=== PATIENT | female | born 1950 | race Caucasian/White ===

== ENCOUNTER 2019-08-09 05:47 | Day surgery (SDC) | payer MEDICARE, OTHER, SELFPAY ==
--- NOTE | 2019-08-08 08:46 | PM.HPUD ---
H&P update H&P Update: DATE OF SURGERY/PROCEDURE: 08/08/19 DATE H&P PERFORMED: 08/08/19 PLANNED PROCEDURE: Operation Date: 08/09/19 07:00 Proposed Procedures p Carpal Tunnel Release(Left) - Corby Ramsay MD Full H&P HPI: PLANNED PROCEDURE: Left carpal tunnel release HPI: The patient is a 68-year-old female who presented to my clinic on 06/20/2019 with complaints of carpal tunnel syndrome. She described a long history of problems actually beginning as far back as 1985. She underwent right carpal tunnel release at that time but continued to try to manage her left. He describes things steadily progressing. She frequently drops objects. She describes difficulty sleeping at night. ROS: ROS: She has no fevers or chills. She has no chest pain shortness of breath or palpitations. She has no cough or congestion. Has no history of anesthetic complications. She has no history of deep venous thromboses or pulmonary emboli. Pertinent Exam Findings: OTHER PERTINENT EXAM FINDINGS: HEAD: Normocephalic/atraumatic. NECK: Soft supple nontender. HEART: Normal heart sounds, regular rhythm. CHEST: Clear to auscultation. ABDOMEN: Soft nontender nondistended. On examination the patient's left wrist her wrist can be dorsiflexed 7 degrees and palmar flex 70 degrees. She can supinate 90 degrees and pronate 70 degrees. She has a positive Tinel sign over the left wrist. Her sensation is grossly intact to light touch. Pertinent Data: PERTINENT DATA: EMG nerve conduction studies were reviewed showing severe left carpal tunnel syndrome and mild to moderate left ulnar neuropathy. A&P Assessment and plan (1) Left carpal tunnel syndrome: The patient has been previously counseled and will proceed with left carpal tunnel release. Status: Acute Code(s): G56.02 - Carpal tunnel syndrome, left upper limb (2) Cubital tunnel syndrome on left: The patient has very mild EMG nerve conduction studies of the ulnar nerve. She does not appear to be symptomatic and I would suggest observation of her cubital tunnel syndrome. Status: Acute Code(s): G56.22 - Lesion of ulnar nerve, left upper limb
[2019-08-08 12:07] VITALS: BMI 23.2
[2019-08-09 06:07] VITALS: BP 111/60; PULSE 64; RESP 18; TEMP 36.6; O2SAT 98
--- NOTE | 2019-08-09 06:27 | ANES.PREANES ---
Pre-Anesthetic Assessment Pre-Anesthetic Assessment: Height/Weight: Height 1.57 m Weight 57.606 kg Temp Pulse Resp BP Pulse Ox 97.9 F 64 18 111/60 98 08/09/19 06:07 08/09/19 06:07 08/09/19 06:07 08/09/19 06:07 08/09/19 06:07 Preop Diagnosis: Left carpal tunnel Proposed Procedure: Operation Date: 08/09/19 07:00 Proposed Procedures p Carpal Tunnel Release(Left) - Corby Ramsay MD Familial anesthetic complications: None Was Beta Tiffany taken within 24 hours: Yes Last intake: Intake Last Liquid Date 08/09/19 Last Liquid Time 04:45 Last Solid Date 08/08/19 Last Solid Time 21:00 Social: Social History: No alcohol and No tobacco Exam: Pre-Anes Outpt Exam: alert, oriented x 3, clear to auscultation bilaterally and regular rate & rhythm Airway: Cervical ROM: WNL MP: 3 Dentition: Chipped Additional comments: missing teeth, Pulmonary: Pulmonary: None reported CV/HEM: Comments: had fast heart rate so takes metoprolol : : None reported Hepatic: Hepatic: None reported GI: GI: None reported Metabolic: Metabolic: DM and Thyroid Musc/skel: Musc/skel: None reported Anesthetic Plan: ASA status: II Anesthesia: MAC PFSH Anesthesia PFSH: Social History (Updated 08/08/19 @ 12:05 by Pushpa Poole) Smoking and tobacco status: never smoked Alcohol intake: never Data Anesthesia Cardiac Studies: No Data to Display
[2019-08-09 06:30] LABS: Glucose Point of Care 188 mg/dL (70-110)
[2019-08-09] MEDS: sodium chloride 0.9% 1,000 ML 30 ML IV (06:37)
[2019-08-09 08:13] VITALS: BP 96/54; PULSE 66; RESP 18; TEMP 36.1; O2SAT 95
--- NOTE | 2019-08-09 08:19 | PM.OP ---
Operative Report Date of procedure: 08/09/19 Pre-op Diagnosis: Left carpal tunnel Post-op diagnosis: same Post-op Findings: None Procedure Done: Left carpal tunnel release Pathology: none sent Surgeon: Corby Ramsay Anesthesia: MAC and Local Estimated blood loss (mL): 5 Tourniquet time (min): 6 Complications: No masses or space-occupying lesions were seen within the carpal tunnel Procedure: Patient was taken to the operating room and sedation provided by the anesthesia service. She was prepped and draped with the arm exposed. A timeout was performed. Initially the incision line was infiltrated with approximately 4 cc of half percent Marcaine. A 3 cm long incision was made in line with the fourth ray from the distal edge of the carpal tunnel extending proximally. The subcutaneous fat and palmar fascia was divided with a scalpel blade. Under loupe magnification the ulnar neurovascular bundle was identified distally. A hemostat could be passed under the transverse carpal ligament allowing the distal 25% to be divided. A slotted guide was then passed beneath the transverse carpal ligament and the middle 50% divided. Blunt scissors were then passed over the guide freeing the proximal ligament. The tourniquet was deflated. Hemostasis provided with electrocautery. Wound edges were infiltrated with an additional 6 cc of a half percent Marcaine solution. Skin edges were reapproximated with 3-0 Prolene. Sterile dressings were applied. The patient was taken to the recovery room in stable condition
[2019-08-09 08:38] VITALS: BP 131/68; PULSE 59; RESP 18; TEMP 36.1; O2SAT 97
== END 2019-08-09 09:20 | disposition home or self-care (01) ==
PROVIDERS: Family Provider Internal Medicine; Visit Provider Orthopaedic Surgery
PROC: (CPT 64721; principal; 2019-08-09 07:00)
DX: G56.02 Carpal tunnel syndrome, left upper limb (principal); E11.9 Type 2 diabetes mellitus without complications; Z79.4 Long term (current) use of insulin; G56.22 Lesion of ulnar nerve, left upper limb
CPT/HCPCS: 64721; 12345; 36416; 82962; 96365; J2001; J2704; J3010; J7030

== ENCOUNTER → 2020-03-14 16:12 | Outpatient (BNVA) | payer MEDICARE, OTHER, SELFPAY | PROVIDERS: Family Provider Internal Medicine; Visit Provider Internal Medicine | DX: K74.60 Unspecified cirrhosis of liver (principal); E11.9 Type 2 diabetes mellitus without complications; K75.81 Nonalcoholic steatohepatitis (NASH); B19.20 Unspecified viral hepatitis C without hepatic coma; R63.4 Abnormal weight loss; Z86.19 Personal history of other infectious and parasitic diseases | CPT/HCPCS: 80053; 80061; 82105; 83036; 85025 ==

== ENCOUNTER 2020-03-22 11:21 | Outpatient (CLI) | payer MEDICARE, OTHER, SELFPAY ==
[2020-03-22] MEDS: iohexol 300 mg/mL 50 mL Btl PO (12:53)
--- NOTE | 2020-03-22 13:00 | CT_ITS ---
WS: [id number] CT ABDOMEN AND PELVIS WITH CONTRAST HISTORY: history of cir TECHNIQUE: Imaging performed of the abdomen and pelvis with IV contrast. Single phase imaging of the abdomen. Coronal and sagittal reformats are submitted. All CT scans at [facility] use at least one of these dose optimization techniques: automated exposure control; mA and/or kV adjustment per patient size (includes targeted exams where dose is matched to clinical indication); or iterativ e reconstruction. IV CONTRAST: Omnipaque 300; 95 mL IV. Oral contrast: Yes. DLP: 1081.37 mGycm COMPARISON: 12/10/2016 Lower thorax: Lung bases are clear. Moderate cardiac enlargement. Small hiatal hernia. Paraesophageal varicosities. Liver/biliary system: Small shrunken liver with significant surface nodularity and caudate enlargemen t from cirrhosis. Mild central duct dilatation. Cyst in the lateral segment LEFT lobe of the liver me asures 2.6 cm. Too small to to characterize hypodensity in the RIGHT lobe. May be a small cyst. Gallbladder: Prior cholecystectomy. Pancreas: Common bile duct at pancreatic head measures 9.7 mm. Mild prominence to the cholecystectomy . No pancreatic head mass. Spleen: Normal. Adrenal glands: Normal. Right kidney: Cortical cyst mid kidney measures 19 mm. Small extrarenal pelvis. No obstruction. Left kidney: Cortical cyst upper pole measures 10 mm. Small extrarenal pelvis. Aorta: No aneurysm. Mild atherosclerosis. There is mild soft tissue thickening around the inferior me senteric artery which is similar to the prior study. Lymphadenopathy: None. Free fluid: None. GI tract: No GI tract obstruction. There is significant fecal retention. No diverticular disease. Abdominal wall: Small amount of edema or soft tissue thickening along the anterior abdominal wall. Si milar to the prior study. Pelvis: Small anteverted uterus. Bones: Unremarkable. CT/CT abdomen pelvis w con* [id number] IMPRESSION: 1. Marked cirrhosis with hepatic cyst. 2. Prior cholecystectomy. 3. No adenopathy or ascites. 4. Diffuse constipation. 5. Bilateral renal cysts.
[2020-03-22] MEDS: iohexol 300 mg/mL 100 mL Btl IV (13:09)
== END 2020-03-22 11:22 | disposition home or self-care (01) ==
LOC: RADWPI 11:27
PROVIDERS: Family Provider Internal Medicine; PCP Internal Medicine; Visit Provider Internal Medicine
DX: R63.4 Abnormal weight loss (principal); K74.60 Unspecified cirrhosis of liver; K59.00 Constipation, unspecified; K76.89 Other specified diseases of liver; Q61.02 Congenital multiple renal cysts
CPT/HCPCS: 74177; Q9967

== ENCOUNTER → 2020-06-26 14:37 | Outpatient (BNVA) | payer MEDICARE, OTHER, SELFPAY | PROVIDERS: Family Provider Internal Medicine; PCP Internal Medicine; Visit Provider Internal Medicine | DX: E11.9 Type 2 diabetes mellitus without complications (principal); Z00.00 Encounter for general adult medical examination without abnormal findings; K74.60 Unspecified cirrhosis of liver; K21.9 Gastro-esophageal reflux disease without esophagitis | CPT/HCPCS: 83036 ==

== ENCOUNTER 2021-04-10 10:29 | Outpatient (CLI) | payer MEDICARE, OTHER, SELFPAY ==
--- NOTE | 2021-04-10 10:34 | MM_ITS ---
WS: [id number] Exam: [place] [id number] Date/Time of Exam: 04/10/2021 10:46 AM Reason For Exam: SCREENING VIEWS: MLO and CC views both breasts. Comparison made with prior exam of 09/18/2016, 12/10/2017 and 03/27/2019. Findings: There was no sign of mass, architectural distortion or suspicious calcification in either breast. He terogeneously dense MM/[place] [id number] Impression: BI-RADS: 2-Benign FOLLOW-UP: 1 Year Follow-up This mammogram was also analyzed by the Computer Aided Detection System [employer].
== END 2021-04-10 10:30 | disposition home or self-care (01) ==
LOC: RADSHAW 10:33
PROVIDERS: PCP Family Medicine; Visit Provider Family Medicine
DX: Z12.31 Encounter for screening mammogram for malignant neoplasm of breast (principal)
CPT/HCPCS: 77067

== ENCOUNTER 2021-07-02 15:42 | Emergency (ER) | payer MEDICARE, OTHER, SELFPAY ==
[2021-07-02 15:52] VITALS: BP 136/63; PULSE 76; RESP 18; TEMP 37.1; O2SAT 98
--- NOTE | 2021-07-02 16:13 | ED_ITS ---
Documented by User: STUART Karus 07/02/21 16:15 HPI - Abdominal Pain General: Chief Complaint: Abdominal Pain Stated Complaint: BAD LIVER AND FELL ON THAT SIDE EXTENDED STOMACH Time Seen by Provider: 07/02/21 16:12 History of Present Illness: HPI narrative: Patient states she fell 4 days ago and landed on her right side did not have any acute pain but a day later she started hurting pretty bad and her right upper quadrant. States that her abdomen is 3 is times a size and normal now and feels very uncomfortable. Does not affect her breathing. Has had history hepatitis C. Treated. MD elicited complaint: abdominal pain Pertinent past history: other (Hep C in remission) Onset (ago): day(s) Pain Consistency: constant Location: Epigastric, Periumbilical and RUQ Severity: moderate Quality: fullness Migration to: no migration Exacerbating factors: movement Relieving factors: rest Context: other (Liver cirrhosis) Associated Symptoms: Reports bloating and other (Decreased appetite); Denies chills, fever(s) and nausea Review of Systems Const: Denies: fever(s), chills or body aches Eyes: Denies: change in vision or blurry vision ENMT: Denies: throat pain or nasal congestion Card: Denies: chest pain or dyspnea on exertion Resp: Denies: dyspnea, productive cough or non-productive cough GI: Reports: abdominal pain, bloating and other (Decreased appetite); Denies: nausea Musc: Denies: extremity pain Skin/Breast: Denies: rash Neuro: Denies: headache(s) Psych: Denies: anxiety or depression Saulo/Lymph: Denies: easy bruising PFSH ED PFSH: Medical History Diabetes mellitus, type II Gastroesophageal reflux Hepatitis C Surgical History History of carpal tunnel surgery of left wrist History of carpal tunnel surgery of right wrist Hx laparoscopic cholecystectomy Social History Smoking and tobacco status: never smoked Alcohol intake: never History of recent travel: No Physical Exam Const: COMMON NORMALS: no acute distress, average body habitus and patient oriented x3 HENMT: COMMON NORMALS: normocephalic HEAD & SCALP: normal to inspection and normocephalic FACE & SINUS: normal facial exam Eye: GENERAL EYE: appearance normal, both eyes and all related structures CONJUNCTIVA: Yes conjunctival abnormal positive bilateral (Mild jaundice) SCLERA: scleral abnormal Laterality of scleral abnormality: positive bilateral other (Don is) Neck/C-Spine: COMMON NORMALS: no JVD Chest: COMMONS NORMALS: normal inspection of the chest Resp: COMMON NORMALS: normal respiratory effort and clear to auscultation bilaterally AUSCULTATION: clear to auscultation bilaterally Cardio: COMMON NORMALS: no JVD, regular rate and regular rhythm RATE: regular rate RHYTHM: regular rhythm GI: COMMON NORMALS: Normal to inspection, nondistended, normoactive bowel sounds present Extremity: COMMON NORMALS: normal to inspection and full ROM Neuro: COMMON NORMALS: patient oriented x3 Skin: NARRATIVE SKIN EXAM: Slight jaundice Course Vital Signs: Vital signs: Vital Signs Temperature 98.1 F 07/02/21 21:18 Pulse Rate 70 07/02/21 21:18 Respiratory Rate 18 07/02/21 21:18 Blood Pressure 137/64 07/02/21 21:18 Pulse Oximetry 98 07/02/21 21:18 MDM - Abdominal Pain Lab Data: Labs: Lab Results 07/02/21 07/02/21 16:30 16:30 WBC 9.4 10^3/uL 10^3/ uL (4.0-10.0) RBC 3.08 10^6/uL L 10 ^6/uL (4.1-5.3) Hgb 11.4 g/dL L g/dL (11.5-15.3) Hct 33.2 % L % (37.0-47.0) MCV 107.8 fl H fl (81-99) MCH 37.0 pg H pg (28.0-34.0) MCHC 34.3 g/dL g/dL (30.0-36.0) RDW 14.6 % % (12.1-15.1) Plt Count 93 10^3/cmm L 10^ 3/cmm (130-400) MPV 11.4 fL H fL (7.4-10.4) Neut % (Auto) 77.6 % % Lymph % (Auto) 9.8 % % [place] % (Auto) 8.9 % % Eos % (Auto) 2.6 % % Baso % (Auto) 0.6 % % Neut # (Auto) 7.26 10^3/uL 10^3 /uL (1.8-7.7) Lymph # (Auto) 0.9 10^3/uL 10^3/ uL (0.8-4.8) [place] # (Auto) 0.8 10^3/uL 10^3/ uL (0.2-0.9) Eos # (Auto) 0.2 10^3/uL 10^3/ uL (0.0-0.8) Baso # (Auto) 0.1 10^3/uL 10^3/ uL (0.0-0.1) Nucleated RBC % (a uto) 0 % % Nucleated RBCs # 0.0 /100WBC /100W BC Sodium 136 mmol/L mmol/L (136-145) Potassium 4.3 mmol/L mmol/L (3.5-5.1) Chloride 105 mmol/L mmol/L (98-107) Carbon Dioxide 21 mmol/L L mmol/ L (22-29) Anion Gap 14.3 (5-19) BUN 17 mg/dL mg/dL (8-23) Creatinine 0.8 mg/dL mg/dL (0.5-0.9) GFR Calculation 70.9 mL/min L mL/ min (90-130) Glucose 198 mg/dL H mg/dL (65-115) Calculated Osmolal ity 289 mOsm/kg mOsm/ kg (285-295) Calcium 7.7 mg/dL L mg/dL (8.5-10.5) Total Bilirubin 2.9 mg/dL H mg/dL (0.15-1.2) AST 65 U/L H U/L (0-32) ALT 52 U/L H U/L (0-33) Alkaline Phosphata se 176 IU/L H IU/L (35-105) Total Protein 6.0 g/dL L g/dL (6.6-8.7) Albumin 2.7 g/dL L g/dL (3.5-5.2) Globulin 3.3 g/dL g/dL (1.3-4.6) Discharge Plan Discharge Patient Disposition: Home Clinical Impression: Liver cirrhosis Qualifiers: Hepatic cirrhosis type: other cirrhosis Qualified Code(s): K74.69 - Other cirrhosis of liver Ascites Qualifiers: Ascites type: other type Qualified Code(s): R18.8 - Other ascites Condition: Stable Prescriptions: No Action meloxicam 15 mg tablet 15 mg PO DAILY Qty: 90 RF: 3 hydroxyzine HCl 10 mg tablet 10 mg PO .qhs Qty: 90 RF: 3 triamcinolone acetonide 0.1 % ointment 1 applic topical BID Qty: 80 RF: 1 mupirocin 2 % ointment 1 applic topical BID Qty: 22 RF: 2 (DME) BD Insulin Syringe U-500 1/2 mL 31 gauge x 15/64 syringe See Rx Instructions .ROUTE .MEDSUPPLY Qty: 100 RF: 3 levothyroxine 88 mcg tablet See Rx Instructions .ROUTE .COMPLEX Qty: 90 RF: 3 Novolog PenFill U-100 Insulin 18 units SUBCUT .TID AC Qty: 17 RF: 3 metoprolol tartrate 50 mg tablet 50 mg PO DAILY Qty: 90 RF: 3 (DME) insulin syringe-needle U-100 [BD Insulin Syringe Ultra-Fine] 1 mL 31 gauge x 5/16 syringe See Rx Instructions .ROUTE .MEDSUPPLY Qty: 100 RF: 3 loratadine 10 mg tablet 20 mg PO DAILY Qty: 10 RF: 0 (DME) pen needle, diabetic [Comfort EZ Pen [place]] 32 gauge x 5/32 needle See Rx Instructions .ROUTE .MEDSUPPLY Qty: 100 RF: 0 Levemir U-100 Insulin 100 unit/mL solution See Rx Instructions .ROUTE .COMPLEX Qty: 30 RF: 9 [place] 5-325 mg tablet 1 tab PO Q4H PRN (Reason: pain) Qty: 20 RF: 0 simvastatin 20 mg tablet 20 mg PO DAILY Qty: 90 RF: 3 Discharge Orders: Discharge ED (Routine); Ordered 07/02/21 Ordered By: Archie Pearson Referrals: Donal Fernandes MD [Primary Care Provider] - Discharge Diet: Regular Discharge Activity: Increase activity as tolerated Patient Instructions: Cirrhosis (ED), Ascites (ED), Opioid Safety Activity Restrictions/Additional Instructions: Follow-up with medical provider as directed. Contact your PCP to let them know about your ED visit and your onset of liver cirrhosis with ascites and you need for out patient paracentesis. Case management should be contacting you in the next several days set up an appointment with specialist. take medications as prescribed. Return to the ER or your medical provider if condition worsens. Please read and understand discharge instructions. Thank you for choosing [facility] for your healthcare needs today. Please realize this is an emergency room and that we are providing you with a medical screening exam and this may not be complete and all inclusive of all the testing and or work up that you may need to determine your ailment or severity of your illness. It is very important that you follow up as instructed or that you return to the Emergency Department should you have concerns or if your condition changes or worsens in any way. Sign Out Sign Out Data: Patient Sign Out occurred on 07/02/21 at 17:07. Patient's care was discussed, and care was transferred from to THAIS Canas. Coding Level of Care Code ED Flight Operations Specialist for Chg Fwd Exam Comprehensive Documented by User: THAIS Canas 07/03/21 00:41 HPI - Abdominal Pain General: Chief Complaint: Abdominal Pain Stated Complaint: BAD LIVER AND FELL ON THAT SIDE EXTENDED STOMACH Time Seen by Provider: 07/02/21 16:12 [facility] ED PFSH: Medical History Diabetes mellitus, type II Gastroesophageal reflux Hepatitis C Surgical History History of carpal tunnel surgery of left wrist History of carpal tunnel surgery of right wrist Hx laparoscopic cholecystectomy Social History Smoking and tobacco status: never smoked Alcohol intake: never History of recent travel: No Course Vital Signs: Vital signs: Vital Signs Temperature 98.1 F 07/02/21 21:18 Pulse Rate 70 07/02/21 21:18 Respiratory Rate 18 07/02/21 21:18 Blood Pressure 137/64 07/02/21 21:18 Pulse Oximetry 98 07/02/21 21:18 MDM - Abdominal Pain MDM Narrative: Medical decision making narrative: Patient is a 70-year-old female comes to the ED with right-sided abdominal pain and swelling. Past medical history of hepatitis C and liver cirrhosis. Patient had a fall 4 days ago and states that symptoms started after that. Total bili 2.9, AST 65, ALT 52, alk phos 176. Rest of CBC and CMP were unremarkable. CT of abdomen pelvis showed significant liver cirrhosis with large ascites. Patient says she has never had to have fluid drained off her abdomen before. I talked with Dr. Arenas about patient case and he said patient needs an outpatient IR paracentesis.I put in a referral with case management for patient be set up with a specialist for evaluation and paracentesis. Patient was discharged home and told that case management should be contacting her in the next several days to set up an appointment with a specialist. I also told her to contact her PCP to discuss her liver cirrhosis with ascites. She was discharged home with a prescription for oxycodone 5 for pain. Return to ED precautions given. Patient understood and agreed with plan. Lab Data: Attestation: I reviewed the patient's lab results. Labs: Lab Results 07/02/21 07/02/21 16:30 16:30 WBC 9.4 10^3/uL 10^3/ uL (4.0-10.0) RBC 3.08 10^6/uL L 10 ^6/uL (4.1-5.3) Hgb 11.4 g/dL L g/dL (11.5-15.3) Hct 33.2 % L % (37.0-47.0) MCV 107.8 fl H fl (81-99) MCH 37.0 pg H pg (28.0-34.0) MCHC 34.3 g/dL g/dL (30.0-36.0) RDW 14.6 % % (12.1-15.1) Plt Count 93 10^3/cmm L 10^ 3/cmm (130-400) MPV 11.4 fL H fL (7.4-10.4) Neut % (Auto) 77.6 % % Lymph % (Auto) 9.8 % % [place] % (Auto) 8.9 % % Eos % (Auto) 2.6 % % Baso % (Auto) 0.6 % % Neut # (Auto) 7.26 10^3/uL 10^3 /uL (1.8-7.7) Lymph # (Auto) 0.9 10^3/uL 10^3/ uL (0.8-4.8) [place] # (Auto) 0.8 10^3/uL 10^3/ uL (0.2-0.9) Eos # (Auto) 0.2 10^3/uL 10^3/ uL (0.0-0.8) Baso # (Auto) 0.1 10^3/uL 10^3/ uL (0.0-0.1) Nucleated RBC % (a uto) 0 % % Nucleated RBCs # 0.0 /100WBC /100W BC Sodium 136 mmol/L mmol/L (136-145) Potassium 4.3 mmol/L mmol/L (3.5-5.1) Chloride 105 mmol/L mmol/L (98-107) Carbon Dioxide 21 mmol/L L mmol/ L (22-29) Anion Gap 14.3 (5-19) BUN 17 mg/dL mg/dL (8-23) Creatinine 0.8 mg/dL mg/dL (0.5-0.9) GFR Calculation 70.9 mL/min L mL/ min (90-130) Glucose 198 mg/dL H mg/dL (65-115) Calculated Osmolal ity 289 mOsm/kg mOsm/ kg (285-295) Calcium 7.7 mg/dL L mg/dL (8.5-10.5) Total Bilirubin 2.9 mg/dL H mg/dL (0.15-1.2) AST 65 U/L H U/L (0-32) ALT 52 U/L H U/L (0-33) Alkaline Phosphata se 176 IU/L H IU/L (35-105) Total Protein 6.0 g/dL L g/dL (6.6-8.7) Albumin 2.7 g/dL L g/dL (3.5-5.2) Globulin 3.3 g/dL g/dL (1.3-4.6) Imaging Data ^: CT Abd/Pel: Attestation: I personally reviewed and interpreted this imaging study as follows: Radiologist's impression: [facility] [address] [place] [address] CT Scan Report Signed Patient: Natacha Linares Unit #: [id number] : 1950 Age/Sex: 70 / F ADM Date: 07/02/21 Loc: ER Room/Bed: Attending Dr: Ordering Provider/Ordering MD: Adelso Almeida Sr, MOTOR TEACHER-SAHHRZAD Date of Service: 07/02/21 Procedure(s): CT abdomen pelvis w con* [id number] Accession Number(s): [id number] Report Number: [id number] PROCEDURE INFORMATION: Exam: CT Abdomen And Pelvis With Contrast Exam date and time: 07/02/2021 4:12 PM Age: 70 years old Clinical indication: Injury or trauma; Fall; Blunt; Generalized; Prior surgery; Surgery type: Gb; Additional info: Fall, pain, enlarged abd TECHNIQUE: Imaging protocol: Computed tomography of the abdomen and pelvis with contrast. Radiation optimization: All CT scans at this facility use at least one of these dose optimization techniques: automated exposure control; mA and/or kV adjustment per patient size (includes targeted exams where dose is matched to clinical indication); or iterative reconstruction. Contrast material: OMNI 300; Contrast volume: 95 ml; Contrast route: INTRAVENOUS (IV); COMPARISON: CT abdomen pelvis w con* [id number] 03/22/2020 1:06 PM RADIATION DOSE METRICS: Total DLP (mGy-cm): 1222.68 FINDINGS: Lungs: The lung bases are clear except for lingular atelectasis. Liver: There is a chronic 2 cm simple cyst in the left hepatic lobe. However the liver surface is diffusely nodular indicative of cirrhosis. Gallbladder and bile ducts: The gallbladder is surgically absent. Pancreas: Normal. No ductal dilation. Spleen: Normal. No splenomegaly. Adrenal glands: Normal. No mass. Kidneys and ureters: Several bilateral simple renal cysts up to 2 cm. 3 mm nonobstructing right intrarenal calculus. Stomach and bowel: Generalized small bowel wall thickening and proximal colonic wall thickening might be due to portal hypertension. Varices are noted in the left upper quadrant and around the esophagus and stomach. Appendix: No evidence of appendicitis. Intraperitoneal space: There is new large ascites extending into all 4 quadrants. Vasculature: See Stomach and bowel finding. Lymph nodes: Unremarkable. No enlarged lymph nodes. Urinary bladder: Unremarkable as visualized. Reproductive: Unremarkable uterus for age. Bones/joints: No acute bony findings. Soft tissues: Unremarkable. CT/CT abdomen pelvis w con* [id number] IMPRESSION: 1. Significant liver cirrhosis with large ascites and evidence of portal hypertension including varices and mesenteric edema with bowel wall thickening. 2. Other incidental findings as described COMMENTS: Consistent with the [employer]'s Incidental Findings Committee white paper (J Am Tad Radiol 2018): Any incidental renal lesion less than 1 cm or classified as too small to characterize, or any incidental cystic renal lesion characterized as simple-appearing, is likely benign. No follow-up imaging is recommended for these lesions per consensus recommendations based on imaging criteria. Dictated By: Orestes Soliman MD Signed By: Orestes Soliman MD Signed Date/Time: 07/02/212012 DD/ 1612 Discharge Plan Discharge Patient Disposition: Home Clinical Impression: Liver cirrhosis Qualifiers: Hepatic cirrhosis type: other cirrhosis Qualified Code(s): K74.69 - Other cirrhosis of liver Ascites Qualifiers: Ascites type: other type Qualified Code(s): R18.8 - Other ascites Condition: Stable Prescriptions: No Action meloxicam 15 mg tablet 15 mg PO DAILY Qty: 90 RF: 3 hydroxyzine HCl 10 mg tablet 10 mg PO .qhs Qty: 90 RF: 3 triamcinolone acetonide 0.1 % ointment 1 applic topical BID Qty: 80 RF: 1 mupirocin 2 % ointment 1 applic topical BID Qty: 22 RF: 2 (DME) BD Insulin Syringe U-500 1/2 mL 31 gauge x 15/64 syringe See Rx Instructions .ROUTE .MEDSUPPLY Qty: 100 RF: 3 levothyroxine 88 mcg tablet See Rx Instructions .ROUTE .COMPLEX Qty: 90 RF: 3 Novolog PenFill U-100 Insulin 18 units SUBCUT .TID AC Qty: 17 RF: 3 metoprolol tartrate 50 mg tablet 50 mg PO DAILY Qty: 90 RF: 3 (DME) insulin syringe-needle U-100 [BD Insulin Syringe Ultra-Fine] 1 mL 31 gauge x 5/16 syringe See Rx Instructions .ROUTE .MEDSUPPLY Qty: 100 RF: 3 loratadine 10 mg tablet 20 mg PO DAILY Qty: 10 RF: 0 (DME) pen needle, diabetic [Comfort EZ Pen [place]] 32 gauge x 5/32 needle See Rx Instructions .ROUTE .MEDSUPPLY Qty: 100 RF: 0 Levemir U-100 Insulin 100 unit/mL solution See Rx Instructions .ROUTE .COMPLEX Qty: 30 RF: 9 [place] 5-325 mg tablet 1 tab PO Q4H PRN (Reason: pain) Qty: 20 RF: 0 simvastatin 20 mg tablet 20 mg PO DAILY Qty: 90 RF: 3 Discharge Orders: Discharge ED (Routine); Ordered 07/02/21 Ordered By: Archie Pearson Referrals: Donal Fernandes MD [Primary Care Provider] - Discharge Diet: Regular Discharge Activity: Increase activity as tolerated Patient Instructions: Cirrhosis (ED), Ascites (ED), Opioid Safety Activity Restrictions/Additional Instructions: Follow-up with medical provider as directed. Contact your PCP to let them know about your ED visit and your onset of liver cirrhosis with ascites and you need for out patient paracentesis. Case management should be contacting you in the next several days set up an appointment with specialist. take medications as prescribed. Return to the ER or your medical provider if condition worsens. Please read and understand discharge instructions. Thank you for choosing [facility] for your healthcare needs today. Please realize this is an emergency room and that we are providing you with a medical screening exam and this may not be complete and all inclusive of all the testing and or work up that you may need to determine your ailment or severity of your illness. It is very important that you follow up as instructed or that you return to the Emergency Department should you have concerns or if your condition changes or worsens in any way. Sign Out Sign Out Data: Patient Sign Out occurred on 07/02/21 at 17:07. Patient's care was discussed, and care was transferred from to THAIS Canas. Coding Level of Care Code ED Flight Operations Specialist for Raúl Fwtate Exam Comprehensive
[2021-07-02 16:36] LABS: Basophils # 0.1 10^3/uL (0.0-0.1); Basophils % 0.6 %; Eosinophils # 0.2 10^3/uL (0.0-0.8); Eosinophils % 2.6 %; Hematocrit 33.2 % (37.0-47.0); Hemoglobin 11.4 g/dL (11.5-15.3); Lymphocytes # 0.9 10^3/uL (0.8-4.8); Lymphocytes % 9.8 %; Mean Corpuscular HGB Conc 34.3 g/dL (30.0-36.0); Mean Corpuscular Volume 107.8 fl (81-99); Mean Platelet Volume 11.4 fL (7.4-10.4); Monocytes # 0.8 10^3/uL (0.2-0.9); Monocytes % 8.9 %; Neutrophils # 7.26 10^3/uL (1.8-7.7); Neutrophils % 77.6 %; Nucleated Red Blood Cells % 0 %; Platelet Count 93 10^3/cmm (130-400); Red Blood Count 3.08 10^6/uL (4.1-5.3); Red Cell Distribution Width 14.6 % (12.1-15.1); White Blood Count 9.4 10^3/uL (4.0-10.0)
[2021-07-02 16:54] LABS: Alanine Aminotransferase 52 U/L (0-33); Albumin Level 2.7 g/dL (3.5-5.2); Alkaline Phosphatase 176 IU/L (35-105); Anion Gap 14.3 (5-19); Aspartate Amino Transferase 65 U/L (0-32); Blood Urea Nitrogen 17 mg/dL (8-23); Calcium 7.7 mg/dL (8.5-10.5); Carbon Dioxide 21 mmol/L (22-29); Chloride 105 mmol/L (98-107); Globulin 3.3 g/dL (1.3-4.6); Glomerular Filtration Rate 70.9 mL/min (90-130); Glucose 198 mg/dL (65-115); Osmolality Calculated 289 mOsm/kg (285-295); Potassium 4.3 mmol/L (3.5-5.1); Sodium 136 mmol/L (136-145); Total Bilirubin 2.9 mg/dL (0.15-1.2)
[2021-07-02] MEDS: iohexol 300 mg/mL 100 mL Btl IV (18:56)
--- NOTE | 2021-07-02 20:41 | PC.NURSE ---
provider at bedside speaking with patient. patient in no obvious distress.
[2021-07-02 21:01] VITALS: BP 137/64; PULSE 70; RESP 18; TEMP 36.7; O2SAT 98
[2021-07-02 21:12] VITALS: RESP 18; O2SAT 98
[2021-07-02] MEDS: oxyCODONE 5 mg IR Tab/Cap PO (21:12)
[2021-07-02 21:18] VITALS: BP 137/64; PULSE 70; RESP 18; TEMP 36.7; O2SAT 98
--- NOTE | 2021-07-03 09:40 | PC.SOCIAL ---
ED referral received by Dr Pearson for Interventional Radiology Paracentesis and follow up with specialist regarding liver cirrhosis and ascites. Call placed to patient and she prefers the [facility] network in [place] for Operations/Dispatch. Called [facility] and received phone and fax to send referral. Referral sent with fax confirmation received was sent successfully. Order written and signed by Dr Donnelly teenage program director to schedule the outpatient Paracentesis with IR. Faxed to [facility] scheduling with confirmation that fax was sent successfully. Patient is aware we are working on this. [facility] CM will followup on both appts. Patient did indicate she is able to make it to appt in [place] once scheduled and has transportation.
--- NOTE | 2021-07-08 13:55 | DCPLANNER ---
Addendum entered by Yessenia Benson 08/13/21 08:25: Patient had an appointment for the on 07.23.21 - patient did attend. Patient has an appointment with [facility] in [place] on 08.25.21 - patient is aware of appointment. Original Note: order manager confirmed with centralized scheduling that order was received for outpatient procedure. order manager also called [facility] to confirm that patients referral was received. order manager was told that clinic did not get the referral, community case manager refaxed patients information to [facility]
== END 2021-07-02 21:21 | disposition home or self-care (01) ==
PROVIDERS: Nurse Practitioner Family; Emergency Provider Physician Assistant; PCP Family Medicine
DX: K74.69 Other cirrhosis of liver (principal); R18.8 Other ascites; Z79.4 Long term (current) use of insulin; E11.9 Type 2 diabetes mellitus without complications; Z86.19 Personal history of other infectious and parasitic diseases
CPT/HCPCS: 74177; 80053; 85025; 99283; Q9967

== ENCOUNTER 2021-07-20 10:51 | Emergency (ER) | payer MEDICARE, OTHER, SELFPAY ==
[2021-07-20 11:12] VITALS: BP 126/67; PULSE 70; RESP 12; TEMP 36.3; O2SAT 98; BMI 22.4
[2021-07-20 14:45] LABS: Basophils # 0.1 10^3/uL (0.0-0.1); Basophils % 0.5 %; Eosinophils % 0.1 %; Hemoglobin 12.1 g/dL (11.5-15.3); Lymphocytes # 0.6 10^3/uL (0.8-4.8); Lymphocytes % 5.2 %; Mean Corpuscular HGB Conc 32.7 g/dL (30.0-36.0); Mean Corpuscular Hemoglobin 35.8 pg (28.0-34.0); Mean Corpuscular Volume 109.5 fl (81-99); Mean Platelet Volume 11.6 fL (7.4-10.4); Monocytes % 9.6 %; Neutrophils # 8.85 10^3/uL (1.8-7.7); Neutrophils % 84.1 %; Nucleated Red Blood Cells % 0 %; Platelet Count 87 10^3/cmm (130-400); Red Blood Count 3.38 10^6/uL (4.1-5.3); White Blood Count 10.5 10^3/uL (4.0-10.0)
--- NOTE | 2021-07-20 15:03 | W.ED.ABDPA2 ---
HPI - Abdominal Pain General: Chief Complaint: Abdominal Pain Stated Complaint: SEVERE PAIN IN RIGHT SIDE OF BACK, SOB Time Seen by Provider: 07/20/21 14:24 Source: patient and family History of Present Illness: HPI narrative: 70-year-old female with known history of cirrhotic liver disease presents to the emergency department chief complaint of right-sided flank pain and difficulty with urination has been ongoing progressively worse over the last day. Patient does not recall having any known history of any kidney stones. Reports this episode was prior to arrival that woke her up while in bed reports it was sharp in nature with radiation to the front patient does not recall any pre-existing history of pancreatitis reports that her cirrhotic liver disease is due to hepatitis C infection. The patient does not recall any recent infections or illnesses or recent trauma. Patient presents to the ER for further assessment and management she does report that she was going to get a paracentesis in the near future however she was recently placed on some diuretics by her primary care doctor in which her abdominal distention and full feeling has went down. MD elicited complaint: abdominal pain and flank pain Location: R flank Severity: moderate Pain scale (0-10): 6 Quality: cramping, stabbing and aching Radiation: RUQ Migration to: no migration Exacerbating factors: nothing Relieving factors: nothing Associated Symptoms: Reports nausea; Denies chills, fever(s) and vomiting Review of Systems General: Reports: 10 or more systems reviewed and unremarkable except in HPI and below Const: Denies: fever(s), chills, fatigue or malaise Eyes: Denies: change in vision or blurry vision Card: Denies: chest pain or palpitations Resp: Denies: dyspnea or productive cough GI: Reports: abdominal pain and nausea; Denies: vomiting : Denies: flank pain Musc: Denies: extremity pain or extremity swelling Skin/Breast: Denies: rash or pruritus Neuro: Denies: headache(s) Psych: Denies: anxiety or depression Saulo/Lymph: Denies: easy bleeding All/Imm: Denies: urticaria, throat swelling or facial swelling PFS ED PFSH: Medical History (Updated 07/20/21 @ 17:03 by Daniel Kwok) Diabetes mellitus, type II Gastroesophageal reflux Hepatitis C Surgical History History of carpal tunnel surgery of left wrist History of carpal tunnel surgery of right wrist Hx laparoscopic cholecystectomy Social History Smoking and tobacco status: never smoked Alcohol intake: never History of recent travel: No Physical Exam Narrative: EXAM NARRATIVE: Patient currently appears nontoxic appears no obvious acute distress. Const: COMMON NORMALS: no acute distress, patient oriented x3 and healthy appearing HENMT: COMMON NORMALS: normocephalic and atraumatic HEAD & SCALP: normocephalic and atraumatic Eye: COMMON NORMALS: Equal, round and reactive pupils present and EOMs intact bilaterally PUPIL: Yes Equal, round and reactive pupils present Neck/C-Spine: COMMON NORMALS: full ROM, supple and no JVD Lymph: LYMPHATIC: no lymphadenopathy noted Chest: COMMONS NORMALS: normal inspection of the chest and normal palpation of entire chest wall Resp: COMMON NORMALS: normal respiratory effort, No retractions and clear to auscultation bilaterally EFFORT & INSPECTION: Yes able to speak in complete sentences and Yes symmetric chest movement AUSCULTATION: clear to auscultation bilaterally Cardio: COMMON NORMALS: no JVD, regular rate and regular rhythm RATE: regular rate RHYTHM: regular rhythm GI: COMMON NORMALS: Normal to inspection, nondistended, normoactive bowel sounds present (There isNo current appreciable abdominal tenderness noted on exam or flank ), Soft to palpation and non-tender INSPECTION: Yes normal to inspection PALPATION: Yes Soft to palpation : COMMON NORMALS: Yes no CVA tenderness BLADDER/KIDNEY EXAM: Yes no CVA tenderness Back/Pelvis: COMMON NORMALS: no CVA tenderness Extremity: COMMON NORMALS: normal to inspection and full ROM Neuro: COMMON NORMALS: patient oriented x3, CN's II-XII intact bilaterally, moves all extremities and no focal motor deficits Psych: COMMON NORMALS: mental status grossly normal, Normal thought process present, cooperative and normal affect THOUGHT PROCESS: Normal thought process present Skin: COMMON NORMALS: no rashes or lesions noted GENERAL SKIN EXAM: no rashes or lesions noted Course ED course: Due to the patient's symptoms and condition lab work imaging will be obtained we will continue to follow currently she is asymptomatic reporting no current pain due to her pre-existing liver disease will be doing a CT abdomen pelvis with IV contrast. Cast imaging revealed kidney stone on the right recently passed otherwise unremarkable remainder lab work reveals chronic liver disease that appears to be chronic for this patient patient is in no pain at this time she will be subsequent discharged home in the care of her family advised to follow-up primary care as needed in 3 to 5 days which is advised return the interim if any of her symptoms persist or worse. Vital Signs: Vital signs: Vital Signs Temperature 97.4 F L 07/20/21 11:12 Pulse Rate 70 07/20/21 11:12 Respiratory Rate 12 07/20/21 11:12 Blood Pressure 126/67 07/20/21 11:12 Pulse Oximetry 98 07/20/21 11:12 MDM - Abdominal Pain Lab Data: Labs: Lab Results 07/20/21 07/20/21 07/20/21 14:03 14:22 14:22 WBC 10.5 10^3/uL H 10 ^3/uL (4.0-10.0) RBC 3.38 10^6/uL L 10 ^6/uL (4.1-5.3) Hgb 12.1 g/dL g/dL (11.5-15.3) Hct 37.0 % % (37.0-47.0) MCV 109.5 fl H fl (81-99) MCH 35.8 pg H pg (28.0-34.0) MCHC 32.7 g/dL g/dL (30.0-36.0) RDW 14.0 % % (12.1-15.1) Plt Count 87 10^3/cmm L 10^ 3/cmm (130-400) MPV 11.6 fL H fL (7.4-10.4) Neut % (Auto) 84.1 % % Lymph % (Auto) 5.2 % % Wilson % (Auto) 9.6 % % Eos % (Auto) 0.1 % % Baso % (Auto) 0.5 % % Neut # (Auto) 8.85 10^3/uL H 10 ^3/uL (1.8-7.7) Lymph # (Auto) 0.6 10^3/uL L 10^ 3/uL (0.8-4.8) Wilson # (Auto) 1.0 10^3/uL H 10^ 3/uL (0.2-0.9) Eos # (Auto) 0.0 10^3/uL 10^3/ uL (0.0-0.8) Baso # (Auto) 0.1 10^3/uL 10^3/ uL (0.0-0.1) Nucleated RBC % (a uto) 0 % % Nucleated RBCs # 0.0 /100WBC /100W BC Sodium 128 mmol/L L mmol /L (136-145) Potassium 5.2 mmol/L H mmol /L (3.5-5.1) Chloride 98 mmol/L mmol/L (98-107) Carbon Dioxide 18 mmol/L L mmol/ L (22-29) Anion Gap 17.2 (5-19) BUN 17 mg/dL mg/dL (8-23) Creatinine 0.8 mg/dL mg/dL (0.5-0.9) GFR Calculation 70.9 mL/min L mL/ min (90-130) Glucose 109 mg/dL mg/dL (65-115) Calculated Osmolal ity 268 mOsm/kg L mOs m/kg (285-295) Lactate Calcium 8.1 mg/dL L mg/dL (8.5-10.5) Total Bilirubin 3.0 mg/dL H mg/dL (0.15-1.2) AST 59 U/L H U/L (0-32) ALT 47 U/L H U/L (0-33) Alkaline Phosphata se 192 IU/L H IU/L (35-105) C-Reactive Protein Total Protein 6.3 g/dL L g/dL (6.6-8.7) Albumin 2.9 g/dL L g/dL (3.5-5.2) Globulin 3.4 g/dL g/dL (1.3-4.6) Lipase Urine Color Brown (Yellow) Urine Appearance Cloudy (CLEAR) Urine pH 5 (5-7) Ur Specific Gravit y 1.025 (1.005-1.030) Urine Protein 3+ H (Negative) Urine Glucose (UA) Norm (Normal) Urine Ketones 1+ H (Negative) Urine Blood 3+ H (Negative) Urine Nitrate Negative (Negative) Urine Bilirubin 1+ H (Negative) Urine Urobilinogen 1 mg/dL H mg/dL (Negative) Ur Leukocyte Lien ase Trace H (Negative) Urine RBC Too numerous to c nt /hpf H /hpf (0-2) Urine WBC 5-10 /hpf H /hpf (0-5) Ur Squamous Epith Cells Rare /hpf /hpf (0-5) Amorphous Sediment Not Reportable Urine Bacteria 2+ /hpf H /hpf (NONE) 07/20/21 07/20/21 14:22 14:22 WBC RBC Hgb Hct MCV MCH MCHC RDW Plt Count MPV Neut % (Auto) Lymph % (Auto) Wilson % (Auto) Eos % (Auto) Baso % (Auto) Neut # (Auto) Lymph # (Auto) Wilson # (Auto) Eos # (Auto) Baso # (Auto) Nucleated RBC % (a uto) Nucleated RBCs # Sodium Potassium Chloride Carbon Dioxide Anion Gap BUN Creatinine GFR Calculation Glucose Calculated Osmolal ity Lactate 2.6 mmol/L H mmol /L (0.5-2.2) Calcium Total Bilirubin AST ALT Alkaline Phosphata se C-Reactive Protein 8.6 mg/L H mg/L (0.0-4.9) Total Protein Albumin Globulin Lipase 30 U/L U/L (13-60) Urine Color Urine Appearance Urine pH Ur Specific Gravit y Urine Protein Urine Glucose (UA) Urine Ketones Urine Blood Urine Nitrate Urine Bilirubin Urine Urobilinogen Ur Leukocyte Lien ase Urine RBC Urine WBC Ur Squamous Epith Cells Amorphous Sediment Urine Bacteria Discharge Plan Discharge Patient Disposition: Home Clinical Impression: Cirrhosis of liver not due to alcohol, Kidney stone on right side, Acute right flank pain Condition: Stable Prescriptions: No Action meloxicam 15 mg tablet 15 mg PO DAILY Qty: 90 RF: 3 hydroxyzine HCl 10 mg tablet 10 mg PO .qhs Qty: 90 RF: 3 triamcinolone acetonide 0.1 % ointment 1 applic topical BID Qty: 80 RF: 1 mupirocin 2 % ointment 1 applic topical BID Qty: 22 RF: 2 (DME) BD Insulin Syringe U-500 1/2 mL 31 gauge x 15/64 syringe See Rx Instructions .ROUTE .MEDSUPPLY Qty: 100 RF: 3 levothyroxine 88 mcg tablet See Rx Instructions .ROUTE .COMPLEX Qty: 90 RF: 3 Novolog PenFill U-100 Insulin 18 units SUBCUT .TID AC Qty: 17 RF: 3 metoprolol tartrate 50 mg tablet 50 mg PO DAILY Qty: 90 RF: 3 (DME) insulin syringe-needle U-100 [BD Insulin Syringe Ultra-Fine] 1 mL 31 gauge x 5/16 syringe See Rx Instructions .ROUTE .MEDSUPPLY Qty: 100 RF: 3 loratadine 10 mg tablet 20 mg PO DAILY Qty: 10 RF: 0 (DME) pen needle, diabetic [Comfort EZ Pen Quinn] 32 gauge x 5/32 needle See Rx Instructions .ROUTE .MEDSUPPLY Qty: 100 RF: 0 Levemir U-100 Insulin 100 unit/mL solution See Rx Instructions .ROUTE .COMPLEX Qty: 30 RF: 9 [place] 5-325 mg tablet 1 tab PO Q4H PRN (Reason: pain) Qty: 20 RF: 0 simvastatin 20 mg tablet 20 mg PO DAILY Qty: 90 RF: 3 Discharge Orders: Discharge ED (Routine); Ordered 07/20/21 Ordered By: Daniel Kwok Referrals: Donal Fernandes MD [Primary Care Provider] - 4-7 days Discharge Diet: Usual diet Patient Instructions: Kidney Stones (ED), Flank Pain (ED) Activity Restrictions/Additional Instructions: Follow-up with your primary care doctor in the next 3 to 5 days, increase your water consumption during this time you you may have a slight amount of blood in your urine that is to be expected if you do develop any discomfort you can use naproxen or ibuprofen per package instructions. Please return the interim if any of her symptoms persist or worse. Coding Level of Care Code ED Medical Practice Manager for [facility] Fwd Exam Comprehensive
--- NOTE | 2021-07-20 15:04 | XRR_ITS ---
PROCEDURE INFORMATION: Exam: XR Abdomen Exam date and time: 07/20/2021 3:04 PM Age: 70 years old Clinical indication: Abdominal pain; Generalized; Prior surgery; Surgery type: Gb; Patient HX: Right sided abd pain radiating back to front; Additional info: Right sided abdominal pain TECHNIQUE: Imaging protocol: XR of the abdomen. Views: Frontal supine view of the abdomen. 1 View. COMPARISON: CT abdomen pelvis w con* [id number] 07/02/2021 6:55 PM FINDINGS: Gastrointestinal tract: Normal. No bowel dilation. Organs: Stable cholecystectomy. Bones/joints: Unremarkable. XR/XR KUB portable [id number] IMPRESSION: Stable cholecystectomy.
--- NOTE | 2021-07-20 15:11 | CTR_ITS ---
PROCEDURE INFORMATION: Exam: CT Abdomen And Pelvis Without Contrast Exam date and time: 07/20/2021 3:11 PM Age: 70 years old Clinical indication: Abdominal pain; Flank; Right; Prior surgery; Surgery type: Gb; Additional info: Right flank pain TECHNIQUE: Imaging protocol: Computed tomography of the abdomen and pelvis without contrast. Radiation optimization: All CT scans at this facility use at least one of these dose optimization techniques: automated exposure control; mA and/or kV adjustment per patient size (includes targeted exams where dose is matched to clinical indication); or iterative reconstruction. COMPARISON: CT abdomen pelvis w con* [id number] 07/02/2021 6:55 PM RADIATION DOSE METRICS: Total DLP (mGy-cm): 516.06 FINDINGS: Liver: Stable severe cirrhosis. Gallbladder and bile ducts: Normal. No calcified stones. No ductal dilation. Pancreas: Normal. No ductal dilation. Spleen: Normal. No splenomegaly. Adrenal glands: Normal. No mass. Kidneys and ureters: Stable simple left renal cyst measuring > 1.0 cm. Stable simple right renal cyst measuring > 1.0 cm. 5 mm stone in the dependent portion of the urinary bladder consistent with recently passed ureteral stone. Mild right hydronephrosis with no obvious ureteral stone, most consistent with recent passage of right ureteral stone. Stomach and bowel: Unremarkable. No obstruction. No mucosal thickening. Appendix: No evidence of appendicitis. Intraperitoneal space: Mild to moderate four-quadrant ascites. Vasculature: Calcification of the abdominal aorta and/or iliac arteries consistent with atherosclerotic vessel disease. 15 mm portal vein consistent with portal hypertension. Varices in the gastroesophageal junction which are better visualized on previous CT with contrast. Lymph nodes: Calcified right hilar nodes and/or mediastinal nodes and/or lung granulomas consistent with old granulomatous disease. Urinary bladder: Unremarkable as visualized. Reproductive: Unremarkable as visualized. Bones/joints: Unremarkable. No acute fracture. Soft tissues: Unremarkable. CT/CT kidney stone [id number] IMPRESSION: 1. 5 mm stone in the dependent portion of the urinary bladder consistent with recently passed ureteral stone. 2. Mild right hydronephrosis with no obvious ureteral stone, most consistent with recent passage of right ureteral stone. 3. Stable severe cirrhosis with stable [id number] four-quadrant ascites, portal hypertension and varices in the region of the gastroesophageal junction.
[2021-07-20 15:12] LABS: Alanine Aminotransferase 47 U/L (0-33); Albumin Level 2.9 g/dL (3.5-5.2); Alkaline Phosphatase 192 IU/L (35-105); Anion Gap 17.2 (5-19); Aspartate Amino Transferase 59 U/L (0-32); Blood Urea Nitrogen 17 mg/dL (8-23); Calcium 8.1 mg/dL (8.5-10.5); Carbon Dioxide 18 mmol/L (22-29); Chloride 98 mmol/L (98-107); Globulin 3.4 g/dL (1.3-4.6); Glomerular Filtration Rate 70.9 mL/min (90-130); Glucose 109 mg/dL (65-115); Osmolality Calculated 268 mOsm/kg (285-295); Potassium 5.2 mmol/L (3.5-5.1); Sodium 128 mmol/L (136-145); Total Protein 6.3 g/dL (6.6-8.7)
[2021-07-20 15:40] LABS: C Reactive Protein 8.6 mg/L (0.0-4.9); Lactate (Lactic Acid level) 2.6 mmol/L (0.5-2.2); Lipase 30 U/L (13-60)
[2021-07-20 15:42] LABS: Add Urine Microscopic? YES; Bilirubin Urine 1+ (Negative); Blood Urine 3+ (Negative); Glucose Urine UA Norm (Normal); Ketones Urine 1+ (Negative); Leukocyte Esterase Urine Trace (Negative); Nitrate Urine Negative (Negative); Protein Urine 3+ (Negative); Specific Gravity, Urine 1.025 (1.005-1.030); Urine Appearance Cloudy (CLEAR); Urine Color Brown (Yellow); Urobilinogen Urine 1 mg/dL (Negative); pH Urine 5 (5-7)
[2021-07-20 15:43] LABS: Add Urine Culture? Yes; Bacteria Urine 2+ /hpf; RBC Urine TOO NUMEROUS TO CNT /hpf (0-2); Squamous Epithelial Cell Urine RARE /hpf (0-5)
[2021-07-20] MEDS: sodium chloride 0.9% 1,000 ML 999 ML IV (16:00)
[2021-07-20 17:15] VITALS: BP 138/68; PULSE 69; RESP 16; O2SAT 97
== END 2021-07-20 17:29 | disposition home or self-care (01) ==
PROVIDERS: Physician Assistant; Emergency Provider Emergency Medicine; PCP Family Medicine
DX: K74.60 Unspecified cirrhosis of liver (principal); B19.20 Unspecified viral hepatitis C without hepatic coma; N20.0 Calculus of kidney; E11.9 Type 2 diabetes mellitus without complications; K21.9 Gastro-esophageal reflux disease without esophagitis; R11.0 Nausea; Z79.4 Long term (current) use of insulin
CPT/HCPCS: 74018; 74176; 80053; 81001; 83605; 83690; 85025; 86140; 87086; 96360; 99284; J7030

== ENCOUNTER 2021-07-23 12:27 | Outpatient (CLI) | payer MEDICARE, OTHER, SELFPAY ==
[2021-07-21 11:33] VITALS: BMI 22.6
[2021-07-23 12:44] VITALS: BP 108/61; PULSE 60; RESP 18; TEMP 36.2; O2SAT 98
--- NOTE | 2021-07-23 12:49 | US_ITS ---
WS: [id number] INDICATION: Cirrhosis and ascites TECHNIQUE: Ultrasound 4 quadrant. FINDINGS: No significant ascites today in the 4 quadrants. US/US abdomen lmt fluid [id number] IMPRESSION: No significant ascites. Paracentesis was not performed.
== END 2021-07-23 12:28 | disposition home or self-care (01) ==
LOC: GILAB 12:30
PROVIDERS: Radiology Neuroradiology; PCP Family Medicine; Visit Provider Family Medicine
DX: K74.60 Unspecified cirrhosis of liver (principal); R18.8 Other ascites
CPT/HCPCS: 76705

== ENCOUNTER 2021-09-29 11:43 | Outpatient (CLI) | payer MEDICARE, OTHER, SELFPAY ==
[2021-09-29 13:05] LABS: Blood Urea Nitrogen 15 mg/dL (8-23); Calcium 8.6 mg/dL (8.5-10.5); Carbon Dioxide 23 mmol/L (22-29); Chloride 103 mmol/L (98-107); Glucose 355 mg/dL (65-115); Osmolality Calculated 295 mOsm/kg (285-295); Sodium 135 mmol/L (136-145)
== END 2021-09-29 11:44 | disposition home or self-care (01) ==
PROVIDERS: PCP Family Medicine; Visit Provider Dietitian, Registered
DX: R19.7 Diarrhea, unspecified (principal); K74.60 Unspecified cirrhosis of liver
CPT/HCPCS: 36415; 80048; 83630; 87493; 87506

== ENCOUNTER 2021-12-10 20:05 | Emergency (ER) | payer MEDICARE, OTHER, SELFPAY ==
[2021-12-10] VITALS (8 sets, daily range): BP systolic 103–127; BP diastolic 49–70; PULSE 52–64; RESP 18; O2SAT 96–99; BMI 22.8
--- NOTE | 2021-12-10 20:10 | ED_ITS ---
Documented by User: Netta Frias MD 12/10/21 21:41 HPI - General Adult General: Chief complaint: General Medical Stated complaint: hypoglyc Time Seen by Provider: 12/10/21 20:08 History of Present Illness: Patient is a 71-year-old female with history of type 2 diabetes presenting to the emergency room for concerns of hypoglycemia. Earlier this morning, patient took her 20 units of Levemir and 12 units of NovoLog however if patient shows did not eat breakfast. Patient was found down on the ground 5pm. by patient's family member. It is unclear how patient has foot on the ground for. Patient's bruises over the left arm. EMS was called, patient was found to have a glucose of 48. Patient received D10 review glucose improved to 150. On arrival, patient is mildly somnolent but AAO x3 answering all appropriate questions. No other focal complaints of pain. Denies any chest pain, short of breath palpitation, nausea/vomiting fever/chills cough runny nose sore throat diarrhea, complaints at this time Onset: between 3pm to 5pm Duration: ongoing Location:home Severity:moderate Associated symptoms: Deny chest pain, dyspnea, nausea, rash, palpitations or vomiting Review of Systems Const: Denies: fever(s) or chills Eyes: Denies: change in vision ENMT: Denies: mouth pain Card: Denies: chest pain or palpitations Resp: Denies: dyspnea or non-productive cough GI: Denies: abdominal pain, nausea, vomiting or diarrhea : Denies: dysuria Musc: Denies: extremity pain Skin/Breast: Denies: rash or new lesions Neuro: Reports: other (+light-headedness); Denies: weakness in extremities Psych: Reports: other (Normal mood) Saulo/Lymph: Denies: easy bruising PFSH ED PFSH: Medical History (Updated 12/10/21 @ 21:23 by Netta Frias MD) Diabetes mellitus, type II Gastroesophageal reflux Hepatitis C Surgical History History of carpal tunnel surgery of left wrist History of carpal tunnel surgery of right wrist Hx laparoscopic cholecystectomy Social History Smoking and tobacco status: never smoked Alcohol intake: never History of recent travel: No Physical Exam Const: COMMON NORMALS: alert HENMT: COMMON NORMALS: atraumatic HEAD & SCALP: atraumatic MOUTH: moist mucous membranes not abnormal Eye: COMMON NORMALS: EOMs intact bilaterally and conjunctivae normal CONJUNCTIVA: Yes conjunctivae normal Neck/C-Spine: COMMON NORMALS: full ROM and supple Resp: COMMON NORMALS: normal respiratory effort and clear to auscultation bila terally AUSCULTATION: clear to auscultation bilaterally Cardio: COMMON NORMALS: regular rate RATE: regular rate GI: COMMON NORMALS: Soft to palpation and non-tender PALPATION: Yes Soft to palpation Extremity: COMMON NORMALS: full ROM Neuro: SENSORIUM/ORIENTATION: Yes alert MOTOR EXAM: No Abnormal motor strength present and Other motor observations present (no focal motor deficits) Psych: COMMON NORMALS: speech normal SPEECH: Yes normal speech MOOD & AFFECT: Yes euthymic mood Course Vital Signs: Vital signs: Vital Signs Pulse Rate 58 L 12/10/21 22:16 Respiratory Rate 18 12/10/21 22:16 Blood Pressure 103/49 12/10/21 22:16 Pulse Oximetry 97 12/10/21 22:[address] [facility] - General Adult Medical Decision Making Patient is a 71-year-old female with a history of type 1 diabetes presenting to the emergency room for concerns of lightheadedness and low glucose. On arrival, patient had a glucose of 150. Patient is noted to have a repeat glucose of 135 fingerstick. Patient is tolerating p.o. without any difficulty. CT brain negative for any acute findings. X-ray elbow humerus negative for any acute fractures. CT head negative for any acute findings. Lab Data : 12/10/21 20:25 12/10/21 20:25 Radiology Impressions Elbow X-Ray 12/10/21 20:38 IMPRESSION: No acute findings. Head CT 12/10/21 20:38 IMPRESSION: No acute intracranial abnormality. Humerus X-Ray 12/10/21 20:38 IMPRESSION: No acute findings. Laboratory Results WBC 6.5 10^3/uL (4.0-10.0) 12/10/21 20:25 RBC 3.30 10^6/uL (4.1-5.3) L 12/10/21 20:25 Hgb 11.8 g/dL (11.5-15.3) 12/10/21 20: Hct 35.1 % (37.0-47.0) L 12/10/21 20: MCV 106.4 fl (81-99) H 12/10/21 20: MCH 35.8 pg (28.0-34.0) H 12/10/21: MCHC 33.6 g/dL (30.0-36.0) 12/10/21: RDW 14.8 % (12.1-15.1) 12/10/21: Plt Count 108 10^3/cmm (130-400) L 12/10/21 20: MPV 11.3 fL (7.4-10.4) H 12/10/21: Neut % (Auto) 84.5 % 12/10/21: Lymph % (Auto) 6.9 % 12/10/21: [facility] % (Auto) 6.6 % 12/10/21: Eos % (Auto) 0.3 % 12/10/21: Baso % (Auto) 0.8 % 12/10/21: Neut # (Auto) 5.53 10^3/uL (1.8-7.7) 12/10/21: Lymph # (Auto) 0.5 10^3/uL (0.8-4.8) L 12/10/21: [facility] # (Auto) 0.4 10^3/uL (0.2-0.9) 12/10/21: Eos # (Auto) 0.0 10^3/uL (0.0-0.8) 12/10/21: Baso # (Auto) 0.1 10^3/uL (0.0-0.1) 12/10/21: Nucleated RBC % (auto) 0 % 12/10/21: Nucleated RBCs # 0.0 /100WBC 12/10/21 20: Sodium 136 mmol/L (136-145) 12/10/21: Potassium 3.5 mmol/L (3.5-5.1) 12/10/21: Chloride 103 mmol/L (98-107) 06/01/22 20:25 Carbon Dioxide 25 mmol/L (22-29) 12/10/21 20:25 Anion Gap 11.5 (5-19) 12/10/21 20:25 BUN 16 mg/dL (8-23) 12/10/21 20:25 Creatinine 0.9 mg/dL (0.5-0.9) 12/10/21 20:25 GFR Calculation Not Reportable 12/10/21 20:25 Glucose 161 mg/dL (65-115) H 12/10/21 20:25 POC Glucose 135 mg/dL (70-110) H 12/10/21 20:46 Calculated Osmolality 287 mOsm/kg (285-295) 12/10/21 20:25 Calcium 7.9 mg/dL (8.5-10.5) L 12/10/21 20:25 Ammonia 58 umol/L (11-51) H 12/10/21 21:04 Troponin T Baseline 16 ng/L (0-10) H 12/10/21 20:25 Troponin T 120 Minute 15.20 ng/L (0-10) H 12/10/21 22:25 Delta Troponin T -0.80 ABS# (0-10) L 12/10/21 22:25 Imaging Data Other Imaging: Radiologist's impression: [address] [address] XRay Report Signed Patient: Natacha Linares Unit #: [id number] : 1950 Age/Sex: 71 / F ADM Date: 12/10/21 Loc: ER Room/Bed: Attending Dr: Ordering Provider/Ordering MD: Netta Frias MD Date of Service: 12/10/21 Procedure(s): [place] [address] Accession Number(s): [id number] Report Number: [id number] PROCEDURE INFORMATION: Exam: XR Left Humerus Exam date and time: 12/10/2021 8:43 PM Age: 71 years old Clinical indication: Pain; Upper arm; Left; Additional info: Fall TECHNIQUE: Imaging protocol: XR Left humerus. Views: 2 or more views. COMPARISON: No relevant prior studies available. FINDINGS: Bones/joints: Osteopenia. No acute fracture or dislocation. Minimal AC joint hypertrophy with inferior osteophytes which may contribute to rotator cuff impingement.? Tiny chronic enthesophytes at the medial and lateral epicondylar regions. Soft tissues: Normal. Other findings: Two views submitted. XR/[place] [address] IMPRESSION: No acute findings. ? Dictated By: Nicole Stanton MD Signed By: Nicole Stanton MD Signed Date/Time: 12/10/212114 DD/ [address] [place] [address] XRay Report Signed Patient: Natacha Linares Unit #: [id number] : 1950 Age/Sex: 71 / F ADM Date: 12/10/21 Loc: ER Room/Bed: Attending Dr: Ordering Provider/Ordering MD: Netta Frias MD Date of Service: 12/10/21 Procedure(s): XR elbow LT 2V 37745 Accession Number(s): [id number] Report Number: [id number] PROCEDURE INFORMATION: Exam: XR Left Elbow Exam date and time: 12/10/2021 8:43 PM Age: 71 years old Clinical indication: Pain; Elbow; Left; Additional info: Fall TECHNIQUE: Imaging protocol: XR Left elbow. Views: 1 or 2 views. COMPARISON: No relevant prior studies available. FINDINGS: Bones/joints: Osteopenia. No acute fracture dislocation or joint effusion. Tiny chronic enthesophytes at the medial and lateral epicondylar regions. Soft tissues: Normal. Other findings: Two views submitted. XR/XR elbow LT 2V 21778 IMPRESSION: No acute findings. ? Dictated By: Nicole Stanton MD Signed By: Nicole Stanton MD Signed Date/Time: 12/10/212113 DD/ [address] [place] [address] CT Scan Report Signed Patient: Natacha Linares Unit #: [id number] : 1950 Age/Sex: 71 / F ADM Date: 12/10/21 Loc: ER Room/Bed: Attending Dr: Ordering Provider/Ordering MD: Netta Frias MD Date of Service: 12/10/21 Procedure(s): CT head wo con* [id number] Accession Number(s): [id number] Report Number: [id number] PROCEDURE INFORMATION: Exam: CT Head Without Contrast Exam date and time: 12/10/2021 9:11 PM Age: 71 years old Clinical indication: Injury or trauma; Fall; Blunt trauma (contusions or hematomas); Patient HX: Patient found on floor unresponsive by son. Patient hypoglycemic with reading of 48 per EMS. TECHNIQUE: Imaging protocol: Computed tomography of the head without contrast. Radiation optimization: All CT scans at this facility use at least one of these dose optimization techniques: automated exposure control; mA and/or kV adjustment per patient size (includes targeted exams where dose is matched to clinical indication); or iterative reconstruction. COMPARISON: No relevant prior studies available. RADIATION DOSE METRICS: Total DLP (mGy-cm): 725.05 FINDINGS: Brain: Normal. No hemorrhage. Unremarkable white matter. No mass effect. Cerebral ventricles: No ventriculomegaly. Paranasal sinuses: Visualized sinuses are unremarkable. No fluid levels. Mastoid air cells: Visualized mastoid air cells are well aerated. Bones/joints: Unremarkable. No acute fracture. Soft tissues: Unremarkable. CT/CT head wo con* [id number] IMPRESSION: No acute intracranial abnormality. ? Dictated By: Nicole Stanton MD Signed By: Nicole Stanton MD Signed Date/Time: 12/10/212138 DD/ 10 Discharge Plan Discharge Patient Disposition: Home Clinical Impression: Hypoglycemia Condition: Stable Prescriptions: No Action hydroxyzine HCl 10 mg tablet 10 mg PO .qhs Qty: 90 3RF triamcinolone acetonide 0.1 % ointment 1 applic topical BID Qty: 80 1RF Rx Instructions: to raised itchy areas on trunk and extremities no more than 3 wks/mo mupirocin 2 % ointment 1 applic topical BID Qty: 22 2RF Rx Instructions: to open areas until healed (DME) BD Insulin Syringe U-500 1/2 mL 31 gauge x 15/64 syringe See Rx Instructions .ROUTE .MEDSUPPLY Qty: 100 3RF Rx Instructions: As directed for subcutaneous insulin administration levothyroxine 88 mcg tablet See Rx Instructions .ROUTE .COMPLEX Qty: 90 3RF Dose Instruction: TAKE 1 TABLET DAILY Rx Instructions: TAKE 1 TABLET DAILY Novolog PenFill U-100 Insulin 18 units SUBCUT .TID AC Qty: 17 3RF Rx Instructions: for breakfast, lunch, and supper metoprolol tartrate 50 mg tablet 50 mg PO DAILY Qty: 90 3RF (DME) insulin syringe-needle U-100 [BD Insulin Syringe Ultra-Fine] 1 mL 31 gauge x 5/16 syringe See Rx Instructions .ROUTE .MEDSUPPLY Qty: 100 3RF Rx Instructions: As directed loratadine 10 mg tablet 20 mg PO DAILY Qty: 10 0RF (DME) pen needle, diabetic [Comfort EZ Pen [place]] 32 gauge x 5/32 needle See Rx Instructions .ROUTE .MEDSUPPLY Qty: 100 0RF Rx Instructions: three daily Levemir U-100 Insulin 100 unit/mL solution See Rx Instructions .ROUTE .COMPLEX Qty: 30 9RF Dose Instruction: INJECT 44 UNITS UNDER THE SKIN TWICE A DAY Rx Instructions: INJECT 44 UNITS UNDER THE SKIN TWICE A DAY hydrocodone-acetaminophen [[place]] 5-325 mg tablet 1 tab PO Q4H PRN (Reason: pain) Qty: 20 0RF simvastatin 20 mg tablet 20 mg PO DAILY Qty: 90 3RF spironolactone 25 mg tablet 25 mg PO DAILY 0RF Discharge Orders: Discharge ED (Routine); Ordered 12/10/21 Ordered By: Brady Koenig Referrals: Dnoal Fernandes MD [Primary Care Provider] - Discharge Diet: Advance as tolerated Discharge Activity: Increase activity as tolerated Patient Instructions: Hypoglycemia Activity Restrictions/Additional Instructions: Follow-up with primary care for further instruction. Drink plenty of fluids, return to the ER as needed. Sign Out Sign Out Data: Patient Sign Out occurred on 12/10/21 at 23:05. Patient's care was discussed, and care was transferred from to Brady Koenig. Post-Handoff Eval: Repeat blood glucose at 2330 was 269. Patient was able to hold food down and appeared well. Patient was released to home. Coding Level of Care Code ED Continuity Writer for g Fwd Exam Comprehensive
[2021-12-10 20:34] LABS: Basophils # 0.1 10^3/uL (0.0-0.1); Basophils % 0.8 %; Eosinophils % 0.3 %; Hematocrit 35.1 % (37.0-47.0); Hemoglobin 11.8 g/dL (11.5-15.3); Lymphocytes # 0.5 10^3/uL (0.8-4.8); Lymphocytes % 6.9 %; Mean Corpuscular HGB Conc 33.6 g/dL (30.0-36.0); Mean Corpuscular Hemoglobin 35.8 pg (28.0-34.0); Mean Corpuscular Volume 106.4 fl (81-99); Mean Platelet Volume 11.3 fL (7.4-10.4); Monocytes # 0.4 10^3/uL (0.2-0.9); Monocytes % 6.6 %; Neutrophils # 5.53 10^3/uL (1.8-7.7); Neutrophils % 84.5 %; Nucleated Red Blood Cells % 0 %; Platelet Count 108 10^3/cmm (130-400); Red Cell Distribution Width 14.8 % (12.1-15.1); White Blood Count 6.5 10^3/uL (4.0-10.0)
--- NOTE | 2021-12-10 20:38 | XRR_ITS ---
PROCEDURE INFORMATION: Exam: XR Left Humerus Exam date and time: 12/10/2021 8:43 PM Age: 71 years old Clinical indication: Pain; Upper arm; Left; Additional info: Fall TECHNIQUE: Imaging protocol: XR Left humerus. Views: 2 or more views. COMPARISON: No relevant prior studies available. FINDINGS: Bones/joints: Osteopenia. No acute fracture or dislocation. Minimal AC joint hypertrophy with inferior osteophytes which may contribute to rotator cuff impingement. Tiny chronic enthesophytes at the medial and lateral epicondylar regions. Soft tissues: Normal. Other findings: Two views submitted. XR/[place] [id number] IMPRESSION: No acute findings.
--- NOTE | 2021-12-10 20:38 | CTR_ITS ---
PROCEDURE INFORMATION: Exam: CT Head Without Contrast Exam date and time: 12/10/2021 9:11 PM Age: 71 years old Clinical indication: Injury or trauma; Fall; Blunt trauma (contusions or hematomas); Patient HX: Patient found on floor unresponsive by son. Patient hypoglycemic with reading of 48 per EMS. TECHNIQUE: Imaging protocol: Computed tomography of the head without contrast. Radiation optimization: All CT scans at this facility use at least one of these dose optimization techniques: automated exposure control; mA and/or kV adjustment per patient size (includes targeted exams where dose is matched to clinical indication); or iterative reconstruction. COMPARISON: No relevant prior studies available. RADIATION DOSE METRICS: Total DLP (mGy-cm): 725.05 FINDINGS: Brain: Normal. No hemorrhage. Unremarkable white matter. No mass effect. Cerebral ventricles: No ventriculomegaly. Paranasal sinuses: Visualized sinuses are unremarkable. No fluid levels. Mastoid air cells: Visualized mastoid air cells are well aerated. Bones/joints: Unremarkable. No acute fracture. Soft tissues: Unremarkable. CT/CT head wo con* [id number] IMPRESSION: No acute intracranial abnormality.
--- NOTE | 2021-12-10 20:38 | XRR_ITS ---
PROCEDURE INFORMATION: Exam: XR Left Elbow Exam date and time: 12/10/2021 8:43 PM Age: 71 years old Clinical indication: Pain; Elbow; Left; Additional info: Fall TECHNIQUE: Imaging protocol: XR Left elbow. Views: 1 or 2 views. COMPARISON: No relevant prior studies available. FINDINGS: Bones/joints: Osteopenia. No acute fracture dislocation or joint effusion. Tiny chronic enthesophytes at the medial and lateral epicondylar regions. Soft tissues: Normal. Other findings: Two views submitted. XR/XR elbow LT 2V [id number] IMPRESSION: No acute findings.
[2021-12-10 20:49] LABS: Glucose Point of Care 135 mg/dL (70-110)
[2021-12-10 20:52] LABS: Anion Gap 11.5 (5-19); Blood Urea Nitrogen 16 mg/dL (8-23); Calcium 7.9 mg/dL (8.5-10.5); Carbon Dioxide 25 mmol/L (22-29); Chloride 103 mmol/L (98-107); Glucose 161 mg/dL (65-115); Osmolality Calculated 287 mOsm/kg (285-295); Potassium 3.5 mmol/L (3.5-5.1); Sodium 136 mmol/L (136-145)
--- NOTE | 2021-12-10 20:52 | ECG_ITS ---
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 Measurements Intervals [place] Rate: 48 P: 66 NM: 173 QRS: 4 QRSD: 92 T: -9 QT: 531 QTc: 477 Interpretive Statements SINUS BRADYCARDIA MINIMAL VOLTAGE CRITERIA FOR LVH, CONSIDER NORMAL VARIANT [MEETS CRITERIA IN ONE OF: R(aVL), S(V1), R(V5), R(V5/V6)+S(V1)] PROLONGED QT INTERVAL Compared to ECG 02/02/2017 10:32:24 Prolonged QT interval now present Sinus rhythm no longer present Electronically Signed On 12-11-2021 9:30:24 CDT by Sunday Herndon M.D. [id number]
[2021-12-10 21:13] LABS: Troponin(5th) Baseline 16 ng/L (0-10)
[2021-12-10 21:28] LABS: Ammonia 58 umol/L (11-51)
--- NOTE | 2021-12-10 22:52 | ECG_ITS ---
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 Measurements Intervals [place] Rate: 58 P: 59 AR: 180 QRS: 11 QRSD: 98 T: -1 QT: 516 QTc: 509 Interpretive Statements SINUS BRADYCARDIA MINIMAL VOLTAGE CRITERIA FOR LVH, CONSIDER NORMAL VARIANT [MEETS CRITERIA IN ONE OF: R(aVL), S(V1), R(V5), R(V5/V6)+S(V1)] PROLONGED QT INTERVAL CRITICAL TEST RESULT Compared to ECG 12/10/2021 21:21:21 No significant changes Electronically Signed On 12-11-2021 9:34:41 CDT by Sunday Herndon M.D. [email or web address]
[2021-12-10 23:38] LABS: Glucose Point of Care 269 mg/dL (70-110)
[2021-12-11 00:18] VITALS: BP 117/65; PULSE 61; RESP 18; O2SAT 98
[2021-12-11 03:20] LABS: Glucose Point of Care 197 mg/dL (70-110)
== END 2021-12-11 00:18 | disposition home or self-care (01) ==
PROVIDERS: Emergency Medicine; Emergency Provider Nurse Practitioner Family; PCP Family Medicine
DX: E11.649 Type 2 diabetes mellitus with hypoglycemia without coma (principal); Z79.4 Long term (current) use of insulin
CPT/HCPCS: 36416; 70450; 73060; 73070; 80048; 82140; 82962; 84484; 85025; 93005; 99285

== ENCOUNTER 2022-01-15 06:35 | Outpatient (CLI) | payer MEDICARE, OTHER, SELFPAY ==
--- NOTE | 2022-01-15 | US_ITS ---
WS: [id number] ULTRASOUND ABDOMEN LIMITED CLINICAL INFORMATION: ASCITES, CIRRHOSIS COMPARISON: CT July 20, 2021 and ultrasound July 23, 2021 FINDINGS: Liver Size: Normal. Craniocaudal length: 12.9 cm. Echogenicity: Normal. Surface nodularity: Cirrhotic Mass (size and location): None. Bile ducts Intrahepatic ducts: Normal. Common bile duct diameter: 0.8 cm. Gallbladder Prior cholecystectomy Pancreas Normal as visualized. Right kidney: Normal. Hydronephrosis: None. Size: 8.3 cm x 4.3 cm x 4.3 cm. Abdominal aorta and IVC Visualized portions are normal. Ascites: Present US/US abdomen limited 21308 IMPRESSION: 1. Cirrhotic configuration to the liver. 2. Prior cholecystectomy. 3. Normal common bile duct. 4. No hydronephrosis in RIGHT kidney. 5. Minimal ascites
== END 2022-01-15 06:36 | disposition home or self-care (01) ==
PROVIDERS: PCP Family Medicine; Visit Provider Dietitian, Registered
DX: K74.60 Unspecified cirrhosis of liver (principal); R18.8 Other ascites
CPT/HCPCS: 76705

== ENCOUNTER → 2022-03-09 13:43 | Outpatient (BNVA) | payer MEDICARE, OTHER, SELFPAY | PROVIDERS: PCP Family Medicine; Visit Provider Family Medicine | DX: K74.60 Unspecified cirrhosis of liver (principal); E11.9 Type 2 diabetes mellitus without complications; R00.0 Tachycardia, unspecified; I95.9 Hypotension, unspecified | CPT/HCPCS: 80053; 80061; 83036; 85025 ==

== ENCOUNTER → 2022-06-09 10:16 | Outpatient (BNVA) | payer MEDICARE, OTHER, SELFPAY | PROVIDERS: PCP Family Medicine; Visit Provider Family Medicine | DX: R00.0 Tachycardia, unspecified (principal); K74.60 Unspecified cirrhosis of liver; E11.9 Type 2 diabetes mellitus without complications; I95.9 Hypotension, unspecified | CPT/HCPCS: 80053; 83735; 85025 ==

== ENCOUNTER 2022-07-14 10:28 | Day surgery (SDC) | payer MEDICARE, OTHER, SELFPAY ==
[2022-07-09 08:39] VITALS: BMI 21.0
--- NOTE | 2022-07-14 10:36 | US_ITS ---
WS: [id number] ULTRASOUND-GUIDED PARACENTESIS CLINICAL INFORMATION: cirrhosis of liver, ascites COMPARISON: None. Procedure Informed consent: The risks, benefits, and alternatives of the procedure were discussed with the nsurat ent. Verbal and written consent was obtained. Timeout: A timeout was performed to confirm the correct patient, procedure, and site. Preparation: A suitable skin site was identified. The patient was prepped and draped in usual sterile fashion. Lidocaine 1% was used for local anesthesia. Catheter: 4 Georgian One-step Yueh catheter. Side: RIGHT Lower quadrant. Fluid Volume: 1800 ml Color: Clear yellow DISPOSITION: Discarded safely. Complications: None. Patient disposition: Discharged from the department in stable condition. US/US paracentesis abd w [id number] IMPRESSION: Uncomplicated ultrasound-guided paracentesis. Removal of 1800cc ascites
[2022-07-14 11:17] LABS: INR 1.52 (0.8-1.2)
== END 2022-07-14 12:08 | disposition home or self-care (01) ==
LOC: GILAB 10:32
PROVIDERS: Radiology Neuroradiology; PCP Family Medicine; Visit Provider Dietitian, Registered
PROC: (CPT 49082; principal; 2022-07-14 12:00)
DX: R18.8 Other ascites (principal); K74.60 Unspecified cirrhosis of liver
CPT/HCPCS: 36415; 49083; 85610

== ENCOUNTER → 2022-07-28 11:22 | Outpatient (BNVA) | payer MEDICARE, OTHER, SELFPAY | PROVIDERS: PCP Family Medicine; Visit Provider Family Medicine | DX: E11.9 Type 2 diabetes mellitus without complications (principal); K74.60 Unspecified cirrhosis of liver | CPT/HCPCS: 80053; 83036; 85025 ==

== ENCOUNTER → 2022-10-28 11:37 | Outpatient (BNVA) | payer MEDICARE, OTHER, SELFPAY | PROVIDERS: PCP Family Medicine; Visit Provider Family Medicine | DX: K74.60 Unspecified cirrhosis of liver (principal); E11.9 Type 2 diabetes mellitus without complications | CPT/HCPCS: 80053; 82140; 83036; 85025 ==

== ENCOUNTER 2022-12-03 19:04 | Emergency (ER) | payer MEDICARE, OTHER, SELFPAY ==
[2022-12-03 19:22] VITALS: BP 108/64; PULSE 82; RESP 16; TEMP 36.7; O2SAT 100
[2022-12-03 20:10] VITALS: BP 116/64; PULSE 79; RESP 16; O2SAT 98
--- NOTE | 2022-12-03 20:10 | W.ED.RECABL ---
HPI - Recheck/Abnormal Lab/Rx General: Chief Complaint: Recheck/Abnormal Lab/Rx Stated Complaint: paracentesis site bleeding Time Seen by Provider: 12/03/22 20:04 Source: patient Mode of arrival: ambulatory Limitations: no limitations History of Present Illness: 72-year-old female states she has a history of cirrhosis she had a paracentesis done today she states that started having some bleeding and drainage from the site she did change her dressing she states that she thought it was not going to stop but has stopped over the last 30 minutes she denies any pain or any other complaints at this time. Review of Systems Const: Denies: fever(s) or chills ENMT: Denies: throat pain or dental pain Card: Denies: chest pain Resp: Denies: dyspnea GI: Denies: abdominal pain, nausea or vomiting Musc: Denies: neck pain or back pain Skin/Breast: Denies: rash Neuro: Denies: headache(s) PFSH ED PFSH: Medical History (Updated 12/03/22 @ 20:19 by Solis Arenas MD) Diabetes mellitus, type II Gastroesophageal reflux Hepatitis C Surgical History History of carpal tunnel surgery of left wrist History of carpal tunnel surgery of right wrist Hx laparoscopic cholecystectomy Social History Smoking and tobacco status: never smoked Alcohol intake: never Physical Exam Const: COMMON NORMALS: no acute distress, patient oriented x3 and healthy appearing Eye: COMMON NORMALS: conjunctivae normal CONJUNCTIVA: Yes conjunctivae normal Neck/C-Spine: COMMON NORMALS: supple Chest: COMMONS NORMALS: normal inspection of the chest Resp: COMMON NORMALS: normal respiratory effort Cardio: COMMON NORMALS: regular rate, regular rhythm and No murmurs present (Cardio) RATE: regular rate RHYTHM: regular rhythm GI: COMMON NORMALS: Normal to inspection, nondistended, normoactive bowel sounds present, Soft to palpation, non-tender and no masses PALPATION: Yes Soft to palpation OTHER: Paracentesis site in the right lower abdomen is not bleeding anymore has no drainage at this time Extremity: COMMON NORMALS: normal to inspection and full ROM Neuro: COMMON NORMALS: patient oriented x3, moves all extremities and no focal motor deficits Psych: COMMON NORMALS: mental status grossly normal, Normal thought process present and cooperative THOUGHT PROCESS: Normal thought process present Skin: COMMON NORMALS: no rashes or lesions noted and no wounds GENERAL SKIN EXAM: no rashes or lesions noted Course Vital Signs: Vital signs: Vital Signs Temperature 98.1 F 12/03/22 19:22 Pulse Rate 82 12/03/22 20:24 Respiratory Rate 16 12/03/22 20:24 Blood Pressure 114/61 12/03/22 20:24 Pulse Oximetry 97 12/03/22 20:24 Oxygen Delivery Me thod Room Air 12/03/22 19:22 MDM - Recheck/Abnormal Lab/Rx Medical Decision Making Patient presents with bleeding from her paracentesis site that is since stopped she is well-appearing here did redress it she is stable for discharge Medical Records I reviewed the patient's medical records. Discharge Plan Discharge Patient Disposition: Home Clinical Impression: Status post abdominal paracentesis Condition: Stable Prescriptions: No Action furosemide 20 mg tablet 20 mg PO DAILY spironolactone 25 mg tablet 25 mg PO BID (DME) BD Insulin Syringe U-500 1/2 mL 31 gauge x 15/64 syringe See Rx Instructions .ROUTE .MEDSUPPLY Qty: 100 3RF Rx Instructions: As directed for subcutaneous insulin administration (DME) insulin syringe-needle U-100 [BD Insulin Syringe Ultra-Fine] 1 mL 31 gauge x 5/16 syringe See Rx Instructions .ROUTE .MEDSUPPLY Qty: 100 3RF Rx Instructions: As directed (DME) diabetic shoes See Rx Instructions .Route .MEDSUPPLY Qty: 1 0RF Rx Instructions: As directed (DME) pen needle, diabetic [Sure Comfort Pen Needle] 32 gauge x 5/32 needle See Rx Instructions .ROUTE .COMPLEX Qty: 300 3RF Dose Instruction: INJECT 20 UNITS UNDER THE SKIN THREE TIMES A DAY Rx Instructions: INJECT 20 UNITS UNDER THE SKIN THREE TIMES A DAY PreserVision Lutein 226-90-0.8-5 mg Capsule 1 cap PO BID triamcinolone acetonide 0.1 % ointment 1 applic topical BID PRN (Reason: Outbreak) Rx Instructions: to raised itchy areas on trunk and extremities no more than 3 wks/mo mupirocin 2 % ointment 1 applic topical BID PRN (Reason: Outbreak) Rx Instructions: to open areas until healed hydroxyzine HCl 10 mg tablet 10 mg PO .qhs PRN (Reason: Itching) loratadine 10 mg tablet 10 mg PO DAILY PRN (Reason: Allergy Symptoms) levothyroxine 88 mcg tablet 88 mcg PO DAILY insulin aspart U-100 [Novolog FlexPen U-100 Insulin] 100 unit/mL (3 mL) insulin pen 4 - 12 unit SUBCUT TID Levemir U-100 Insulin 100 unit/mL solution 10 unit SUBCUT BID Discharge Orders: Discharge ED (Routine); Ordered 12/03/22 Ordered By: Solis Arenas Referrals: Donal Fernandes MD [Primary Care Provider] - 1-3 days Discharge Diet: Advance as tolerated Discharge Activity: Resume usual activity Patient Instructions: Paracentesis (DC) Coding Level of Care Code ED Asbestos Remover for Raúl Franco
[2022-12-03 20:24] VITALS: BP 114/61; PULSE 82; RESP 16; O2SAT 97
== END 2022-12-03 20:26 | disposition home or self-care (01) ==
PROVIDERS: Emergency Provider Emergency Medicine; PCP Family Medicine
DX: Z03.89 Encounter for observation for other suspected diseases and conditions ruled out (principal); Z98.890 Other specified postprocedural states; Z79.4 Long term (current) use of insulin; E11.9 Type 2 diabetes mellitus without complications; Z86.19 Personal history of other infectious and parasitic diseases; R18.8 Other ascites
CPT/HCPCS: 36415; 49083; 85610; 99281

== ENCOUNTER 2022-12-12 21:22 | Inpatient (IN) | payer MEDICARE, OTHER, SELFPAY ==
[2022-12-12 21:29] VITALS: BP 115/49; PULSE 80; RESP 16; TEMP 36.4; O2SAT 96; BMI 19.2
[2022-12-12 22:50] VITALS: BP 109/45; PULSE 79; RESP 16; O2SAT 94
--- NOTE | 2022-12-12 23:48 | XRR_ITS ---
PROCEDURE INFORMATION: Exam: XR Chest Exam date and time: 12/13/2022 12:26 AM Age: 72 years old Clinical indication: Shortness of breath; Patient HX: C/O worsening SOB. Possible developing pleural effusion noted from cxr performed 12/11/2022. ; Additional info: R pleural effusion TECHNIQUE: Imaging protocol: Radiologic exam of the chest. Views: 1 view. COMPARISON: CR (CHEST, ) 12/11/2022 6:10 PM FINDINGS: Lungs: There is right basilar consolidation that may represent atelectasis or pneumonia. Pleural spaces: Worsening right pleural effusion which is now moderate in size. Heart/Mediastinum: The heart is normal in size. There is mild mediastinal shift to the left. Bones/joints: No acute fracture is identified. XR/XR chest 1V portable [id number] IMPRESSION: 1. Worsening right pleural effusion with underlying consolidation that may represent atelectasis or in the appropriate clinical setting, pneumonia. 2. Mild mediastinal shift to the left.
[2022-12-13] VITALS (12 sets, daily range): BP systolic 99–114; BP diastolic 50–65; PULSE 72–86; RESP 14–17; TEMP 36.4–36.9; O2SAT 90–98; BMI 19.2
[2022-12-13 00:07] LABS: Basophils % 0.5 %; Eosinophils % 0.3 %; Hematocrit 32.3 % (37.0-47.0); Hemoglobin 10.7 g/dL (11.5-15.3); Lymphocytes # 0.4 10^3/uL (0.8-4.8); Lymphocytes % 4.6 %; Mean Corpuscular HGB Conc 33.1 g/dL (30.0-36.0); Mean Corpuscular Volume 108.8 fl (81-99); Mean Platelet Volume 11.1 fL (7.4-10.4); Monocytes # 0.7 10^3/uL (0.2-0.9); Neutrophils % 85.9 %; Nucleated Red Blood Cells % 0 %; Platelet Count 100 10^3/cmm (130-400); Red Blood Count 2.97 10^6/uL (4.1-5.3); Red Cell Distribution Width 15.6 % (12.1-15.1); White Blood Count 8.7 10^3/uL (4.0-10.0)
[2022-12-13] MEDS: ondansetron 2 mg/ML SDV 2 mL 8 MG IVP (00:20)
[2022-12-13 00:21] LABS: INR 1.78 (0.8-1.2)
[2022-12-13 00:26] LABS: Alanine Aminotransferase 44 U/L (0-33); Albumin Level 2.6 g/dL (3.5-5.2); Alkaline Phosphatase 164 U/L (35-105); Ammonia 94 umol/L (11-51); Anion Gap 17.6 (5-19); Aspartate Amino Transferase 68 U/L (0-32); Blood Urea Nitrogen 32 mg/dL (8-23); Calcium 8.3 mg/dL (8.5-10.5); Carbon Dioxide 21 mmol/L (22-29); Chloride 96 mmol/L (98-107); Globulin 3.9 g/dL (1.3-4.6); Glucose 158 mg/dL (65-115); Lipase 48 U/L (13-60); Osmolality Calculated 278 mOsm/kg (285-295); Potassium 5.6 mmol/L (3.5-5.1); Sodium 129 mmol/L (136-145); Total Bilirubin 5.3 mg/dL (0.15-1.2); Total Protein 6.5 g/dL (6.6-8.7)
--- NOTE | 2022-12-13 01:10 | W.ED.NAVMDI ---
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 She presents for the second time in 2 days. She reports significant nausea with vomiting at home. She was seen last night, and diagnosed with a pleural effusion which was new. Today, she has felt more ill, more short of breath, and has been nauseated with several episodes of vomiting. She feels unwell. She has some abdominal fullness. MD elicited complaint: nausea and vomiting Onset (ago): day(s) Description of vomiting: watery Associated nausea: Yes Associated abdominal pain: Yes Location of pain: Diffuse Radiation: diffuse Pain consistency: constant Severity: mild Exacerbating factors: medication Relieving factors: none Associated symtoms: Reports altered mental status (Mild decrease), bloating, anorexia, nausea, short of breath and weakness; Denies chest pain, diaphoresis, decreased urine output, dizziness, fevers/chills, headache(s), palpitations or rash Review of Systems Const: Denies: fever(s) or diaphoresis ENMT: Denies: throat pain Card: Denies: chest pain or palpitations Resp: Reports: dyspnea; Denies: productive cough or non-productive cough GI: Reports: abdominal pain, nausea, vomiting and bloating Neuro: Denies: headache(s) or dizziness PFSH ED PFSH: Medical History Diabetes mellitus, type II Gastroesophageal reflux Hepatitis C Surgical History History of carpal tunnel surgery of left wrist History of carpal tunnel surgery of right wrist Hx laparoscopic cholecystectomy Social History Smoking and tobacco status: never smoked Alcohol intake: never Physical Exam Const: EXAM LIMITATIONS: altered mental status (Mild decrease) HENMT: COMMON NORMALS: normocephalic, atraumatic and Normal external nose present HEAD & SCALP: normocephalic and atraumatic NOSE: Normal external nose present and Normal nares present Eye: SCLERA: scleral abnormal Laterality of scleral abnormality: positive bilateral scleral icterus Neck/C-Spine: GENERAL: Yes trachea midline Chest: COMMONS NORMALS: normal inspection of the chest CHEST: Yes Symmetrical chest wall rise Resp: COMMON NORMALS: clear to auscultation bilaterally EFFORT & INSPECTION: Yes tachypneic and No respiratory distress AUSCULTATION: clear to auscultation bilaterally and diminished lung sounds on the right Cardio: COMMON NORMALS: regular rate and regular rhythm RATE: regular rate RHYTHM: regular rhythm GI: COMMON NORMALS: Soft to palpation INSPECTION: Yes abdominal distension PALPATION: Yes Soft to palpation and Yes Tenderness to palpation present (GI) (Mildly diffuse) Extremity: COMMON NORMALS: no pedal edema Neuro: DYLLAN COMA SCALE: document GCS findings Dyllan coma scale eye opening: Spontaneous [place] coma scale verbal response: Orientated [place]yll[place] coma scale motor response: Obey commands Dyllan coma scale total score: 15 Skin: GENERAL SKIN EXAM: jaundice Course Vital Signs: Vital signs: Vital Signs Temperature 97.6 F 12/12/22 21:29 Pulse Rate 81 12/13/22 01:05 Respiratory Rate 16 12/12/22 22:50 Blood Pressure 113/61 12/13/22 01:05 Pulse Oximetry 92 12/13/22 01:05 Oxygen Delivery Me thod Room Air 12/13/22 01:05 MDM - Nausea/Vomiting/Diarrhea Medical Decision Making This patient presents for the second time in 2 days. She is increasingly nauseated, and short of breath. Her potassium is 5.6. Her creatinine is 1.3. Hemoglobin is 11. White blood cell count is 9. Her INR is significantly elevated at 1.8. AST and ALT are minimally elevated. Lipase is normal. Bilirubin is 5.3. It was 4.3 yesterday. Ammonia level is up as well. Chest x-ray shows an increase in size of pleural effusion on the right. She is more hypoxic today. Given advancement in her symptoms and progression of the pleural effusion, she will be admitted. Consideration will be given to thoracentesis tomorrow if needed. Symptom management otherwise. Hospitalist will see the patient in the ER. Lab Data 12/12/22 23:55 12/12/22 23:55 Laboratory Results WBC 8.7 10^3/uL (4.0-10.0) 12/12/22 23:55 RBC 2.97 10^6/uL (4.1-5.3) L 12/12/22 23:55 Hgb 10.7 g/dL (11.5-15.3) L 12/12/22 23:55 Hct 32.3 % (37.0-47.0) L 12/12/22 23:55 MCV 108.8 fl (81-99) H 12/12/22 23:55 MCH 36.0 pg (28.0-34.0) H 12/12/22 23:55 MCHC 33.1 g/dL (30.0-36.0) 12/12/22 23:55 RDW 15.6 % (12.1-15.1) H 12/12/22 23:55 Plt Count 100 10^3/cmm (130-400) L 12/12/22 23:55 MPV 11.1 fL (7.4-10.4) H 12/12/22 23:55 Neut % (Auto) 85.9 % 12/12/22 23:55 Lymph % (Auto) 4.6 % 12/12/22 23:55 [place] % (Auto) 8.0 % 12/12/22 23:55 Eos % (Auto) 0.3 % 12/12/22 23:55 Baso % (Auto) 0.5 % 12/12/22 23:55 Neut # (Auto) 7.50 10^3/uL (1.8-7.7) 12/12/22 23:55 Lymph # (Auto) 0.4 10^3/uL (0.8-4.8) L 12/12/22 23:55 [place] # (Auto) 0.7 10^3/uL (0.2-0.9) 12/12/22 23:55 Eos # (Auto) 0.0 10^3/uL (0.0-0.8) 12/12/22 23:55 Baso # (Auto) 0.0 10^3/uL (0.0-0.1) 12/12/22 23:55 Nucleated RBC % (auto) 0 % 12/12/22 23:55 Nucleated RBCs # 0.0 /100WBC 12/12/22 23:55 PT 21.30 SECONDS (12.1-14.9) H 12/12/22 23:55 INR 1.78 (0.8-1.2) H 12/12/22 23:55 Sodium 129 mmol/L (136-145) L 12/12/22 23:55 Potassium 5.6 mmol/L (3.5-5.1) H 12/12/22 23:55 Chloride 96 mmol/L (98-107) L 12/12/22 23:55 Carbon Dioxide 21 mmol/L (22-29) L 12/12/22 23:55 Anion Gap 17.6 (5-19) 12/12/22 23:55 BUN 32 mg/dL (8-23) H 12/12/22 23:55 Creatinine 1.3 mg/dL (0.5-0.9) H 12/12/22 23:55 GFR Calculation Not Reportable 12/12/22 23:55 Glucose 158 mg/dL (65-115) H 12/12/22 23:55 Calculated Osmolality 278 mOsm/kg (285-295) L 12/12/22 23:55 Calcium 8.3 mg/dL (8.5-10.5) L 12/12/22 23:55 Total Bilirubin 5.3 mg/dL (0.15-1.2) H 12/12/22 23:55 AST 68 U/L (0-32) H 12/12/22 23:55 ALT 44 U/L (0-33) H 12/12/22 23:55 Alkaline Phosphatase 164 U/L (35-105) H 12/12/22 23:55 Ammonia 94 umol/L (11-51) H 12/12/22 23:55 Total Protein 6.5 g/dL (6.6-8.7) L 12/12/22 23:55 Albumin 2.6 g/dL (3.5-5.2) L 12/12/22 23:55 Globulin 3.9 g/dL (1.3-4.6) 12/12/22 23:55 Lipase 48 U/L (13-60) 12/12/22 23:55 Discharge Plan Discharge Patient Disposition: Admitted As Inpatient Clinical Impression: Pleural effusion, History of hepatitis C virus infection, Abdominal ascites, Hypoxia Condition: Stable Coding Level of Care Code ED 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
--- NOTE | 2022-12-13 03:35 | P.HP_ITS ---
Providers/Chief Complaint Admitting Physician: Keturah Shelley MD Primary Care Provider: Donal Fernandes MD Chief Complaint: N/V History of Present Illness Natacha Linares is a 72 year old female with history of liver cirrhosis dating back at least to 2014, getting worse more recently, follows with GI in [place], she has declined liver transplant. She is noted to have esophageal varices, last endoscopy evaluation a year ago, no current bleeding manifestations. Patient has needed to undergo paracentesis from type to time ,most recently on December 03, 2022. She presents to the emergency room today complaining of shortness of breath, pain in her back in a bandlike fashion just below her ribs. She has also had increasing abdominal distention. She takes that she continue to have significant fluid in her belly after the right paracentesis And never quite had relief in her symptoms. She denies any cough, fever, expectoration. Denies any nausea vomiting or di arrhea. Review of Systems General: Reports: 10 or more systems reviewed and unremarkable except in HPI and below Const: Denies: fever(s), chills or body aches Eyes: Denies: change in vision, blurry vision or photophobia ENMT: Reports: hoarseness; Denies: throat pain, enlarged tonsils, odynophagia or nasal congestion Card: Denies: chest pain, palpitations, irregular heart rhythm, edema, swelling of feet/ankles, lightheadedness, pre-syncope, dyspnea on exertion or orthopnea Resp: Denies: dyspnea, productive cough, non-productive cough, wheezing, stridor, pain on inspiration, change in phlegm color, hemoptysis or chest congestion GI: Denies: abdominal pain, nausea, vomiting, hematemesis, coffee ground emesis, dysphagia, heartburn, diarrhea, constipation, GI cramping, change in stool character, hematochezia or melena : Denies: flank pain, difficulty voiding, dysuria, urinary frequency, urinary urgency, urinary hesitancy or hematuria Musc: Denies: neck pain, back pain, extremity pain, joint swelling, joint warmth or deformity Neuro: Denies: headache(s), numbness in extremities, weakness in extremities, sensory changes, difficulty walking, frequent falls, dizziness, vertigo, behavioral changes, Slurred speech present or seizure-like activity Psych: Denies: anxiety, depression, suicidal ideation or homicidal ideation Endo: Denies: polyuria, polydipsia, tired all the time, cold intolerance or hot flashes Saulo/Lymph: Denies: easy bruising or easy bleeding Medications/Allergies Home Medications Medication Instructions Recorded Confirmed Last Taken Type insulin U-500 syringe-needle 1/2 #100 ea 03/14/20 10/28/22 Unknown Rx mL 31 gauge x 15/64 (BD Insulin Syringe U-500) insulin syringe-needle U-100 1 mL #100 ea 03/20/22 10/28/22 Unknown Rx 31 gauge x 5/16 (BD Insulin Syringe Ultra-Fine) diabetic shoes #1 ea 03/30/22 10/28/22 Unknown Rx hydroxyzine HCl 10 mg tablet 10 mg PO .qhs PRN Itching 07/09/22 12/03/22 1 Week Ago History ~11/26/22 levothyroxine 88 mcg tablet 88 mcg PO DAILY 07/09/22 12/03/22 12/03/22 History loratadine 10 mg tablet 10 mg PO DAILY PRN Allergy Symptoms 07/09/22 12/03/22 2 Weeks Ago History ~11/19/22 mupirocin 2 % topical ointment 1 applic topical BID PRN Outbreak 07/09/22 12/03/22 2 Weeks Ago History ~11/19/22 triamcinolone acetonide 0.1 % 1 applic topical BID PRN Outbreak 07/09/22 0 12/03/22 12/03/22 History topical ointment vit C 226 mg-vit E 90 mg-copper 1 cap PO BID 07/09/22 12/03/22 12/03/22 History 0.8 mg-zinc oxide-lutein 5 mg capsule (PreserVision Lutein) pen needle, diabetic 32 gauge x #300 ea 08/14/22 10/28/22 Unknown Rx (Sure Comfort Pen Needle) furosemide 20 mg tablet 20 mg PO DAILY 10/28/22 12/03/22 12/03/22 History spironolactone 25 mg tablet 25 mg PO BID 10/28/22 12/03/22 12/03/22 History insulin aspart U-100 100 unit/mL 4 - 12 unit SUBCUT TID 12/01/22 12/03/22 12/03/22 History (3 mL) subcutaneous pen (Novolog FlexPen U-100 Insulin aspart) insulin detemir U-100 100 unit/mL 10 unit SUBCUT BID 12/01/22 12/03/22 12/02/22 History subcutaneous solution (Levemir U-100 Insulin) furosemide 20 mg tablet (Lasix) 20 mg PO DAILY #7 tabs 12/11/22 Unknown Rx oxycodone 5 mg tablet 5 mg PO Q4H PRN pain #10 tabs 12/11/22 Unknown Rx Allergies Allergy/AdvReac Type Severity Reaction Status Date / Time codeine AdvReac Intermediate ADR-Abdominal Verified 12/03/22 19:28 Pain PFSH Acute PFSH: Medical History (Updated 12/13/22 @ 06:57 by Keturah Shelley MD) Diabetes mellitus, type II Gastroesophageal reflux Hepatitis C Surgical History History of carpal tunnel surgery of left wrist History of carpal tunnel surgery of right wrist Hx laparoscopic cholecystectomy Social History Smoking and tobacco status: never smoked Alcohol intake: never Vitals/I&O/Wt Last Vital Signs Temp 97.6 F 12/13/22 03:24 Pulse 73 12/13/22 03:24 Resp 16 12/13/22 03:24 BP 114/57 12/13/22 03:24 Pulse Ox 92 12/13/22 03:24 O2 Del Method Room Air 12/13/22 03:26 Weight last 48 hrs Weight 47.627 kg Weight 47.627 kg Physical Exam Narrative: General: No acute distress, AO x3 HEENT: PERRLA, pupils bilaterally equal and reactive, pallors not present, icterus present Chest: Reduced air entry to auscultation in the right lower lobe, scattered crackles. 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 She currently presents with increasing abdominal distention and dyspnea and found to have a large right pleural effusion with mediastinal shift. Likely ascites and hypervolemia as a result of portal hypertension. We will schedule her for ultrasound-guided paracentesis or thoracentesis at [facility] once radiology services are available. Pleural fluid analysis No current complaints of fever or cough, lower suspicion for pneumonia at parapneumonic effusion, holding off on antibiotics. Continue Lasix in the interim, change oral dose to IV Lasix 40 mg daily As needed morphine and continued home dose of oxycodone for abdominal pain Complaints of back. Between the shoulder blades, suspect also related to large pleural effusion. EKG without acute ST-T wave changes. Troponin series unremarkable. Hyperammonemia at 94, patient's mentation currently is at baseline. She is alert awake and oriented, no obvious deficits are noted. We will start her on beta-blockers lactulose to avoid constipation and resultant encephalopathy. Holding spirinolactone for now due to hyperkalemia 5.6 Insulin sliding scale for DM Known to have esophageal varices, no current signs of bleeding DVT ppx: holding lovenox pending procedures to minimize risk of bleeding , INR deranged at 1.7 Full code Attestations Medical Necessity Statement*: > 2midnight admission anticipated for above defined care Coding Level of Care Code Acute Code for Chg Fwd Moderate MDM includes number and complexity of problems actively addressed during encounter, amount and/or complexity of data reviewed/ordered and described risk of complication, morbidity or mortality of management as documented Diagnoses Cirrhosis of liver not due to alcohol K74.60 History of hepatitis C virus infection Z86.19 Pleural effusion J90 Portal hypertension K76.6 INR (international normal ratio) abnormal R79.1 Hyperammonemia E72.20 Diabetes mellitus, type II E11.9 Diabetes mellitus halfway insulin use: with termite exterminator use
[2022-12-13 03:36] LABS: Add Urine Microscopic? NO; Charge for UA Resulting for Rev
[2022-12-13 03:52] LABS: Bilirubin Urine Neg (Negative); Blood Urine Neg (Negative); Glucose Urine UA Norm (Normal); Ketones Urine Negative (Negative); Leukocyte Esterase Urine Negative (Negative); Nitrate Urine Negative (Negative); Protein Urine Neg (Negative); Urine Appearance Clear (CLEAR); Urine Color Yellow (Yellow); Urobilinogen Urine Norm (Negative); pH Urine 5 (5-7)
[2022-12-13 06:40] LABS: Alanine Aminotransferase 42 U/L (0-33); Albumin Level 2.4 g/dL (3.5-5.2); Alkaline Phosphatase 147 U/L (35-105); Anion Gap 15.1 (5-19); Aspartate Amino Transferase 58 U/L (0-32); Blood Urea Nitrogen 32 mg/dL (8-23); Calcium 8.5 mg/dL (8.5-10.5); Carbon Dioxide 22 mmol/L (22-29); Chloride 97 mmol/L (98-107); Globulin 3.8 g/dL (1.3-4.6); Glucose 144 mg/dL (65-115); Osmolality Calculated 277 mOsm/kg (285-295); Potassium 5.1 mmol/L (3.5-5.1); Sodium 129 mmol/L (136-145); Total Bilirubin 5.5 mg/dL (0.15-1.2); Total Protein 6.2 g/dL (6.6-8.7)
[2022-12-13] MEDS: lactulose oral liq 20 gm/30 mL UDC PO ×2 (07:02→18:22)
[2022-12-13] MEDS: FUROsemide 10 mg/mL SDV 4mL 40 MG IVP (07:04)
[2022-12-13 07:56] LABS: Glucose Point of Care 142 mg/dL (70-110)
[2022-12-13] MEDS: insulin lispro 100 unit/1 mL SUBCUT ×3 (08:41→17:30)
[2022-12-13] MEDS: pantoprazole DR 40 mg Tablet PO (08:42)
[2022-12-13] MEDS: levothyroxine 88 mcg Tablet PO (08:42)
--- NOTE | 2022-12-13 09:29 | PC.PHAR ---
Addendum entered by Tawnya Bloom 12/13/22 11:35: pt states she takes care of her own medications-pt states she no longer takes zocor 20mg ext shows last filled 10/02/22 90d/s-[facility] pharmacy not open to verify when last filled dates or directions on insulins- Original Note: pt in restroom when went into do med rec-
[2022-12-13 11:53] LABS: Glucose Point of Care 212 mg/dL (70-110)
--- NOTE | 2022-12-13 16:00 | P.PN_ITS ---
Subjective Subjective: Nausea slightly better. She is feeling tired. Having some cough. Vitals/I&O/Wt Last Vital Signs Temp 98.4 F 12/13/22 12:00 Pulse 84 12/13/22 14:00 Resp 14 12/13/22 12:00 BP 105/50 12/13/22 12:00 Pulse Ox 90 12/13/22 12:00 O2 Del Method Room Air 12/13/22 03:26 12/13/22 12/13/22 12/13/22 06:59 14:59 22:59 Intake Total 240 / 240 Output Total 500 / 500 Balance 240 / 240 -500 / -260 Weight last 48 hrs Weight 47.627 kg Weight 47.627 kg Physical Exam Narrative: at bedside Const: COMMON NORMALS: patient oriented x3 and alert GENERAL APPEARANCE: cooperative and frail appearing ORIENTATION/CONSCIOUSNESS: Yes awake HENMT: COMMON NORMALS: oropharynx normal Neck/C-Spine: COMMON NORMALS: no JVD Resp: COMMON NORMALS: normal respiratory effort AUSCULTATION: diminished lung sounds on the right in the lower lung tucker Cardio: COMMON NORMALS: no JVD, regular rhythm, S1 normal heart sound present, S2 normal heart sound present and No murmurs present (Cardio) RHYTHM: regular rhythm HEART SOUNDS: S1 normal heart sound present and S2 normal heart sound present GI: COMMON NORMALS: Soft to palpation and non-tender PALPATION: Yes Soft to palpation OTHER: Distended, soft Extremity: COMMON NORMALS: no joint enlargement and no pedal edema Neuro: COMMON NORMALS: patient oriented x3 and moves all extremities SENSORIUM/ORIENTATION: Yes alert Skin: COMMON NORMALS: no rashes or lesions noted GENERAL SKIN EXAM: no rashes or lesions noted Data 12/12/22 23:55 12/13/22 06:16 A&P Assessment and plan (1) Cirrhosis of liver not due to alcohol: (2) History of hepatitis C virus infection: (3) Pleural effusion: (4) Portal hypertension: (5) INR (international normal ratio) abnormal: (6) Hyperammonemia: (7) Diabetes mellitus, type II: Qualifiers: 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 She would like to proceed with thoracentesis. In the meantime continue diuresis. Monitor oxygenation. Sats in low 90s on room air. So far tolerating diuresis, creatinine 1.2 which appears to be recent baseline. Sodium 129. Potassium 5.1. Bicarb 22, anion gap 15.1. Reassess chemistries. As she is also coughing, check respiratory viral panel, follow-up CBC. Currently WBC noted normal. Monitor for worsening respiratory function/decompensation or breathing. Ascites and hypervolemia as a result of portal hypertension. She would like to proceed with paracentesis in the continue diuresis as above. Discussed with her and her . She follows with GI specialist. It has been brought up to her to further consider TIPS for future consideration and discussed with them, however, they are somewhat concerned about worsening risk of encephalopathy with TIPS. They will get more information with her GI specialist. Noted hyperbilirubinemia 5.5, AST 28, ALT 42, alk phos 147, platelets 100 related to cirrhosis. Goals of care discussion: GI specialist additionally told her to consider liver transplantation which she was reluctant to do, however, discussing with her in case she is a candidate states that she might do so now. No current complaints of fever or cough, lower suspicion for pneumonia at parapneumonic effusion, holding off on antibiotics. Continue Lasix IV Lasix 40 mg daily Continue for now started IV morphine and continued home dose of oxycodone for abdominal pain Complaints of back. Between the shoulder blades, suspect also related to large pleural effusion. EKG without acute ST-T wave changes. Troponin series unremarkable. Hyperammonemia at 94, patient's mentation currently is at baseline. She is alert awake and oriented, no obvious deficits panel. Noted. Continue lactulose. Hyperkalemia: Follow-up potassium. Changed to low potassium diet. Holding spirinolactone for now due to hyperkalemia 5.6 Insulin sliding scale for DM Known to have esophageal varices, no current signs of bleeding Hepatitis C related liver cirrhosis. States was treated for hepatitis C with eradication. DVT ppx: SCD Full code Attestations Medical Necessity Statement*: Continue admission for assessment management of pleural effusion, ascites, and lady with liver cirrhosis. 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
[2022-12-13 16:41] LABS: Glucose Point of Care 189 mg/dL (70-110)
[2022-12-13 19:20] LABS: Adenovirus Not Detected (NOT DETECT); Chlamydia Pneumoniae Not Detected (NOT DETECT); Coronavirus 229E,HKU1,NL63,OC4 Not Detected (NOT DETECT); Human Metapneumovirus Not Detected (NOT DETECT); Human Rhinovirus/Enterovirus Not Detected (NOT DETECT); Influenza A Not Detected (NOT DETECT); Influenza A H1 Not Detected (NOT DETECT); Influenza A H1-2009 Not Detected (NOT DETECT); Influenza A H3 Not Detected (NOT DETECT); Influenza B Not Detected (NOT DETECT); Mycoplasma Pneumoniae Not Detected (NOT DETECT); Parainfluenza Virus Type 1 Not Detected (NOT DETECT); Parainfluenza Virus Type 2 Not Detected (NOT DETECT); Parainfluenza Virus Type 3 Not Detected (NOT DETECT); Parainfluenza Virus Type 4 Not Detected (NOT DETECT); Respiratory Syncytial Virus A Not Detected (NOT DETECT); Respiratory Syncytial Virus B Not Detected (NOT DETECT); SARS-COV-2 Not Detected (NOT DETECT)
[2022-12-13 20:36] LABS: Glucose Point of Care 130 mg/dL (70-110)
[2022-12-14] VITALS (12 sets, daily range): BP systolic 93–133; BP diastolic 42–73; PULSE 67–108; RESP 16–18; TEMP 36.5–37; O2SAT 88–93
[2022-12-14 05:34] LABS: Basophils # 0.1 10^3/uL (0.0-0.1); Basophils % 0.7 %; Eosinophils # 0.6 10^3/uL (0.0-0.8); Eosinophils % 6.8 %; Hematocrit 29.7 % (37.0-47.0); Hemoglobin 10.1 g/dL (11.5-15.3); Lymphocytes # 0.7 10^3/uL (0.8-4.8); Lymphocytes % 8.1 %; Mean Corpuscular Volume 108.8 fl (81-99); Mean Platelet Volume 11.4 fL (7.4-10.4); Monocytes # 1.1 10^3/uL (0.2-0.9); Monocytes % 13.9 %; Neutrophils # 5.61 10^3/uL (1.8-7.7); Nucleated Red Blood Cells % 0 %; Platelet Count 76 10^3/cmm (130-400); Red Blood Count 2.73 10^6/uL (4.1-5.3); Red Cell Distribution Width 15.9 % (12.1-15.1)
[2022-12-14 05:56] LABS: Alanine Aminotransferase 36 U/L (0-33); Albumin Level 2.2 g/dL (3.5-5.2); Alkaline Phosphatase 143 U/L (35-105); Aspartate Amino Transferase 51 U/L (0-32); Blood Urea Nitrogen 28 mg/dL (8-23); Calcium 8.1 mg/dL (8.5-10.5); Carbon Dioxide 20 mmol/L (22-29); Chloride 97 mmol/L (98-107); Globulin 3.3 g/dL (1.3-4.6); Glucose 126 mg/dL (65-115); Magnesium 1.6 mg/dL (1.7-2.3); Osmolality Calculated 271 mOsm/kg (285-295); Sodium 127 mmol/L (136-145); Total Protein 5.5 g/dL (6.6-8.7)
[2022-12-14] MEDS: lactulose oral liq 20 gm/30 mL UDC PO ×2 (06:22→18:26)
[2022-12-14 06:23] LABS: Glucose Point of Care 145 mg/dL (70-110)
[2022-12-14] MEDS: FUROsemide 10 mg/mL SDV 4mL 40 MG IVP (06:29)
--- NOTE | 2022-12-14 06:48 | US_ITS ---
WS: [id number] ULTRASOUND-GUIDED THORACENTESIS, RIGHT HISTORY: large right pleural effusion Procedure, risks, and complications were explained to the patient. With the patient in an upright pos ition, the skin over the RIGHT posterior thorax was cleansed with ChloraPrep and anesthetized with 1% buffered lidocaine. A 5 [place] Yueh needle is inserted into the pleural fluid without complication. Approximately 1100 cc of clear pleural fluid is removed without difficulty. Specimen collected for analysis. Patient's O2 saturation decreased and blood pressure decreased on the examination and the study was t erminated. O2 saturation increased with supplemental oxygen. / thoracentesis [id number] IMPRESSION: 1. RIGHT thoracentesis yielding 1100 cc of fluid. 2. Chest radiograph to follow to evaluate for pneumothorax. 3. Pleural fluid collected for analysis as requested.
--- NOTE | 2022-12-14 06:50 | US_ITS ---
WS: [id number] Limited abdomen ultrasound. HISTORY: Evaluate for ascites. There is only very small amount of ascites in the lower quadrants. Insufficient for paracentesis. US/US abdomen lmt fluid [id number] IMPRESSION: Small amount of ascites. Insufficient for paracentesis.
--- NOTE | 2022-12-14 11:18 | USCV_ITS ---
Natacha Linares Age: 72 Gender: F : 1950 Exam Date: 12/14/2022 12:05 Ordering Phys: Bertrand Evans MD Technologist: Eriberto Chan [place] [facility] [place]ication: chf BP: 110 / 73 HR: 87 Rhythm: Sinus Technical Quality: Adequate MEASUREMENTS (Male / Female) Normal Values 2D ECHO LV Diastolic Diameter PLAX 3.2 cm 4.2 - 5.9 / 3.9 - 5.3 cm LV Systolic Diameter PLAX 1.8 cm IVS Diastolic Thickness 0.9 cm 0.6 - 1.0 / 0.6 - 0.9 cm IVS Systolic Thickness 1.3 cm LVPW Diastolic Thickness 1.1 cm 0.6 - 1.0 / 0.6 - 0.9 cm LVPW Systolic Thickness 0.9 cm LVOT Diameter 2.1 cm LV Ejection Fraction 2D Teich 73.0 % LV Ejection Fraction MOD 2C 60.3 % LV Ejection Fraction 2C AL 59.6 % LA Diameter 2.8 cm Aorta at Sinotubular Diameter 2.5 cm M-MODE Aortic Annulus Diameter 2.6 cm LA Ao Ratio MM 1.1 MV E Point Septal Separation 0.8 cm DOPPLER AV Peak Velocity 101.0 cm/s LVOT Peak Velocity 113.0 cm/s AV Area Cont Eq vti 3.2 cm squared AV Area Cont Eq pk 3.8 cm squared MV Area PHT 5.6 cm squared Mitral E to A Ratio 0.7 MV E' Velocity 38.0 cm/s Mitral E to MV E' Ratio 6.3 Mitral E to LV E' Lateral Ratio 6.3 Mitral E to LV E' Septal Ratio 6.3 TR Peak Velocity 126.3 cm/s TR Peak Gradient 6.4 mmHg Right Atrial Pressure 3.0 mmHg Pulmonary Artery Systolic Pressu 9.4 mmHg FINDINGS Left Ventricle Normal left ventricular size, systolic function and wall thickness, with no regional wall motion abnormalities. Left ventricular ejection fraction is estimated at 65 %. Grade I diastolic dysfunction (abnormal relaxation filling pattern), normal to mildly elevated filling pressures. Right Ventricle Normal right ventricular size and systolic function. Right ventricular systolic pressure 9.4 mmHg. Right Atrium Normal right atrial size. Left Atrium Normal left atrial size. Mitral Valve Mildly thickened mitral valve. No mitral valve stenosis. Trace mitral valve regurgitation. Aortic Valve Aortic valve not well visualized. Probably tricuspid aortic valve. No aortic valve stenosis. No aortic valve regurgitation. Tricuspid Valve Structurally normal tricuspid valve. Pulmonic Valve Pulmonic valve not well visualized. Pericardium No pericardial effusion. Aorta Normal size aortic root and proximal ascending aorta. IVC Inferior vena cava not visualized. CONCLUSIONS 1. Normal left ventricular size, systolic function and wall thickness, with no regional wall motion abnormalities. Left ventricular ejection fraction is estimated at 65 %. Grade I diastolic dysfunction (abnormal relaxation filling pattern), normal to mildly elevated filling pressures. 2. No prior similar studies to compare. Anusha Valdez MD (Electronically Signed) Final Date: 14 December 2022 17:01 S
[2022-12-14 11:50] LABS: Glucose Point of Care 161 mg/dL (70-110)
--- NOTE | 2022-12-14 12:26 | P.PN_ITS ---
Subjective Subjective: She is doing about the same. Some mid back discomfort. No chest pain. Is not short of breath. Having some minimal nausea. No vomiting. Vitals/I&O/Wt Last Vital Signs Temp 98.0 F 12/14/22 11:38 Pulse 88 12/14/22 11:38 Resp 18 12/14/22 11:38 BP 115/61 12/14/22 11:38 Pulse Ox 90 12/14/22 11:38 O2 Del Method Room Air 12/14/22 11:38 12/13/22 12/14/22 12/14/22 22:59 06:59 14:59 Intake Total 260 / 500 Output Total 700 / 700 300 / 1000 Balance -440 / -200 -300 / -500 Weight last 48 hrs Weight 47.627 kg Weight 47.627 kg Physical Exam Narrative: at bedside Const: COMMON NORMALS: patient oriented x3 and alert GENERAL APPEARANCE: cooperative and frail appearing ORIENTATION/CONSCIOUSNESS: Yes awake HENMT: COMMON NORMALS: oropharynx normal Neck/C-Spine: COMMON NORMALS: no JVD Resp: COMMON NORMALS: normal respiratory effort and clear to auscultation bilaterally AUSCULTATION: clear to auscultation bilaterally and diminished lung sounds on the right in the lower lung tucker Cardio: COMMON NORMALS: no JVD, regular rhythm, S1 normal heart sound present, S2 normal heart sound present and No murmurs present (Cardio) RHYTHM: regular rhythm HEART SOUNDS: S1 normal heart sound present and S2 normal heart sound present GI: COMMON NORMALS: Soft to palpation and non-tender PALPATION: Yes Soft to palpation OTHER: Distended, soft Extremity: COMMON NORMALS: no joint enlargement and no pedal edema Neuro: COMMON NORMALS: patient oriented x3 and moves all extremities SENSORIUM/ORIENTATION: Yes alert Skin: COMMON NORMALS: no rashes or lesions noted GENERAL SKIN EXAM: no rashes or lesions noted Data 12/14/22 05:12 12/14/22 05:12 A&P Assessment and plan (1) Cirrhosis of liver not due to alcohol: (2) History of hepatitis C virus infection: (3) Pleural effusion: (4) Portal hypertension: (5) INR (international normal ratio) abnormal: (6) Hyperammonemia: (7) Diabetes mellitus, type II: Qualifiers: Diabetes mellitus senior living insulin use: 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 She would like to proceed with thoracentesis. Pending thoracentesis. Discussed with radiology, they are about to evaluate for thoracentesis. Noted INR 1.8, her, not access services representative given cirrhosis. Platelets on the lower side 76,000. She is not on anticoagulation or antiplatelet medications. We will monitor her after thoracentesis. Sats in low as low as 89 on room air. She is becoming more dyspneic despite diuresis. Suspected secondary to decompensated liver cirrhosis but additional pleural fluid studies are ordered. Complicated by dyspnea, hypoxia, oxygen saturation 89% today. Additionally assess TTE. Reassess chemistries. Follow-up chest x-ray requested. As she is also coughing, check respiratory viral panel, follow-up CBC. Currently WBC noted normal. Monitor for worsening respiratory function/decompensation or breathing. Hypomagnesemia: Replace. Follow-up magnesium requested. At risk of arrhythmia with changes in electrolytes with fluid shifts with fluid removal. Ascites and hypervolemia as a result of portal hypertension: Discussed with radiology, reassess today, significantly less fluid currently with diuresis. Probably less than about a liter. Patient is reluctant to proceed currently. Follow-up outpatient for reassessment. Some worsening renal function with diuresis. BUN 28, creatinine 1.3. Reassess chemistry. Discussed with her and her . She follows with GI specialist. It has been brought up to her to further consider TIPS for future consideration and discussed with them, however, they are somewhat concerned about worsening risk of encephalopathy with TIPS. They will get more information with her GI specialist. Noted hyperbilirubinemia 4, AST 51, ALT 36, alk phos 143. Platelets 76 related to cirrhosis. Goals of care discussion: GI specialist additionally told her to consider liver transplantation which she was reluctant to do, however, discussing with her in case she is a candidate states that she might do so now. No current complaints of fever or cough, lower suspicion for pneumonia at parapneumonic effusion, holding off on antibiotics. Continue Lasix IV Lasix 40 mg daily Continue for now started IV morphine and continued home dose of oxycodone for abdominal pain Complaints of back. Between the shoulder blades, suspect also related to large pleural effusion. EKG without acute ST-T wave changes. Troponin series unremarkable. Hyperammonemia at 94, patient's mentation currently is at baseline. She is alert awake and oriented, no obvious deficits panel. Noted. Continue lactulose. Hyperkalemia: With improvement. Potassium down to 5. Changed to low potassium diet. Holding spirinolactone for now due to hyperkalemia Insulin sliding scale for DM Known to have esophageal varices, no current signs of bleeding Hepatitis C related liver cirrhosis. States was treated for hepatitis C with eradication. DVT ppx: SCD Full code Attestations Medical Necessity Statement*: Continue admission for assessment and management of decompensated liver cirrhosis with ascites but also pleural effusion, pending additional assessment of pleural effusion. 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
--- NOTE | 2022-12-14 13:00 | XR_ITS ---
WS: [id number] PORTABLE CHEST HISTORY: Thoracentesis, RIGHT COMPARISON: 12/13/2022 Status post RIGHT thoracentesis. Slightly improved aeration. There is continued moderate-sized effusi on. No pneumothorax is identified. LEFT lung is clear. Cardiac size: Normal. Mediastinum/Aorta: Normal mediastinum. No osseous abnormality seen. XR/XR chest 1V portable [id number] IMPRESSION: 1. No pneumothorax status post RIGHT thoracentesis. 2. Continued moderate RIGHT pleural effusion.
[2022-12-14] MEDS: pantoprazole DR 40 mg Tablet PO (14:05)
[2022-12-14] MEDS: magnesium sulfate premix 2 GM/50 ML PIGGYBACK IV (14:05)
[2022-12-14 14:18] LABS: Albumin Body Fluid 0.4 g/dL; LDH Body Fluid 82 U/L
[2022-12-14 14:19] LABS: Cyto Order Verification No Order
[2022-12-14 15:46] LABS: Mononuclear %, Pleural Fluid 85 %; Polynuclear Cells, Pleural % 15 %
[2022-12-14 15:52] LABS: Appearance, Pleural Fluid CLEAR (CLEAR); Color, Pleural Fluid Pale Yellow (Pale Yellow); PATH Referal YES
[2022-12-14 16:30] LABS: Glucose Point of Care 176 mg/dL (70-110)
[2022-12-14] MEDS: insulin lispro 100 unit/1 mL SUBCUT ×2 (17:25→21:55)
[2022-12-14 20:56] LABS: Glucose Point of Care 290 mg/dL (70-110)
[2022-12-15] VITALS (11 sets, daily range): BP systolic 102–105; BP diastolic 40–74; PULSE 69–100; RESP 16–18; TEMP 36.4–37; O2SAT 90–93
[2022-12-15 03:37] LABS: Basophils # 0.1 10^3/uL (0.0-0.1); Basophils % 0.4 %; Eosinophils # 0.1 10^3/uL (0.0-0.8); Eosinophils % 0.6 %; Hematocrit 29.3 % (37.0-47.0); Hemoglobin 10.2 g/dL (11.5-15.3); Lymphocytes # 0.5 10^3/uL (0.8-4.8); Lymphocytes % 3.7 %; Mean Corpuscular HGB Conc 34.8 g/dL (30.0-36.0); Mean Corpuscular Hemoglobin 37.4 pg (28.0-34.0); Mean Corpuscular Volume 107.3 fl (81-99); Mean Platelet Volume 11.3 fL (7.4-10.4); Monocytes # 1.5 10^3/uL (0.2-0.9); Monocytes % 10.2 %; Neutrophils # 12.01 10^3/uL (1.8-7.7); Neutrophils % 84.2 %; Nucleated Red Blood Cells % 0 %; Platelet Count 92 10^3/cmm (130-400); Red Blood Count 2.73 10^6/uL (4.1-5.3); Red Cell Distribution Width 15.6 % (12.1-15.1); White Blood Count 14.3 10^3/uL (4.0-10.0)
[2022-12-15 04:00] LABS: Alanine Aminotransferase 38 U/L (0-33); Albumin Level 2.1 g/dL (3.5-5.2); Alkaline Phosphatase 156 U/L (35-105); Anion Gap 15.1 (5-19); Aspartate Amino Transferase 50 U/L (0-32); Blood Urea Nitrogen 32 mg/dL (8-23); Calcium 8.4 mg/dL (8.5-10.5); Carbon Dioxide 21 mmol/L (22-29); Chloride 95 mmol/L (98-107); Globulin 3.6 g/dL (1.3-4.6); Glucose 165 mg/dL (65-115); Magnesium 2.2 mg/dL (1.7-2.3); Osmolality Calculated 275 mOsm/kg (285-295); Potassium 4.1 mmol/L (3.5-5.1); Sodium 127 mmol/L (136-145); Total Bilirubin 5.1 mg/dL (0.15-1.2); Total Protein 5.7 g/dL (6.6-8.7)
[2022-12-15] MEDS: lactulose oral liq 20 gm/30 mL UDC PO (05:51)
--- NOTE | 2022-12-15 06:00 | XRR_ITS ---
PROCEDURE INFORMATION: Exam: XR Chest Exam date and time: 12/15/2022 5:48 AM Age: 72 years old Clinical indication: Other: Hypoxia TECHNIQUE: Imaging protocol: Radiologic exam of the chest. Views: 1 view. COMPARISON: CR XR chest 1V portable [id number] 12/14/2022 12:21 PM FINDINGS: Lungs: Persistent increased interstitial markings in association with small right pleural effusion and adjacent atelectasis. Pneumonia should be excluded clinically. Pleural spaces: See Lungs finding. Heart/Mediastinum: Stable cardiomediastinal silhouette. Bones/joints: Unremarkable. XR/XR chest 1V portable [id number] IMPRESSION: Imaging findings of pulmonary edema with small right pleural effusion. Pneumonia should be excluded clinically.
[2022-12-15] MEDS: FUROsemide 10 mg/mL SDV 4mL 40 MG IVP (06:05)
[2022-12-15 06:20] LABS: Glucose Point of Care 172 mg/dL (70-110)
[2022-12-15] MEDS: pantoprazole DR 40 mg Tablet PO (09:53)
[2022-12-15] MEDS: insulin lispro 100 unit/1 mL SUBCUT ×4 (09:53→21:13)
[2022-12-15] MEDS: levothyroxine 88 mcg Tablet PO (09:53)
[2022-12-15] MEDS: cefTRIAXone 1,000 MG in sodium chloride 0.9% (plus) 50 ML 100 MG IV (10:28)
[2022-12-15] MEDS: azithromycin 500 MG in sodium chloride 0.9% 250 ML 250 MG IV (11:17)
[2022-12-15] MEDS: morphine 4 mg/mL SDV 1 mL 2 MG IVP ×2 (11:25→20:24)
[2022-12-15] MEDS: ondansetron 2 mg/ML SDV 2 mL 4 MG IVP ×2 (11:28→20:27)
[2022-12-15 11:52] LABS: Glucose Point of Care 252 mg/dL (70-110)
--- NOTE | 2022-12-15 14:24 | CTR_ITS ---
PROCEDURE INFORMATION: Exam: CT Chest Without Contrast; Diagnostic Exam date and time: 12/15/2022 3:47 PM Age: 72 years old Clinical indication: Pain; Other: Back; Additional info: Back pain, hypoxia.No history of trauma or recent surgery is provided. TECHNIQUE: Imaging protocol: Diagnostic computed tomography of the chest without contrast. 212image(s) are provided. Radiation optimization: All CT scans at this facility use at least one of these dose optimization techniques: automated exposure control; mA and/or kV adjustment per patient size (includes targeted exams where dose is matched to clinical indication); or iterative reconstruction. Other technique: Axial images are available with sagittal and coronal reconstruction views. Automated dose exposure control is utilized. The DLP is 294.38. REPORTING DATA: Count of CT and Cardiac NM exams in prior 12 months: This patient has received 0 known CTs and 0 known cardiac nuclear medicine studies in the 12 months prior to the current study. COMPARISON: 1. CR (CHEST, ) 12/15/2022 5:[address] chest is currently available. 2. CR XR chest 1V portable [id number] 12/14/2022 12:[address] kidney stone [id number] 07/20/2021 3:45 PM RADIATION DOSE METRICS: Total DLP (mGy-cm): 294.38 FINDINGS: Trachea: The central airways are patent. Lungs: There is some patchy consolidative volume loss with some air bronchograms right lower lobe predominantly. There is some granulomatous calcific appearance right lower lobe centrally series 4, image 35. There is some patchy volume loss of the right middle lobe centrally. There is some patchy ground-glass attenuation overall for example including posterior segment of the right upper lobe as well as some left upper lobe also present. Pleural spaces: There is a large amount of right pleural fluid demonstrated similar overall to the chest radiograph. No pneumothorax is appreciated. Heart: No significant pericardial fluid collection is appreciated. Coronary arteries: There appear to be some coronary arterial calcifications present. Lymph nodes: There appear to be some lymph node calcifications.The mediastinal and hilar margins are obscured more so on the right with the pleural fluid. Vasculature: No aortic aneurysmal dilatation is appreciated. Liver: There is irregular cirrhotic appearance of the liver relatively similar in distribution. One of the cystic foci described previously left liver lobe appears smaller in the interval.There is some ductal dilatation similar albeit incompletely included. Stomach and bowel: There is a small sliding-type hiatal hernia demonstrated with slight gastroesophageal fold thickening. Intraperitoneal space: There is a similar interval appearance of the included intraperitoneal space, upper abdominal structures.There is some ascites present similar overall. There is some mesenteric and omental stranding slightly increased. Bones/joints: Osseous alignment is maintained.No interval displaced fracture or dislocation is appreciated.There is slightly decreased bone mineralization overall. There is some degeneration of the shoulders right slightly more so than left similar overall. There is some thoracic spondylosis present. There is some minimal decreased superior endplate height although possibly chronic of the T1 level with well corticated margins. There are some chronic appearing rib deformities for example laterally on the left. Soft tissues: No radiopaque foreign body or subcutaneous emphysema is appreciated. Other findings: There is some motion artifact present. No other significant interval changes are appreciated. CT/CT chest wo con [id number] IMPRESSION: 1. There is a large amount of right pleural fluid present similar overall. No internal air pockets or mixed increased density is currently appreciated. 2. There is some consolidative volume loss demonstrated right middle lobe and lower lobe predominantly and could also be seen with some compressive atelectasis. Some superimposed multifocal inflammation could however also present in this fashion. 3. There is cirrhotic appearance of the liver along with some ascites present. 4. There is a small sliding-type hiatal hernia demonstrated with slight gastroesophageal fold thickening. Some element of chronic inflammation gastritis could also present in this fashion.
[2022-12-15] MEDS: oxyCODONE 5 mg IR Tab/Cap PO (15:00)
--- NOTE | 2022-12-15 16:00 | PM.PN ---
Subjective Subjective: Gestures she is doing so-so . He is having some cough, bringing up some phlegm. Discussed with her and her daughter in law x-ray findings, concern for possible pneumonia. Later in the day she is having further mid back pain. No abdominal pain. No vomiting. Minimal if any nausea. Vitals/I&O/Wt Last Vital Signs Temp 97.5 F L 12/15/22 11:47 Pulse 89 12/15/22 11:47 Resp 16 12/15/22 15:00 BP 103/55 12/15/22 11:47 Pulse Ox 91 12/15/22 11:47 O2 Del Method Nasal Cannula 12/15/22 07:56 O2 Flow Rate 1 12/15/22 08:00 12/15/22 12/15/22 12/15/22 06:59 14:59 22:59 Intake Total 200 / 370 540 / 540 Balance 200 / -630 540 / 540 Physical Exam Narrative: [id number] at bedside Const: COMMON NORMALS: patient oriented x3 and alert GENERAL APPEARANCE: cooperative and frail appearing ORIENTATION/CONSCIOUSNESS: Yes awake HENMT: COMMON NORMALS: oropharynx normal Neck/C-Spine: COMMON NORMALS: no JVD Resp: COMMON NORMALS: normal respiratory effort and clear to auscultation bilaterally AUSCULTATION: clear to auscultation bilaterally and diminished lung sounds on the right in the lower lung tucker Cardio: COMMON NORMALS: no JVD, regular rhythm, S1 normal heart sound present, S2 normal heart sound present and No murmurs present (Cardio) RHYTHM: regular rhythm HEART SOUNDS: S1 normal heart sound present and S2 normal heart sound present GI: COMMON NORMALS: Soft to palpation and non-tender PALPATION: Yes Soft to palpation OTHER: Distended, soft Extremity: COMMON NORMALS: no joint enlargement and no pedal edema Neuro: COMMON NORMALS: patient oriented x3 and moves all extremities SENSORIUM/ORIENTATION: Yes alert Skin: COMMON NORMALS: no rashes or lesions noted GENERAL SKIN EXAM: no rashes or lesions noted Data 12/15/22 03:16 12/15/22 03:16 Micro: Microbiology 12/13/22 13:00 Gram Stain - Final Pleural Fluid Body Fluid Culture - Preliminary A&P Assessment and plan (1) Cirrhosis of liver not due to alcohol: (2) History of hepatitis C virus infection: (3) Pleural effusion: (4) Portal hypertension: (5) INR (international normal ratio) abnormal: (6) Hyperammonemia: (7) Diabetes mellitus, type II: Qualifiers: 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 She is having some cough. Chest x-ray this morning with some pulmonary edema with small right pleural effusion, pneumonia a consideration. Started empirically on ceftriaxone and azithromycin. Further back pain this afternoon. Also required some oxygen today. We will additionally assess CT chest. Large right pleural effusion with mediastinal shift. Status post drainage of about a liter of fluid. Transudative appearance. Echocardiogram also appreciated EF 65%, grade 1 diastolic dysfunction. She would like to proceed with thoracentesis. Pending thoracentesis. Discussed with radiology, they are about to evaluate for thoracentesis. As she is needing some oxygen today, with some additional back pain, will additionally assess with VQ scan to assess for possibility of PE. Reassess chemistries. Respiratory viral panel requested. Currently WBC noted normal. Monitor for worsening respiratory function/decompensation or breathing. Hypomagnesemia: Replaced. Ascites and hypervolemia as a result of portal hypertension: Discussed with radiology, reassess today, significantly less fluid currently with diuresis. Probably less than about a liter. Patient is reluctant to proceed currently. Follow-up outpatient for reassessment. She follows with GI specialist. It has been brought up to her to further consider TIPS for future consideration and discussed with them, however, they are somewhat concerned about worsening risk of encephalopathy with TIPS. They will get more information with her GI specialist. Noted hyperbilirubinemia 4, AST 51, ALT 36, alk phos 143. Platelets 76 related to cirrhosis. Goals of care discussion: GI specialist additionally told her to consider liver transplantation which she was reluctant to do, however, discussing with her in case she is a candidate states that she might do so now. No current complaints of fever or cough, lower suspicion for pneumonia at parapneumonic effusion, holding off on antibiotics. Hold additional Lasix for now. Noted some NASREEN, creatinine up to 1.6. Complaints of back. Between the shoulder blades, suspect also related to large pleural effusion. EKG without acute ST-T wave changes. Troponin series unremarkable. Additional assessment by CT chest and VQ scan. Hyperammonemia at 94, patient's mentation currently is at baseline. She is alert awake and oriented, no obvious deficits panel. Noted. Continue lactulose. Hyperkalemia: Resolved. Potassium down to 4.1. Continue low potassium diet. Holding spirinolactone for now due to hyperkalemia Insulin sliding scale for DM Known to have esophageal varices, no current signs of bleeding Hepatitis C related liver cirrhosis. States was treated for hepatitis C with eradication. DVT ppx: SCD Full code Attestations Medical Necessity Statement*: Continue admission for assessment management of possible pneumonia, leukocytosis, further assessment of back pain in a lady with underlying liver cirrhosis, ascites and pleural effusion status post thoracentesis. 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
[2022-12-15 16:53] LABS: Glucose Point of Care 149 mg/dL (70-110)
[2022-12-15 20:13] LABS: Adenovirus Not Detected (NOT DETECT); Chlamydia Pneumoniae Not Detected (NOT DETECT); Coronavirus 229E,HKU1,NL63,OC4 Not Detected (NOT DETECT); Human Metapneumovirus Not Detected (NOT DETECT); Human Rhinovirus/Enterovirus Not Detected (NOT DETECT); Influenza A Not Detected (NOT DETECT); Influenza A H1 Not Detected (NOT DETECT); Influenza A H1-2009 Not Detected (NOT DETECT); Influenza A H3 Not Detected (NOT DETECT); Influenza B Not Detected (NOT DETECT); Mycoplasma Pneumoniae Not Detected (NOT DETECT); Parainfluenza Virus Type 1 Not Detected (NOT DETECT); Parainfluenza Virus Type 2 Not Detected (NOT DETECT); Parainfluenza Virus Type 3 Not Detected (NOT DETECT); Parainfluenza Virus Type 4 Not Detected (NOT DETECT); Respiratory Syncytial Virus A Not Detected (NOT DETECT); Respiratory Syncytial Virus B Not Detected (NOT DETECT); SARS-COV-2 Not Detected (NOT DETECT)
[2022-12-15 21:09] LABS: Glucose Point of Care 207 mg/dL (70-110)
[2022-12-16] VITALS (12 sets, daily range): BP systolic 103–116; BP diastolic 48–64; PULSE 78–96; RESP 15–22; TEMP -12.7–36.8; O2SAT 94–96
[2022-12-16 05:07] LABS: Basophils % 0.3 %; Eosinophils # 0.5 10^3/uL (0.0-0.8); Eosinophils % 3.7 %; Hematocrit 31.6 % (37.0-47.0); Hemoglobin 10.6 g/dL (11.5-15.3); Lymphocytes # 0.7 10^3/uL (0.8-4.8); Lymphocytes % 5.8 %; Mean Corpuscular HGB Conc 33.5 g/dL (30.0-36.0); Mean Corpuscular Hemoglobin 36.1 pg (28.0-34.0); Mean Corpuscular Volume 107.5 fl (81-99); Mean Platelet Volume 11.8 fL (7.4-10.4); Monocytes # 1.9 10^3/uL (0.2-0.9); Monocytes % 15.3 %; Neutrophils # 8.98 10^3/uL (1.8-7.7); Neutrophils % 74.1 %; Nucleated Red Blood Cells % 0 %; Platelet Count 90 10^3/cmm (130-400); Red Blood Count 2.94 10^6/uL (4.1-5.3); Red Cell Distribution Width 15.7 % (12.1-15.1); White Blood Count 12.1 10^3/uL (4.0-10.0)
[2022-12-16 05:18] LABS: Alanine Aminotransferase 40 U/L (0-33); Albumin Level 2.3 g/dL (3.5-5.2); Alkaline Phosphatase 184 U/L (35-105); Anion Gap 12.5 (5-19); Aspartate Amino Transferase 46 U/L (0-32); Blood Urea Nitrogen 30 mg/dL (8-23); Carbon Dioxide 23 mmol/L (22-29); Chloride 96 mmol/L (98-107); Globulin 3.7 g/dL (1.3-4.6); Glucose 143 mg/dL (65-115); Osmolality Calculated 273 mOsm/kg (285-295); Potassium 4.5 mmol/L (3.5-5.1); Sodium 127 mmol/L (136-145); Total Bilirubin 3.7 mg/dL (0.15-1.2)
[2022-12-16 06:45] LABS: Glucose Point of Care 148 mg/dL (70-110)
[2022-12-16] MEDS: lactulose oral liq 20 gm/30 mL UDC PO ×2 (06:46→17:26)
[2022-12-16] MEDS: levothyroxine 88 mcg Tablet PO (08:05)
[2022-12-16] MEDS: pantoprazole DR 40 mg Tablet PO (08:05)
[2022-12-16] MEDS: cefTRIAXone 1,000 MG in sodium chloride 0.9% (plus) 50 ML 100 MG IV (08:05)
[2022-12-16] MEDS: insulin lispro 100 unit/1 mL SUBCUT ×4 (08:06→21:26)
[2022-12-16] MEDS: azithromycin 500 MG in sodium chloride 0.9% 250 ML 250 MG IV (08:45)
[2022-12-16 11:36] LABS: Glucose Point of Care 328 mg/dL (70-110)
--- NOTE | 2022-12-16 12:26 | US_ITS ---
WS: [id number] ULTRASOUND-GUIDED THORACENTESIS, RIGHT HISTORY: RIGHT pleural effusion Procedure, risks, and complications were explained to the patient. With the patient in an upright pos ition, the skin over the RIGHT posterior thorax was cleansed with ChloraPrep and anesthetized with 1% buffered lidocaine. A 5 Czech Yueh needle is inserted into the pleural fluid without complication. Approximately 1200 cc of clear pleural fluid is removed without difficulty. / thoracentesis [id number] IMPRESSION: 1. RIGHT thoracentesis yielding 1200 cc of fluid. 2. Chest radiograph to follow to evaluate for pneumothorax.
--- NOTE | 2022-12-16 13:08 | PC.NURSE ---
Dr. Pratt in room to perform thoracentesis, Time out performed led by this nurse, all parties in agreeance. consent signed. patient in comfortable position at this time. VSS- heart rate 97, o2 95% on 2L BP 112/55 RR 20. BP continued to get soft throughout procedure, as low as 94/50 at one point, but once procedure was over BP was 105/62. patient received a dose of morphine during procedure per prn order. a total of 1200ml drained. patient tolerated procedure well. resting in bed at this time, chest xray ordered. family at bedside, call light within reach.
--- NOTE | 2022-12-16 13:20 | XR_ITS ---
WS: [id number] PORTABLE CHEST HISTORY: Post RIGHT thoracentesis. COMPARISON: 12/15/2022 Status post RIGHT thoracentesis. There is a small residual RIGHT pleural effusion and associated atel ectasis at the RIGHT lung base. Significant improvement in the appearance of the lungs since the prio r study. No pneumothorax. No LEFT pleural effusion. Cardiac size: Normal. Mediastinum/Aorta: Mild atherosclerosis aorta. Osteopenia. High riding RIGHT humeral head. XR/XR chest 1V portable [id number] IMPRESSION: 1. Status post RIGHT thoracentesis. Small amount of residual pleural fluid and /or atelectasis. 2. No pneumothorax.
[2022-12-16] MEDS: morphine 4 mg/mL SDV 1 mL 2 MG IVP (13:27)
--- NOTE | 2022-12-16 14:24 | NM_ITS ---
WS: [id number] NUCLEAR MEDICINE LUNG VENTILATION AND PERFUSION CLINICAL INFORMATION: assess for PE TECHNIQUE: Ventilation/perfusion lung scan with 32.1 mCi technetium 99m DTPA. 5.1 mCi technetium 99m MAA COMPARISON: CT December 15, 2022 FINDINGS: Patchy heterogeneous radiotracer uptake on the ventilatory images with reduced uptake in the RIGHT lo wer lobe compatible with known RIGHT pleural effusion seen on the recent CT with RIGHT basilar infilt rates. Radiotracer deposition along the central bronchi on the ventilatory images. Cardiomegaly. Normal radiotracer uptake LEFT lung on perfusion images. Decreased perfusion in RIGHT lower lobe due to pleural effusion. No mismatched V/Q defects to indicate pulmonary embolus. NM/NM pul vent and perfus* [id number] IMPRESSION: 1. Low probability for pulmonary embolus.
--- NOTE | 2022-12-16 15:55 | PC.SOCIAL ---
IMM Update pg 2 of IMM updated and reviewed w/ patient. Copy provided and Copy dated, initialed and placed in chart.
[2022-12-16 16:46] LABS: Glucose Point of Care 289 mg/dL (70-110)
--- NOTE | 2022-12-16 20:25 | P.PN_ITS ---
Subjective Subjective: Today she is feeling somewhat tired. Some nausea. Coughing, productive cough. Vitals/I&O/Wt Last Vital Signs Temp 98.1 F 12/16/22 19:38 Pulse 87 12/16/22 19:38 Resp 17 12/16/22 19:38 BP 103/48 12/16/22 19:38 Pulse Ox 95 12/16/22 19:38 O2 Del Method Nasal Cannula 12/16/22 04:00 O2 Flow Rate 2 12/16/22 04:00 12/16/22 12/16/22 12/16/22 06:59 14:59 22:59 Intake Total 300 / 1200 660 / 660 Balance 300 / 1200 660 / 660 Physical Exam Narrative: Family at bedside Const: COMMON NORMALS: patient oriented x3 and alert GENERAL APPEARANCE: cooperative and frail appearing ORIENTATION/CONSCIOUSNESS: Yes awake HENMT: COMMON NORMALS: oropharynx normal Neck/C-Spine: COMMON NORMALS: no JVD Resp: COMMON NORMALS: normal respiratory effort and clear to auscultation bilaterally AUSCULTATION: clear to auscultation bilaterally and diminished lung sounds on the right in the lower lung tucker Cardio: COMMON NORMALS: no JVD, regular rhythm, S1 normal heart sound present, S2 normal heart sound present and No murmurs present (Cardio) RHYTHM: regular rhythm HEART SOUNDS: S1 normal heart sound present and S2 normal heart sound present GI: COMMON NORMALS: Soft to palpation and non-tender PALPATION: Yes Soft to palpation OTHER: Distended, soft Extremity: COMMON NORMALS: no joint enlargement and no pedal edema Neuro: COMMON NORMALS: patient oriented x3 and moves all extremities SENS ORIUM/ORIENTATION: Yes alert Skin: COMMON NORMALS: no rashes or lesions noted GENERAL SKIN EXAM: no rashes or lesions noted Data 12/16/22 04:52 12/16/22 04:52 Micro: Microbiology 12/13/22 13:00 Mycobacterial Smear - Preliminary Body Fluids - Pleura 12/13/22 13:00 Gram Stain - Final Pleural Fluid Body Fluid Culture - Preliminary A&P Assessment and plan (1) Cirrhosis of liver not due to alcohol: (2) History of hepatitis C virus infection: (3) Pleural effusion: (4) Portal hypertension: (5) INR (international normal ratio) abnormal: (6) Hyperammonemia: (7) Diabetes mellitus, type II: Qualifiers: Diabetes mellitus 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 Discussed with her and family results of VQ scan, low probability for PE. Review of CT chest again with large pleural effusion. Discussed consideration of additional thoracentesis with her and family. Discussed risks including hypotension and hy povolemic shock. They would like to proceed. Discussed with radiology, arranged, additional 1200 mL drained. Note reviewed. Having productive cough, will continue empirically for now ceftriaxone and azithromycin for possibility of pneumonia. May be bronchitis. Later in the day required some IV morphine for pain. Monitor oxygenation for any reexpansion pulmonary edema, although has been havin g fluid drawn in smaller fractions. She had not developed edema. At risk of further respiratory decompensation and failure. Prior procedure fluid noted pH 9, pale yellow, clear, LDH 82. Additionally noted respiratory viral panel is negative. Echocardiogram also appreciated EF 65%, grade 1 diastolic dysfunction. Reassess chemistries. Sodium noted 127. At risk of electrolyte abnormalities. Reassess blood counts, reassess chest x-ray, at risk of bleeding, thrombocytopenia, platelets 90. Repeat thoracentesis fluid clear. Leukocytosis: With improvement down to 12.1. Hypomagnesemia: Replaced. Ascites and hypervolemia as a result of portal hypertension: Discussed with radiology, reassess today, significantly less fluid currently with diuresis. Probably less than about a liter. Patient is reluctant to proceed currently. Follow-up outpatient for reassessment. She follows with GI specialist. It has been brought up to her to further consider TIPS for future consideration and discussed with them, however, they are somewhat concerned about worsening risk of encephalopathy with TIPS. They will get more information with her GI specialist. Noted hyperbilirubinemia 3.7, AST 46, ALT 40, alk phos 184. Platelets 76 related to cirrhosis. Goals of care discussion: GI specialist additionally told her to consider liver transplantation which she was reluctant to do, however, discussing with her in case she is a candidate states that she might do so now. No current complaints of fever or cough, lower suspicion for pneumonia at parapneumonic effusion, holding off on antibiotics. NASREEN: Creatinine up to 1.7. Continue to hold Lasix. Complaints of back. Between the shoulder blades, suspect also related to large pleural effusion. EKG without acute ST-T wave changes. Troponin series unremarkable. Additional assessment by CT chest and VQ scan as above. Hyperammonemia at 94, patient's mentation currently is at baseline. She is alert awake and oriented, no obvious deficits panel. Noted. Continue lactulose. Hyperkalemia: Resolved. Potassium down to 4.5. Continue low potassium diet. Holding spirinolactone for now due to hyperkalemia Insulin sliding scale for DM Known to have esophageal varices, no current signs of bleeding Hepatitis C related liver cirrhosis. States was treated for hepatitis C with eradication. DVT ppx: SCD Full code Attestations Medical Necessity Statement*: Continue admission for assessment management of large pleural effusion, in a lady with liver cirrhosis as well as possible pneumonia, at risk of shock, hemodynamic decompensation, risk of electrolyte abnormalities, respiratory failure, risk of bleeding. 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
[2022-12-16 21:13] LABS: Glucose Point of Care 208 mg/dL (70-110)
[2022-12-17] VITALS (12 sets, daily range): BP systolic 106–120; BP diastolic 51–64; PULSE 76–93; RESP 16–18; TEMP 36.4–36.8; O2SAT 91–98
--- NOTE | 2022-12-17 | US_ITS ---
WS: [id number] Ultrasound RIGHT chest. HISTORY: Evaluate pleural fluid. There is recurrent moderate to large RIGHT pleural effusion with atelectatic lung in the pleural flui d. US/US chest [id number] IMPRESSION: Recurrent moderate to large RIGHT pleural effusion.
[2022-12-17 05:16] LABS: Basophils # 0.1 10^3/uL (0.0-0.1); Basophils % 0.5 %; Eosinophils # 0.3 10^3/uL (0.0-0.8); Hematocrit 29.3 % (37.0-47.0); Lymphocytes # 0.8 10^3/uL (0.8-4.8); Lymphocytes % 6.8 %; Mean Corpuscular HGB Conc 34.1 g/dL (30.0-36.0); Mean Corpuscular Hemoglobin 36.6 pg (28.0-34.0); Mean Corpuscular Volume 107.3 fl (81-99); Mean Platelet Volume 11.6 fL (7.4-10.4); Monocytes # 1.7 10^3/uL (0.2-0.9); Monocytes % 15.2 %; Neutrophils # 8.14 10^3/uL (1.8-7.7); Neutrophils % 73.9 %; Nucleated Red Blood Cells % 0 %; Platelet Count 87 10^3/cmm (130-400); Red Blood Count 2.73 10^6/uL (4.1-5.3); Red Cell Distribution Width 15.8 % (12.1-15.1)
[2022-12-17 05:32] LABS: Alanine Aminotransferase 38 U/L (0-33); Alkaline Phosphatase 171 U/L (35-105); Anion Gap 13.8 (5-19); Aspartate Amino Transferase 47 U/L (0-32); Blood Urea Nitrogen 31 mg/dL (8-23); Carbon Dioxide 23 mmol/L (22-29); Chloride 97 mmol/L (98-107); Globulin 3.6 g/dL (1.3-4.6); Glucose 65 mg/dL (65-115); Osmolality Calculated 275 mOsm/kg (285-295); Potassium 3.8 mmol/L (3.5-5.1); Sodium 130 mmol/L (136-145); Total Bilirubin 3.1 mg/dL (0.15-1.2); Total Protein 5.6 g/dL (6.6-8.7)
--- NOTE | 2022-12-17 06:00 | XRR_ITS ---
PROCEDURE INFORMATION: Exam: XR Chest Exam date and time: 12/17/2022 5:54 AM Age: 72 years old Clinical indication: Other: Hypoxia TECHNIQUE: Imaging protocol: Radiologic exam of the chest. Views: 1 view. COMPARISON: CR XR chest 1V portable [id number] 12/16/2022 12:46 PM FINDINGS: Lungs: Right lung base obscured. Left lung clear. Pleural spaces: Large right pleural effusion increased from comparison. Negative for pneumothorax. Heart/Mediastinum: Unremarkable. No cardiomegaly. Bones/joints: Unremarkable. XR/XR chest 1V portable [id number] IMPRESSION: Increased right pleural effusion.
[2022-12-17] MEDS: lactulose oral liq 20 gm/30 mL UDC PO (06:21)
[2022-12-17 06:38] LABS: Glucose Point of Care 82 mg/dL (70-110)
[2022-12-17] MEDS: cefTRIAXone 1,000 MG in sodium chloride 0.9% (plus) 50 ML 100 MG IV (09:50)
[2022-12-17] MEDS: levothyroxine 88 mcg Tablet PO (09:50)
[2022-12-17] MEDS: spironolactone 25 mg Tablet 100 MG PO (09:50)
[2022-12-17] MEDS: pantoprazole DR 40 mg Tablet PO (09:50)
[2022-12-17] MEDS: azithromycin 500 MG in sodium chloride 0.9% 250 ML 250 MG IV (10:45)
[2022-12-17 11:06] LABS: Glucose Point of Care 330 mg/dL (70-110)
--- NOTE | 2022-12-17 11:10 | US_ITS ---
WS: [id number] Limited abdomen ultrasound. HISTORY: Evaluate for peritoneal fluid. No peritoneal fluid is identified within the 4 quadrants of the peritoneal cavity. US/US abdomen lmt fluid [id number] IMPRESSION: No significant peritoneal fluid identified.
[2022-12-17] MEDS: insulin lispro 100 unit/1 mL SUBCUT ×3 (12:37→21:55)
--- NOTE | 2022-12-17 13:30 | US_ITS ---
WS: [id number] ULTRASOUND-GUIDED THORACENTESIS, RIGHT HISTORY: R effusion, moderate to large. Recurrent effusion. Procedure, risks, and complications were explained to the patient. With the patient in an upright pos ition, the skin over the RIGHT posterior thorax was cleansed with ChloraPrep and anesthetized with 1% buffered lidocaine. A 5 [place] needle is inserted into the pleural fluid without complication. Approximately 1200 cc of clear yellow pleural fluid is removed without difficulty. / thoracentesis [id number] IMPRESSION: 1. RIGHT thoracentesis yielding 1200 cc of fluid. 2. Chest radiograph to follow to evaluate for pneumothorax.
[2022-12-17] MEDS: morphine 4 mg/mL SDV 1 mL 2 MG IVP (13:58)
--- NOTE | 2022-12-17 14:20 | XR_ITS ---
WS: [id number] PORTABLE CHEST HISTORY: Post RIGHT thoracentesis. COMPARISON: 12/17/2022 Status post RIGHT thoracentesis. Moderate size RIGHT pleural effusion has significantly decreased in size. There is minimal atelectasis and blunting of the RIGHT costophrenic angle. Small amount of flui d or thickening along the fissure. No pneumothorax. LEFT lung is clear. Cardiac size: Normal. Mediastinum/Aorta: Atherosclerosis aorta. No osseous abnormality seen. XR/XR chest 1V portable [id number] IMPRESSION: 1. No pneumothorax status post RIGHT thoracentesis. 2. Minimal residual compressive atelectasis at the RIGHT lung base.
[2022-12-17 17:19] LABS: Glucose Point of Care 176 mg/dL (70-110)
--- NOTE | 2022-12-17 19:19 | PM.PN ---
Subjective Subjective: Today she is feeling slightly better. She is coughing less, feels a little bit more energetic. No abdominal pain or discomfort. Vitals/I&O/Wt Last Vital Signs Temp 97.5 F L 12/17/22 16:27 Pulse 93 12/17/22 16:27 Resp 16 12/17/22 16:27 BP 117/62 12/17/22 16:27 Pulse Ox 98 12/17/22 16:27 O2 Del Method Nasal Cannula 12/17/22 16:27 O2 Flow Rate 3 12/17/22 16:27 12/17/22 12/17/22 12/17/22 06:59 14:59 22:59 Intake Total 540 / 540 340 / 880 Balance 540 / 540 340 / 880 Physical Exam Narrative: Family at bedside Const: COMMON NORMALS: patient oriented x3 and alert GENERAL APPEARANCE: cooperative and frail appearing ORIENTATION/CONSCIOUSNESS: Yes awake HENMT: COMMON NORMALS: oropharynx normal Neck/C-Spine: COMMON NORMALS: no JVD Resp: COMMON NORMALS: normal respiratory effort and clear to auscultation bilaterally AUSCULTATION: clear to auscultation bilaterally and diminished lung sounds on the right in the lower lung tucker Cardio: COMMON NORMALS: no JVD, regular rhythm, S1 normal heart sound present, S2 normal heart sound present and No murmurs present (Cardio) RHYTHM: regular rhythm HEART SOUNDS: S1 normal heart sound present and S2 normal heart sound present GI: COMMON NORMALS: Soft to palpation and non-tender PALPATION: Yes Soft to palpation OTHER: Mildly distended, soft Extremity: COMMON NORMALS: no joint enlargement and no pedal edema Neuro: COMMON NORMALS: patient oriented x3 and moves all extremities SENSORIUM/ORIENTATION: Yes alert Skin: COMMON NORMALS: no rashes or lesions noted GENERAL SKIN EXAM: no rashes or lesions noted Data 12/17/22 04:11 12/17/22 04:11 Micro: Microbiology 12/13/22 13:00 Gram Stain - Final Pleural Fluid Body Fluid Culture - Final 12/13/22 13:00 Mycobacterial Smear - Preliminary Body Fluids - Pleura A&P Assessment and plan (1) Cirrhosis of liver not due to alcohol: (2) History of hepatitis C virus infection: (3) Pleural effusion: (4) Portal hypertension: (5) INR (international normal ratio) abnormal: (6) Hyperammonemia: (7) Diabetes mellitus, type II: Qualifiers: Diabetes mellitus long term acute care registered nurse insulin use: with long term acute care registered nurse use Plan Large right pleural effusion with mediastinal shift. Yesterday had 1200 mL removed additionally, with good improvement in effusion on x-ray. Today recurrence again. Discussed further this with her and her family. Discussed consideration of seeking further assessment at higher level facility possibly with hepatology, consideration of further assessment possibly for TIPS or other considerations possibly pleurodesis. Alternatively discussed consideration of resumption of Lasix, additional thoracentesis today and reassessment, possibly with consideration of transfer to higher level facility at that point. Patient would like to try to resume diuretics as she is feeling better, renal function is noted improved today, with additional thoracentesis today. Discussed with radiology. Assessed also for paracentesis, no significant fluid noted intra-abdominal it seems with good response to diuresis. Underwent thoracentesis with additional 1200 mL removed of nonbloody fluid. We will request follow-up chest x-ray. Follow-up renal function. Having productive cough, will continue empirically for now ceftriaxone and azithromycin for possibility of pneumonia. May be bronchitis. Some atelectasis noted on x-ray, possible component of mild pneumonia, although fluid was transudative. Requested addition of fluid studies including analysis, culture, protein, LDH, albumin to current thoracentesis. Later in the day required some IV morphine for pain. Monitor oxygenation for any reexpansion pulmonary edema, although has been having fluid drawn in smaller fractions. She had not developed edema. At risk of further respiratory decompensation and failure. VQ scan, low probability for PE. Echocardiogram also appreciated EF 65%, grade 1 diastolic dysfunction. Reassess chemistries. Sodium noted 130. Noted BUN 31, creatinine 1.3. At risk of electrolyte abnormalities. Reassess blood counts, reassess chest x-ray, at risk of bleeding, thrombocytopenia, platelets 87. Repeat thoracentesis fluid clear. Leukocytosis: With improvement down to 12.1. Hypomagnesemia: Replaced. Ascites and hypervolemia as a result of portal hypertension: No significant fluid noted intra-abdominal he today. Seems responded well to diuresis. She normally follows with senior director in [place]. Noted hyperbilirubinemia 3.1, AST 47, ALT 38, alk phos 171. Platelets 87 related to cirrhosis. Goals of care discussion: GI specialist additionally told her to consider liver transplantation which she was reluctant to do, however, discussing with her in case she is a candidate states that she might do so now. No current complaints of fever or cough, lower suspicion for pneumonia at parapneumonic effusion, holding off on antibiotics. NASREEN: Improved, creatinine down to 1.3. With recurrent pleural effusion resume diuretic with spironolactone 100 mg, Lasix 40 mg. Reassess electrolytes, renal function. Albumin noted low at 2. We will give her dose of albumin. Back pain appears improved. Between the shoulder blades, suspect also related to large pleural effusion. EKG without acute ST-T wave changes. Troponin series unremarkable. Recurrent pleural effusion. VQ low probability for PE. Hyperammonemia at 94, patient's mentation currently is at baseline. She is alert awake and oriented, no obvious deficits panel. Noted. Continue lactulose. Hyperkalemia: Resolved. Potassium down to 4.5. Continue low potassium diet. Holding spirinolactone for now due to hyperkalemia Insulin sliding scale for DM Known to have esophageal varices, no current signs of bleeding Hepatitis C related liver cirrhosis. States was treated for hepatitis C with eradication. DVT ppx: SCD Full code Discussed with case management. Attestations Medical Necessity Statement*: Continue admission for assessment management of recurrent pleural effusion with decompensated liver cirrhosis, bronchi, possible pneumonia, risk of hemodynamic instability and shock electrolyte abnormalities, respiratory failure, risk of bleeding with thrombocytopenia. Diagnoses Cirrhosis of liver not due to alcohol K74.60 History of hepatitis C virus infection Z86.19 Pleural effusion J90 Portal hypertension K76.6 INR (international normal ratio) abnormal R79.1 Hyperammonemia E72.20 Diabetes mellitus, type II E11.9 Diabetes mellitus group home insulin use: with long term acute care registered nurse use
[2022-12-17] MEDS: albumin 25 G/100 ML BAG 60 G IV (20:07)
[2022-12-17 21:42] LABS: Glucose Point of Care 248 mg/dL (70-110)
[2022-12-18] VITALS (11 sets, daily range): BP systolic 106–178; BP diastolic 52–83; PULSE 80–90; RESP 16–19; TEMP 36.6–37; O2SAT 87–99
[2022-12-18] MEDS: morphine 4 mg/mL SDV 1 mL 2 MG IVP (01:37)
[2022-12-18 05:14] LABS: Basophils % 0.5 %; Eosinophils # 0.2 10^3/uL (0.0-0.8); Eosinophils % 2.5 %; Hemoglobin 9.6 g/dL (11.5-15.3); Lymphocytes # 0.6 10^3/uL (0.8-4.8); Lymphocytes % 7.4 %; Mean Corpuscular HGB Conc 33.1 g/dL (30.0-36.0); Mean Corpuscular Hemoglobin 37.1 pg (28.0-34.0); Monocytes # 1.3 10^3/uL (0.2-0.9); Monocytes % 15.6 %; Neutrophils # 6.25 10^3/uL (1.8-7.7); Neutrophils % 73.2 %; Nucleated Red Blood Cells % 0 %; Platelet Count 91 10^3/cmm (130-400); Red Blood Count 2.59 10^6/uL (4.1-5.3); Red Cell Distribution Width 15.8 % (12.1-15.1); White Blood Count 8.5 10^3/uL (4.0-10.0)
[2022-12-18 05:44] LABS: Alanine Aminotransferase 32 U/L (0-33); Albumin Level 2.4 g/dL (3.5-5.2); Alkaline Phosphatase 169 U/L (35-105); Anion Gap 12.3 (5-19); Aspartate Amino Transferase 43 U/L (0-32); Blood Urea Nitrogen 34 mg/dL (8-23); Calcium 7.9 mg/dL (8.5-10.5); Carbon Dioxide 21 mmol/L (22-29); Chloride 100 mmol/L (98-107); Globulin 3.1 g/dL (1.3-4.6); Glucose 278 mg/dL (65-115); Osmolality Calculated 286 mOsm/kg (285-295); Potassium 4.3 mmol/L (3.5-5.1); Sodium 129 mmol/L (136-145); Total Bilirubin 2.9 mg/dL (0.15-1.2); Total Protein 5.5 g/dL (6.6-8.7)
--- NOTE | 2022-12-18 06:00 | XR_ITS ---
WS: [id number] Portable AP upright chest, 12/18/2022 Clinical Data: Hypoxia Comparison: Portable chest, 12/17/2022 Findings: The right lower lobe opacity is increased compared to yesterday. This probably represents a n increase in right effusion and atelectasis. The left lung remains clear. The heart is not changed. No pneumothorax is seen. The aortic arch and descending thoracic aorta show tortuosity. There are mon itor leads on the chest and abdominal wall. XR/XR chest 1V portable [id number] Impression: 1. Increasing right lower lobe opacity which probably represents worsening effu pilar and or atelectasis. 2. Atherosclerosis.
[2022-12-18 06:47] LABS: Glucose Point of Care 246 mg/dL (70-110)
[2022-12-18] MEDS: lactulose oral liq 20 gm/30 mL UDC PO (07:17)
[2022-12-18] MEDS: FUROsemide 10 mg/mL SDV 4mL 40 MG IVP (07:18)
[2022-12-18] MEDS: levothyroxine 88 mcg Tablet PO (09:15)
[2022-12-18] MEDS: insulin lispro 100 unit/1 mL SUBCUT ×4 (09:15→22:04)
[2022-12-18] MEDS: pantoprazole DR 40 mg Tablet PO (09:16)
[2022-12-18] MEDS: spironolactone 25 mg Tablet 100 MG PO (09:16)
[2022-12-18] MEDS: cefTRIAXone 1,000 MG in sodium chloride 0.9% (plus) 50 ML 100 MG IV (09:16)
[2022-12-18] MEDS: azithromycin 500 MG in sodium chloride 0.9% 250 ML 250 MG IV (09:59)
[2022-12-18 11:00] LABS: Glucose Point of Care 231 mg/dL (70-110)
--- NOTE | 2022-12-18 12:11 | PC.SOCIAL ---
IMM Updated Updated pt on IMM. No questions voiced. Provided pt a copy. Initialed, dated, & timed copy in chart.
--- NOTE | 2022-12-18 12:15 | PM.PN ---
Subjective Subjective: Patient reports diffuse weakness. Endorses mild shortness of breath and occasional cough. Developed some right-sided back pain again last night. Discussed lab results. Discussed plan of care. Reports she has follow up with her GI specialist a week from today. Encouraged her to consider goals of care regarding her liver cirrhosis. She is unsure if she would be interested in procedures but not completely decided. Discussed most of these procedures are done as outpatient. DIL bedside and supportive. Medications: Reviewed: Yes Vitals/I&O/Wt Last Vital Signs Temp 98.3 F 12/18/22 08:00 Pulse 83 12/18/22 08:53 Resp 19 H 12/18/22 08:00 BP 123/61 12/18/22 08:00 Pulse Ox 97 12/18/22 08:53 O2 Del Method Nasal Cannula 12/18/22 08:53 O2 Flow Rate 2 12/18/22 08:53 12/17/22 12/18/22 12/18/22 22:59 06:59 14:59 Intake Total 560 / 1100 480 / 1580 660 / 660 Balance 560 / 1100 480 / 1580 660 / 660 Physical Exam Narrative: General: Patient is awake. Frail and cachetic appearing. Pleasant. Head: Normocephalic. Atraumatic. EOM intact. Neck: No JVD. Cardiovascular: RRR. No gallops. No murmurs. Lungs: Breath sounds diminished in bilateral bases, right greater than left. No use of accessory muscles, no crackles or wheezes. On nasal canula support. Skin: No rashes. Abdomen: Not distended. Normal bowel sounds. Extremities: No cyanosis or clubbing. Musculoskeletal: Normal muscular development. Neurological: No myoclonus. Moves all 4 extremities. Data 12/18/22 04:11 12/18/22 04:11 Micro: Microbiology 12/13/22 13:00 Gram Stain - Final Pleural Fluid Body Fluid Culture - Final A&P Assessment and plan (1) Cirrhosis of liver not due to alcohol: Decompensated liver cirrhosis with ascites Patient unsure whether to pursue more aggressive treatment, encouraged her to discuss w/ GI at upcoming appt OOB to chair, encourage ambulation, d/w staff Continue IV Lasix, rotate to oral at discharge Continue lactulose (2) Pleural effusion: Status post 3 thoracentesis this week, no more additional drainage Back pain likely related, receiving morphine, wean off as tolerated Will likely need additional thoracentesis, likely can be coordinated outpatient (3) Hypoxia: Continue supplemental oxygen support Monitor SPO2 goal Continue antibiotics w/ azithromycin and Rocephin Home oxygen evaluation (4) Hyperammonemia: Mentation appears to be at baseline Continue lactulose (5) INR (international normal ratio) abnormal: Coagulopathy Not sign or symptoms of bleeding Continue to monitor (6) Portal hypertension: Secondary to cirrhosis Monitor volume status daily (7) Abdominal ascites: With history of prior paracenteses (8) History of hepatitis C virus infection: As above (9) Acute kidney injury: Renal function improving Avoid nephrotoxins Strict I&Os Daily weights Plan DVT ppx: Code status: Full code Attestations Medical Necessity Statement*: Patient requires ongoing hospitalization for supplemental oxygen support, lab monitoring, IV abx and supportive care. Coding Level of Care Code Acute Code for Chg Fwd Diagnoses Cirrhosis of liver not due to alcohol K74.60 Pleural effusion J90 Hypoxia R09.02 Hyperammonemia E72.20 INR (international normal ratio) abnormal R79.1 Portal hypertension K76.6 Abdominal ascites R18.8 History of hepatitis C virus infection Z86.19 Acute kidney injury N17.9
[2022-12-18 16:48] LABS: Glucose Point of Care 265 mg/dL (70-110)
[2022-12-18 20:44] LABS: Glucose Point of Care 251 mg/dL (70-110)
[2022-12-19] VITALS (14 sets, daily range): BP systolic 101–123; BP diastolic 50–69; PULSE 87–101; RESP 15–18; TEMP 36.4–36.9; O2SAT 96–97
[2022-12-19 05:34] LABS: Basophils # 0.1 10^3/uL (0.0-0.1); Basophils % 0.6 %; Eosinophils # 0.4 10^3/uL (0.0-0.8); Eosinophils % 3.5 %; Hematocrit 30.6 % (37.0-47.0); Hemoglobin 10.7 g/dL (11.5-15.3); Lymphocytes # 0.6 10^3/uL (0.8-4.8); Lymphocytes % 5.6 %; Mean Corpuscular Hemoglobin 37.5 pg (28.0-34.0); Mean Corpuscular Volume 107.4 fl (81-99); Mean Platelet Volume 10.7 fL (7.4-10.4); Monocytes % 19.9 %; Neutrophils # 6.94 10^3/uL (1.8-7.7); Neutrophils % 68.9 %; Nucleated Red Blood Cells % 0 %; Platelet Count 97 10^3/cmm (130-400); Red Blood Count 2.85 10^6/uL (4.1-5.3); Red Cell Distribution Width 15.7 % (12.1-15.1); White Blood Count 10.1 10^3/uL (4.0-10.0)
[2022-12-19 05:50] LABS: Alanine Aminotransferase 41 U/L (0-33); Albumin Level 2.4 g/dL (3.5-5.2); Alkaline Phosphatase 169 U/L (35-105); Anion Gap 13.7 (5-19); Aspartate Amino Transferase 60 U/L (0-32); Blood Urea Nitrogen 31 mg/dL (8-23); Calcium 8.1 mg/dL (8.5-10.5); Carbon Dioxide 23 mmol/L (22-29); Chloride 97 mmol/L (98-107); Globulin 3.3 g/dL (1.3-4.6); Glucose 103 mg/dL (65-115); Magnesium 1.9 mg/dL (1.7-2.3); Osmolality Calculated 275 mOsm/kg (285-295); Phosphorus 2.8 mg/dL (2.5-4.5); Potassium 4.7 mmol/L (3.5-5.1); Sodium 129 mmol/L (136-145); Total Bilirubin 4.2 mg/dL (0.15-1.2); Total Protein 5.7 g/dL (6.6-8.7)
[2022-12-19 05:53] LABS: Creatinine Clr Calc Pharmacy 39.4251
[2022-12-19 05:58] LABS: Procalcitonin 0.62 ng/mL (0-0.5)
[2022-12-19] MEDS: FUROsemide 10 mg/mL SDV 4mL 40 MG IVP (06:47)
[2022-12-19] MEDS: lactulose oral liq 20 gm/30 mL UDC PO (06:47)
[2022-12-19 07:16] LABS: Glucose Point of Care 125 mg/dL (70-110)
[2022-12-19] MEDS: levothyroxine 88 mcg Tablet PO (08:15)
[2022-12-19] MEDS: cefTRIAXone 1,000 MG in sodium chloride 0.9% (plus) 50 ML 100 MG IV (08:15)
[2022-12-19] MEDS: pantoprazole DR 40 mg Tablet PO (08:15)
[2022-12-19] MEDS: spironolactone 25 mg Tablet 100 MG PO (08:15)
[2022-12-19] MEDS: azithromycin 500 MG in sodium chloride 0.9% 250 ML 250 MG IV (08:52)
--- NOTE | 2022-12-19 09:14 | XRR_ITS ---
PROCEDURE INFORMATION: Exam: XR Chest Exam date and time: 12/19/2022 9:38 AM Age: 72 years old Clinical indication: Shortness of breath; Additional info: Re evaluation of pleural effusion TECHNIQUE: Imaging protocol: Radiologic exam of the chest. Views: 1 view. COMPARISON: CR XR chest 1V portable [id number] 12/18/2022 6:11 AM FINDINGS: Lungs: Right base is opacified which is consistent with right lower lobe consolidation or atelectasis and pleural effusion. The left lung is grossly clear. Pleural spaces: Right pleural effusion. No pneumothorax. Heart/Mediastinum: Unremarkable. No cardiomegaly. Bones/joints: Unremarkable. XR/XR chest 1V portable [id number] IMPRESSION: Since the previous chest x-ray the right base has become opacified consistent with right basilar consolidation or atelectasis with a enlarging pleural effusion.
[2022-12-19 11:35] LABS: Glucose Point of Care 319 mg/dL (70-110)
[2022-12-19] MEDS: oxyCODONE 5 mg IR Tab/Cap PO ×2 (12:22→16:21)
--- NOTE | 2022-12-19 12:55 | P.PN_ITS ---
Subjective Subjective: Patient reports she was able to get out of bed some yesterday. She reports her cough and shortness of breath is getting worse. Denies fevers, chills, or nausea. Later after CXR obtained, reviewed results with patient and DIL. Significant worsening in pleural effusion size correlating to worsening symptoms. Medications: Reviewed: Yes Vitals/I&O/Wt Last Vital Signs Temp 97.5 F L 12/19/22 12:00 Pulse 94 12/19/22 12:00 Resp 18 12/19/22 12:22 BP 121/68 12/19/22 12:00 Pulse Ox 96 12/19/22 12:00 O2 Del Method Nasal Cannula 12/19/22 12:00 O2 Flow Rate 2 12/19/22 08:35 12/18/22 12/19/22 12/19/22 22:59 06:59 14:59 Intake Total 240 / 1140 500 / 1640 1140 / 1140 Balance 240 / 1140 500 / 1640 1140 / 1140 Physical Exam Narrative: General: Patient is awake. Frail and cachetic appearing. Pleasant. Head: Normocephalic. Atraumatic. EOM intact. Neck: No JVD. Cardiovascular: RRR. No gallops. No murmurs. Lungs: Breath sounds significantly diminished in right base. No use of accessory muscles, no crackles or wheezes. On nasal canula support. Skin: No rashes. Abdomen: Not distended. Normal bowel sounds. Extremities: No cyanosis or clubbing. Musculoskeletal: Normal muscular development. Neurological: No myoclonus. Moves all 4 extremities. Data 12/19/22 05:17 12/19/22 05:17 A&P Assessment and plan (1) Pleural effusion: Status post 3 thoracentesis (12/14, 12/16, 12/17) this week CXR reviewed, rapid reaccumulation noted and pt becoming more symptomatic, unsafe for d/c Repeat CXR in AM May need pleurX (2) Cirrhosis of liver not due to alcohol: Decompensated liver cirrhosis with ascites Pt has f/u appt w/ GI on 01/24; however currently unsafe for discharge Continue OOB to chair, encourage ambulation Continue IV Lasix, rotate to oral at discharge Continue Aldactone Continue lactulose (3) Hypoxia: Continue supplemental oxygen support Monitor SPO2 goal Status post azithromycin Continue ceftriaxone (4) Hyperammonemia: Mentation at baseline Continue lactulose (5) INR (international normal ratio) abnormal: Coagulopathy Not sign or symptoms of bleeding Continue to monitor (6) Portal hypertension: Secondary to cirrhosis Monitor volume status daily (7) Abdominal ascites: With history of prior paracenteses (8) History of hepatitis C virus infection: As above (9) Acute kidney injury: Renal function improving Avoid nephrotoxins Strict I&Os Daily weights Plan DVT ppx: SCD Code status: Full code Attestations 2 Medical Necessity Statement*: Patient requires ongoing hospitalization for supplemental oxygen support, lab monitoring, IV abx and supportive care. Coding Level of Care Code Acute Code for Chg Fwd Diagnoses Pleural effusion J90 Cirrhosis of liver not due to alcohol K74.60 Hypoxia R09.02 Hyperammonemia E72.20 INR (international normal ratio) abnormal R79.1 Portal hypertension K76.6 Abdominal ascites R18.8 History of hepatitis C virus infection Z86.19 Acute kidney injury N17.9
[2022-12-19] MEDS: insulin lispro 100 unit/1 mL SUBCUT ×3 (12:59→22:25)
[2022-12-19 16:49] LABS: Glucose Point of Care 391 mg/dL (70-110)
[2022-12-19 21:08] LABS: Glucose Point of Care 290 mg/dL (70-110)
[2022-12-20] VITALS (13 sets, daily range): BP systolic 93–118; BP diastolic 56–65; PULSE 84–102; RESP 14–17; TEMP 36.4–36.9; O2SAT 91–97
--- NOTE | 2022-12-20 04:00 | XRR_ITS ---
PROCEDURE INFORMATION: Exam: XR Chest Exam date and time: 12/20/2022 4:23 AM Age: 72 years old Clinical indication: Other: Pleural effusion; Additional info: Evaluate pleural effusion TECHNIQUE: Imaging protocol: Radiologic exam of the chest. Views: 1 view. COMPARISON: CR (CHEST, ) 12/19/2022 9:38 AM FINDINGS: Lungs: Interstitial thickening. Pleural spaces: Large volume right pleural effusion. Heart/Mediastinum: Mild cardiomegaly. Bones/joints: Demineralized bones. XR/XR chest 1V portable [id number] IMPRESSION: Large right-sided pleural effusion redemonstrated similar to prior.
[2022-12-20 05:32] LABS: Basophils # 0.1 10^3/uL (0.0-0.1); Basophils % 0.6 %; Eosinophils # 0.6 10^3/uL (0.0-0.8); Eosinophils % 4.6 %; Hematocrit 29.4 % (37.0-47.0); Hemoglobin 10.2 g/dL (11.5-15.3); Lymphocytes # 0.6 10^3/uL (0.8-4.8); Lymphocytes % 5.3 %; Mean Corpuscular HGB Conc 34.7 g/dL (30.0-36.0); Mean Corpuscular Hemoglobin 37.6 pg (28.0-34.0); Mean Corpuscular Volume 108.5 fl (81-99); Mean Platelet Volume 10.4 fL (7.4-10.4); Monocytes # 2.5 10^3/uL (0.2-0.9); Monocytes % 20.8 %; Neutrophils % 66.1 %; Nucleated Red Blood Cells % 0 %; Platelet Count 98 10^3/cmm (130-400); Red Blood Count 2.71 10^6/uL (4.1-5.3); Red Cell Distribution Width 15.5 % (12.1-15.1); White Blood Count 12.1 10^3/uL (4.0-10.0)
[2022-12-20 05:51] LABS: Alanine Aminotransferase 40 U/L (0-33); Albumin Level 2.2 g/dL (3.5-5.2); Alkaline Phosphatase 180 U/L (35-105); Anion Gap 12.6 (5-19); Aspartate Amino Transferase 57 U/L (0-32); Blood Urea Nitrogen 38 mg/dL (8-23); Calcium 8.3 mg/dL (8.5-10.5); Carbon Dioxide 23 mmol/L (22-29); Chloride 95 mmol/L (98-107); Globulin 3.7 g/dL (1.3-4.6); Glucose 116 mg/dL (65-115); Osmolality Calculated 270 mOsm/kg (285-295); Potassium 5.6 mmol/L (3.5-5.1); Sodium 125 mmol/L (136-145); Total Bilirubin 4.3 mg/dL (0.15-1.2); Total Protein 5.9 g/dL (6.6-8.7)
[2022-12-20] MEDS: lactulose oral liq 20 gm/30 mL UDC PO ×2 (06:33→18:27)
[2022-12-20] MEDS: FUROsemide 10 mg/mL SDV 4mL 40 MG IVP (06:48)
[2022-12-20 07:00] LABS: Glucose Point of Care 147 mg/dL (70-110)
[2022-12-20] MEDS: insulin lispro 100 unit/1 mL SUBCUT ×4 (07:33→21:05)
[2022-12-20] MEDS: oxyCODONE 5 mg IR Tab/Cap PO ×3 (08:52→18:35)
[2022-12-20] MEDS: cefTRIAXone 1,000 MG in sodium chloride 0.9% (plus) 50 ML 100 MG IV (08:53)
[2022-12-20] MEDS: levothyroxine 88 mcg Tablet PO (08:53)
[2022-12-20] MEDS: pantoprazole DR 40 mg Tablet PO (08:53)
--- NOTE | 2022-12-20 09:38 | PC.SOCIAL ---
Imm update Imm updated with patient at bedside. Copy of page 2 provided. Patient verbalized understanding. Copy in chart initialed, dated and timed.
[2022-12-20 11:13] LABS: Glucose Point of Care 219 mg/dL (70-110)
[2022-12-20] MEDS: piperacillin-tazobactam 3.375 GM in sodium chloride 0.9% (plus) 50 ML IV ×2 (12:04→18:27)
--- NOTE | 2022-12-20 13:18 | USR_ITS ---
PROCEDURE INFORMATION: Exam: US Abdomen, Limited; Right Upper Quadrant Exam date and time: 12/20/2022 2:24 PM Age: 72 years old Clinical indication: Condition or disease; Other: Cirrhosis; Additional info: Liver, cirrhosis-assess for any signs of hepatoma TECHNIQUE: Imaging protocol: Real time ultrasound of the abdomen with image documentation. Limited exam focused on the right upper quadrant. COMPARISON: US abdomen lmt fluid [id number] 12/17/2022 11:25 AM FINDINGS: Pleural spaces: Right pleural effusion. Liver: Cirrhotic. 1.8 x 1.5 x 1.6 cm cyst in the left hepatic lobe. Gallbladder: Surgically absent. Biliary ducts: Normal. No stones. No dilation. Pancreas: Unremarkable as visualized. Right kidney: No mass. No definite stones. No hydronephrosis. Intraperitoneal space: Small ascites. US/US abdomen limited [id number] IMPRESSION: 1. Cirrhosis and small ascites. 2. Right pleural effusion. 3. Additional findings, as above.
[2022-12-20 16:31] LABS: Glucose Point of Care 385 mg/dL (70-110)
--- NOTE | 2022-12-20 19:19 | P.PN_ITS ---
Subjective Medications: Reviewed: Yes Vitals/I&O/Wt Last Vital Signs Temp 98.1 F 12/20/22 16:00 Pulse 84 12/20/22 16:00 Resp 14 12/20/22 18:35 BP 104/56 12/20/22 16:00 Pulse Ox 97 12/20/22 18:35 O2 Del Method Nasal Cannula 12/20/22 16:00 O2 Flow Rate 2 12/20/22 16:00 12/20/22 12/20/22 12/20/22 06:59 14:59 22:59 Intake Total 120 / 1620 530 / 530 170 / 700 Balance 120 / 1620 530 / 530 170 / 700 Physical Exam Narrative: Family at bedside Const: COMMON NORMALS: patient oriented x3 and alert GENERAL APPEARANCE: cooperative and frail appearing ORIENTATION/CONSCIOUSNESS: Yes awake HENMT: COMMON NORMALS: oropharynx normal Neck/C-Spine: COMMON NORMALS: no JVD Resp: COMMON NORMALS: normal respiratory effort and clear to auscultation bilaterally AUSCULTATION: clear to auscultation bilaterally and diminished lung sounds on the right in the lower lung tucker Cardio: COMMON NORMALS: no JVD, regular rhythm, S1 normal heart sound present, S2 normal heart sound present and No murmurs present (Cardio) RHYTHM: regular rhythm HEART SOUNDS: S1 normal heart sound present and S2 normal heart sound present GI: COMMON NORMALS: Soft to palpation and non-tender PALPATION: Yes Soft to palpation OTHER: Mildly distended, soft Extremity: COMMON NORMALS: no joint enlargement and no pedal edema Neuro: COMMON NORMALS: patient oriented x3 and moves all extremities SENSORIUM/ORIENTATION: Yes alert Skin: COMMON NORMALS: no rashes or lesions noted GENERAL SKIN EXAM: no rashes or lesions noted Data 12/20/22 05:15 12/20/22 05:15 A&P Assessment and plan (1) Pleural effusion: Status post 3 thoracentesis (12/14, 12/16, 12/17) this week Chest x-ray from today reviewed, noted again large effusion. Ultrasound obtained today, no suggestion of hepatocellular cancer, noted 1.8 x 1.5 x 1.6 cm cyst in left hepatic lobe. Small ascites. No growth noted on pleural fluid culture. Chemistries, SAG suggestive of hepatic hydrothorax. Despite diuresis still reaccumulation. Discussed with her family consideration of transfer for assessment with hepatology, no beds available in number of surrounding area hospitals, but accepted for waitlisted [facility] as likely would benefit from TIPS, further consideration although less likely for transplantation. Likely to be a couple days before bed opening becomes available, waitlisted until then. Discussed with GI specialist at [facility]. Noted hyperkalemia, potassium up to 5.6, held spironolactone. Continue Lasix. Increase to 60 mg. Monitor sodium. Noted hyponatremia 125. Unable to tolerate p.o. sodium diet. Change back to regular. At risk of significant potentially life-threatening complications with decompensated cirrhosis. Monitor for renal function for hepatorenal syndrome. (2) Cirrhosis of liver not due to alcohol: Decompensated liver cirrhosis with ascites Pending transfer to [facility] as above. Continue OOB to chair, encourage ambulation Continue IV Lasix, rotate to oral at discharge Hold Aldactone Continue lactulose Obtained right upper quadrant ultrasound, no suggestion of hepatocellular cancer, noted 1.8 x 1.5 x 1.6 cm cyst in left hepatic lobe. Small ascites. (3) Hypoxia: Continue supplemental oxygen support Continue diuretics. Needs more definitive treatment, would likely benefit from TIPS. In the meantime we will also broaden antibiotic coverage with anaerobic coverage with Zosyn. With some persistent leukocytosis 12.1. Monitor SPO2 goal (4) Hyperammonemia: Mentation at baseline Continue lactulose (5) INR (international normal ratio) abnormal: Follow-up INR. Coagulopathy Not sign or symptoms of bleeding Continue to monitor (6) Portal hypertension: Secondary to cirrhosis Monitor volume status daily (7) Abdominal ascites: With history of prior paracenteses (8) History of hepatitis C virus infection: As above (9) Acute kidney injury: Creatinine noted steadily abnormal at 1.3, but has not worsened so far. Continue Lasix IV. Avoid nephrotoxins Strict I&Os Daily weights Plan Hyperkalemia: Continue low potassium diet. Hold spironolactone. Increase Lasix dose. 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 Diagnoses Pleural effusion J90 Cirrhosis of liver not due to alcohol K74.60 Hypoxia R09.02 Hyperammonemia E72.20 INR (international normal ratio) abnormal R79.1 Portal hypertension K76.6 Abdominal ascites R18.8 History of hepatitis C virus infection Z86.19 Acute kidney injury N17.9
[2022-12-20 20:29] LABS: Glucose Point of Care 290 mg/dL (70-110)
[2022-12-21] VITALS (10 sets, daily range): BP systolic 102–116; BP diastolic 54–61; PULSE 75–95; RESP 16–18; TEMP 36.4–37.6; O2SAT 91–97
[2022-12-21] MEDS: piperacillin-tazobactam 3.375 GM in sodium chloride 0.9% (plus) 50 ML IV ×3 (03:47→19:03)
[2022-12-21 04:35] LABS: Basophils # 0.1 10^3/uL (0.0-0.1); Basophils % 0.5 %; Eosinophils # 0.7 10^3/uL (0.0-0.8); Eosinophils % 4.6 %; Hematocrit 28.3 % (37.0-47.0); Hemoglobin 9.8 g/dL (11.5-15.3); Lymphocytes # 0.5 10^3/uL (0.8-4.8); Lymphocytes % 3.1 %; Mean Corpuscular HGB Conc 34.6 g/dL (30.0-36.0); Mean Corpuscular Hemoglobin 37.3 pg (28.0-34.0); Mean Corpuscular Volume 107.6 fl (81-99); Mean Platelet Volume 10.7 fL (7.4-10.4); Monocytes # 2.7 10^3/uL (0.2-0.9); Monocytes % 18.1 %; Neutrophils % 71.7 %; Nucleated Red Blood Cells % 0 %; Platelet Count 97 10^3/cmm (130-400); Red Blood Count 2.63 10^6/uL (4.1-5.3); Red Cell Distribution Width 15.8 % (12.1-15.1); White Blood Count 14.7 10^3/uL (4.0-10.0)
[2022-12-21 04:47] LABS: INR 1.57 (0.8-1.2)
[2022-12-21 04:54] LABS: Alanine Aminotransferase 41 U/L (0-33); Albumin Level 2.3 g/dL (3.5-5.2); Alkaline Phosphatase 179 U/L (35-105); Anion Gap 14.8 (5-19); Aspartate Amino Transferase 57 U/L (0-32); Blood Urea Nitrogen 45 mg/dL (8-23); Calcium 8.3 mg/dL (8.5-10.5); Carbon Dioxide 23 mmol/L (22-29); Chloride 95 mmol/L (98-107); Globulin 3.5 g/dL (1.3-4.6); Glucose 150 mg/dL (65-115); Osmolality Calculated 278 mOsm/kg (285-295); Potassium 5.8 mmol/L (3.5-5.1); Sodium 127 mmol/L (136-145); Total Bilirubin 5.9 mg/dL (0.15-1.2); Total Protein 5.8 g/dL (6.6-8.7)
[2022-12-21 05:49] LABS: Glucose Point of Care 184 mg/dL (70-110)
[2022-12-21] MEDS: insulin regular-human 10 UNIT in SYRINGE 1 EACH IVP (05:58)
[2022-12-21] MEDS: sodium polystyrene sulfonate 15 gm/60 mL Btl PO (05:59)
[2022-12-21] MEDS: lactulose oral liq 20 gm/30 mL UDC PO ×3 (06:00→22:39)
[2022-12-21] MEDS: FUROsemide 10 mg/mL SDV 10mL 60 MG IVP (06:03)
[2022-12-21 06:31] LABS: Glucose Point of Care 214 mg/dL (70-110)
--- NOTE | 2022-12-21 08:01 | P.PN_ITS ---
Subjective Subjective: Natacha Linares is a 72 year old female with history of liver cirrhosis dating back at least to 2014, related to hepatitis C getting worse more recently, follows with GI in [place], she has declined liver transplant.? She is noted to have esophageal varices, last endoscopy evaluation a year ago, no current bleeding manifestations.? Patient has needed to undergo paracentesis from type to time ,most recently on December 03, 2022.? She presents to the emergency room complaining of shortness of breath, pain in her back in a bandlike fashion just below her ribs.? She has also had increasing abdominal distention.? She takes that she continue to have significant fluid in her belly after the right paracentesis ? And never quite had relief in her symptoms. Status post 3 thoracentesis 12/14, 12/16, , no sign of malignancy, chemistry consistent with hepatic hydrothorax she has been accepted at [facility] for further work-up consideration for Pleurx catheter, pleurodesis and TIPS Secondary to hepatic hydrothorax she was requiring 1 to 2 L of oxygen, she will get oxygen through home, Mentation at baseline, she does carry portal hypertension with esophageal varices, she is experiencing recurrent ascites and pleural effusion Her creatinine is abnormal at 1.3 has not worsened significantly For her hyperkalemia she was given Kayexalate, insulin and D50 on 12/21 He was started on antibiotics for possible infection her white count is 14,000 on 12/21 she has been afebrile no significant diarrhea, abdominal pain, headache or cough production, she is denying signs of UTI Vitals/I&O/Wt Last Vital Signs Temp 98.3 F 12/21/22 07:19 Pulse 95 12/21/22 07:19 Resp 16 12/21/22 07:19 BP 103/55 12/21/22 07:19 Pulse Ox 94 12/21/22 07:19 O2 Del Method Nasal Cannula 12/20/22 16:00 O2 Flow Rate 2 12/20/22 20:00 12/20/22 12/21/22 12/21/22 22:59 06:59 14:59 Intake Total 340 / 870 25.1 / 895.1 50 / 50 Balance 340 / 870 25.1 / 895.1 50 / 50 Physical Exam Narrative: Awake and alert Mild signs of fluid overload Abdomen distended but soft Lower extremity no edema GCS 15 Nonfocal neuro exam Family at the bedside Currently on 1 L S1, S2 Data 12/21/22 04:17 12/21/22 04:17 A&P Assessment and plan (1) Acute kidney injury: (2) Hyperammonemia: (3) Gastroesophageal reflux: (4) Diabetes mellitus, type II: Qualifiers: Diabetes mellitus senior living insulin use: with 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 Recurrent pleural effusion related to hepatic hydrothorax status post 3 thoracentesis Portal hypertension without active bleeding carries history of variceal bleed Hemoglobin stable NASREEN: Concern for hepatorenal syndrome, hold diuretics MELD score22 Hypervolemic hyponatremia: Trial of holding diuresis for worsening of kidney function SCDs for DVT prophylaxis Full code Attestations Medical Necessity Statement*: Awaiting placement Diagnoses Acute kidney injury N17.9 Hyperammonemia E72.20 Gastroesophageal reflux K21.9 Diabetes mellitus, type II E11.9 Diabetes mellitus senior living insulin use: with buttermilk drier operator use Cirrhosis of liver not due to alcohol K74.60 Hypoxia R09.02 Pleural effusion J90 Abdominal ascites R18.8 Portal hypertension K76.6 History of hepatitis C virus infection Z86.19 Hyperkalemia E87.5
[2022-12-21] MEDS: levothyroxine 88 mcg Tablet PO (08:38)
[2022-12-21] MEDS: pantoprazole DR 40 mg Tablet PO (08:38)
[2022-12-21] MEDS: insulin lispro 100 unit/1 mL SUBCUT ×4 (08:38→20:51)
[2022-12-21] MEDS: oxyCODONE 5 mg IR Tab/Cap PO (10:57)
[2022-12-21 11:05] LABS: Glucose Point of Care 254 mg/dL (70-110)
[2022-12-21 12:08] LABS: Anion Gap 17.3 (5-19); Blood Urea Nitrogen 45 mg/dL (8-23); Calcium 8.3 mg/dL (8.5-10.5); Carbon Dioxide 20 mmol/L (22-29); Chloride 93 mmol/L (98-107); Glucose 231 mg/dL (65-115); Osmolality Calculated 279 mOsm/kg (285-295); Potassium 5.3 mmol/L (3.5-5.1); Sodium 125 mmol/L (136-145)
[2022-12-21] MEDS: diphenhydrAMINE 25 mg Capsule PO (16:31)
[2022-12-21 16:41] LABS: Glucose Point of Care 251 mg/dL (70-110)
[2022-12-21 20:35] LABS: Glucose Point of Care 292 mg/dL (70-110)
[2022-12-22] VITALS (10 sets, daily range): BP systolic 107–158; BP diastolic 53–93; PULSE 79–106; RESP 16–20; TEMP 36.6–37.1; O2SAT 94–97
[2022-12-22] MEDS: piperacillin-tazobactam 3.375 GM in sodium chloride 0.9% (plus) 50 ML IV (03:19)
[2022-12-22] MEDS: lactulose oral liq 20 gm/30 mL UDC PO ×6 (03:19→23:03)
[2022-12-22 05:07] LABS: Basophils # 0.1 10^3/uL (0.0-0.1); Basophils % 0.8 %; Eosinophils # 0.9 10^3/uL (0.0-0.8); Hematocrit 28.5 % (37.0-47.0); Hemoglobin 9.7 g/dL (11.5-15.3); Lymphocytes # 0.5 10^3/uL (0.8-4.8); Lymphocytes % 3.9 %; Mean Corpuscular Hemoglobin 36.1 pg (28.0-34.0); Mean Corpuscular Volume 105.9 fl (81-99); Mean Platelet Volume 11.1 fL (7.4-10.4); Monocytes # 1.9 10^3/uL (0.2-0.9); Monocytes % 15.1 %; Neutrophils # 9.09 10^3/uL (1.8-7.7); Neutrophils % 71.3 %; Nucleated Red Blood Cells % 0 %; Platelet Count 104 10^3/cmm (130-400); Red Blood Count 2.69 10^6/uL (4.1-5.3); Red Cell Distribution Width 15.9 % (12.1-15.1); White Blood Count 12.8 10^3/uL (4.0-10.0)
[2022-12-22 05:31] LABS: Alanine Aminotransferase 45 U/L (0-33); Albumin Level 2.1 g/dL (3.5-5.2); Alkaline Phosphatase 264 U/L (35-105); Anion Gap 13.7 (5-19); Aspartate Amino Transferase 61 U/L (0-32); Blood Urea Nitrogen 47 mg/dL (8-23); Calcium 8.4 mg/dL (8.5-10.5); Carbon Dioxide 25 mmol/L (22-29); Chloride 99 mmol/L (98-107); Globulin 3.7 g/dL (1.3-4.6); Glucose 130 mg/dL (65-115); Osmolality Calculated 290 mOsm/kg (285-295); Potassium 4.7 mmol/L (3.5-5.1); Sodium 133 mmol/L (136-145); Total Bilirubin 5.5 mg/dL (0.15-1.2); Total Protein 5.8 g/dL (6.6-8.7)
[2022-12-22] MEDS: FUROsemide 10 mg/mL SDV 10mL 60 MG IVP (06:15)
[2022-12-22 06:37] LABS: Glucose Point of Care 135 mg/dL (70-110)
[2022-12-22] MEDS: pantoprazole DR 40 mg Tablet PO (08:54)
[2022-12-22] MEDS: levothyroxine 88 mcg Tablet PO (08:54)
--- NOTE | 2022-12-22 10:58 | PM.PN ---
Subjective Subjective: No significant vents overnight Rash over her lower extremities improving No active hallucination Patient does endorse to auditory hallucinations She is awake and alert No active signs of confusion 2-3 bowel movements a day Vitals/I&O/Wt Last Vital Signs Temp 98.2 F 12/22/22 07:42 Pulse 84 12/22/22 09:55 Resp 17 12/22/22 07:42 BP 158/93 12/22/22 07:42 Pulse Ox 94 12/22/22 09:55 O2 Del Method Nasal Cannula 12/22/22 09:55 O2 Flow Rate 1.5 12/22/22 09:55 12/21/22 12/22/22 12/22/22 22:59 06:59 14:59 Intake Total 120 / 460 50 / 510 250 / 250 Balance 120 / 460 50 / 510 250 / 250 Physical Exam Narrative: Euvolemic Abdomen soft Currently on 1.5 L of oxygen No audible stridor or wheezing Pleasant and cooperative GCS 15 No signs of confusion S1, S2 Data 12/22/22 04:28 12/22/22 04:28 A&P Assessment and plan (1) Hyperkalemia: (2) Acute kidney injury: (3) INR (international normal ratio) abnormal: (4) Abdominal ascites: (5) Pleural effusion: (6) Portal hypertension: (7) Cirrhosis of liver not due to alcohol: (8) Hypoxia: (9) History of hepatitis C virus infection: (10) Gastroesophageal reflux: (11) Diabetes mellitus, type II: Qualifiers: Diabetes mellitus supervisor intermediates insulin use: with supervisor intermediates use Plan Compensated liver cirrhosis Recurrent ascites along pleural effusion She will need pleurodesis and TIPS MELD score is above 18 Hypoxia related to recurrent pleural effusion currently on 1.5 L No acute respiratory distress Status post 3 thoracentesis Auditory hallucination related to multiple comorbid conditions No active signs of confusion or stroke Portal hypertension without acute decompensation Chronic anemia: Stable Hyponatremia and hyperkalemia improved NASREEN related to diuresis: Holding diuretics for now Creatinine stable at 1.3 Full code Awaiting transfer to [facility] Medical Necessity Statement*: Awaiting transfer Diagnoses Hyperkalemia E87.5 Acute kidney injury N17.9 INR (international normal ratio) abnormal R79.1 Abdominal ascites R18.8 Pleural effusion J90 Portal hypertension K76.6 Cirrhosis of liver not due to alcohol K74.60 Hypoxia R09.02 History of hepatitis C virus infection Z86.19 Gastroesophageal reflux K21.9 Diabetes mellitus, type II E11.9 Diabetes mellitus residential insulin use: with supervisor intermediates use
[2022-12-22 11:16] LABS: Glucose Point of Care 265 mg/dL (70-110)
--- NOTE | 2022-12-22 11:25 | PC.SOCIAL ---
IMM Update pg 2 of IMM updated and reviewed w/ patient. Copy provided and Copy in chart dated and initialed.
[2022-12-22] MEDS: insulin lispro 100 unit/1 mL SUBCUT ×3 (11:43→21:27)
[2022-12-22 16:49] LABS: Glucose Point of Care 321 mg/dL (70-110)
[2022-12-22] MEDS: amoxicillin-clav 875-125 mg Tablet 1 TAB PO (17:54)
[2022-12-22 21:18] LABS: Glucose Point of Care 176 mg/dL (70-110)
[2022-12-23] VITALS (11 sets, daily range): BP systolic 112–129; BP diastolic 54–72; PULSE 88–110; RESP 16–18; TEMP 36.4–36.9; O2SAT 93–97
[2022-12-23] MEDS: lactulose oral liq 20 gm/30 mL UDC PO ×4 (03:16→23:07)
[2022-12-23 05:17] LABS: Basophils # 0.1 10^3/uL (0.0-0.1); Basophils % 0.8 %; Eosinophils % 8.5 %; Hematocrit 27.6 % (37.0-47.0); Hemoglobin 9.7 g/dL (11.5-15.3); Lymphocytes # 0.6 10^3/uL (0.8-4.8); Lymphocytes % 5.1 %; Mean Corpuscular HGB Conc 35.1 g/dL (30.0-36.0); Mean Corpuscular Hemoglobin 36.6 pg (28.0-34.0); Mean Corpuscular Volume 104.2 fl (81-99); Mean Platelet Volume 10.8 fL (7.4-10.4); Monocytes # 1.6 10^3/uL (0.2-0.9); Monocytes % 13.8 %; Neutrophils # 8.03 10^3/uL (1.8-7.7); Neutrophils % 70.6 %; Nucleated Red Blood Cells % 0 %; Platelet Count 107 10^3/cmm (130-400); Red Blood Count 2.65 10^6/uL (4.1-5.3); Red Cell Distribution Width 16.3 % (12.1-15.1); White Blood Count 11.4 10^3/uL (4.0-10.0)
[2022-12-23 05:37] LABS: Alanine Aminotransferase 46 U/L (0-33); Albumin Level 2.1 g/dL (3.5-5.2); Alkaline Phosphatase 181 U/L (35-105); Anion Gap 11.8 (5-19); Aspartate Amino Transferase 63 U/L (0-32); Blood Urea Nitrogen 46 mg/dL (8-23); Calcium 8.1 mg/dL (8.5-10.5); Carbon Dioxide 25 mmol/L (22-29); Chloride 101 mmol/L (98-107); Globulin 3.5 g/dL (1.3-4.6); Glucose 179 mg/dL (65-115); Osmolality Calculated 294 mOsm/kg (285-295); Potassium 3.8 mmol/L (3.5-5.1); Sodium 134 mmol/L (136-145); Total Bilirubin 5.2 mg/dL (0.15-1.2); Total Protein 5.6 g/dL (6.6-8.7)
[2022-12-23 06:35] LABS: Glucose Point of Care 186 mg/dL (70-110)
[2022-12-23] MEDS: levothyroxine 88 mcg Tablet PO (08:14)
[2022-12-23] MEDS: pantoprazole DR 40 mg Tablet PO (08:14)
[2022-12-23] MEDS: amoxicillin-clav 875-125 mg Tablet 1 TAB PO ×2 (08:14→17:50)
[2022-12-23] MEDS: insulin lispro 100 unit/1 mL SUBCUT ×4 (08:14→21:31)
--- NOTE | 2022-12-23 10:22 | P.PN_ITS ---
Subjective Subjective: This morning patient was complaining of mild shortness of breath Currently on 2 L of oxygen We will request chest x-ray Still waiting for bed from [facility] More than 3 bowel movements a day, change lactulose every 8 hours Vitals/I&O/Wt Last Vital Signs Temp 98.0 F 12/23/22 07:16 Pulse 108 H 12/23/22 07:50 Resp 17 12/23/22 07:16 BP 116/64 12/23/22 07:16 Pulse Ox 94 12/23/22 07:50 O2 Del Method Nasal Cannula 12/23/22 07:50 O2 Flow Rate 2 12/23/22 08:00 12/22/22 12/23/22 12/23/22 22:59 06:59 14:59 Intake Total 240 / 240 Output Total Balance 239 / 239 Physical Exam Narrative: Awake and alert GCS 15 NIH 0 No signs of hallucination Euvolemic Currently on 2 L Diminished breath sounds No audible stridor or wheezing Data 12/23/22 04:59 12/23/22 04:59 A&P Assessment and plan (1) Cirrhosis of liver not due to alcohol: Plan change lactulose to q8h Repeat CXR for SOB and evaluate Pl Effussion Awaiting transfer NASREEN improving Hold diuretics Full code Card diet Attestations Medical Necessity Statement*: Awaitimg transfer Diagnoses Cirrhosis of liver not due to alcohol K74.60
--- NOTE | 2022-12-23 10:24 | XR_ITS ---
WS: [id number] XR chest 1V portable [id number] REASON FOR EXAM: Pleural effusion FINDINGS: Large right pleural effusion with decreased volume of the right upper and lower lobes. The right meaghan thorax does not appear changed significantly compared to 12/20/2022. No new findings. XR/XR chest 1V portable [id number] IMPRESSION: Stable abnormal chest.
[2022-12-23 10:54] LABS: Glucose Point of Care 252 mg/dL (70-110)
[2022-12-23 16:12] LABS: Glucose Point of Care 239 mg/dL (70-110)
[2022-12-23] MEDS: oxyCODONE 5 mg IR Tab/Cap PO (16:13)
[2022-12-23 21:06] LABS: Glucose Point of Care 188 mg/dL (70-110)
[2022-12-24] VITALS (9 sets, daily range): BP systolic 102–117; BP diastolic 53–60; PULSE 92–98; RESP 15–20; TEMP 36.4–36.8; O2SAT 95–97
[2022-12-24] MEDS: lactulose oral liq 20 gm/30 mL UDC PO ×2 (06:40→17:49)
[2022-12-24 06:44] LABS: Glucose Point of Care 125 mg/dL (70-110)
[2022-12-24] MEDS: levothyroxine 88 mcg Tablet PO (08:08)
[2022-12-24] MEDS: pantoprazole DR 40 mg Tablet PO (08:08)
[2022-12-24] MEDS: amoxicillin-clav 875-125 mg Tablet 1 TAB PO ×2 (08:08→17:50)
--- NOTE | 2022-12-24 09:40 | PC.NURSE ---
alejandra with HOME needs qualifying oxygen sats within 2 days of d/c
--- NOTE | 2022-12-24 10:46 | PM.PN ---
Subjective Subjective: Restoril for effusion noted on x-ray Currently patient is on 2 L No worsening of respiratory distress 2-3 bowel movement a day Blood glucose under 25 No need to repeat labs We do not have Dr. Hernandez on-call to place Pleurx catheter, will test was with partial wish to see if they have any beds available today or tomorrow, might request another thoracentesis for tomorrow for hydrothorax Vitals/I&O/Wt Last Vital Signs Temp 97.6 F 12/24/22 07:50 Pulse 98 12/24/22 07:50 Resp 15 12/24/22 07:50 BP 109/60 12/24/22 07:50 Pulse Ox 95 12/24/22 07:50 O2 Del Method Nasal Cannula 12/24/22 07:50 O2 Flow Rate 2 12/24/22 08:00 12/23/22 12/24/22 12/24/22 22:59 06:59 14:59 Intake Total 360 / 1080 1000 / 0 Balance 360 / 1079 999 / 2078 Physical Exam Narrative: Awake and alert Euvolemic Pleasant cooperative Right-sided diminished breath sounds Currently on 2 L Daughter at the bedside Abdomen soft nontender Crackles positive right lower base on lung auscultation Nonfocal neuro exam Data 12/23/22 04:59 12/23/22 04:59 A&P Assessment and plan (1) Hyperkalemia: (2) Acute kidney injury: (3) Hyperammonemia: (4) INR (international normal ratio) abnormal: (5) Portal hypertension: (6) Abdominal ascites: (7) Pleural effusion: (8) Hypoxia: (9) Cirrhosis of liver not due to alcohol: (10) History of hepatitis C virus infection: (11) Gastroesophageal reflux: (12) Diabetes mellitus, type II: Qualifiers: Diabetes mellitus fci insulin use: with buttermaker helper use Plan We will request another thoracentesis for right-sided pleural effusion We will status post with September which Dr. Hernandez not on-call for placement of Pleurx catheter Continue Augmentin No need to repeat labs for tomorrow Continue lactulose every 12 hours, discontinue every 8 hour avoid dehydration NASREEN: Improved Full code Awaiting transfer Diuretics on hold Recurrent ascites, recurrent pleural effusion hydrothorax Attestations Medical Necessity Statement*: Awaiting transfer Diagnoses Hyperkalemia E87.5 Acute kidney injury N17.9 Hyperammonemia E72.20 INR (international normal ratio) abnormal R79.1 Portal hypertension K76.6 Abdominal ascites R18.8 Pleural effusion J90 Hypoxia R09.02 Cirrhosis of liver not due to alcohol K74.60 History of hepatitis C virus infection Z86.19 Gastroesophageal reflux K21.9 Diabetes mellitus, type II E11.9 Diabetes mellitus fci insulin use: with fci use
--- NOTE | 2022-12-24 10:47 | US_ITS ---
WS: [id number] ULTRASOUND-GUIDED THORACENTESIS CLINICAL INFORMATION: Right-sided pleural effusion COMPARISON: None. PROCEDURE: Informed consent: The risks, benefits, and alternatives of the procedure were discussed with the nusrat ent. Verbal and written consent was obtained. Timeout: A timeout was performed to confirm the correct patient, procedure, and site. Site: RIGHT Preparation: A suitable skin site was identified. The patient was prepped and draped in usual sterile fashion. Lidocaine 1% was used for local anesthesia. Catheter: 4 [place] One-Step catheter. Fluid Volume: 1000 ml Color: Clear yellow Discarded safely. Complications: No pneumothorax US/US thoracentesis [id number] IMPRESSION: Uncomplicated ultrasound-guided RIGHT thoracentesis. No pneumothorax on the pos tthoracentesis radiograph
[2022-12-24 11:08] LABS: Glucose Point of Care 334 mg/dL (70-110)
[2022-12-24] MEDS: insulin lispro 100 unit/1 mL SUBCUT ×3 (12:04→20:53)
[2022-12-24] MEDS: morphine 4 mg/mL SDV 1 mL 2 MG IVP (13:01)
--- NOTE | 2022-12-24 13:46 | XR_ITS ---
WS: [id number] CHEST XRAY TECHNIQUE: Portable chest. CLINICAL INFORMATION: s/p thoracentisis COMPARISON: December 23, 2022 FINDINGS: Heart: Normal cardiac silhouette. Lungs: Improved RIGHT pleural effusion post thoracentesis. Persistent RIGHT basilar atelectasis with a small residual pleural effusion. LEFT lung is well aerated. Advanced chronic emphysematous changes. Bones: Osteopenia. XR/XR chest 1V portable [id number] IMPRESSION: Improved RIGHT pleural effusion post thoracentesis. No pneumothorax.
[2022-12-24 17:02] LABS: Glucose Point of Care 334 mg/dL (70-110)
[2022-12-24 20:30] LABS: Glucose Point of Care 287 mg/dL (70-110)
[2022-12-25] VITALS (7 sets, daily range): BP systolic 106–124; BP diastolic 54–66; PULSE 88–98; RESP 16–30; TEMP 36.6–36.8; O2SAT 94–97
[2022-12-25] MEDS: lactulose oral liq 20 gm/30 mL UDC PO (05:59)
[2022-12-25 06:51] LABS: Glucose Point of Care 124 mg/dL (70-110)
[2022-12-25] MEDS: levothyroxine 88 mcg Tablet PO (08:39)
[2022-12-25] MEDS: amoxicillin-clav 875-125 mg Tablet 1 TAB PO ×2 (08:39→17:41)
[2022-12-25] MEDS: pantoprazole DR 40 mg Tablet PO (08:39)
[2022-12-25 11:36] LABS: Glucose Point of Care 299 mg/dL (70-110)
[2022-12-25] MEDS: insulin lispro 100 unit/1 mL SUBCUT ×2 (12:05→17:41)
--- NOTE | 2022-12-25 12:23 | PM.PN ---
Subjective Subjective: Status post fourth thoracentesis 1 L removed Patient is doing well currently on 1 L No active symptoms Bowel movement 2-3 a day No change in medications, I will repeat labs for tomorrow Family at the bedside I did tell them that patient need pleurodesis, TIPS is questionable at this point still waiting on beds from [facility]/I&O/Wt Last Vital Signs Temp 98.2 F 12/25/22 12:00 Pulse 93 12/25/22 12:00 Resp 16 12/25/22 12:00 BP 124/66 12/25/22 12:00 Pulse Ox 94 12/25/22 12:00 O2 Del Method Nasal Cannula 12/25/22 12:00 O2 Flow Rate 1 12/25/22 08:41 12/24/22 12/25/22 12/25/22 22:59 06:59 14:59 Intake Total 240 / 600 400 / 1000 720 / 720 Balance 240 / 600 400 / 1000 720 / 720 Physical Exam Narrative: Patient is currently on 1 L Awake and alert Asterixis negative Family at the bedside Currently on 1 L bilateral breath sounds Abdomen soft Lower extremity no swelling No sign of hepatic encephalopathy S1, S2 GCS 15 Data 12/23/22 04:59 12/23/22 04:59 A&P Assessment and plan (1) Hyperkalemia: (2) Acute kidney injury: (3) Hyperammonemia: (4) INR (international normal ratio) abnormal: (5) Abdominal ascites: (6) Pleural effusion: (7) Cirrhosis of liver not due to alcohol: (8) History of hepatitis C virus infection: (9) Gastroesophageal reflux: (10) Diabetes mellitus, type II: Qualifiers: Diabetes mellitus shelter insulin use: with rodent exterminator use (11) Hypoxia: (12) Portal hypertension: Plan Natacha Linares is a 72 year old female with history of liver cirrhosis dating back at least to 2014, related to hepatitis C getting worse more recently, follows with in [place], she has declined liver transplant.? She is noted to have esophageal varices, last endoscopy evaluation a year ago, no current bleeding manifestations.? Patient has needed to undergo paracentesis from type to time ,most recently on December 03, 2022.? She presents to the emergency room? complaining of shortness of breath, pain in her back in a bandlike fashion just below her ribs.? She has also had increasing abdominal distention.? She takes that she continue to have significant fluid in her belly after the right paracentesis ? And never quite had relief in her symptoms. Status post 4 thoracentesis 12/14, 12/16, , 12/24 no sign of malignancy, chemistry consistent with hepatic hydrothorax she has been accepted at [facility] for further work-up consideration for Pleurx catheter, pleurodesis and TIPS Secondary to hepatic hydrothorax she was requiring 1 to 2 L of oxygen, she will get oxygen through home, Mentation at baseline, she does carry portal hypertension with esophageal varices, she is experiencing recurrent ascites and pleural effusion Her creatinine is abnormal at 1.3 has not worsened significantly For her hyperkalemia she was given Kayexalate, insulin and D50 on 12/21 He was started on antibiotics for possible infection her white count is 14,000 on 12/21 she has been afebrile no significant diarrhea, abdominal pain, headache or cough production, she is denying signs of UTIRecurrent pleural effusion related to hepatic hydrothorax Fourth paracentesis done 12/24 Compensated liver cirrhosis No asterixis MELD score 20 Ordered hallucination: Resolved Lactulose every 8-12h Acute hypoxia related to pleural effusion currently on 1 L Hyponatremia and hypokalemia resolved NASREEN improving after I discontinued diuretic Full code Awaiting transfer to [facility] Medical Necessity Statement*: awaiting transfer Diagnoses Hyperkalemia E87.5 Acute kidney injury N17.9 Hyperammonemia E72.20 INR (international normal ratio) abnormal R79.1 Abdominal ascites R18.8 Pleural effusion J90 Cirrhosis of liver not due to alcohol K74.60 History of hepatitis C virus infection Z86.19 Gastroesophageal reflux K21.9 Diabetes mellitus, type II E11.9 Diabetes mellitus shelter insulin use: with shelter use Hypoxia R09.02 Portal hypertension K76.6
--- NOTE | 2022-12-25 13:26 | PC.NURSE ---
Patient refused telemetry monitoring, patient educated on use and importance of monitor. Patient continued to refuse.
[2022-12-25 16:56] LABS: Glucose Point of Care 300 mg/dL (70-110)
--- NOTE | 2022-12-25 17:27 | PM.TDS ---
Transfer Summary Providers Date of Admission: 12/13/22 01:08 Date of Discharge/Transfer: 12/25/22 Attending Provider at Admission: Keturah Shelley MD Attending Provider at Transfer: Ariel Dwyer MD Primary Care Provider: Donal Fernandes MD Transfer Plans: Anticipated date of transfer: 12/25/22. Diagnoses at Discharge Discharge Diagnosis (1) Hyperkalemia: Status: Acute (2) Acute kidney injury: Status: Acute (3) Hyperammonemia: Status: Acute (4) INR (international normal ratio) abnormal: Status: Acute (5) Abdominal ascites: Status: Acute (6) Pleural effusion: Status: Acute (7) Cirrhosis of liver not due to alcohol: Status: Acute (8) History of hepatitis C virus infection: Status: Acute (9) Gastroesophageal reflux: Status: Acute (10) Diabetes mellitus, type II: Status: Acute Qualifiers: Diabetes mellitus long term care pharmacist insulin use: with long term care pharmacist use (11) Hypoxia: Status: Acute (12) Portal hypertension: Status: Acute Reason for Visit Reason for Visit N/V Hospital Course Hospital Course Natacha Linares is a 72 year old female with history of liver cirrhosis dating back at least to 2014, related to hepatitis C getting worse more recently, follows with GI in [place], she has declined liver transplant.? She is noted to have esophageal varices, last endoscopy evaluation a year ago, no current bleeding manifestations.? Patient has needed to undergo paracentesis from type to time ,most recently on December 03, 2022.? She presents to the emergency room? complaining of shortness of breath, pain in her back in a bandlike fashion just below her ribs.? She has also had increasing abdominal distention. Status post 4 thoracentesis 12/14, 12/16, , 12/24 no sign of malignancy, chemistry consistent with hepatic hydrothorax she has been accepted at [facility] for further work-up consideration for Pleurx catheter, pleurodesis and TIPS Secondary to hepatic hydrothorax she was requiring 1 to 2 L of oxygen, she will get oxygen through HOME, Mentation at baseline, she does carry portal hypertension with esophageal varices, she is experiencing recurrent ascites and pleural effusion Her creatinine is abnormal at 1.3 has not worsened significantly, cr at 1.1 For her hyperkalemia she was given Kayexalate, insulin and D50 on 12/21 He was started on antibiotics for possible infection her white count is 14,000 on 12/21 she has been afebrile no significant diarrhea, abdominal pain, headache or cough production, she is denying signs of UTI, Pt doing well on Augmenten. Physical Exam Narrative: Patient is currently on 1 L Awake and alert Asterixis negative Family at the bedside Currently on 1 L bilateral breath sounds Abdomen soft Lower extremity no swelling No sign of hepatic encephalopathy S1, S2 GCS 1 TS Data Studies Completed and Pending Pending at discharge Category Date Time Status Basic Metabolic Panel AM LABS Lab 12/26/22 04:00 Ordered Complete Blood Count w/Auto AM LABS Lab 12/26/22 04:00 Ordered Mycobacteria, Culture w/Fluor Routine Lab 12/13/22 13:00 Results Labs from last 24 hours 12/25/22 12/25/22 12/25/22 16:50 11:28 06:40 POC Glucose 300 H 299 H 124 H 12/24/22 20:27 POC Glucose 287 H Completed Studies During Hospitalization Category Date Time Status CT chest wo con 13136 Stat Cat Scan 12/15/22 14:24 Completed CXRP [XR chest 1V portable 03295] Routine Exams 12/19/22 09:14 Completed CXRP [XR chest 1V portable 92784] Stat Exams 12/14/22 13:00 Completed CXRP [XR chest 1V portable 28893] Stat Exams 12/16/22 13:20 Completed XR chest 1V portable [id number] Routine Exams 12/15/22 06:00 Completed XR chest 1V portable [id number] Routine Exams 12/17/22 06:00 Completed XR chest 1V portable [id number] Routine Exams 12/18/22 06:00 Completed XR chest 1V portable [id number] Routine Exams 12/20/22 04:00 Completed XR chest 1V portable [id number] Routine Exams 12/23/22 10:24 Completed XR chest 1V portable [id number] Stat Exams 12/12/22 23:48 Completed XR chest 1V portable [id number] Stat Exams 12/17/22 14:20 Completed XR chest 1V portable [id number] Stat Exams 12/24/22 13:46 Completed NM pul vent and perfus* [id number] Routine Nuc Med 12/16/22 14:24 Completed CV. echo complete* [id number] Routine Ultrasound 12/14/22 11:18 Completed US abdomen limited 58776 Routine Ultrasound 12/20/22 13:18 Completed US abdomen lmt fluid 74863 Routine Ultrasound 12/14/22 06:50 Completed US abdomen lmt fluid 72760 Routine Ultrasound 12/17/22 11:10 Completed US chest 28868 Routine Ultrasound 12/17/22 Completed US thoracentesis [id number] Routine Ultrasound 12/14/22 06:48 Completed US thoracentesis 31743 Routine Ultrasound 12/16/22 12:26 Completed US thoracentesis 51661 Routine Ultrasound 12/17/22 13:30 Completed US thoracentesis 33076 Routine Ultrasound 12/24/22 10:47 Completed Laboratory Last Values WBC 11.4 10^3/uL (4.0-10.0) H 12/23/22 04:59 RBC 2.65 10^6/uL (4.1-5.3) L 12/23/22 04:59 Hgb 9.7 g/dL (11.5-15.3) L 12/23/22 04:59 Hct 27.6 % (37.0-47.0) L 12/23/22 04:59 MCV 104.2 fl (81-99) H 12/23/22 04:59 MCH 36.6 pg (28.0-34.0) H 12/23/22 04:59 MCHC 35.1 g/dL (30.0-36.0) 12/23/22 04:59 RDW 16.3 % (12.1-15.1) H 12/23/22 04:59 Plt Count 107 10^3/cmm (130-400) L 12/23/22 04:59 MPV 10.8 fL (7.4-10.4) H 12/23/22 04:59 Neut % (Auto) 70.6 % 12/23/22 04:59 Lymph % (Auto) 5.1 % 12/23/22 04:59 [place] % (Auto) 13.8 % 12/23/22 04:59 Eos % (Auto) 8.5 % 12/23/22 04:59 Baso % (Auto) 0.8 % 12/23/22 04:59 Neut # (Auto) 8.03 10^3/uL (1.8-7.7) H 12/23/22 04:59 Lymph # (Auto) 0.6 10^3/uL (0.8-4.8) L 12/23/22 04:59 [place] # (Auto) 1.6 10^3/uL (0.2-0.9) H 12/23/22 04:59 Eos # (Auto) 1.0 10^3/uL (0.0-0.8) H 12/23/22 04:59 Baso # (Auto) 0.1 10^3/uL (0.0-0.1) 12/23/22 04:59 Nucleated RBC % (auto) 0 % 12/23/22 04:59 Total Counted Not Reportable 12/14/22 13:00 Nucleated RBCs # 0.0 /100WBC 12/23/22 04:59 PT 19.30 SECONDS (12.1-14.9) H 12/21/22 04:17 INR 1.57 (0.8-1.2) H 12/21/22 04:17 Sodium 134 mmol/L (136-145) L 12/23/22 04:59 Potassium 3.8 mmol/L (3.5-5.1) 12/23/22 04:59 Chloride 101 mmol/L (98-107) 12/23/22 04:59 Carbon Dioxide 25 mmol/L (22-29) 12/23/22 04:59 Anion Gap 11.8 (5-19) 12/23/22 04:59 BUN 46 mg/dL (8-23) H 12/23/22 04:59 Creatinine 1.1 mg/dL (0.5-0.9) H 12/23/22 04:59 GFR Calculation Not Reportable 12/23/22 04:59 Glucose 179 mg/dL (65-115) H 12/23/22 04:59 POC Glucose 300 mg/dL (70-110) H 12/25/22 16:50 Calculated Osmolality 294 mOsm/kg (285-295) 12/23/22 04:59 Calcium 8.1 mg/dL (8.5-10.5) L 12/23/22 04:59 Phosphorus 2.8 mg/dL (2.5-4.5) 12/19/22 05:17 Magnesium 1.9 mg/dL (1.7-2.3) 12/19/22 05:17 Total Bilirubin 5.2 mg/dL (0.15-1.2) H 12/23/22 04:59 AST 63 U/L (0-32) H 12/23/22 04:59 ALT 46 U/L (0-33) H 12/23/22 04:59 Alkaline Phosphatase 181 U/L (35-105) H 12/23/22 04:59 Ammonia 94 umol/L (11-51) H 12/12/22 23:55 Total Protein 5.6 g/dL (6.6-8.7) L 12/23/22 04:59 Albumin 2.1 g/dL (3.5-5.2) L 12/23/22 04:59 Globulin 3.5 g/dL (1.3-4.6) 12/23/22 04:59 Lipase 48 U/L (13-60) 12/12/22 23:55 Procalcitonin 0.62 ng/mL (0-0.5) H 12/19/22 05:17 Urine Color Yellow (Yellow) 12/13/22 03:30 Urine Appearance Clear (CLEAR) 12/13/22 03:30 Urine pH 5 (5-7) 12/13/22 03:30 Ur Specific [place] 1.010 (1.005-1.030) 12/13/22 03:30 Urine Protein Neg (Negative) 12/13/22 03:30 Urine Glucose (UA) Norm (Normal) 12/13/22 03:30 Urine Ketones Negative (Negative) 12/13/22 03:30 Urine Blood Neg (Negative) 12/13/22 03:30 Urine Nitrate Negative (Negative) 12/13/22 03:30 Urine Bilirubin Neg (Negative) 12/13/22 03:30 Urine Urobilinogen Norm mg/dL (Negative) 12/13/22 03:30 Ur Leukocyte Esterase Negative (Negative) 12/13/22 03:30 Fluid pH Cancelled 12/14/22 13:00 Fluid Total Protein 1.0 g/dL 12/14/22 13:00 Fluid Albumin 0.4 g/dL 12/14/22 13:00 Fluid LDH 82 U/L 12/14/22 13:00 Peritoneal Color Cancelled 12/13/22 13:00 Peritoneal Appearance Cancelled 12/13/22 13:00 Peritoneal WBC Cancelled 12/13/22 13:00 Peritoneal RBC Cancelled 12/13/22 13:00 Periton Mononu # Auto Cancelled 12/13/22 13:00 Mononuclear WBCs % Cancelled 12/13/22 13:00 Polynuclear WBCs % Cancelled 12/13/22 13:00 Perit Polynuc WBCs # Cancelled 12/13/22 13:00 Peritoneal Diff Commnt Cancelled 12/13/22 13:00 Pleural Color Pale yellow (Pale Yellow) 12/14/22 13:00 Pleural Appearance Clear (CLEAR) 12/14/22 13:00 Pleural pH 9.00 (6.5-7.5) H 12/14/22 13:00 Pleural WBC 210.000 /uL (0-1000) 12/14/22 13:00 Pleural RBC 1.000 10^3/uL 12/14/22 13:00 Pleural Other Cells Not Reportable 12/14/22 13:00 Pleural Polynuclear % 15 % 12/14/22 13:00 Pleural Mononuclear % 85 % 12/14/22 13:00 Pleural Total Protein Cancelled 12/13/22 13:00 Pleural LDH Cancelled 12/13/22 13:00 Nasal Influ A H1 2009 PCR Not detected (NOT DETECT) 12/15/22 17:21 Adenovirus (PCR) Not detected (NOT DETECT) 12/15/22 17:21 C. pneumoniae DNA (PCR) Not detected (NOT DETECT) 12/15/22 17:21 Coronavirus 229E (PCR) Not detected (NOT DETECT) 12/15/22 17:21 Human Metapneumovir PCR Not detected (NOT DETECT) 12/15/22 17:21 Influenza A (H1) PCR Not detected (NOT DETECT) 12/15/22 17:21 Influenza A (H3) PCR Not detected (NOT DETECT) 12/15/22 17:21 Influenza Type A (PCR) Not detected (NOT DETECT) 12/15/22 17:21 Influenza Type B (PCR) Not detected (NOT DETECT) 12/15/22 17:21 M. pneumoniae (PCR) Not detected (NOT DETECT) 12/15/22 17:21 Parainfluenza 1 (PCR) Not detected (NOT DETECT) 12/15/22 17:21 Parainfluenza 2 (PCR) Not detected (NOT DETECT) 12/15/22 17:21 Parainfluenza 3 (PCR) Not detected (NOT DETECT) 12/15/22 17:21 Parainfluenza 4 (PCR) Not detected (NOT DETECT) 12/15/22 17:21 RSV Type A (PCR) Not detected (NOT DETECT) 12/15/22 17:21 RSV Type B (PCR) Not detected (NOT DETECT) 12/15/22 17:21 Entero/Rhino (PCR) Not detected (NOT DETECT) 12/15/22 17:21 SARS-CoV-2 (PCR) Not detected (NOT DETECT) 12/15/22 17:21 Path Cons w/Slide Yes 12/14/22 13:[address] 12/15/22 14:24 IMPRESSION: 1. There is a large amount of right pleural fluid present similar overall. No internal air pockets or mixed increased density is currently appreciated. 2. There is some consolidative volume loss demonstrated right middle lobe and lower lobe predominantly and could also be seen with some compressive atelectasis. Some superimposed multifocal inflammation could however also present in this fashion. 3. There is cirrhotic appearance of the liver along with some ascites present. 4. There is a small sliding-type hiatal hernia demonstrated with slight gastroesophageal fold thickening. Some element of chronic inflammation gastritis could also present in this fashion. Pulmonary Perfusion Imaging 12/16/22 14:24 IMPRESSION: 1. Low probability for pulmonary embolus. Chest Ultrasound 12/17/22 00:00 IMPRESSION: Recurrent moderate to large RIGHT pleural effusion. Abdomen Ultrasound 12/20/22 13:18 IMPRESSION: 1. Cirrhosis and small ascites. 2. Right pleural effusion. 3. Additional findings, as above. Thoracentesis Ultrasound 12/24/22 10:47 IMPRESSION: Uncomplicated ultrasound-guided RIGHT thoracentesis. No pneumothorax on the postthoracentesis radiograph Chest X-Ray 12/24/22 13:46 IMPRESSION: Improved RIGHT pleural effusion post thoracentesis. No pneumothorax. Recent Clincial Data Last Vital Signs Temp 98 F 12/25/22 16:00 Pulse 88 12/25/22 16:00 Resp 18 12/25/22 16:00 BP 122/54 12/25/22 16:00 Pulse Ox 96 12/25/22 16:00 O2 Del Method Nasal Cannula 12/25/22 16:00 O2 Flow Rate 1 12/25/22 08:41 Vital Signs Temp Pulse Resp BP Pulse Ox O2 Del Method O2 Del Method 12/25/22 16:00 98 F 88 18 122/54 96 Nasal Cannula 12/25/22 12:00 98.2 F 93 16 124/66 94 Nasal Cannula 12/25/22 08:41 92 96 Nasal Cannula 12/25/22 07:34 97.8 F 92 16 116/58 94 Nasal Cannula O2 Flow Rate 12/25/22 16:00 12/25/22 12:00 12/25/22 08:41 1 12/25/22 07:34 Intake & Output/Weight 12/23/22 12/24/22 12/25/22 12/26/22 06:59 06:59 06:59 06:59 Intake Total 490 / 490 2080 / 2080 1000 / 1000 720 / 720 Output Total Balance 490 / 490 2079 / 2079 1000 / 1000 720 / 720 Vitals Last Vital Signs Temp 98 F 12/25/22 16:00 Pulse 88 12/25/22 16:00 Resp 18 12/25/22 16:00 BP 122/54 12/25/22 16:00 Pulse Ox 96 12/25/22 16:00 O2 Del Method Nasal Cannula 12/25/22 16:00 O2 Flow Rate 1 12/25/22 08:41 TS Medications Medications Amoxicillin/Clavulanate Potassium (Amoxicillin-Clav 875-125 Mg Tablet) 1 tab PO BID RADHA; Protocol Last Admin: 12/25/22 08:39 Dose: 1 tab Calamine (Calamine Lotion 177 Ml Btl) 1 applic TOPICAL Q4H PRN PRN Reason: ITCHING Last Admin: 12/21/22 20:51 Dose: 1 applic Dextrose (Dextrose 50% Syringe 50 Ml) 50 ml IVP PRN PRN; Protocol PRN Reason: hypoglycemia protocol Dextrose (Dextrose 50% Syringe 50 Ml) 25 ml IVP ONCE PRN; Protocol PRN Reason: hypoglycemia protocol Diphenhydramine HCl (Diphenhydramine 25 Mg Capsule) 25 mg PO Q6H PRN PRN Reason: ITCHING Last Admin: 12/21/22 16:31 Dose: 25 mg Glucagon (Glucagon 1 Mg/Ml Inj 1 Ml) 1 mg IM ONCE PRN; Protocol PRN Reason: Adult Acute Hypoglycemia Prot. Dextrose (D5w) 500 mls @ 100 mls/hr IV ONCE PRN; Protocol PRN Reason: Adult Acute Hypoglycemia Prot Insulin Human Lispro (Insulin Lispro 100 Unit/1 Ml) 0 unit SUBCUT WM&BEDTIME [facility]; Protocol Last Admin: 12/25/22 12:05 Dose: 10 unit Lactulose (Lactulose Oral Liq 20 Gm/30 Ml Udc) 20 gm PO Q12H [facility] Last Admin: 12/25/22 05:59 Dose: 20 gm Levothyroxine Sodium (Levothyroxine 88 Mcg Tablet) 88 mcg PO DAILY [facility] Last Admin: 12/25/22 08:39 Dose: 88 mcg Naloxone HCl (Naloxone 0.4 Mg/Ml Sdv) 0.1 mg IVP Q2M PRN PRN Reason: OPIATERV Ondansetron HCl (Ondansetron 2 Mg/Ml Sdv 2 Ml) 4 mg IVP Q8H PRN PRN Reason: vomiting, or N/V if npo Last Admin: 12/15/22 20:27 Dose: 4 mg Oxycodone HCl (Oxycodone 5 Mg Ir Tab/Cap) 5 mg PO Q4H PRN PRN Reason: MODERATE PAIN Last Admin: 12/23/22 16:13 Dose: 5 mg Pantoprazole Sodium (Pantoprazole Dr 40 Mg Tablet) 40 mg PO DAILY [facility] Last Admin: 12/25/22 08:39 Dose: 40 mg Spironolactone (Spironolactone 25 Mg Tablet) 100 mg PO DAILY [facility] Last Admin: 12/19/22 08:15 Dose: 100 mg Discontinued Medications Dextrose (Dextrose 50% Syringe 50 Ml) 25 ml IVP ONCE ONE Stop: 12/21/22 05:32 Last Admin: 12/21/22 10:52 Dose: Not Given Diphenhydramine HCl (Diphenhydramine 25 Mg Capsule) 25 mg PO NOW ONE Stop: 12/21/22 16:02 Last Admin: 12/21/22 16:40 Dose: Not Given Furosemide (Furosemide 10 Mg/Ml Sdv 4ml) 40 mg IVP Q24H [facility] Last Admin: 12/20/22 06:48 Dose: 40 mg Furosemide (Furosemide 10 Mg/Ml Sdv 10ml) 60 mg IVP Q24H [facility] Last Admin: 12/22/22 06:15 Dose: 60 mg Magnesium Sulfate (Magnesium Sulfate Premix) 2 gm in 50 mls @ 50 mls/hr IV ONCE ONE Stop: 12/14/22 13:59 Last Infusion: 12/14/22 15:08 Dose: Infused Ceftriaxone Sodium 1,000 mg/ (Sodium Chloride) 50 mls @ 100 mls/hr IV Q24H [facility]; Protocol Last Infusion: 12/20/22 09:33 Dose: Infused Azithromycin 500 mg/ Sodium (Chloride) 250 mls @ 250 mls/hr IV Q24H [facility]; Protocol Last Infusion: 12/19/22 10:18 Dose: Infused Albumin Human (Albumin) 25 g in 100 mls @ 60 mls/hr IV ONCE ONE Stop: 12/17/22 21:09 Last Infusion: 12/17/22 21:59 Dose: Infused Piperacillin Sod/Tazobactam (Sod 3.375 gm/ Sodium Chloride) 50 mls @ 12.5 mls/hr IV Q8H [facility]; Protocol Last Admin: 12/22/22 11:11 Dose: Not Given Insulin Human Regular 10 unit/ (N/A) 0.1 mls @ 0 mls/hr IVP ONCE ONE Stop: 12/21/22 05:32 Last Infusion: 12/21/22 06:11 Dose: Infused Dextrose 17.75 ml/ Sterile (Water 7.25 ml/ N/A) 25 mls @ 300 mls/hr IVP ONCE ONE Stop: 12/21/22 05:49 Last Infusion: 12/21/22 06:11 Dose: Infused Lactulose (Lactulose Oral Liq 20 Gm/30 Ml Udc) 20 gm PO Q12H [facility] Last Admin: 12/21/22 06:00 Dose: 20 gm Lactulose (Lactulose Oral Liq 20 Gm/30 Ml Udc) 20 gm PO Q4H RAD[facility] Last Admin: 12/23/22 06:47 Dose: 20 gm Lactulose (Lactulose Oral Liq 20 Gm/30 Ml Udc) 20 gm PO Q8H [facility] Last Admin: 12/24/22 06:40 Dose: 20 gm Lidocaine HCl (Lidocaine 2% Inj 20 Ml) 20 ml INJECTION ONCE ONE Stop: 12/17/22 13:49 Last Admin: 12/17/22 17:46 Dose: Not Given Morphine Sulfate (Morphine 4 Mg/Ml Sdv 1 Ml) 2 mg IVP Q6H PRN PRN Reason: SEVERE PAIN Last Admin: 12/18/22 01:37 Dose: 2 mg Morphine Sulfate (Morphine 4 Mg/Ml Sdv 1 Ml) 2 mg IVP ONCE ONE Stop: 12/24/22 12:49 Last Admin: 12/24/22 13:01 Dose: 2 mg Ondansetron HCl (Ondansetron 2 Mg/Ml Sdv 2 Ml) 8 mg IVP ONCE ONE Stop: 12/12/22 23:48 Last Admin: 12/13/22 00:20 Dose: 8 mg Oxycodone HCl (Oxycodone 5 Mg Ir Tab/Cap) 5 mg PO Q4H PRN PRN Reason: pain Last Admin: 12/20/22 08:52 Dose: 5 mg Sodium Polystyrene Sulfonate (Sodium Polystyrene Sulfonate 15 Gm/60 Ml Btl) 15 gm PO ONCE ONE Stop: 12/21/22 05:32 Last Admin: 12/21/22 05:59 Dose: 15 gm Allergies codeine Adverse Reaction (Intermediate, Verified 12/03/22 19:28) ADR-Abdominal Pain Home Medications insulin U-500 syringe-needle 1/2 mL 31 gauge x 15/64 (BD Insulin Syringe U-500) #100 ea 03/14/20 [Rx Confirmed 12/13/22] insulin syringe-needle U-100 1 mL 31 gauge x 5/16 (BD Insulin Syringe Ultra-Fine) #100 ea 03/20/22 [Rx Confirmed 12/13/22] diabetic shoes #1 ea 03/30/22 [Rx Confirmed 12/13/22] hydroxyzine HCl 10 mg tablet 10 mg PO BEDTIME PRN Itching 07/09/22 [History Confirmed 12/13/22] levothyroxine 88 mcg tablet 88 mcg PO QAM 07/09/22 [History Confirmed 12/13/22] loratadine 10 mg tablet 10 mg PO DAILY PRN Allergy Symptoms 07/09/22 [History Confirmed 12/13/22] mupirocin 2 % topical ointment 1 applic topical BID PRN Outbreak 07/09/22 [History Confirmed 12/13/22] triamcinolone acetonide 0.1 % topical ointment 1 applic topical BID PRN Outbreak 07/09/22 [History Confirmed 12/13/22] vit C 226 mg-vit E 90 mg-copper 0.8 mg-zinc oxide-lutein 5 mg capsule (PreserVision Lutein) 1 cap PO BID 07/09/22 [History Confirmed 12/13/22] pen needle, diabetic 32 gauge x 5/32 (Sure Comfort Pen Needle) #300 ea 08/14/22 [Rx Confirmed 12/13/22] insulin aspart U-100 100 unit/mL (3 mL) subcutaneous pen (Novolog FlexPen U-100 Insulin aspart) 4 - 5 unit SUBCUT TIDWM 12/01/22 [History Confirmed 12/13/22] insulin detemir U-100 100 unit/mL subcutaneous solution (Levemir U-100 Insulin) 10 unit SUBCUT QPM 12/01/22 [History Confirmed 12/13/22] furosemide 20 mg tablet (Lasix) 20 mg PO DAILY #7 tabs 12/11/22 [Rx Confirmed 12/13/22] oxycodone 5 mg tablet 5 mg PO Q4H PRN pain #10 tabs 12/11/22 [Rx Confirmed 12/13/22] cholecalciferol (vitamin D3) 25 mcg (1,000 unit) tablet (Vitamin D3) 25 mcg PO DAILY PRN unknown 12/13/22 [History Confirmed 12/13/22] furosemide 40 mg tablet 40 mg PO QAM 12/13/22 [History Confirmed 12/13/22] multivitamin with minerals (Hair,Skin and Nails tablet) 1 tab PO DAILY 12/13/22 [History Confirmed 12/13/22] spironolactone 50 mg tablet 50 mg PO BID 12/13/22 [History Confirmed 12/13/22] Discharge Plan Discharge Patient Disposition: Xfer Intermediate Care Fac Condition: Stable Prescriptions: No Action (DME) BD Insulin Syringe U-500 1/2 mL 31 gauge x 15/64 syringe See Rx Instructions .ROUTE .MEDSUPPLY Qty: 100 3RF Rx Instructions: As directed for subcutaneous insulin administration (DME) insulin syringe-needle U-100 [BD Insulin Syringe Ultra-Fine] 1 mL 31 gauge x 5/16 syringe See Rx Instructions .ROUTE .MEDSUPPLY Qty: 100 3RF Rx Instructions: As directed (DME) diabetic shoes See Rx Instructions .Route .MEDSUPPLY Qty: 1 0RF Rx Instructions: As directed (DME) pen needle, diabetic [Sure Comfort Pen Needle] 32 gauge x 5/32 needle See Rx Instructions .ROUTE .COMPLEX Qty: 300 3RF Dose Instruction: INJECT 20 UNITS UNDER THE SKIN THREE TIMES A DAY Rx Instructions: INJECT 20 UNITS UNDER THE SKIN THREE TIMES A DAY PreserVision Lutein 226-90-0.8-5 mg Capsule 1 cap PO BID triamcinolone acetonide 0.1 % ointment 1 applic topical BID PRN (Reason: Outbreak) Rx Instructions: to raised itchy areas on trunk and extremities no more than 3 wks/mo mupirocin 2 % ointment 1 applic topical BID PRN (Reason: Outbreak) Rx Instructions: to open areas until healed hydroxyzine HCl 10 mg tablet 10 mg PO BEDTIME PRN (Reason: Itching) loratadine 10 mg tablet 10 mg PO DAILY PRN (Reason: Allergy Symptoms) levothyroxine 88 mcg tablet 88 mcg PO QAM insulin aspart U-100 [Novolog FlexPen U-100 Insulin] 100 unit/mL (3 mL) insulin pen 4 - 5 unit SUBCUT TIDWM Levemir U-100 Insulin 100 unit/mL solution 10 unit SUBCUT QPM furosemide [Lasix] 20 mg tablet 20 mg PO DAILY Qty: 7 0RF oxycodone 5 mg tablet 5 mg PO Q4H PRN (Reason: pain) Qty: 10 0RF Hair,Skin and Nails Tablet 1 tab PO DAILY Vitamin D3 25 mcg (1,000 unit) Tablet 25 mcg PO DAILY PRN (Reason: unknown) spironolactone 50 mg tablet 50 mg PO BID furosemide 40 mg tablet 40 mg PO QAM Discharge Orders: Transfer Out of Facility (Order); Ordered 12/25/22 Ordered By: Ariel Dwyer Other Ambulatory Orders: DME: Oxygen (Order) Location: None Selected Ordered By: Archie Finley DME: Walker (Order) Location: None Selected Ordered By: Bertrand Evans [place] [facility] [place] [facility]Outside] Donal Fernandes MD [Primary Care Provider] - 12/17/22 12:10 pm Patient Instructions: Opioid Safety, Pain Management Transfer Attestations Time Spent in Transfer Care: greater than 30 min Quality Metrics Clinical Quality Measures [ No reported AMI, CVA or VTE this stay] Coding Level of Care Code Acute Code for g Fwd Diagnoses Hyperkalemia E87.5 Acute kidney injury N17.9 Hyperammonemia E72.20 INR (international normal ratio) abnormal R79.1 Abdominal ascites R18.8 Pleural effusion J90 Cirrhosis of liver not due to alcohol K74.60 History of hepatitis C virus infection Z86.19 Gastroesophageal reflux K21.9 Diabetes mellitus, type II E11.9 Diabetes mellitus detention insulin use: with long term care pharmacist use Hypoxia R09.02 Portal hypertension K76.6
== END 2022-12-25 18:42 | disposition short-term general hospital (02) | DRG 432 ==
LOC: ER 12-13 01:08 → MEDSURG 12-13 01:22
PROVIDERS: Internal Medicine; Admitting Provider Student in an Organized Health Care Education/Training Program; Emergency Provider Emergency Medicine; PCP Family Medicine; Visit Provider Internal Medicine
DX: K74.69 Other cirrhosis of liver (principal); J18.9 Pneumonia, unspecified organism; I85.00 Esophageal varices without bleeding; R18.8 Other ascites; J94.8 Other specified pleural conditions; K76.6 Portal hypertension; J90 Pleural effusion, not elsewhere classified; N17.9 Acute kidney failure, unspecified; B19.20 Unspecified viral hepatitis C without hepatic coma; E87.5 Hyperkalemia; Z79.4 Long term (current) use of insulin; Z79.891 Long term (current) use of opiate analgesic; E11.9 Type 2 diabetes mellitus without complications; K21.9 Gastro-esophageal reflux disease without esophagitis; E83.42 Hypomagnesemia; E86.1 Hypovolemia
CPT/HCPCS: 32555; 36415; 36416; 49083; 71045; 71250; 76604; 76705; 78014; 80048; 80053; 80503; 81003; 82042; 82140; 82962; 83615; 83690; 83735; 83880; 83986; 84100; 84145; 84157; 84484; 85025; 85610; 87015; 87070; 87075; 87116; 87205; 87206; 87486; 87581; 87633; 87635; 87801; 89050; 93005; 93306; 94760; 96372; 96374; 96375; 99285; A9540; A9567; J0456; J0696; J1815; J1940; J2270; J2405; J2543; J3475; J7050; P9046

== ENCOUNTER 2023-01-16 20:15 | Inpatient (IN) | payer MEDICARE, OTHER, SELFPAY ==
[2023-01-16 20:37] VITALS: BP 126/70; PULSE 119; RESP 18; TEMP 36.6; O2SAT 96
--- NOTE | 2023-01-16 21:30 | CTR_ITS ---
PROCEDURE INFORMATION: Exam: CT Chest Without Contrast; Diagnostic Exam date and time: 01/16/2023 9:41 PM Age: 72 years old Clinical indication: Injury or trauma; Abdominal wall; Blunt trauma (contusions or hematomas); Prior surgery; Surgery date: <1 month; Surgery type: Peritoneal drain to RT lung. Gb; Patient HX: Fall at home. C/O left chest and abd wall pain. Discharged from [facility] on Wednesday. History of end stage hepatic disease. ; Additional info: Fall inj to left thorax, abd pain TECHNIQUE: Imaging protocol: Diagnostic computed tomography of the chest without contrast. Radiation optimization: All CT scans at this facility use at least one of these dose optimization techniques: automated exposure control; mA and/or kV adjustment per patient size (includes targeted exams where dose is matched to clinical indication); or iterative reconstruction. REPORTING DATA: Count of CT and Cardiac NM exams in prior 12 months: This patient has received [address] and 0 known cardiac nuclear medicine studies in the 12 months prior to the current study. COMPARISON: CT chest [facility] [id number] 12/15/2022 3:47 PM RADIATION DOSE METRICS: Total DLP (mGy-cm): 510.67 FINDINGS: Tubes, catheters and devices: Percutaneous right posterior pleural drainage catheter with moderate to large residual right pleural fluid collection. Lungs: Unremarkable. No consolidation. No masses. Pleural spaces: Unremarkable. No pneumothorax. No pleural effusion. Heart: Unremarkable. No cardiomegaly. No pericardial effusion. Lymph nodes: Unremarkable. No enlarged lymph nodes. Vasculature: Unremarkable. No aortic aneurysm. Bones/joints: Possible left posterior 1st rib fracture, axial series 5, image 4. Not confirmed on sagittal or coronal images. Otherwise no obvious left rib fractures. Soft tissues: Unremarkable. PROCEDURE INFORMATION: Exam: CT Abdomen And Pelvis Without Contrast Exam date and time: 01/16/2023 9:41 PM Age: 72 years old Clinical indication: Injury or trauma; Abdominal wall; Blunt trauma (contusions or hematomas); Prior surgery; Surgery date: <1 month; Surgery type: Peritoneal drain to RT lung. Gb; Patient HX: Fall at home. C/O left chest and abd wall pain. Discharged from [facility] on Wednesday. History of end stage hepatic disease. ; Additional info: Fall inj to left thorax, abd pain TECHNIQUE: Imaging protocol: Computed tomography of the abdomen and pelvis without contrast. Radiation optimization: All CT scans at this facility use at least one of these dose optimization techniques: automated exposure control; mA and/or kV adjustment per patient size (includes targeted exams where dose is matched to clinical indication); or iterative reconstruction. REPORTING DATA: Count of CT and Cardiac NM exams in prior 12 months: This patient has received [address] and 0 known cardiac nuclear medicine studies in the 12 months prior to the current study. COMPARISON: CT kidney stone [id number] 07/20/2021 3:45 PM RADIATION DOSE METRICS: Total DLP (mGy-cm): 510.67 FINDINGS: Liver: Severe cirrhosis. Single hepatic cyst measuring > 1.0 cm. Gallbladder and bile ducts: Normal. No calcified stones. No ductal dilation. Pancreas: Normal. No ductal dilation. Spleen: Normal. No splenomegaly. Adrenal glands: Normal. No mass. Kidneys and ureters: Normal. No hydronephrosis. Stomach and bowel: Unremarkable. No obstruction. No mucosal thickening. Appendix: No evidence of appendicitis. Intraperitoneal space: Moderate four-quadrant ascites. Vasculature: 17 mm portal vein consistent with portal hypertension. Probable varices which are better visualized on images with contrast. Lymph nodes: Unremarkable. No enlarged lymph nodes. Urinary bladder: Unremarkable as visualized. Reproductive: Unremarkable as visualized. Bones/joints: Unremarkable. No acute fracture. Soft tissues: Moderate anasarca consistent with right heart failure versus hypoproteinemia versus renal failure. CT/[place] [id number] IMPRESSION: 1. Percutaneous right posterior pleural drainage catheter with moderate to large residual right pleural fluid collection. 2. Possible left posterior 1st rib fracture, axial series 5, image 4. Not confirmed on sagittal or coronal images. 3. Otherwise no obvious left rib fractures. IMPRESSION: 1. Severe cirrhosis. 2. Moderate four-quadrant ascites. 3. Moderate anasarca consistent with right heart failure versus hypoproteinemia versus renal failure.
[2023-01-16 21:47] LABS: Basophils % 0.6 %; Eosinophils # 0.3 10^3/uL (0.0-0.8); Eosinophils % 5.4 %; Hematocrit 22.1 % (37.0-47.0); Hemoglobin 7.1 g/dL (11.5-15.3); Lymphocytes # 0.5 10^3/uL (0.8-4.8); Lymphocytes % 7.2 %; Mean Corpuscular HGB Conc 32.1 g/dL (30.0-36.0); Mean Corpuscular Hemoglobin 36.6 pg (28.0-34.0); Mean Corpuscular Volume 113.9 fl (81-99); Mean Platelet Volume 10.6 fL (7.4-10.4); Monocytes # 1.1 10^3/uL (0.2-0.9); Monocytes % 17.3 %; Neutrophils # 4.38 10^3/uL (1.8-7.7); Nucleated Red Blood Cells % 0 %; Platelet Count 110 10^3/cmm (130-400); Red Blood Count 1.94 10^6/uL (4.1-5.3); Red Cell Distribution Width 17.5 % (12.1-15.1); White Blood Count 6.4 10^3/uL (4.0-10.0)
[2023-01-16 22:03] LABS: INR 1.84 (0.8-1.2)
[2023-01-16 22:06] LABS: Ammonia 45 umol/L (11-51); Lactic Sepsis W/Reflex 2.8 mmol/L (0.5-2.2)
[2023-01-16 22:20] LABS: Alanine Aminotransferase 51 U/L (0-33); Albumin Level 2.9 g/dL (3.5-5.2); Alkaline Phosphatase 207 U/L (35-105); Anion Gap 13.5 (5-19); Aspartate Amino Transferase 95 U/L (0-32); Blood Urea Nitrogen 23 mg/dL (8-23); Calcium 8.2 mg/dL (8.5-10.5); Carbon Dioxide 21 mmol/L (22-29); Chloride 98 mmol/L (98-107); Globulin 2.8 g/dL (1.3-4.6); Glucose 177 mg/dL (65-115); Osmolality Calculated 274 mOsm/kg (285-295); Potassium 4.5 mmol/L (3.5-5.1); Sodium 128 mmol/L (136-145); Total Protein 5.7 g/dL (6.6-8.7)
[2023-01-16 22:26] LABS: Total Bilirubin 8.1 mg/dL (0.15-1.2)
--- NOTE | 2023-01-16 22:52 | ED_ITS ---
HPI - Back Pain/Injury General: Chief Complaint: Back Pain/Injury Stated Complaint: Fell ABD Pain Time Seen by Provider: 01/16/23 21:11 Source: patient and family History of Present Illness: 72-year-old female with a history of end-stage liver disease. She fell at home tonight. She complains of pain to her left lateral chest wall mainly. She also has some abdominal pain and swelling. She last had paracentesis 2 weeks ago of her belly. She has a Sudarshan drain in her right pleural cavity, which gets drained 3 days a week, the last time was yesterday. Family notes that she is a bit more confused today, even prior to the fall. This has not worsened after the fall. MD elicited complaint: back injury Pertinent past history: recent trauma Onset (ago): hour(s) (5 PM) Timing: constant Severity: moderate Similar Symptoms Previously: Yes Location: left flank Radiation: none Exacerbating factors: movement Relieving factors: none Associated symptoms: Reports abdominal pain, fatigue and nausea; Deny chills, fever(s), numbness or vomiting Review of Systems Const: Reports: fatigue; Denies: fever(s) or chills Card: Denies: chest pain or palpitations Resp: Denies: dyspnea, productive cough or non-productive cough GI: Reports: abdominal pain and nausea; Denies: vomiting : Reports: flank pain Musc: Reports: back pain; Denies: neck pain PFS ED PFSH: Medical History Abdominal ascites Acute kidney injury Anemia Chest pain Cirrhosis of liver not due to alcohol Diabetes mellitus, type II Gastroesophageal reflux Hepatitis C Hiatal hernia History of hepatitis C virus infection Hyperammonemia Hyperkalemia Hyperlipemia Hypotension Hypoxia INR (international normal ratio) abnormal Osteoarthritis of hands, bilateral Pleural effusion Portal hypertension Severe itching Tachycardia Surgical History History of carpal tunnel surgery of left wrist History of carpal tunnel surgery of right wrist History of tonsillectomy Hx laparoscopic cholecystectomy Hx of biopsy Social History Smoking and tobacco status: never smoked Alcohol intake: never Physical Exam Const: GENERAL APPEARANCE: cooperative, ill appearing and frail appearing HENMT: COMMON NORMALS: normocephalic, atraumatic and Normal external nose present HEAD & SCALP: normocephalic and atraumatic NOSE: Normal external nose present Eye: COMMON NORMALS: Equal, round and reactive pupils present and EOMs intact bilaterally PUPIL: Yes Equal, round and reactive pupils present Neck/C-Spine: GENERAL: Yes trachea midline Chest: CHEST: Yes Symmetrical chest wall rise and Yes tenderness (Left lateral chest wall and posterior chest wall) OTHER: Ecchymosis to the posterior edge of the mid axillary line on the left Resp: COMMON NORMALS: normal respiratory effort and No use of accessory muscles AUSCULTATION: diminished lung sounds on the right Cardio: COMMON NORMALS: regular rate and regular rhythm RATE: regular rate RHYTHM: regular rhythm GI: INSPECTION: Yes abdominal distension PALPATION: Yes Tenderness to palpation present (GI) (Diffusely) Extremity: GENERAL: Yes edema Neuro: DYLLAN COMA SCALE: document GCS findings [place] coma scale eye opening: Spontaneous [place] coma scale verbal response: Confused [place] coma scale motor response: Obey commands [place] coma scale total score: 14 Psych: COMMON NORMALS: cooperative Skin: GENERAL SKIN EXAM: jaundice Course Vital Signs: Vital signs: Vital Signs Temperature 98.6 F 01/17/23 02:34 Pulse Rate 106 H 01/17/23 02:34 Respiratory Rate 12 01/17/23 02:34 Blood Pressure 133/76 01/17/23 02:34 Pulse Oximetry 95 01/17/23 02:34 Oxygen Delivery Me thod Room Air 01/17/23 00:36 MDM - Back Pain/Injury Medical Decision Making 72-year-old female with end-stage liver disease. She presents after a fall. She has a contusion to her left lateral posterior chest. Chest CT reveals a possible left posterior first rib fracture, but the patient is not really tender in this area. No other rib fractures noted. She has a large right pleural effusion that is recurrent. She has moderate ascites. Head CT is negative. Her hemoglobin is down to 7. She is weak. Sodium is 128, likely related to hypoproteinemia. We will transfuse her 1 unit. She is quite weak. With the recurrence of her pleural effusion, and ascites, she will be observed. We will drain pleural effusion 3 to Sudarshan drain on the floor. Potential for paracentesis Wednesday. Spoke with hospitalist, will observe to ensure hemoglobin comes up appropriately, and no complications of fluid overload or hypoxia posttransfusion given her fluid status. Labs 01/16/23 21:39 01/16/23 21:39 Radiology Impressions Chest/Abdomen/Pelvis CT 01/16/23 21:30 IMPRESSION: 1. Percutaneous right posterior pleural drainage catheter with moderate to large residual right pleural fluid collection. 2. Possible left posterior 1st rib fracture, axial series 5, image 4. Not confirmed on sagittal or coronal images. 3. Otherwise no obvious left rib fractures. IMPRESSION: 1. Severe cirrhosis. 2. Moderate four-quadrant ascites. 3. Moderate anasarca consistent with right heart failure versus hypoproteinemia versus renal failure. Head CT 01/17/23 01:30 IMPRESSION: 1. No acute intracranial abnormality. 2. Moderate age-related changes. Laboratory Results WBC 6.4 10^3/uL (4.0-10.0) 01/16/23 21:39 RBC 1.94 10^6/uL (4.1-5.3) L 01/16/23 21:39 Hgb 7.1 g/dL (11.5-15.3) L 01/16/23 21:39 Hct 22.1 % (37.0-47.0) L 01/16/23 21:39 MCV 113.9 fl (81-99) H 01/16/23 21:39 MCH 36.6 pg (28.0-34.0) H 01/16/23 21:39 MCHC 32.1 g/dL (30.0-36.0) 01/16/23 21:39 RDW 17.5 % (12.1-15.1) H 01/16/23 21:39 Plt Count 110 10^3/cmm (130-400) L 01/16/23 21:39 MPV 10.6 fL (7.4-10.4) H 01/16/23 21:39 Neut % (Auto) 69.0 % 01/16/23 21:39 Lymph % (Auto) 7.2 % 01/16/23 21:39 [place] % (Auto) 17.3 % 01/16/23 21:39 Eos % (Auto) 5.4 % 01/16/23 21:39 Baso % (Auto) 0.6 % 01/16/23 21:39 Neut # (Auto) 4.38 10^3/uL (1.8-7.7) 01/16/23 21:39 Lymph # (Auto) 0.5 10^3/uL (0.8-4.8) L 01/16/23 21:39 [place] # (Auto) 1.1 10^3/uL (0.2-0.9) H 01/16/23 21:39 Eos # (Auto) 0.3 10^3/uL (0.0-0.8) 01/16/23 21:39 Baso # (Auto) 0.0 10^3/uL (0.0-0.1) 01/16/23 21:39 Nucleated RBC % (auto) 0 % 01/16/23 21:39 Nucleated RBCs # 0.0 /100WBC 01/16/23 21:39 PT 21.90 SECONDS (12.1-14.9) H 01/16/23 21:39 INR 1.84 (0.8-1.2) H 01/16/23 21:39 Sodium 128 mmol/L (136-145) L 01/16/23 21:39 Potassium 4.5 mmol/L (3.5-5.1) 01/16/23 21:39 Chloride 98 mmol/L (98-107) 01/16/23 21:39 Carbon Dioxide 21 mmol/L (22-29) L 01/16/23 21:39 Anion Gap 13.5 (5-19) 01/16/23 21:39 BUN 23 mg/dL (8-23) 01/16/23 21:39 Creatinine 1.0 mg/dL (0.5-0.9) H 01/16/23 21:39 GFR Calculation Not Reportable 01/16/23 21:39 Glucose 177 mg/dL (65-115) H 01/16/23 21:39 Calculated Osmolality 274 mOsm/kg (285-295) L 01/16/23 21:39 Lactic Acid 2.8 mmol/L (0.5-2.2) H 01/16/23 21:39 Lactic Acid (Sepsis) 1.6 mmol/L (0.5-2.2) 01/17/23 00:03 Calcium 8.2 mg/dL (8.5-10.5) L 01/16/23 21:39 Total Bilirubin 8.1 mg/dL (0.15-1.2) H* 01/16/23 21:39 AST 95 U/L (0-32) H 01/16/23 21:39 ALT 51 U/L (0-33) H 01/16/23 21:39 Alkaline Phosphatase 207 U/L (35-105) H 01/16/23 21:39 Ammonia 45 umol/L (11-51) 01/16/23 21:39 Total Protein 5.7 g/dL (6.6-8.7) L 01/16/23 21:39 Albumin 2.9 g/dL (3.5-5.2) L 01/16/23 21:39 Globulin 2.8 g/dL (1.3-4.6) 01/16/23 21:39 Blood Type O Positive 01/17/23 00:03 Rho(D) Type Positive 01/17/23 00:03 Antibody Screen Negative 01/17/23 00:03 Crossmatch See Detail 01/17/23 00:03 Discharge Plan Discharge Patient Disposition: Placed in Observation Clinical Impression: Anemia, Acute hyponatremia, Pleural effusion on right, Ascites Condition: Stable Prescriptions: No Action (DME) BD Insulin Syringe U-500 1/2 mL 31 gauge x 15/64 syringe See Rx Instructions .ROUTE .MEDSUPPLY Qty: 100 3RF Rx Instructions: As directed for subcutaneous insulin administration (DME) insulin syringe-needle U-100 [BD Insulin Syringe Ultra-Fine] 1 mL 31 gauge x 5/16 syringe See Rx Instructions .ROUTE .MEDSUPPLY Qty: 100 3RF Rx Instructions: As directed (DME) diabetic shoes See Rx Instructions .Route .MEDSUPPLY Qty: 1 0RF Rx Instructions: As directed (DME) pen needle, diabetic [Sure Comfort Pen Needle] 32 gauge x 5/32 needle See Rx Instructions .ROUTE .COMPLEX Qty: 300 3RF Dose Instruction: INJECT 20 UNITS UNDER THE SKIN THREE TIMES A DAY Rx Instructions: INJECT 20 UNITS UNDER THE SKIN THREE TIMES A DAY PreserVision Lutein 226-90-0.8-5 mg Capsule 1 cap PO BID triamcinolone acetonide 0.1 % ointment 1 applic topical BID PRN (Reason: Outbreak) Rx Instructions: to raised itchy areas on trunk and extremities no more than 3 wks/mo mupirocin 2 % ointment 1 applic topical BID PRN (Reason: Outbreak) Rx Instructions: to open areas until healed hydroxyzine HCl 10 mg tablet 10 mg PO BEDTIME PRN (Reason: Itching) loratadine 10 mg tablet 10 mg PO DAILY PRN (Reason: Allergy Symptoms) levothyroxine 88 mcg tablet 88 mcg PO QAM insulin aspart U-100 [Novolog FlexPen U-100 Insulin] 100 unit/mL (3 mL) insulin pen 4 - 5 unit SUBCUT TIDWM Levemir U-100 Insulin 100 unit/mL solution 10 unit SUBCUT QPM furosemide [Lasix] 20 mg tablet 20 mg PO DAILY Qty: 7 0RF oxycodone 5 mg tablet 5 mg PO Q4H PRN (Reason: pain) Qty: 10 0RF Hair,Skin and Nails Tablet 1 tab PO DAILY Vitamin D3 25 mcg (1,000 unit) Tablet 25 mcg PO DAILY PRN (Reason: unknown) spironolactone 50 mg tablet 50 mg PO BID furosemide 40 mg tablet 40 mg PO QAM Referrals: Donal Fernandes MD [Primary Care Provider] - Coding Level of Care Code ED Record Searcher for Raúl Franco
[2023-01-16 23:28] VITALS: RESP 23; O2SAT 96
[2023-01-16] MEDS: HYDROmorphone 1 mg/mL INJ 1 mL IM (23:28)
[2023-01-16 23:32] LABS: Reflex Lactate Order REFLEX LACTIC ORDERD
[2023-01-17] VITALS (24 sets, daily range): BP systolic 107–142; BP diastolic 46–79; PULSE 90–110; RESP 10–35; TEMP 36.3–37.2; O2SAT 93–97
[2023-01-17] MEDS: ondansetron 2 mg/ML SDV 2 mL 4 MG IVP (00:27)
[2023-01-17] MEDS: diphenhydrAMINE 50 mg/mL SDV 1mL 12.5 MG IVP (00:29)
[2023-01-17 00:34] LABS: Lactic Acid level (Lactate) 1.6 mmol/L (0.5-2.2)
--- NOTE | 2023-01-17 01:30 | CTR_ITS ---
PROCEDURE INFORMATION: Exam: CT Head Without Contrast Exam date and time: 01/17/2023 1:39 AM Age: 72 years old Clinical indication: Altered mental status/memory loss; Patient HX: Sudden onset of unresponsiveness and lethargy while in er. ; Additional info: AMS TECHNIQUE: Imaging protocol: Computed tomography of the head without contrast. Radiation optimization: All CT scans at this facility use at least one of these dose optimization techniques: automated exposure control; mA and/or kV adjustment per patient size (includes targeted exams where dose is matched to clinical indication); or iterative reconstruction. REPORTING DATA: Count of CT and Cardiac NM exams in prior 12 months: This patient has received 2 known CTs and 0 known cardiac nuclear medicine studies in the 12 months prior to the current study. COMPARISON: CT head wo con* [id number] 12/10/2021 9:11 PM RADIATION DOSE METRICS: Total DLP (mGy-cm): 997.49 FINDINGS: Brain: No focal hemorrhage or midline shift is identified. The ventricles and parenchyma show moderate atrophy and chronic bicerebral white matter ischemic change. Cerebral ventricles: No ventriculomegaly or evidence of hydrocephalus. Paranasal sinuses: No evidence of acute sinusitis. Mastoid air cells: Visualized mastoid air cells are well aerated. Bones/joints: No displaced skull fracture is noted. Soft tissues: Unremarkable. Vasculature: Diffuse vascular calcifications are present. CT/CT head wo con* [id number] IMPRESSION: 1. No acute intracranial abnormality. 2. Moderate age-related changes.
[2023-01-17] MEDS: sodium chloride 0.9% 100 mL Bag 50 ML IV (02:00)
--- NOTE | 2023-01-17 02:43 | P.HP_ITS ---
Providers/Chief Complaint Primary Care Provider: Donal Fernandes MD Chief Complaint: Fell ABD Pain History of Present Illness Natacha Linares is a 72 year old female With past medical history of liver cirrhosis dating back to 2014, hepatitis C, esophageal varices, abdominal ascites, anemia, hyperammonemia, hyperkalemia, hyperlipidemia, osteoarthritis, portal hypertension, recurrent pleural effusion presented to the hospital today after a fall that she sustained at home. She complains of pain to her left lateral chest wall. She does have abdominal ascites and has frequent paracentesis with the last one being 2 weeks ago. She was transferred to [facility] on 12/25/2022 and spent a few weeks there. There was a Sudarshan drain in right pleural cavity placed by them for recurrent pleural effusion which gets drained Wednesday. Family did note that patient has been a little more confused compared to before even before the fall. This has not worsened after the fall. Do not believe patient hit her head. She does complain of some fatigue and nausea and abdominal pain. Patient was discharged from [facility] [place] at 9 PM on . She spent home on Wednesday and was doing well. The family drained her pleural drain as well. 800 cc was removed. She is on lactulose 4 times a day for hepatic encephalopathy. [facility] stopped her Lasix and spironolactone. She is currently not on the transplant list and is still being evaluated. She states that she got up on her own on Wednesday morning and tried to use the restroom. She felt weak that she slid against the back wall and fell down. She was unable to get up. Did not hit her head anywhere. She has spent almost 5 weeks in the hospital recently and is quite weak. Denies feeling lightheaded or dizzy prior to falling. At this point denies any other symptoms. No cough no fever no shortness of breath. Denies having any abdominal pain at this time either. She states she feels a little bit better. She has a blood transfusion going to at this time. ED course: Blood pressure 126/70, respirate 18, pulse 119, temperature 97.9 saturating 96% on room air. Labs show hemoglobin 7.1, platelets 110, sodium 128, bicarb 21, creatinine 1.0, glucose 177. Labs do appear slightly better from the point when she was transferred to [place]. Total bilirubin 8.1. Lactic acid 2.8 initially and subsequently down to 1.6. In the ER patient was given Lasix 20 IV x1, morphine 2 mg IV x1, diphenhydramine 12.5x1, 1 unit of packed RBCs. It seems that patient is at her baseline. Patient will be admitted for observation after blood transfusion and for inpatient paracentesis at this time. Head CT negative for acute stroke, CT chest abdomen pelvis shows severe cirrhosis, moderate four-quadrant ascites, moderate anasarca, percutaneous right posterior pleural drainage catheter with moderate to large residual right pleural fluid collection. Medications/Allergies Home Medications Medication Instructions Recorded Confirmed Last Taken Type insulin U-500 syringe-needle 1/2 #100 ea 03/14/20 12/13/22 Unknown Rx mL 31 gauge x 15/64 (BD Insulin Syringe U-500) insulin syringe-needle U-100 1 mL #100 ea 03/20/22 12/13/22 Unknown Rx 31 gauge x 5/16 (BD Insulin Syringe Ultra-Fine) diabetic shoes #1 ea 03/30/22 12/13/22 Unknown Rx hydroxyzine HCl 10 mg tablet 10 mg PO BEDTIME PRN Itching 07/09/22 12/13/22 1 Week Ago History ~11/26/22 levothyroxine 88 mcg tablet 88 mcg PO QAM 07/09/22 12/13/22 12/03/22 History loratadine 10 mg tablet 10 mg PO DAILY PRN Allergy Symptoms 07/09/22 12/13/22 2 Weeks Ago History ~11/19/22 mupirocin 2 % topical ointment 1 applic topical BID PRN Outbreak 07/09/22 12/13/22 2 Weeks Ago History ~11/19/22 triamcinolone acetonide 0.1 % 1 applic topical BID PRN Outbreak 07/09/22 12/13/22 12/03/22 History topical ointment vit C 226 mg-vit E 90 mg-copper 1 cap PO BID 07/09/22 12/13/22 12/03/22 History 0.8 mg-zinc oxide-lutein 5 mg capsule (PreserVision Lutein) pen needle, diabetic 32 gauge x #300 ea 08/14/22 12/13/22 Unknown Rx / (Sure Comfort Pen Needle) insulin aspart U-100 100 unit/mL 4 - 5 unit SUBCUT TIDWM 12/01/22 12/13/2212/03 History (3 mL) subcutaneous pen (Novolog FlexPen U-100 Insulin aspart) insulin detemir U-100 100 unit/mL 10 unit SUBCUT QPM 12/01/22 12/13/22 12/02/22 History subcutaneous solution (Levemir U-100 Insulin) furosemide 20 mg tablet (Lasix) 20 mg PO DAILY #7 tabs 12/11/22 12/13/22 Unknown Rx oxycodone 5 mg tablet 5 mg PO Q4H PRN pain #10 tabs 12/11/22 12/13/22 Unknown Rx cholecalciferol (vitamin D3) 25 25 mcg PO DAILY PRN unknown 12/13/22 12/13/22 Unknown History mcg (1,000 unit) tablet (Vitamin D3) furosemide 40 mg tablet 40 mg PO QAM 12/13/22 12/13/22 Unknown History multivitamin with minerals 1 tab PO DAILY 12/13/22 12/13/22 Unknown History (Hair,Skin and Nails tablet) spironolactone 50 mg tablet 50 mg PO BID 12/13/22 12/13/22 Unknown History Allergies Allergy/AdvReac Type Severity Reaction Status Date / Time codeine AdvReac Intermediate ADR-Abdominal Verified 01/16/23 20:49 Pain PFSH Acute PFSH: Medical History Abdominal ascites Acute kidney injury Anemia Chest pain Cirrhosis of liver not due to alcohol Diabetes mellitus, type II Gastroesophageal reflux Hepatitis C Hiatal hernia History of hepatitis C virus infection Hyperammonemia Hyperkalemia Hyperlipemia Hypotension Hypoxia INR (international normal ratio) abnormal Osteoarthritis of hands, bilateral Pleural effusion Portal hypertension Severe itching Tachycardia Surgical History History of carpal tunnel surgery of left wrist History of carpal tunnel surgery of right wrist History of tonsillectomy Hx laparoscopic cholecystectomy Hx of biopsy Social History Smoking and tobacco status: never smoked Alcohol intake: never Vitals/I&O/Wt Last Vital Signs Temp 98.6 F 01/17/23 02:34 Pulse 106 H 01/17/23 02:34 Resp 12 01/17/23 02:34 BP 133/76 01/17/23 02:34 Pulse Ox 95 01/17/23 02:34 O2 Del Method Room Air 01/17/23 00:36 01/16/23 01/16/23 01/17/23 14:59 22:59 06:59 Intake Total 0 / 0 Balance 0 / 0 Weight last 48 hrs Weight 52.163 kg Physical Exam Narrative: General: Alert oriented x3, patient seen laying in bed, son at bedside HEENT: Normocephalic, atraumatic, EOMI,, no acute distress Cardio: Regular rate rhythm, normal S1-S2, Respiratory: Mainly clear to auscultation with diminished at bases. Right pleural Sudarshan drain present. GI: Abdomen soft, nontender, moderately distended due to ascites,, bowel sounds + Extremities: Generalized anasarca present Data 01/16/23 21:39 01/16/23 21:39 A&P Assessment and plan (1) Anemia: (2) Acute hyponatremia: (3) Pleural effusion on right: (4) Ascites: (5) Abdominal ascites: (6) Ascites: Qualifiers: Ascites type: other type Qualified Code(s): R18.8 - Other ascites (7) Cirrhosis of liver not due to alcohol: (8) Diabetes mellitus, type II: Qualifiers: Diabetes mellitus oil heaterman insulin use: with skilled nursing use (9) Gastroesophageal reflux: (10) INR (international normal ratio) abnormal: (11) Portal hypertension: (12) Hyponatremia: Plan #Acute on chronic anemia #Liver cirrhosis, being evaluated for transplant list #Generalized weakness #Esophageal varices #History hepatitis C #Abdominal ascites #Portal hypertension #Recurrent pleural effusion status post [place] drain #Hyponatremia most likely secondary to liver disease ? Patient has been ordered a blood transfusion in the ER. We will check a posttransfusion CBC 2 hours after it completes. ? Check CBC every 12 hours. ? Patient is not septic at this time. I have low suspicion for SBP. ? She has generalized weakness most likely due to deconditioning being in the hospital for last 5 weeks. ? We will order paracentesis for her in the hospital with cell counts. ? CT abdomen pelvis does show moderate to large pleural effusion on the right side which has reaccumulated. We will drain that during hospital stay ? If hemoglobin stays stable patient may be able to discharge on Wednesday. ? Hyponatremia sodium 128 most likely secondary to liver disease. ? Patient is not on the transplant list but being evaluated for it. She is to follow-up with [facility] after discharge. ? Physical therapy, Occupational Therapy. We will see how patient does. She may benefit from short-term rehab placement. ? Med rec to be completed by RN. She had some medication adjustment done at [place]. I will order home medications after reviewing that. Lasix and spironolactone have been stopped indefinitely as per family. ? Continue lactulose. -No pharmacological DVT prophylaxis at this time. -Check iron TIBC, ferritin, occult blood. I reviewed chart and do not see any work-up done in the past for this. Full code SCDs for DVT prophylaxis. Attestations Medical Necessity Statement*: > 2 midnight stay Coding Level of Care Code G0425 (30 min) TH Encounter Time (min): 45 Patient seen via Telehealth in the acute care setting (hospital or ED location) by agreement and consent of patient or patient insurance service representative. Telehealth technology used during the visit includes video and audio. This patient e ncounter is appropriate and reasonable under the circumstances given the patient?s particular presentation at this time. The patient has been advised of the potential risks and limitations of this mode of treatment (including but not limited to the absence of in-person examination at this time) and has agreed to be treated by an off-site physician for this visit. If deemed clinically necessary from this telehealth visit, or if condition or consent for telehealth visit changes, an in-person visit will be arranged. For this encounter, total time for the origination of telehealth care on this date is as shown. Diagnoses Anemia D64.9 Acute hyponatremia E87.1 Pleural effusion on right J90 Ascites R18.8 Cirrhosis of liver not due to alcohol K74.60 Diabetes mellitus, type II E11.9 Diabetes mellitus skilled nursing insulin use: with skilled nursing use Gastroesophageal reflux K21.9 INR (international normal ratio) abnormal R79.1 Portal hypertension K76.6 Hyponatremia E87.1
[2023-01-17] MEDS: pantoprazole 40 mg SDV IVP ×2 (04:54→18:16)
[2023-01-17 07:04] LABS: Glucose Point of Care 196 mg/dL (70-110)
[2023-01-17 08:00] LABS: Hematocrit 26.7 % (37.0-47.0); Hemoglobin 8.8 g/dL (11.5-15.3)
[2023-01-17 08:29] LABS: Iron 116 ug/dL (37-145); Lactic Sepsis W/Reflex 1.7 mmol/L (0.5-2.2)
[2023-01-17 08:35] LABS: Procalcitonin 0.23 ng/mL (0-0.5)
[2023-01-17] MEDS: insulin lispro 100 unit/1 mL SUBCUT ×3 (09:14→22:17)
[2023-01-17 10:49] LABS: Ferritin 1136 ng/mL (15-150)
[2023-01-17 10:50] LABS: Unsaturated Iron Binding < 3 ug/dL (112-347)
[2023-01-17 11:02] LABS: Glucose Point of Care 197 mg/dL (70-110)
[2023-01-17] MEDS: albumin 25 G/100 ML BAG 60 G IV ×2 (11:51→20:08)
[2023-01-17 15:08] LABS: Bilirubin Urine 1+ (Negative); Blood Urine Neg (Negative); Glucose Urine UA Norm (Normal); Ketones Urine Negative (Negative); Leukocyte Esterase Urine 1+ (Negative); Nitrate Urine Negative (Negative); Protein Urine Trace (Negative); Urine Appearance Clear (CLEAR); Urine Color Amber (Yellow); Urobilinogen Urine Norm (Negative); pH Urine 5 (5-7)
--- NOTE | 2023-01-17 15:08 | P.MISC_ITS ---
Miscellaneous Note Note: Overnight HPI reviewed, vitals and labs have been reviewed, patient currently has denied hematemesis, melena,BRBPR, s/p 1 unit PRBC transfusion, H&H is 8.03/06, if the patient continued to have dropping H&H She will need to be transferred to tertiary care center, she prefers to go to [place], for EGD with possible banding. Currently H&H is being monitored. Patient will also be drained through her Pleurx catheter, for right-sided pleural effusion, she is also scheduled for paracentesis tomorrow in the morning. She has been started on IV albumin, in preparation for her paracentesis. Ascitic fluid analysis has been ordered. Protonix 40 IV twice daily has been continued, may need octreotide drip. Serum sodium is being monitored, currently she has hypervolemic hyponatremia with relative SIADH.
[2023-01-17 15:09] LABS: Add Urine Culture? No; Add Urine Microscopic? YES; Bacteria Urine 1+ /hpf; Calcium Oxalate Crystals Urine 40-55 /hpf
[2023-01-17 16:51] LABS: Glucose Point of Care 190 mg/dL (70-110)
[2023-01-17 18:29] LABS: Hematocrit 25.6 % (37.0-47.0); Hemoglobin 8.5 g/dL (11.5-15.3)
[2023-01-17 18:58] LABS: Alanine Aminotransferase 44 U/L (0-33); Albumin Level 2.9 g/dL (3.5-5.2); Alkaline Phosphatase 174 U/L (35-105); Anion Gap 10.9 (5-19); Aspartate Amino Transferase 76 U/L (0-32); Blood Urea Nitrogen 24 mg/dL (8-23); Calcium 7.9 mg/dL (8.5-10.5); Carbon Dioxide 19 mmol/L (22-29); Chloride 99 mmol/L (98-107); Globulin 2.3 g/dL (1.3-4.6); Glucose 239 mg/dL (65-115); Osmolality Calculated 270 mOsm/kg (285-295); Potassium 4.9 mmol/L (3.5-5.1); Sodium 124 mmol/L (136-145); Total Protein 5.2 g/dL (6.6-8.7)
[2023-01-17 19:07] LABS: Total Bilirubin 10.8 mg/dL (0.15-1.2)
[2023-01-17 21:26] LABS: Glucose Point of Care 174 mg/dL (70-110)
[2023-01-17] MEDS: sodium chloride 3% 100 ML in empty flexible container 1 EACH IV (22:05)
[2023-01-17 22:10] LABS: Glucose Point of Care 180 mg/dL (70-110)
[2023-01-17] MEDS: ibuprofen 200 mg Tablet 400 MG PO (22:36)
[2023-01-17 22:43] LABS: Sodium 131 mmol/L (136-145)
[2023-01-18] VITALS (39 sets, daily range): BP systolic 104–128; BP diastolic 49–77; PULSE 80–109; RESP 13–32; TEMP 36.5–37.3; O2SAT 88–98
--- NOTE | 2023-01-18 | US_ITS ---
WS: [id number] INDICATION: Ascites TECHNIQUE: Ultrasound abdomen limited FINDINGS: Ultrasound abdomen limited with moderate ascites. No other suspicious findings. US/US abdomen lmt fluid [id number] IMPRESSION: Moderate ascites.
[2023-01-18] MEDS: pantoprazole 40 mg SDV IVP ×2 (03:17→14:45)
[2023-01-18] MEDS: albumin 25 G/100 ML BAG 60 G IV (03:19)
[2023-01-18 04:11] LABS: Basophils % 0.6 %; Eosinophils # 0.5 10^3/uL (0.0-0.8); Eosinophils % 7.4 %; Hematocrit 22.7 % (37.0-47.0); Hemoglobin 7.3 g/dL (11.5-15.3); Lymphocytes # 0.6 10^3/uL (0.8-4.8); Lymphocytes % 8.8 %; Mean Corpuscular HGB Conc 32.2 g/dL (30.0-36.0); Mean Corpuscular Hemoglobin 35.3 pg (28.0-34.0); Mean Corpuscular Volume 109.7 fl (81-99); Mean Platelet Volume 11.3 fL (7.4-10.4); Monocytes # 0.9 10^3/uL (0.2-0.9); Monocytes % 13.7 %; Nucleated Red Blood Cells % 0 %; Platelet Count 92 10^3/cmm (130-400); Red Blood Count 2.07 10^6/uL (4.1-5.3); Red Cell Distribution Width 21.6 % (12.1-15.1); White Blood Count 6.4 10^3/uL (4.0-10.0)
[2023-01-18 04:23] LABS: Alanine Aminotransferase 37 U/L (0-33); Albumin Level 2.8 g/dL (3.5-5.2); Alkaline Phosphatase 147 U/L (35-105); Anion Gap 13.2 (5-19); Aspartate Amino Transferase 62 U/L (0-32); Blood Urea Nitrogen 24 mg/dL (8-23); Calcium 8.6 mg/dL (8.5-10.5); Carbon Dioxide 20 mmol/L (22-29); Chloride 106 mmol/L (98-107); Globulin 2.2 g/dL (1.3-4.6); Glucose 129 mg/dL (65-115); Magnesium 1.9 mg/dL (1.7-2.3); Osmolality Calculated 284 mOsm/kg (285-295); Phosphorus 2.3 mg/dL (2.5-4.5); Potassium 5.2 mmol/L (3.5-5.1); Sodium 134 mmol/L (136-145)
[2023-01-18 04:43] LABS: Total Bilirubin 9.9 mg/dL (0.15-1.2)
[2023-01-18] MEDS: levothyroxine 75 mcg Tablet PO (06:03)
[2023-01-18 07:19] LABS: Glucose Point of Care 112 mg/dL (70-110)
[2023-01-18 11:10] LABS: Glucose Point of Care 270 mg/dL (70-110)
[2023-01-18] MEDS: insulin lispro 100 unit/1 mL SUBCUT ×3 (12:04→20:51)
[2023-01-18 12:10] LABS: Gamma Glutamyl Transferase 24 U/L (5-36)
[2023-01-18 12:14] LABS: Hepatitis A Antibody IgM Non-Reactive (Nonreactive); Hepatitis B Core AB, Total Non-Reactive (Nonreactive); Hepatitis B Surface AB 3.5 (11.5-1000); Hepatitis B Surface Antigen Non-Reactive (Nonreactive); Hepatitis C Virus Antibody Reactive (Nonreactive)
[2023-01-18 12:17] LABS: Lactate Dehydrogenase 197 U/L (135-214); Thyroid Stimulating Hormone 0.11 uIU/mL (0.27-4.20)
[2023-01-18 13:01] LABS: Vitamin B12 1250 pg/mL (232-1245)
[2023-01-18 13:09] LABS: Reticulocyte % 3.7 % (0.5-2.0)
[2023-01-18] MEDS: insulin regular-human 10 UNIT in SYRINGE 1 EACH IVP (13:31)
[2023-01-18 13:35] LABS: Free T4 Free Thyroxine 1.32 ng/dL (0.82-1.77); T3 Free 1.4 PG/ML (2.0-4.4)
[2023-01-18] MEDS: cyclobenzaprine 10 mg Tablet 5 MG PO (14:44)
[2023-01-18 15:06] LABS: Hematocrit 21.1 % (37.0-47.0); Hemoglobin 6.9 g/dL (11.5-15.3)
[2023-01-18 15:15] LABS: Anion Gap 12.9 (5-19); Blood Urea Nitrogen 24 mg/dL (8-23); Calcium 8.6 mg/dL (8.5-10.5); Carbon Dioxide 19 mmol/L (22-29); Chloride 106 mmol/L (98-107); Glucose 147 mg/dL (65-115); Osmolality Calculated 283 mOsm/kg (285-295); Potassium 4.9 mmol/L (3.5-5.1); Sodium 133 mmol/L (136-145)
--- NOTE | 2023-01-18 16:57 | PM.PN ---
Subjective Subjective: Hospital course, labs appreciated. Seen with family at bedside. Patient awake and alert. Denies any nausea, vomiting, headache. Has not had a bowel movement since admission. Concerned that lactulose has been withheld. Denies any difficulty in breathing or abdominal pain for now. S/p recently at [facility] where Lasix and spironolactone were withheld because of concern for NASREEN. States she is on transplant list. Blood work today morning appreciated for hemoglobin of 7.3, INR of 2.4, hyponatremia but resolving with sodium of 154, hyperkalemia with potassium of 5.2, creatinine 0.9, hyperbilirubinemia with 9.9 and transaminitis. Urine output of 2 L yesterday. Vitals/I&O/Wt Last Vital Signs Temp 99.1 F 01/18/23 05:00 Pulse 106 H 01/18/23 16:00 Resp 18 01/18/23 16:00 BP 116/59 01/18/23 16:00 Pulse Ox 94 01/18/23 16:00 O2 Del Method Room Air 01/18/23 09:17 O2 Flow Rate 2 01/18/23 05:00 01/18/23 01/18/23 01/18/23 06:59 14:59 22:59 Intake Total 200 / 1240 645 / 645 Output Total 1350 / 2150 400 / 400 Balance -1150 / -910 245 / 245 Weight last 48 hrs Weight 52.163 kg Physical Exam Narrative: EXAM NARRATIVE: General: No acute distress, AO x3, NC oxygen supplementation, pleasant, icterus present, pallor present HEENT: PERRLA, pupils bilaterally equal and reactive Chest: Bilateral normal vesicular breath sounds all over lung tucker with occasional rhonchi, decreased air entry in right lower zone CVS: S1-S2 regular, no murmurs, no tachycardia, no gallops, no rubs Abdomen: Soft, nontender, no organomegaly, bowel sounds present, morbidly obese Neuro: No focal deficits, no facial deformity, AO x3, power 5/5 in all limbs Urinary Catheter Management: Toro: Cath Placed During This Visit: yes Reason for Continuing Indwelling Catheter: Accurate Measurement of Urinary Output in Critically Ill Patients Urinary Catheter Date of Insertion: 01/17/23 Urinary Catheter Time of Insertion: 21:50 Data 01/18/23 14:52 01/18/23 14:52 Micro: Microbiology 01/17/23 07:52 Blood Culture - Preliminary Blood NEGATIVE TO DATE 01/17/23 07:48 Blood Culture - Preliminary Blood NEGATIVE TO DATE 01/17/23 13:55 Occult Blood (FIT) - Final Stool Routine Collection A&P Assessment and plan (1) Anemia: Patient herself denies any melena or hematemesis. Target hemoglobin over 7. If needed will transfuse 1 unit of PRBC. Already received 1 unit yesterday. Repeat hemoglobin in evening. Check LDH, haptoglobin, GGT, reticulocyte count, peripheral smear with concerns for hemolysis. Appreciate iron panel. Check vitamin B12 and folate levels. (2) Acute hyponatremia: Acute on chronic. Baseline seems to be around 1 34-1 35 recently. High concern for hypervolemic hyponatremia in setting of discontinuation of diuretics recently. Patient net negative last 24 hours. Monitor BMP again in evening. For now monitor every 12 hourly. Check TSH, lipid panel, A1c. (3) Pleural effusion on right: Most likely in setting of liver dysfunction. Been ordered in place. Removed 800 cc on 01/17. No pleural study sent. Will repeat tomorrow and send labs. (4) Ascites: Patient denies any discomfort currently. Denies any abdominal pain. Patient is net negative because of IV diuresis and removal of fluid yesterday from thoracentesis. Hold off on paracentesis for now. Continue to monitor. 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 Being worked up at [facility] for transplant. Restart home dose of lactulose. Continue with rifaximin. Check ammonia levels. Patient had persistent transaminitis. Worsening hyperbilirubinemia. Check direct bilirubin levels. Check MRCP. (6) Diabetes mellitus, type II: Most recent A1c 4.7. Hold off on sliding scale for now. Monitor blood sugars daily for now. Qualifiers: Diabetes mellitus fci insulin use: with emt intermediate use (7) Gastroesophageal reflux: (8) INR (international normal ratio) abnormal: (9) Portal hypertension: Plan Hyperkalemia: D50 with 10 units of insulin. Repeat BMP in afternoon. CODE STATUS: Full code. Patient awaiting transplant list. Regular diet. Protonix for PUD prophylaxis. SCDs for DVT prophylaxis. Hold off on pharmaceutical prophylaxis given anemia and thrombocytopenia. Discharge plan: Plan to discharge back home with caregiver and possible home health if patient remains hemodynamically stable in the next 24 hours depending on the lab results. Physical therapy evaluation. Attestations Medical Necessity Statement*: Requires further hospitalization for management of acute anemia in a patient with history of liver cirrhosis, acute on chronic hyponatremia requiring 3% Diagnoses Anemia D64.9 Acute hyponatremia E87.1 Pleural effusion on right J90 Ascites R18.8 Cirrhosis of liver not due to alcohol K74.60 Diabetes mellitus, type II E11.9 Diabetes mellitus fci insulin use: with fci use Gastroesophageal reflux K21.9 INR (international normal ratio) abnormal R79.1 Portal hypertension K76.6
[2023-01-18 17:28] LABS: Glucose Point of Care 153 mg/dL (70-110)
[2023-01-18 17:46] LABS: LAB Peripheral Smear Sent for Review
[2023-01-18 20:01] LABS: Apprearance, Body Fluid CLOUDY; Body Fluid Polynuclear #Cells 0.028; Body Fluid WBC 92 /uL; Color, Body Fluid YELLOW; Monocytes # Body Fluid 0.064
[2023-01-18 20:09] LABS: Cyto Order Verification No Order
[2023-01-18] MEDS: lactulose oral liq 20 gm/30 mL UDC 30 GM PO (20:35)
[2023-01-18] MEDS: sucralfate 1 gm/10 mL Oral Liq UDC PO (20:37)
[2023-01-18 20:51] LABS: Albumin Body Fluid 0.8 g/dL; Amylase Body Fluid 11 U/L; Cholesterol Body Fluid 18 mg/dL (0-200); Fluid Alkaline Phos. 28 IU/L; LDH Body Fluid 73 U/L; PATH Referral YES; Triglycerides Body Fluid 19 mg/dL (0-150); Uric Acid Body Fluid 6 mg/dL
[2023-01-18 20:52] LABS: Total Protein Pleural Fluid 1.1 g/dL
[2023-01-18 20:58] LABS: Glucose Point of Care 157 mg/dL (70-110)
[2023-01-18 21:51] LABS: Fluid Laterality RIGHT
[2023-01-19] VITALS (26 sets, daily range): BP systolic 110–125; BP diastolic 58–70; PULSE 91–106; RESP 14–24; TEMP 36.8–36.9; O2SAT 92–98
[2023-01-19 03:03] LABS: INR 2.14 (0.8-1.2)
[2023-01-19 03:04] LABS: Partial Thromboplastin Time 46.6 SECONDS (23.9-36.7)
[2023-01-19 03:17] LABS: D Dimer 10.99 ug/mIFEU (0-0.59)
[2023-01-19] MEDS: pantoprazole 40 mg SDV IVP ×2 (03:19→14:34)
[2023-01-19 03:22] LABS: Fibrinogen 94 mg/dL (174-498); LAB Peripheral Smear Sent for Review
[2023-01-19 04:49] LABS: Basophils % 0.6 %; Eosinophils # 0.5 10^3/uL (0.0-0.8); Hematocrit 26.4 % (37.0-47.0); Hemoglobin 8.9 g/dL (11.5-15.3); Lymphocytes # 0.5 10^3/uL (0.8-4.8); Mean Corpuscular HGB Conc 33.7 g/dL (30.0-36.0); Mean Corpuscular Hemoglobin 34.6 pg (28.0-34.0); Mean Corpuscular Volume 102.7 fl (81-99); Mean Platelet Volume 10.9 fL (7.4-10.4); Monocytes % 14.5 %; Neutrophils # 4.59 10^3/uL (1.8-7.7); Neutrophils % 69.4 %; Nucleated Red Blood Cells % 0 %; Platelet Count 93 10^3/cmm (130-400); Red Blood Count 2.57 10^6/uL (4.1-5.3); Red Cell Distribution Width 21.4 % (12.1-15.1); White Blood Count 6.6 10^3/uL (4.0-10.0)
[2023-01-19 05:11] LABS: Alanine Aminotransferase 37 U/L (0-33); Albumin Level 2.9 g/dL (3.5-5.2); Alkaline Phosphatase 158 U/L (35-105); Anion Gap 10.2 (5-19); Aspartate Amino Transferase 60 U/L (0-32); Blood Urea Nitrogen 24 mg/dL (8-23); Calcium 8.5 mg/dL (8.5-10.5); Carbon Dioxide 22 mmol/L (22-29); Chloride 110 mmol/L (98-107); Globulin 2.2 g/dL (1.3-4.6); Glucose 137 mg/dL (65-115); Osmolality Calculated 290 mOsm/kg (285-295); Potassium 5.2 mmol/L (3.5-5.1); Sodium 137 mmol/L (136-145); Total Protein 5.1 g/dL (6.6-8.7)
[2023-01-19 05:27] LABS: Folate Level 11.8 ng/mL (4.8-37.3)
[2023-01-19 05:29] LABS: Total Bilirubin 12.2 mg/dL (0.15-1.2)
[2023-01-19] MEDS: levothyroxine 75 mcg Tablet PO (06:16)
[2023-01-19] MEDS: sucralfate 1 gm/10 mL Oral Liq UDC PO ×4 (06:17→20:39)
[2023-01-19] MEDS: cyclobenzaprine 10 mg Tablet 5 MG PO ×2 (06:20→20:37)
[2023-01-19 07:09] LABS: Glucose Point of Care 161 mg/dL (70-110)
[2023-01-19] MEDS: insulin lispro 100 unit/1 mL SUBCUT ×4 (08:09→20:41)
[2023-01-19] MEDS: lactulose oral liq 20 gm/30 mL UDC 30 GM PO ×3 (08:10→20:38)
--- NOTE | 2023-01-19 09:16 | PC.NURSE ---
off unit approximately 0830 to MRI
--- NOTE | 2023-01-19 09:30 | MR_ITS ---
WS: [id number] MRI/MRCP OF THE ABDOMEN WITHOUT GADOLINIUM ENHANCEMENT TECHNIQUE: Coronal T2 Fase BH, Axial T2 Fase BH, Axial T2 FS BH, Zxial 3D Torrez BH, Axial DWI BH, 2D MRCP Radial BH, 3D MRCP (Resp), and Axial 3D Dyn BH Post sequences. CLINICAL INFORMATION: High bilirubin, liver Cirosis COMPARISON: CT January 16, 2023 FINDINGS: Exam significantly degraded by motion artifact. Limited diagnostic exam. MRCP images are es sentially nondiagnostic. Prior cholecystectomy. Contracted cirrhotic liver compatible with advanced liver cirrhosis. Moderate perihepatic and upper abdominal ascites. Small esophageal hiatal hernia. Diffuse body wall mesenteric anasarca. RIGHT pleural effusion. RIGHT pleural drain. No significant hydronephrosis in either kidne y. Normal caliber upper abdominal aorta. T2 hyperintense lesion LEFT hepatic lobe measuring 13 mm jayne ears to represent hepatic cyst. RIGHT renal cyst measuring 15 mm. Small LEFT renal cyst. Evidence of portal venous hypertension with upper abdominal varices. Visualized pancreas appears norm al. Common bile duct appears within normal limits where visualized. Small bowel wall thickening due t o cirrhosis and hypoproteinemia. Celiac and SMA appear patent in the upper abdomen. No other remarkab le findings considering extensive motion artifact. MR/MR MRCP [id number] Impression: Limited diagnostic examination due to extensive motion and respirat ory artifact 1. Advanced liver cirrhosis with contracted liver. 2. LEFT hepatic cyst measuring 13 mm. 3. Upper abdominal ascites. Diffuse body wall anasarca 4. Prior cholecystectomy. 5. RIGHT pleural effusion with RIGHT pleural drain previously described. 6. No visualized hydronephrosis in either kidney. 7. Limited visualization of the common bile duct which appears normal caliber.
[2023-01-19 11:26] LABS: Glucose Point of Care 325 mg/dL (70-110)
[2023-01-19 14:29] LABS: Basophils # 0.1 10^3/uL (0.0-0.1); Basophils % 0.6 %; Eosinophils # 0.4 10^3/uL (0.0-0.8); Eosinophils % 4.2 %; Hematocrit 29.3 % (37.0-47.0); Hemoglobin 9.5 g/dL (11.5-15.3); Lymphocytes # 0.5 10^3/uL (0.8-4.8); Lymphocytes % 4.7 %; Mean Corpuscular HGB Conc 32.4 g/dL (30.0-36.0); Mean Corpuscular Hemoglobin 34.5 pg (28.0-34.0); Mean Corpuscular Volume 106.5 fl (81-99); Mean Platelet Volume 10.6 fL (7.4-10.4); Monocytes # 1.3 10^3/uL (0.2-0.9); Monocytes % 13.1 %; Neutrophils # 7.61 10^3/uL (1.8-7.7); Nucleated Red Blood Cells % 0 %; Platelet Count 88 10^3/cmm (130-400); Red Blood Count 2.75 10^6/uL (4.1-5.3); Red Cell Distribution Width 22.5 % (12.1-15.1); White Blood Count 9.9 10^3/uL (4.0-10.0)
[2023-01-19] MEDS: morphine 4 mg/mL SDV 1 mL 2 MG IVP (14:33)
--- NOTE | 2023-01-19 16:59 | P.PN_ITS ---
Subjective Subjective: No acute distress overnight. Patient has remained hemodynamically stable. Seen with family at bedside. Patient seen little weak today though she states she is feeling well. Denies any nausea, vomiting, headache. Remains on room air. Blood work done today shows she was stable hemoglobin of 8.9, stable platelets, positive DIC panel, mild hypokalemia with potassium of 5.2, creatinine of 1, bi lirubin rising to 12.2 with stable AST ALT elevation. Patient documented to have around 2 L of urine outpu in last 24 hours along with 1 documented bowel movement. Vitals/I&O/Wt Last Vital Signs Temp 98.3 F 01/19/23 07:32 Pulse 93 01/19/23 14:00 Resp 17 01/19/23 14:33 BP 113/70 01/19/23 14:00 Pulse Ox 95 01/19/23 14:33 O2 Del Method Room Air 01/19/23 08:24 O2 Flow Rate 2 01/18/23 05:00 01/19/23 01/19/23 01/19/23 06:59 14:59 22:59 Intake Total 240 / 240 Output Total 575 / 975 Balance -575 / 20.1 240 / 240 Physical Exam Narrative: EXAM NARRATIVE: General: No acute distress, AO x3, NC oxygen supplementation, pleasant, icterus present, pallor present HEENT: PERRLA, pupils bilaterally equal and reactive Chest: Bilateral normal vesicular breath sounds all over lung tucker with occasional rhonchi, decreased air entry in right lower zone CVS: S1-S2 regular, no murmurs, no tachycardia, no gallops, no rubs Abdomen: Soft, nontender, no organomegaly, bowel sounds present, morbidly obese Neuro: No focal deficits, no facial deformity, AO x3, power 5/5 in all limbs Urinary Catheter Management: Toro: Cath Placed During This Visit: yes Reason for Continuing Indwelling Catheter: Accurate Measurement of Urinary Output in Critically Ill Patients Urinary Catheter Date of Insertion: 01/17/23 Urinary Catheter Time of Insertion: 21:50 Data 01/19/23 14:13 01/19/23 02:29 Micro: Microbiology 01/18/23 18:25 Gram Stain - Final Pleural Fluid A&P Assessment and plan (1) Anemia: Patient herself denies any melena or hematemesis. Target hemoglobin over 7. Overall 2 units posttransfusion. Blood work concerning for possible hemolysis. Haptoglobin low at 10, normal LDH and GGT. DAAT Labs negative. DIC panel positive with high FDP, high D-dimer and low fibrinogen. Peripheral smear as per Dr. Palma showing reversible and fragmented cell. Care discussed in detail with Dr. Palma and patient outpatient monomer purification operator Dr. Grijalva at [facility]. Concern for intravascular hemolysis especially with elevated bilirubin, DIC labs. Repeat hemoglobin in evening. Above consent discussed in detail with patient and patient's daughters at bedside. Discussed about possible transfer to [place] for further work-up of possible DIC and hemolytic anemia specially in setting of liver cirrhosis from hepatitis C. Family verbalized understanding and is agreeable for transfer. Patient's care has been accepted by Dr. Grijalva. Bed at [facility] awaited. (2) Acute hyponatremia: Acute on chronic. Baseline seems to be around 1 34-1 35 recently. High concern for hypervolemic hyponatremia in setting of discontinuation of diuretics recently. Resolved with diuresis. 137 today continue to monitor BMP daily for now. TSH low though free T4 normal, appreciate A1c and lipid panel. (3) Pleural effusion on right: Most likely in setting of liver dysfunction. Been ordered in place. Removed 800 cc on 01/17. Pleural studies appreciated. No concern for empyema. We will continue to drain as per schedule of Wednesday, Wednesday, Wednesday or as needed (4) Ascites: Moderate ascites on abdominal ultrasound. Patient denies any discomfort currently. Denies any abdominal pain. Patient is net negative because of IV diuresis and removal of fluid yesterday from thoracentesis. Hold off on paracentesis for now. Continue to monitor. 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 Being worked up at [facility] for transplant. Restart home dose of lactulose. Continue with rifaximin. Check ammonia levels. Patient had persistent transaminitis. Worsening hyperbilirubinemia. Check direct bilirubin levels. Check MRCP. (6) Diabetes mellitus, type II: Most recent A1c 4.7. Hold off on sliding scale for now. Monitor blood sugars daily for now. 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 Repeat BMP in afternoon. CODE STATUS: Full code. Patient awaiting transplant list. Regular diet. Protonix for PUD prophylaxis. SCDs for DVT prophylaxis. Hold off on pharmaceutical prophylaxis given anemia and thrombocytopenia. Discharge plan: Given concerns for hemolytic anemia with DIC transfer sought at [facility]. Patient has been accepted at [place] by Dr. Grijalva. Bed awaited. Also discussed that in case patient remained stable for next 48 hours and if no bed is available till then patient would be okay to be discharged to be followed up with monomer purification operator as an outpatient. Transfer to [facility] floor. Attestations Medical Necessity Statement*: Requires further hospitalization for management of hemolytic anemia with possibility of DIC in a patient with severe liver cirrhosis while being worked up for possible liver transplant. Coding Level of Care Code Critical Care >/= 30 minutes Critical care time (in minutes): 70 The high probability of a clinically significant, sudden or life threatening deterioration, as referenced in this documentation, required my full and direct attention, intervention and personal management. The critical care time shown is in addition to time spent performing any reported separately billable procedures and includes the following: [x] Data and vital sign review and interpretation [x ] Patient assessment, examination and intervention [x] Medication orders and management [x] Patient/Family updates as able [x] Care Coordination and Doc umentation. Diagnoses Anemia D64.9 Acute hyponatremia E87.1 Pleural effusion on right J90 Ascites R18.8 Cirrhosis of liver not due to alcohol K74.60 Diabetes mellitus, type II E11.9 Diabetes mellitus assisted insulin use: with regional intermodal truck driver use Gastroesophageal reflux K21.9 INR (international normal ratio) abnormal R79.1 Portal hypertension K76.6 DIC (disseminated intravascular coagulation) D65 Hemolytic anemia D58.9
[2023-01-19 17:04] LABS: Glucose Point of Care 256 mg/dL (70-110)
[2023-01-19 20:32] LABS: Glucose Point of Care 204 mg/dL (70-110)
--- NOTE | 2023-01-19 23:29 | PC.NURSE ---
Transfer to [facility]: Report called to [facility] @[id number]. Pt transferred to [facility] @[id number].
[2023-01-20] VITALS (8 sets, daily range): BP systolic 115–135; BP diastolic 53–65; PULSE 85–103; RESP 16–18; TEMP 36.4–36.5; O2SAT 91–97
[2023-01-20] MEDS: pantoprazole 40 mg SDV IVP ×2 (02:58→15:33)
[2023-01-20] MEDS: levothyroxine 75 mcg Tablet PO (05:23)
[2023-01-20] MEDS: sucralfate 1 gm/10 mL Oral Liq UDC PO ×4 (06:06→20:53)
[2023-01-20 06:13] LABS: Basophils # 0.1 10^3/uL (0.0-0.1); Basophils % 0.6 %; Eosinophils # 0.8 10^3/uL (0.0-0.8); Eosinophils % 9.4 %; Hematocrit 27.7 % (37.0-47.0); Hemoglobin 9.1 g/dL (11.5-15.3); Lymphocytes # 0.6 10^3/uL (0.8-4.8); Lymphocytes % 7.2 %; Mean Corpuscular HGB Conc 32.9 g/dL (30.0-36.0); Mean Corpuscular Hemoglobin 33.8 pg (28.0-34.0); Mean Platelet Volume 10.8 fL (7.4-10.4); Monocytes # 1.1 10^3/uL (0.2-0.9); Monocytes % 12.5 %; Nucleated Red Blood Cells % 0 %; Platelet Count 92 10^3/cmm (130-400); Red Blood Count 2.69 10^6/uL (4.1-5.3); Red Cell Distribution Width 21.6 % (12.1-15.1); White Blood Count 8.6 10^3/uL (4.0-10.0)
[2023-01-20 06:33] LABS: INR 2.09 (0.8-1.2); Partial Thromboplastin Time 46.7 SECONDS (23.9-36.7)
[2023-01-20 06:39] LABS: Alanine Aminotransferase 39 U/L (0-33); Albumin Level 2.9 g/dL (3.5-5.2); Alkaline Phosphatase 185 U/L (35-105); Aspartate Amino Transferase 61 U/L (0-32); Blood Urea Nitrogen 24 mg/dL (8-23); Calcium 8.6 mg/dL (8.5-10.5); Carbon Dioxide 21 mmol/L (22-29); Chloride 107 mmol/L (98-107); Fibrinogen 111 mg/dL (174-498); Globulin 2.2 g/dL (1.3-4.6); Glucose 100 mg/dL (65-115); Osmolality Calculated 284 mOsm/kg (285-295); Sodium 135 mmol/L (136-145); Total Protein 5.1 g/dL (6.6-8.7)
[2023-01-20 06:43] LABS: D Dimer 11.16 ug/mIFEU (0-0.59); Total Bilirubin 11.5 mg/dL (0.15-1.2)
[2023-01-20 07:43] LABS: Glucose Point of Care 128 mg/dL (70-110)
[2023-01-20] MEDS: lactulose oral liq 20 gm/30 mL UDC 30 GM PO ×3 (08:50→20:54)
[2023-01-20] MEDS: cyclobenzaprine 10 mg Tablet 5 MG PO ×2 (09:38→21:30)
[2023-01-20 11:40] LABS: Glucose Point of Care 290 mg/dL (70-110)
[2023-01-20] MEDS: insulin lispro 100 unit/1 mL SUBCUT ×3 (12:14→20:58)
[2023-01-20 14:24] LABS: HEP C RNA Viral Load Quant <1.18 NOT DETECTED Log IU/mL (NOT DETECTED); HEP C RNA Viral Load Quant <15 NOT DETECTED IU/mL (NOT DETECTED)
--- NOTE | 2023-01-20 15:34 | P.PN_ITS ---
Subjective Subjective: No acute vents overnight. Patient has remained hemodynamically stable today. Today morning seen sitting up in chair with family at bedside. States feeling better. Walked with physical therapy. Blood work today shows a stable hemoglobin of 9.1, DIC panel showing elevation of D-dimer to 11.16, slight improvement in FDP though still elevated, improvement in fibrinogen up to 111 and slight decrease in INR to 2.09, stable BMP with bilirubin of 11.5 Vitals/I&O/Wt Last Vital Signs Temp 97.7 F 01/20/23 14:45 Pulse 90 01/20/23 14:45 Resp 18 01/20/23 14:45 BP 128/57 01/20/23 14:45 Pulse Ox 91 01/20/23 14:45 O2 Del Method Room Air 01/20/23 14:45 O2 Flow Rate 2 01/18/23 05:00 01/20/23 01/20/23 01/20/23 06:59 14:59 22:59 Intake Total 240 / 240 Output Total 100 / 500 Balance -100 / 140 240 / 240 Physical Exam Narrative: EXAM NARRATIVE: General: No acute distress, AO x3, NC oxygen supplementation, pleasant, icterus present, pallor present HEENT: PERRLA, pupils bilaterally equal and reactive Chest: Bilateral normal vesicular breath sounds all over lung tucker with occasional rhonchi, decreased air entry in right lower zone CVS: S1-S2 regular, no murmurs, no tachycardia, no gallops, no rubs Abdomen: Soft, nontender, no organomegaly, bowel sounds present, morbidly obese Neuro: No focal deficits, no facial deformity, AO x3, power 5/5 in all limbs Urinary Catheter Management: Toro: Cath Placed During This Visit: yes Reason for Continuing Indwelling Catheter: Accurate Measurement of Urinary Output in Critically Ill Patients Urinary Catheter Date of Insertion: 01/17/23 Urinary Catheter Time of Insertion: 21:50 Data 01/20/23 05:00 01/20/23 05:00 Micro: Microbiology 01/18/23 18:25 Gram Stain - Final Pleural Fluid Anaerobic Culture - Preliminary Body Fluid Culture - Preliminary 01/19/23 21:27 C.difficile Toxin B Gene (PCR) - Final Stool Routine Collection 01/19/23 21:27 Occult Blood (FIT) - Final Stool Routine Collection A&P Assessment and plan (1) Anemia: Patient herself denies any melena or hematemesis. Target hemoglobin over 7. Overall 2 units posttransfusion. Hemoglobin for now stable. Stool for occult blood positive. Blood work concerning for possible hemolysis. Haptoglobin low at 10, normal LDH and GGT. DAAT Labs negative. DIC panel positive with high FDP, high D-dimer and low fibrinogen. Slight improvement in FDP and fibrinogen levels today though still abnormal. Peripheral smear as per Dr. Palma showing reversible and fragmented cell. Care discussed in detail with Dr. Palma and patient outpatient small engine specialist Dr. Grijalva at [facility]. Concern for intravascular hemolysis especially with elevated bilirubin, DIC labs. Monitor hemoglobin daily for now. Above consent discussed in detail with patient and patient's daughters at bedside. 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 Family verbalized understanding and is agreeable for transfer. Patient's care has been accepted by Dr. Grijalva. Bed at [facility] awaited. (2) Acute hyponatremia: Acute on chronic. Baseline seems to be around 1 34-1 35 recently. High concern for hypervolemic hyponatremia in setting of discontinuation of diuretics recently. Resolved with diuresis. Monitor BMP daily. (3) Pleural effusion on right: Most likely in setting of liver dysfunction. Been ordered in place. Removed 800 cc on 01/17. Plan for repeat Sudarshan drain today. Pleural studies appreciated. No concern for empyema. We will continue to drain as per schedule of Wednesday, Wednesday, Wednesday or as needed (4) Ascites: Moderate ascites on abdominal ultrasound. Patient denies any discomfort currently. Denies any abdominal pain. Patient is net negative because of IV diuresis and removal of fluid yesterday from thoracentesis. Hold off on paracentesis for now. Continue to monitor. 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 Being worked up at [facility] for transplant. Restart home dose of lactulose. Continue with rifaximin. Check ammonia levels. Patient had persistent transaminitis. Worsening hyperbilirubinemia. Check direct bilirubin levels. Check MRCP. (6) Diabetes mellitus, type II: Most recent A1c 4.7. Hold off on sliding scale for now. Monitor blood sugars daily for now. Qualifiers: Diabetes mellitus assisted insulin use: with assisted use (7) Gastroesophageal reflux: (8) INR (international normal ratio) abnormal: (9) Portal hypertension: (10) DIC (disseminated intravascular coagulation): (11) Hemolytic anemia: Plan CODE STATUS: Full code. Patient awaiting transplant list. Regular diet. Protonix for PUD prophylaxis. SCDs for DVT prophylaxis. Hold off on pharmaceutical prophylaxis given anemia and thrombocytopenia. Discharge plan: Given concerns for hemolytic anemia with DIC transfer sought at [facility]. Patient has been accepted at [place] by Dr. Grijalva. Bed awaited. Also discussed that in case patient remained stable for next 48 hours and if no bed is available till then patient would be okay to be discharged to be followed up with small engine specialist as an outpatient. Plan for the day: Continue to monitor for bleeding or thrombosis. Repeat CBC and DIC panel in AM. Continue with Protonix twice daily, Carafate before meals and at bedtime. Awaiting bed at [facility]. If patient and labs remained stable for next 24 hours we will plan to discharge home with advised to follow-up as an outpatient with small engine specialist at [facility]. Have informed patient's family and they are agreeable. Have advised him to get appointment at small engine specialist office at the earliest. They will be try ing today. Attestations Medical Necessity Statement*: Requires further hospitalization for management of anemia in setting of hepatitis C liver cirrhosis with concerns for hemolytic anemia and DIC while in bed is awaited at [facility] Diagnoses Anemia D64.9 Acute hyponatremia E87.1 Pleural effusion on right J90 Ascites R18.8 Cirrhosis of liver not due to alcohol K74.60 Diabetes mellitus, type II E11.9 Diabetes mellitus salvage determiner insulin use: with salvage determiner use Gastroesophageal reflux K21.9 INR (international normal ratio) abnormal R79.1 Portal hypertension K76.6 DIC (disseminated intravascular coagulation) D65 Hemolytic anemia D58.9
[2023-01-20 16:47] LABS: Glucose Point of Care 174 mg/dL (70-110)
--- NOTE | 2023-01-20 18:24 | PC.NURSE ---
Drained 1100ml of pink tinged fluid off pleurx at 17:00, patient tolerated well. Dressing changed.
[2023-01-20 20:42] LABS: Glucose Point of Care 282 mg/dL (70-110)
[2023-01-21] VITALS (8 sets, daily range): BP systolic 133–141; BP diastolic 64–68; PULSE 98–110; RESP 15–18; TEMP 36.5–37; O2SAT 90–98
[2023-01-21] MEDS: pantoprazole 40 mg SDV IVP (03:43)
[2023-01-21] MEDS: cyclobenzaprine 10 mg Tablet 5 MG PO (03:54)
[2023-01-21] MEDS: levothyroxine 75 mcg Tablet PO (05:53)
[2023-01-21] MEDS: sucralfate 1 gm/10 mL Oral Liq UDC PO ×2 (05:53→12:22)
[2023-01-21 06:25] LABS: Basophils # 0.1 10^3/uL (0.0-0.1); Basophils % 0.7 %; Eosinophils # 0.7 10^3/uL (0.0-0.8); Eosinophils % 9.1 %; Hematocrit 28.8 % (37.0-47.0); Hemoglobin 9.5 g/dL (11.5-15.3); Lymphocytes # 0.6 10^3/uL (0.8-4.8); Lymphocytes % 6.8 %; Mean Corpuscular Hemoglobin 34.3 pg (28.0-34.0); Mean Platelet Volume 10.9 fL (7.4-10.4); Monocytes % 12.5 %; Neutrophils # 5.74 10^3/uL (1.8-7.7); Neutrophils % 70.5 %; Nucleated Red Blood Cells % 0 %; Platelet Count 106 10^3/cmm (130-400); Red Blood Count 2.77 10^6/uL (4.1-5.3); Red Cell Distribution Width 21.2 % (12.1-15.1); White Blood Count 8.1 10^3/uL (4.0-10.0)
[2023-01-21 06:39] LABS: Glucose Point of Care 120 mg/dL (70-110)
[2023-01-21 06:40] LABS: INR 2.06 (0.8-1.2); Partial Thromboplastin Time 43.4 SECONDS (23.9-36.7)
[2023-01-21 06:46] LABS: Fibrinogen 121 mg/dL (174-498)
[2023-01-21 06:48] LABS: Alanine Aminotransferase 43 U/L (0-33); Albumin Level 2.9 g/dL (3.5-5.2); Alkaline Phosphatase 189 U/L (35-105); Anion Gap 11.5 (5-19); Aspartate Amino Transferase 70 U/L (0-32); Blood Urea Nitrogen 23 mg/dL (8-23); Carbon Dioxide 19 mmol/L (22-29); Chloride 110 mmol/L (98-107); Globulin 2.4 g/dL (1.3-4.6); Glucose 97 mg/dL (65-115); Osmolality Calculated 286 mOsm/kg (285-295); Potassium 4.5 mmol/L (3.5-5.1); Sodium 136 mmol/L (136-145); Total Protein 5.3 g/dL (6.6-8.7)
[2023-01-21 06:50] LABS: D Dimer 10.63 ug/mIFEU (0-0.59)
[2023-01-21 06:56] LABS: Calcium 8.5 mg/dL (8.5-10.5)
[2023-01-21] MEDS: lactulose oral liq 20 gm/30 mL UDC 30 GM PO (08:57)
--- NOTE | 2023-01-21 09:42 | US_ITS ---
WS: [id number] INDICATION: Ascites TECHNIQUE: Ultrasound for paracentesis FINDINGS: Ultrasound for paracentesis. Ascites has decreased compared to the prior ultrasound January. Insufficient fluid for safe paracentesis at this time. US/US abdomen lmt fluid [id number] IMPRESSION: Interval improvement in the ascites compared to previous. Insuffici ent fluid for paracentesis today.
[2023-01-21] MEDS: ondansetron 2 mg/ML SDV 2 mL 4 MG IVP (10:30)
[2023-01-21] MEDS: morphine 4 mg/mL SDV 1 mL 2 MG IVP (10:31)
[2023-01-21 11:26] LABS: Glucose Point of Care 246 mg/dL (70-110)
--- NOTE | 2023-01-21 11:58 | P.DS_ITS ---
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 use: with equipment operator intermodal yard use (7) Gastroesophageal reflux: Status: Inactive (8) INR (international normal ratio) abnormal: Status: Inactive (9) Portal hypertension: Status: Inactive (10) DIC (disseminated intravascular coagulation): Status: Acute (11) Hemolytic anemia: Status: Acute Reason for Visit Reason for Visit: Fell ABD Pain Brief History: History as per HPI: Natacha Linares is a 72 year old female With past medical history of liver cirrhosis dating back to 2014, hepatitis C, esophageal varices, abdominal ascites, anemia, hyperammonemia, hyperkalemia, hyperlipidemia, osteoarthritis, p ortal hypertension, recurrent pleural effusion presented to the hospital today after a fall that she sustained at home.? She complains of pain to her left lateral chest wall.? She does have abdominal ascites and has frequent paracentesis with the last one being 2 weeks ago.? She was transferred to [facility] on 12/25/2022 and spent a few weeks there.? There was a Sudarshan drain in right pleural cavity placed by them for recurrent pleural effusion which gets drained Wednesday.? Family did note that patient has been a little more confused compared to before even before the fall.? This has not worsened after the fall.? Do not believe patient hit her head.? She does complain of some fatigue and nausea and abdominal pain.? Patient was discharged from [facility] at 9 PM on .? She spent home on Wednesday and was doing well.? The family drained her pleural drain as well.? 800 cc was removed.? She is on lactulose 4 times a day for hepatic encephalopathy.? [facility] stopped her Lasix and spironolactone.? She is currently not on the transplant list and is still being evaluated.? She states that she got up on her own on Wednesday morning and tried to use the restroom.? She felt weak that she slid against the back wall and fell down.? She was unable to get up.? Did not hit her head anywhere.? She has spent almost 5 weeks in the hospital recently and is quite weak.? Denies feeling lightheaded or dizzy prior to falling.? At this point denies any other symptoms.? No cough no fever no shortness of breath.? Denies having any abdominal pain at this time either.? She states she feels a little bit better.? She has a blood transfusion going to at this time. ED course: Blood pressure 126/70, respirate 18, pulse 119, temperature 97.9 saturating 96% on room air.? Labs show hemoglobin 7.1, platelets 110, sodium 128, bicarb 21, creatinine 1.0, glucose 177.? Labs do appear slightly better from the point when she was transferred to [facility].? Total bilirubin 8.1.? Lactic acid 2.8 initially and subsequently down to 1.6.? In the ER patient was given Lasix 20 IV x1, morphine 2 mg IV x1, diphenhydramine 12.5x1, 1 unit of packed RBCs.? It seems that patient is at her baseline.? Patient will be admitted for observation after blood transfusion and for inpatient paracentesis at this time.? Head CT negative for acute stroke, CT chest abdomen pelvis shows severe cirrhosis, moderate four-quadrant ascites, moderate anasarca, percutaneous right posterior pleural drainage catheter with moderate to large residual right pleural fluid collection. Hospital Course Hospital Course Patient was admitted to the ICU for further evaluation and management of acute on chronic anemia requiring blood transfusion. She required 2 units of PRBC on admission. At first her hemoglobin responded appropriately to transfusion but later weaned down again to 6.6 without any episodes of hematemesis or melena. During hospitalization patient did not require any pressors. She was found to have relative hyperbilirubinemia going up to 12.2 from baseline of around 3.5 in the last 6 months. It was also found on review of labs from the past that her hemoglobin has been gradually trending down from higher 10-6.6 on this admission. Given all of the above there were concerns for hemolysis hence he molytic labs were checked. Blood work revealed low haptoglobin to 10, normal LDH and GGT, peripheral smear blood cells and fragmented cells. Given all of the above DIC panel was checked which showed elevation of D-dimer, high FDP and low fibrinogen. Given concerns for intravascular hemolysis in setting of DIC (acute versus chronic ) labs were discussed in detail with hematology on-call who suggested concerns for DIC and possible transfer to [facility] for further evaluation. The care was discussed in detail with patient's outpatient framing carpenter at [facility]. They were agreeable for transfer given possible DIC but thought it is more of chronic than acute and stated patient would most likely need observation and then discharged with possible transfusions. They stated that they can get the patient to [facility] but if she is awaiting bed for few days it would be best to discharge patient and follow-up as an outpatient in hepatology. Patient is awaiting bed for [facility] for around 48 hours while her CBC and DIC panel remains stable. Her hospitalization was otherwise unremarkable. She had Stark drain drained twice and pleural labs were negative for empyema. Paracentesis was attempted but could not be done as fluid pockets were behind the intestines though patient did not have any significant symptoms secondary to ascites. Patient has an appointment to see her framing carpenter on coming back next day. Today is . She has been discharged in stable condition with advised to repeat labs including CBC, CMP and 3 days with her home health. She is to take Protonix twice daily for next 2 weeks followed by once daily, Carafate before meals and at bedtime for 4 weeks. Physical Exam Narrative: EXAM NARRATIVE: General: No acute distress, AO x3, NC oxygen supplementation, pleasant, icterus present, pallor present HEENT: PERRLA, pupils bilaterally equal and reactive Chest: Bilateral normal vesicular breath sounds all over lung tucker with occasional rhonchi, decreased air entry in right lower zone CVS: S1-S2 regular, no murmurs, no tachycardia, no gallops, no rubs Abdomen: Soft, nontender, no organomegaly, bowel sounds present, morbidly obese Neuro: No focal deficits, no facial deformity, AO x3, power 5/5 in all limbs Urinary Catheter Management: Toro: Cath Placed During This Visit: yes, but has since been removed by the nurse Reason for Continuing Indwelling Catheter: Decision to DC Catheter Urinary Catheter Date of Insertion: 01/17/23 Urinary Catheter Time of Insertion: 21:50 Date Urinary Catheter Removed: 01/20/23 Time Urinary Catheter Discontinued: 14:00 Discharge Data Studies Completed and Pending Completed Studies During Hospitalization Category [place] [id number] Stat Cat Scan 01/16/23 21:[address] head wo con* [id number] Stat Cat Scan 01/17/23 01:30 Completed MR MRCP [id number] Routine MRI 01/19/23 09:30 Completed US abdomen lmt fluid [id number] Routine Ultrasound 01/18/23 Completed Pending at discharge Category Date Time Status Albumin Body Fluid Routine Lab 01/21/23 11:03 Ordered Amylase Body Fluid Routine Lab 01/21/23 11:03 Ordered Anaerobic Culture Routine Lab 01/18/23 18:25 Results Anaerobic Culture Routine Lab 01/21/23 11:03 Ordered Blood Culture Routine Lab 01/17/23 07:52 Results Body Fluid Analysis Routine Lab 01/21/23 11:03 Ordered Body Fluid Culture & GS Routine Lab 01/18/23 18:25 Results Body Fluid Culture & GS Routine Lab 01/21/23 11:03 Ordered Body Fluid Specific [place] Routine Lab 01/21/23 11:03 Ordered Cholesterol Body Fluid Routine Lab 01/21/23 11:03 Ordered Cyto Order Verification Routine Lab 01/21/23 11:03 Ordered Fluid Alkaline Phos. Routine Lab 01/21/23 11:03 Ordered Glucose Body Fluid Routine Lab 01/21/23 11:03 Ordered LDH Body Fluid Routine Lab 01/21/23 11:03 Ordered Mycobacteria, Culture w/Fluor Routine Lab 01/18/23 18:25 Received Mycobacteria, Culture w/Fluor Routine Lab 01/21/23 11:03 Ordered Total Protein Body Fluid Routine Lab 01/21/23 11:03 Ordered Triglycerides Body Fluid Routine Lab 01/21/23 11:03 Ordered Uric Acid Body Fluid Routine Lab 01/21/23 11:03 Ordered pH Body Fluid Routine Lab 01/21/23 11:03 Ordered Cytology [PTH] Routine Pth 01/21/23 11:03 Ordered US paracentesis abdomen [US paracentesis abd w [id number]] Ultrasound 01/21/23 09:42 Ordered Routine Radiology Impressions Chest/Abdomen/Pelvis CT 01/16/23 21:30 IMPRESSION: 1. Percutaneous right posterior pleural drainage catheter with moderate to large residual right pleural fluid collection. 2. Possible left posterior 1st rib fracture, axial series 5, image 4. Not confirmed on sagittal or coronal images. 3. Otherwise no obvious left rib fractures. IMPRESSION: 1. Severe cirrhosis. 2. Moderate four-quadrant ascites. 3. Moderate anasarca consistent with right heart failure versus hypoproteinemia versus renal failure. Head CT 01/17/23 01:30 IMPRESSION: 1. No acute intracranial abnormality. 2. Moderate age-related changes. Abdomen Ultrasound 01/18/23 00:00 IMPRESSION: Moderate ascites. Cholangiopancreatography MRI 01/19/23 09:30 Impression: Limited diagnostic examination due to extensive motion and respiratory artifact 1. Advanced liver cirrhosis with contracted liver. 2. LEFT hepatic cyst measuring 13 mm. 3. Upper abdominal ascites. Diffuse body wall anasarca 4. Prior cholecystectomy. 5. RIGHT pleural effusion with RIGHT pleural drain previously described. 6. No visualized hydronephrosis in either kidney. 7. Limited visualization of the common bile duct which appears normal caliber. Laboratory Results WBC 8.1 10^3/uL (4.0-10.0) 01/21/23 05:41 RBC 2.77 10^6/uL (4.1-5.3) L 01/21/23 05:41 Hgb 9.5 g/dL (11.5-15.3) L 01/21/23 05:41 Hct 28.8 % (37.0-47.0) L 01/21/23 05:41 MCV 104.0 fl (81-99) H 01/21/23 05:41 MCH 34.3 pg (28.0-34.0) H 01/21/23 05:41 MCHC 33.0 g/dL (30.0-36.0) 01/21/23 05:41 RDW 21.2 % (12.1-15.1) H 01/21/23 05:41 Plt Count 106 10^3/cmm (130-400) L 01/21/23 05:41 MPV 10.9 fL (7.4-10.4) H 01/21/23 05:41 Neut % (Auto) 70.5 % 01/21/23 05:41 Lymph % (Auto) 6.8 % 01/21/23 05:41 [place] % (Auto) 12.5 % 01/21/23 05:41 Eos % (Auto) 9.1 % 01/21/23 05:41 Baso % (Auto) 0.7 % 01/21/23 05:41 Reticulocyte % (Auto) 3.7 % (0.5-2.0) H 01/18/23 12:40 Neut # (Auto) 5.74 10^3/uL (1.8-7.7) 01/21/23 05:41 Lymph # (Auto) 0.6 10^3/uL (0.8-4.8) L 01/21/23 05:41 [place] # (Auto) 1.0 10^3/uL (0.2-0.9) H 01/21/23 05:41 Eos # (Auto) 0.7 10^3/uL (0.0-0.8) 01/21/23 05:41 Baso # (Auto) 0.1 10^3/uL (0.0-0.1) 01/21/23 05:41 Nucleated RBC % (auto) 0 % 01/21/23 05:41 Nucleated RBCs # 0.0 /100WBC 01/21/23 05:41 Differential Comment Yes 01/18/23 18:25 Peripher Smr Path Cons Sent for review 01/18/23 03:08 Haptoglobin 10.0 mg/L (30-200) L 01/18/23 03:08 PT 24.00 SECONDS (12.1-14.9) H 01/21/23 05:41 INR 2.06 (0.8-1.2) H 01/21/23 05:41 APTT 43.4 SECONDS (23.9-36.7) H 01/21/23 05:41 Fibrinogen 121 mg/dL (174-498) L 01/21/23 05:41 Fibrin Degrad Products Pos, 10-40 ug/mL (NEG) H 01/21/23 05:41 D-Dimer 10.63 ug/mIFEU (0-0.59) H 01/21/23 05:41 Sodium 136 mmol/L (136-145) 01/21/23 05:41 Potassium 4.5 mmol/L (3.5-5.1) 01/21/23 05:41 Chloride 110 mmol/L (98-107) H 01/21/23 05:41 Carbon Dioxide 19 mmol/L (22-29) L 01/21/23 05:41 Anion Gap 11.5 (5-19) 01/21/23 05:41 BUN 23 mg/dL (8-23) 01/21/23 05:41 Creatinine 0.7 mg/dL (0.5-0.9) 01/21/23 05:41 GFR Calculation Not Reportable 01/21/23 05:41 Glucose 97 mg/dL (65-115) 01/21/23 05:41 POC Glucose 246 mg/dL (70-110) H 01/21/23 11:15 Calculated Osmolality 286 mOsm/kg (285-295) 01/21/23 05:41 Lactic Acid 1.7 mmol/L (0.5-2.2) 01/17/23 07:48 Lactic Acid (Sepsis) 1.6 mmol/L (0.5-2.2) 01/17/23 00:03 Calcium 8.5 mg/dL (8.5-10.5) 01/21/23 05:41 Phosphorus 2.3 mg/dL (2.5-4.5) L 01/18/23 03:08 Magnesium 1.9 mg/dL (1.7-2.3) 01/18/23 03:08 Iron 116 ug/dL (37-145) 01/17/23 07:48 TIBC 118.43683 mcg/dl 01/17/23 07:48 % Saturation 97.0 % (20-50) H 01/17/23 07:48 Unsat Iron Binding < 3 ug/dL (112-347) L 01/17/23 07:48 Ferritin 1136 ng/mL (15-150) H 01/17/23 07:48 Total Bilirubin 11.0 mg/dL (0.15-1.2) H* 01/21/23 05:41 Direct Bilirubin 3.50 mg/dL (0.00-0.30) H 01/18/23 03:08 GGT 24 U/L (5-36) 01/18/23 03:08 AST 70 U/L (0-32) H 01/21/23 05:41 ALT 43 U/L (0-33) H 01/21/23 05:41 Alkaline Phosphatase 189 U/L (35-105) H 01/21/23 05:41 Ammonia 45 umol/L (11-51) 01/16/23 21:39 Lactate Dehydrogenase 197 U/L (135-214) 01/18/23 03:08 Total Protein 5.3 g/dL (6.6-8.7) L 01/21/23 05:41 Albumin 2.9 g/dL (3.5-5.2) L 01/21/23 05:41 Globulin 2.4 g/dL (1.3-4.6) 01/21/23 05:41 Vitamin B12 1250 pg/mL (232-1245) H 01/18/23 03:08 Folate 11.8 ng/mL (4.8-37.3) 01/19/23 02:29 Procalcitonin 0.23 ng/mL (0-0.5) 01/17/23 07:48 TSH 0.11 uIU/mL (0.27-4.20) L 01/18/23 03:08 Free T4 1.32 ng/dL (0.82-1.77) 01/18/23 03:08 Free T3 1.4 PG/ML (2.0-4.4) L 01/18/23 03:08 Urine Color Shari (Yellow) 01/16/23 13:48 Urine Appearance Clear (CLEAR) 01/16/23 13:48 Urine pH 5 (5-7) 01/16/23 13:48 Ur Specific [place] 1.020 (1.005-1.030) 01/16/23 13:48 Urine Protein Trace (Negative) 01/16/23 13:48 Urine Glucose (UA) Norm (Normal) 01/16/23 13:48 Urine Ketones Negative (Negative) 01/16/23 13:48 Urine Blood Neg (Negative) 01/16/23 13:48 Urine Nitrate Negative (Negative) 01/16/23 13:48 Urine Bilirubin 1+ (Negative) H 01/16/23 13:48 Urine Urobilinogen Norm mg/dL (Negative) 01/16/23 13:48 Ur Leukocyte Esterase 1+ (Negative) H 01/16/23 13:48 Urine RBC None /hpf (0-2) 01/16/23 13:48 Urine WBC 5-10 /hpf (0-5) H 01/16/23 13:48 Ur Squamous Epith Cells 5-10 /hpf (0-5) H 01/16/23 13:48 Calcium Oxalate Crystal 40-55 /hpf H 01/16/23 13:48 Amorphous Sediment Not Reportable 01/16/23 13:48 Urine Bacteria 1+ /hpf (NONE) H 01/16/23 13:48 Fluid Color Yellow 01/18/23 18:25 Fluid Appearance Cloudy 01/18/23 18:25 Fluid Specific Grav 1.020 01/18/23 18:25 Fluid pH 9.0 01/18/23 18:25 Fluid WBC 92 /uL 01/18/23 18:25 Fluid RBC 11.000 10^3/uL 01/18/23 18:25 Fld Polynuclear WBCs # 0.028 01/18/23 18:25 Fld Polynuclear WBCs % 30.500 % 01/18/23 18:25 Fl Mononucl WBCs #(Auto) 0.064 01/18/23 18:25 Fl Mononuclear % Auto 69.500 % 01/18/23 18:25 Fld Crystal Laterality Right 01/18/23 18:25 Fluid Glucose 148.0 mg/dL 01/18/23 18:25 Fluid Albumin 0.8 g/dL 01/18/23 18:25 Fluid LDH 73 U/L 01/18/23 18:25 Fluid Amylase 11 U/L 01/18/23 18:25 Fluid Alk Phosphatase 28 IU/L 01/18/23 18:25 Fluid Cholesterol 18 mg/dL (0-200) 01/18/23 18:25 Fluid Triglycerides 19 mg/dL (0-150) 01/18/23 18:25 Fluid Uric Acid 6 mg/dL 01/18/23 18:25 Pleural Total Protein 1.1 g/dL 01/18/23 18:25 Hepatitis A IgM Ab Non-reactive (Nonreactive) 01/17/23 07:48 Hep Bs Antigen Non-reactive (Nonreactive) 01/17/23 07:48 Hep Bs Antibody 3.5 (11.5-1000) L 01/17/23 07:48 Hep B Core Total Ab Non-reactive (Nonreactive) 01/17/23 07:48 Hepatitis C Antibody Reactive (Nonreactive) H 01/17/23 07:48 HCV RNA (PCR) IUs/ml <1.18 not detected Log IU/mL (NOT DETECTED) 01/18/23 12:14 HCV RNA (PCR) IU log10 <15 not detected IU/mL (NOT DETECTED) 01/18/23 12:14 Blood Type O Positive 01/17/23 00:03 Rho(D) Type Positive 01/17/23 00:03 Antibody Screen Negative 01/17/23 00:03 RUPALI, IgG Interpret Negative 01/18/23 16:00 RUPALI, Poly Interpret Negative 01/18/23 16:00 RUPALI, Complement Interp Negative 01/18/23 16:00 Crossmatch See Detail 01/17/23 00:03 Vitals Last Vital Signs Temp 98.0 F 01/21/23 11:38 Pulse 98 01/21/23 11:38 Resp 16 01/21/23 11:38 BP 139/64 01/21/23 11:38 Pulse Ox 90 01/21/23 11:38 O2 Del Method Room Air 01/21/23 11:38 O2 Flow Rate 2 01/21/23 08:45 Discharge Plan Discharge Patient Disposition: Home Health Service Condition: Stable Prescriptions: New sucralfate 100 mg/mL Suspension 1 g PO AC&BEDTIME 28 Days Qty: 1000 0RF Protonix 40 mg tablet,delayed release (DR/EC) 40 mg PO QAM Qty: 60 0RF Rx Instructions: Twice daily for 2 weeks and then daily Ensure Liquid 1 ea PO .Each meal Qty: 5688 0RF Continued (DME) BD Insulin Syringe U-500 1/2 mL 31 gauge x 15/64 syringe See Rx Instructions .ROUTE .MEDSUPPLY Qty: 100 3RF Rx Instructions: As directed for subcutaneous insulin administration (DME) insulin syringe-needle U-100 [BD Insulin Syringe Ultra-Fine] 1 mL 31 gauge x 5/16 syringe See Rx Instructions .ROUTE .MEDSUPPLY Qty: 100 3RF Rx Instructions: As directed (DME) diabetic shoes See Rx Instructions .Route .MEDSUPPLY Qty: 1 0RF Rx Instructions: As directed (DME) pen needle, diabetic [Sure Comfort Pen Needle] 32 gauge x 5/32 needle See Rx Instructions .ROUTE .COMPLEX Qty: 300 3RF Dose Instruction: INJECT 20 UNITS UNDER THE SKIN THREE TIMES A DAY Rx Instructions: INJECT 20 UNITS UNDER THE SKIN THREE TIMES A DAY sodium chloride 0.65 % [place],Non-Aerosol 2 spray INTRANASAL Q2H PRN (Reason: Congestion) levothyroxine 75 mcg Tablet 75 mcg PO QAM camphor-menthol 0.5-0.5 % Lotion 1 applic TOPICAL Q2H PRN (Reason: Itching) hydroxyzine HCl 10 mg Tablet 10 mg PO TID PRN (Reason: Itching) oxycodone 5 mg Tablet 5 mg PO Q4H PRN (Reason: Pain) Rx Instructions: take one tablet every four hours as needed for pain for up to 7 days insulin lispro 100 unit/mL Insulin Pen See Rx Instructions .ROUTE .COMPLEX Rx Instructions: sliding scale TID cyclobenzaprine 5 mg Tablet 5 mg PO TID cholecalciferol (vitamin D3) 250 mcg (10,000 unit) Capsule 250 mcg PO DAILY loratadine 5 mg Tablet,Chewable 5 mg PO DAILY PRN (Reason: allergies) insulin glargine 100 unit/mL (3 mL) Insulin Pen 10 unit SUBCUT QPM rifaximin 550 mg Tablet 550 mg PO BID lactulose 20 gram/30 mL Solution 30 g PO QID Discharge Orders: Discharge Order (Routine); Ordered 01/21/23 Ordered By: Juan Yao Referrals: Donal Fernandes MD [Primary Care Provider] - 01/28/23 2:10 pm Discharge Diet: Regular Patient Instructions: Ascites, Sucralfate (By mouth), Pantoprazole (By mouth), Disseminated Intravascular Coagulation (GEN), Opioid Safety Activity Restrictions/Additional Instructions: Follow-up with your hepatology team at [facility] appointment on . Have repeat CBC and CMP in 3 days. Take Protonix twice daily for next 2 weeks followed by daily, Carafate before meals and at bedtime for 4 weeks. Continue to drain your Sudarshan drain on set schedule. Ensure with each meals Discharge Attestations Time Spent in Discharge Care*: greater than 30 min Specific Discharge Activities: educating patient, educating and/or supporting family/caregiver, discussing with pcp/other providers, discussing with correctional casework specialist/social workers/dc planners, documenting/other paperwork and evaluating patient/reviewing data Status at Discharge: Cognitive status at discharge: cognitively intact , Behavioral status at discharge: cooperative , Functional status at discharge: independent ambulation , Overall status at discharge: patient is progressing back to baseline Quality Metrics Clinical Quality Measures [ No reported AMI, CVA or VTE this stay] Coding Level of Care Code 79154 Total time (in minutes) for Discharge: 60 Diagnoses Anemia D64.9 Acute hyponatremia E87.1 Pleural effusion on right J90 Ascites R18.8 Cirrhosis of liver not due to alcohol K74.60 Diabetes mellitus, type II E11.9 Diabetes mellitus [facility] insulin use: with 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
[2023-01-21] MEDS: insulin lispro 100 unit/1 mL SUBCUT (12:22)
--- NOTE | 2023-01-22 08:52 | PC.SOCIAL ---
Message sent to Dr. Fernandes's office to arrange TCM visit.
== END 2023-01-21 15:05 | disposition home health service (06) | DRG 432 ==
LOC: ER 01-17 02:57 → MEDSURG 01-17 03:42 → ICU 01-17 20:27 → MEDSURG 01-19 23:12
PROVIDERS: Internal Medicine; Admitting Provider Internal Medicine; Emergency Provider Emergency Medicine; PCP Family Medicine; Visit Provider Student in an Organized Health Care Education/Training Program
DX: K74.60 Unspecified cirrhosis of liver (principal); D65 Disseminated intravascular coagulation [defibrination syndrome]; R18.8 Other ascites; K76.6 Portal hypertension; I85.10 Secondary esophageal varices without bleeding; E22.2 Syndrome of inappropriate secretion of antidiuretic hormone; D58.9 Hereditary hemolytic anemia, unspecified; J90 Pleural effusion, not elsewhere classified; S20.212A Contusion of left front wall of thorax, initial encounter; W18.30XA Fall on same level, unspecified, initial encounter; B19.20 Unspecified viral hepatitis C without hepatic coma; E78.5 Hyperlipidemia, unspecified; M19.042 Primary osteoarthritis, left hand; M19.041 Primary osteoarthritis, right hand; Z79.4 Long term (current) use of insulin; Z79.891 Long term (current) use of opiate analgesic; E11.9 Type 2 diabetes mellitus without complications; K21.9 Gastro-esophageal reflux disease without esophagitis; K44.9 Diaphragmatic hernia without obstruction or gangrene
CPT/HCPCS: 36415; 36416; 36430; 49083; 51702; 70450; 71250; 74176; 74181; 76705; 80048; 80053; 80503; 81001; 82042; 82140; 82150; 82248; 82274; 82465; 82607; 82728; 82746; 82945; 82962; 82977; 83010; 83540; 83550; 83605; 83615; 83735; 83986; 84075; 84100; 84145; 84157; 84295; 84315; 84439; 84443; 84478; 84481; 84560; 85014; 85018; 85025; 85045; 85362; 85378; 85384; 85610; 85730; 86705; 86706; 86709; 86803; 86850; 86880; 86900; 86920; 87015; 87040; 87070; 87075; 87116; 87205; 87206; 87340; 87493; 87522; 87801; 89050; 94664; 96372; 96374; 97110; 97162; 99285; C9113; J1170; J1200; J1815; J2270; J2405; J7131; P9016; P9046; Q3014

== ENCOUNTER 2023-01-25 16:45 | Inpatient (IN) | payer MEDICARE, OTHER, SELFPAY ==
--- NOTE | 2023-01-25 17:07 | XRR_ITS ---
PROCEDURE INFORMATION: Exam: XR Chest Exam date and time: 01/25/2023 5:19 PM Age: 72 years old Clinical indication: Other: Weakness; Additional info: Confusion weakness TECHNIQUE: Imaging protocol: Radiologic exam of the chest. Views: 1 view. COMPARISON: [place] [id number] 01/16/2023 9:41 PM FINDINGS: Lungs: A thin tubular structure is seen projecting over the right hemithorax with its tip projected over the central right hemithorax. Right lung opacity is likely due to a combination of a moderate to large amount of pleural fluid with accompanying infiltrate and/or atelectasis. Lung tucker are otherwise clear. Pleural spaces: No pneumothorax. Heart/Mediastinum: Unremarkable. No cardiomegaly. Bones/joints: Unremarkable. XR/XR chest 1V portable [id number] IMPRESSION: Right lung opacity is likely due to a combination of a moderate to large amount of pleural fluid with accompanying infiltrate and/or atelectasis.
[2023-01-25 17:10] VITALS: BP 118/59; PULSE 92; RESP 12; TEMP 36.4; O2SAT 95; BMI 20.5
--- NOTE | 2023-01-25 17:23 | ECG_ITS ---
[facility] Test Date: 2023-01-25 Pat Name: Natacha Linares Department: Room: Gender: Female Hospice Spiritual Care Coordinator: : 1950 Requested By: Slewyn Doe Order Number: [id number] Maged MD: Denis Lang M.D. Measurements Intervals [place] Rate: 91 P: 62 ME: 148 QRS: -6 QRSD: 82 T: 55 QT: 349 QTc: 430 Interpretive Statements SINUS RHYTHM POSSIBLE ANTERIOR MYOCARDIAL INFARCTION , PROBABLY OLD [30 ms Q WAVE IN V3/V4, OR R < 0.2 mV IN V4] Compared to ECG 12/11/2022 20:53:44 Myocardial infarct finding now present Electronically Signed On 01-25-2023 21:39:22 CDT by Denis Lang M.D. [email or web address]
[2023-01-25 17:32] VITALS: BP 138/59; PULSE 92; O2SAT 97
--- NOTE | 2023-01-25 17:41 | ED_ITS ---
HPI - Weakness General: Chief complaint: Weakness Stated complaint: confusion, weakness, unstable Time Seen by Provider: 01/25/23 17:09 History of Present Illness: Patient presents to the ER with daughter at bedside as her primary historian. Patient is more confused and more weak has an unsteady gait more than normal. Patient does have liver failure and has a drain that they normally drained about 1 L of pleural fluid out on Wednesdays and Fridays. Daughter says they have had to drain 1 L of fluid every day for the last 3 days. Patient says daughter is not eating very well at all. And is only had 1 bowel movement today instead of her normal 3 or 4. Daughter did states she cut back on the lactulose yesterday due to diarrhea. Review of Systems General: Reports: 10 or more systems reviewed and unremarkable except in HPI and below PFSH ED PFSH: Medical History Abdominal ascites Acute kidney injury Anemia Chest pain Cirrhosis of liver not due to alcohol Diabetes mellitus, type II Gastroesophageal reflux Hepatitis C Hiatal hernia History of hepatitis C virus infection Hyperammonemia Hyperkalemia Hyperlipemia Hypotension Hypoxia INR (international normal ratio) abnormal Osteoarthritis of hands, bilateral Pleural effusion Portal hypertension Severe itching Tachycardia Surgical History History of carpal tunnel surgery of left wrist History of carpal tunnel surgery of right wrist History of tonsillectomy Hx laparoscopic cholecystectomy Hx of biopsy Social History Smoking and tobacco status: never smoked Alcohol intake: never Physical Exam Const: COMMON NORMALS: no acute distress, average body habitus, alert and well nourished HENMT: COMMON NORMALS: normocephalic, atraumatic, hearing grossly normal bilaterally, external ears normal, Normal external nose present and moist oral mucous membranes HEAD & SCALP: normocephalic and atraumatic NOSE: Normal external nose present EXTERNAL EAR: Yes external ears normal Eye: COMMON NORMALS: Equal, round and reactive pupils present and EOMs intact bilaterally PUPIL: Yes Equal, round and reactive pupils present Neck/C-Spine: COMMON NORMALS: full ROM, no lymphadenopathy, supple, no meningeal signs, no JVD and Thyroid normal THYROID: Thyroid normal Chest: COMMONS NORMALS: normal inspection of the chest and normal palpation of entire chest wall Resp: COMMON NORMALS: normal respiratory effort, No retractions, No use of accessory muscles and clear to auscultation bilaterally AUSCULTATION: clear to auscultation bilaterally Cardio: COMMON NORMALS: no JVD, regular rate, regular rhythm, S1 normal heart sound present, S2 normal heart sound present, No gallops present (Cardio), No clicks present (Cardio) and No murmurs present (Cardio) RATE: regular rate RHYTHM: regular rhythm HEART SOUNDS: S1 normal heart sound present and S2 normal heart sound present GI: COMMON NORMALS: Soft to palpation PALPATION: Yes Soft to palpation OTHER: Abdomen is distended but soft. No tenderness to palpation noted : COMMON NORMALS: Yes no CVA tenderness BLADDER/KIDNEY EXAM: Yes no CVA tenderness Back/Pelvis: COMMON NORMALS: no CVA tenderness Neuro: SENSORIUM/ORIENTATION: Yes alert MENINGEAL SIGNS: Yes no meningeal signs Course Vital Signs: Vital signs: Vital Signs Temperature 97.6 F 01/25/23 17:10 Pulse Rate 92 01/25/23 20:00 Respiratory Rate 18 01/25/23 20:00 Blood Pressure 126/48 01/25/23 20:00 Pulse Oximetry 96 01/25/23 20:00 Oxygen Delivery Me thod Room Air 01/25/23 17:32 MDM - Weakness Medical Decision Making Patient presents to the ER with daughter at bedside for increasing confusion and weakness. Patient has had multiple hospital stays and transfers secondary to her recurrent pleural effusion, ascites, liver failure, etc. Patient just was discharged from this hospital approximately 3 days ago. Increasing confusion and weakness since. Lab work was obtained including imaging such as chest x-ray CT of the abdomen pelvis and chest. Does appear patient has multiple things going on at this time. As well as urinary tract infection Dr. Justice was consulted and he will come down and talk to the patient and her daughter. Dr. Justice has agreed for inpatient admission for further evaluation and treatment leading to possible fpc placement. Differential Diagnosis Unlikely acute myocardial infarction, anemia, hypoglycemia, hypothyroidism, rhabdomyolysis, sepsis or dehydration Medical Records I reviewed the patient's medical records. Lab Data I reviewed the patient's lab results. 01/25/23 17:35 01/25/23 17:35 Radiology Impressions Chest X-Ray 01/25/23 17:07 IMPRESSION: Right lung opacity is likely due to a combination of a moderate to large amount of pleural fluid with accompanying infiltrate and/or atelectasis. Chest/Abdomen/Pelvis CT 01/25/23 18:43 IMPRESSION: 1. Large right pleural effusion with a right-sided superiorly directed chest tube in the effusion. 2. Patchy bilateral airspace infiltrates. 3. Several bilateral axillary subcentimeter nonspecific lymph nodes. IMPRESSION: 1. Prominent fluid in the small bowel without dilation, please correlate for possible enteritis. 2. Left hepatic lobe cyst. 3. Anasarca. 4. Cirrhotic liver. 5. Cholecystectomy. 6. Large amount of abdominal ascites. 7. Constipation. 8. Varices in the upper abdomen reflective of portal venous hypertension. 9. Bilateral renal cysts, negative for follow-up advised. Laboratory Results WBC 11.0 10^3/uL (4.0-10.0) H 01/25/23 17:35 RBC 2.75 10^6/uL (4.1-5.3) L 01/25/23 17:35 Hgb 9.4 g/dL (11.5-15.3) L 01/25/23 17:35 Hct 29.6 % (37.0-47.0) L 01/25/23 17:35 MCV 107.6 fl (81-99) H 01/25/23 17:35 MCH 34.2 pg (28.0-34.0) H 01/25/23 17:35 MCHC 31.8 g/dL (30.0-36.0) 01/25/23 17:35 RDW 20.6 % (12.1-15.1) H 01/25/23 17:35 Plt Count 90 10^3/cmm (130-400) L 01/25/23 17:35 MPV 10.7 fL (7.4-10.4) H 01/25/23 17:35 Neut % (Auto) 69.9 % 01/25/23 17:35 Lymph % (Auto) 6.2 % 01/25/23 17:35 [place] % (Auto) 12.0 % 01/25/23 17:35 Eos % (Auto) 10.5 % 01/25/23 17:35 Baso % (Auto) 0.6 % 01/25/23 17:35 Neut # (Auto) 7.69 10^3/uL (1.8-7.7) 01/25/23 17:35 Lymph # (Auto) 0.7 10^3/uL (0.8-4.8) L 01/25/23 17:35 [place] # (Auto) 1.3 10^3/uL (0.2-0.9) H 01/25/23 17:35 Eos # (Auto) 1.2 10^3/uL (0.0-0.8) H 01/25/23 17:35 Baso # (Auto) 0.1 10^3/uL (0.0-0.1) 01/25/23 17:35 Nucleated RBC % (auto) 0 % 01/25/23 17:35 Nucleated RBCs # 0.0 /100WBC 01/25/23 17:35 Sodium 130 mmol/L (136-145) L 01/25/23 17:35 Potassium 4.7 mmol/L (3.5-5.1) 01/25/23 17:35 Chloride 102 mmol/L (98-107) 01/25/23 17:35 Carbon Dioxide 20 mmol/L (22-29) L 01/25/23 17:35 Anion Gap 12.7 (5-19) 01/25/23 17:35 BUN 23 mg/dL (8-23) 01/25/23 17:35 Creatinine 0.4 mg/dL (0.5-0.9) L 01/25/23 17:35 GFR Calculation Not Reportable 01/25/23 17:35 Glucose 113 mg/dL (65-115) 01/25/23 17:35 Calculated Osmolality 274 mOsm/kg (285-295) L 01/25/23 17:35 Calcium 8.8 mg/dL (8.5-10.5) 01/25/23 17:35 Total Bilirubin 13.2 mg/dL (0.15-1.2) H* 01/25/23 17:35 AST 73 U/L (0-32) H 01/25/23 17:35 ALT 46 U/L (0-33) H 01/25/23 17:35 Alkaline Phosphatase 219 U/L (35-105) H 01/25/23 17:35 Ammonia 133 umol/L (11-51) H 01/25/23 17:35 Total Protein 5.8 g/dL (6.6-8.7) L 01/25/23 17:35 Albumin 2.6 g/dL (3.5-5.2) L 01/25/23 17:35 Globulin 3.2 g/dL (1.3-4.6) 01/25/23 17:35 Urine Color [place] (Yellow) 01/25/23 17:57 Urine Appearance Cloudy (CLEAR) A 01/25/23 17:57 Urine pH 6 (5-7) 01/25/23 17:57 Ur Specific [place] 1.020 (1.005-1.030) 01/25/23 17:57 Urine Protein 1+ (Negative) H 01/25/23 17:57 Urine Glucose (UA) Norm (Normal) 01/25/23 17:57 Urine Ketones Negative (Negative) 01/25/23 17:57 Urine Blood 3+ (Negative) H 01/25/23 17:57 Urine Nitrate Negative (Negative) 01/25/23 17:57 Urine Bilirubin 2+ (Negative) H 01/25/23 17:57 Urine Urobilinogen 1 mg/dL (Negative) H 01/25/23 17:57 Ur Leukocyte Esterase 2+ (Negative) H 01/25/23 17:57 Urine RBC 25-40 /hpf (0-2) H 01/25/23 17:57 Urine WBC 40-55 /hpf (0-5) H 01/25/23 17:57 Ur Squamous Epith Cells 0-4 /hpf (0-5) H 01/25/23 17:57 Amorphous Sediment Not Reportable 01/25/23 17:57 Urine Bacteria 4+ /hpf (NONE) H 01/25/23 17:57 EKG Data EKG 1: I personally reviewed and interpreted this EKG as follows: EKG interpretation date: 01/25/23 EKG interpretation time: : Prior EKG tracings: not available for review Interpretation: EKG showed ventricular rate 91 bpm, WI interval 148, QRS duration 82, QTc of 398, sinus rhythm with Q waves in V3 and V4, Discharge Plan Discharge Patient Disposition: Admitted As Inpatient Clinical Impression: Pleural effusion on right, Urinary tract infection, Hyperammonemia, Cirrhosis of liver Condition: Stable Coding Level of Care Code ED 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
[2023-01-25 17:48] LABS: Basophils # 0.1 10^3/uL (0.0-0.1); Basophils % 0.6 %; Eosinophils # 1.2 10^3/uL (0.0-0.8); Eosinophils % 10.5 %; Hematocrit 29.6 % (37.0-47.0); Hemoglobin 9.4 g/dL (11.5-15.3); Lymphocytes # 0.7 10^3/uL (0.8-4.8); Lymphocytes % 6.2 %; Mean Corpuscular HGB Conc 31.8 g/dL (30.0-36.0); Mean Corpuscular Hemoglobin 34.2 pg (28.0-34.0); Mean Corpuscular Volume 107.6 fl (81-99); Mean Platelet Volume 10.7 fL (7.4-10.4); Monocytes # 1.3 10^3/uL (0.2-0.9); Neutrophils # 7.69 10^3/uL (1.8-7.7); Neutrophils % 69.9 %; Nucleated Red Blood Cells % 0 %; Platelet Count 90 10^3/cmm (130-400); Red Blood Count 2.75 10^6/uL (4.1-5.3); Red Cell Distribution Width 20.6 % (12.1-15.1)
[2023-01-25 18:10] LABS: Ammonia 133 umol/L (11-51)
[2023-01-25 18:12] LABS: Alanine Aminotransferase 46 U/L (0-33); Albumin Level 2.6 g/dL (3.5-5.2); Alkaline Phosphatase 219 U/L (35-105); Anion Gap 12.7 (5-19); Aspartate Amino Transferase 73 U/L (0-32); Blood Urea Nitrogen 23 mg/dL (8-23); Calcium 8.8 mg/dL (8.5-10.5); Carbon Dioxide 20 mmol/L (22-29); Chloride 102 mmol/L (98-107); Globulin 3.2 g/dL (1.3-4.6); Glucose 113 mg/dL (65-115); Osmolality Calculated 274 mOsm/kg (285-295); Potassium 4.7 mmol/L (3.5-5.1); Sodium 130 mmol/L (136-145); Total Protein 5.8 g/dL (6.6-8.7)
[2023-01-25 18:17] VITALS: BP 114/53; PULSE 91; O2SAT 97
[2023-01-25 18:26] LABS: Blood Urine 3+ (Negative); Glucose Urine UA Norm (Normal); Ketones Urine Negative (Negative); Nitrate Urine Negative (Negative); Protein Urine 1+ (Negative); Urine Appearance Cloudy (CLEAR); Urine Color Orange (Yellow); pH Urine 6 (5-7)
[2023-01-25 18:27] LABS: Add Urine Microscopic? YES; Bilirubin Urine 2+ (Negative); Leukocyte Esterase Urine 2+ (Negative); Urobilinogen Urine 1 mg/dL (Negative)
[2023-01-25 18:28] LABS: Add Urine Culture? Yes; Bacteria Urine 4+ /hpf; RBC Urine 25-40 /hpf (0-2); Squamous Epithelial Cell Urine 0-4 /hpf (0-5); WBC Urine 40-55 /hpf (0-5)
[2023-01-25 18:29] LABS: Total Bilirubin 13.2 mg/dL (0.15-1.2)
--- NOTE | 2023-01-25 18:43 | CTR_ITS ---
PROCEDURE INFORMATION: Exam: CT Chest With Contrast; Diagnostic Exam date and time: 01/25/2023 7:06 PM Age: 72 years old Clinical indication: Other: Weakness; Additional info: Confusion, abnormal cxr, liver failure, ascites, TECHNIQUE: Imaging protocol: Diagnostic computed tomography of the chest with contrast. Radiation optimization: All CT scans at this facility use at least one of these dose optimization techniques: automated exposure control; mA and/or kV adjustment per patient size (includes targeted exams where dose is matched to clinical indication); or iterative reconstruction. Contrast material: OMNI 350; Contrast volume: 75 ml; Contrast route: INTRAVENOUS (IV); REPORTING DATA: Count of CT and Cardiac NM exams in prior 12 months: This patient has received 3 known CTs and 0 known cardiac nuclear medicine studies in the 12 months prior to the current study. COMPARISON: CT chest [facility] [id number] 01/16/2023 9:41 PM RADIATION DOSE METRICS: Total DLP (mGy-cm): 605 FINDINGS: Tubes, catheters and devices: Large right pleural effusion with a right-sided superiorly directed chest tube in the effusion. Lungs: Patchy bilateral airspace infiltrates. Pleural spaces: Unremarkable. No pneumothorax. No pleural effusion. Heart: Unremarkable. No cardiomegaly. No pericardial effusion. Lymph nodes: Several bilateral axillary subcentimeter nonspecific lymph nodes. Vasculature: Unremarkable. No aortic aneurysm. Bones/joints: Unremarkable. No acute fracture. Soft tissues: Unremarkable. PROCEDURE INFORMATION: Exam: CT Abdomen And Pelvis With Contrast Exam date and time: 01/25/2023 7:06 PM Age: 72 years old Clinical indication: Other: Weakness; Additional info: Confusion, abnormal cxr, liver failure, ascites, TECHNIQUE: Imaging protocol: Computed tomography of the abdomen and pelvis with contrast. Radiation optimization: All CT scans at this facility use at least one of these dose optimization techniques: automated exposure control; mA and/or kV adjustment per patient size (includes targeted exams where dose is matched to clinical indication); or iterative reconstruction. Contrast material: OMNI 350; Contrast volume: 75 ml; Contrast route: INTRAVENOUS (IV); REPORTING DATA: Count of CT and Cardiac NM exams in prior 12 months: This patient has received 3 known CTs and 0 known cardiac nuclear medicine studies in the 12 months prior to the current study. COMPARISON: CT chest [facility] [id number] 01/16/2023 9:41 PM RADIATION DOSE METRICS: Total DLP (mGy-cm): 605 FINDINGS: Liver: Left hepatic lobe cyst. Cirrhotic liver. Gallbladder and bile ducts: Cholecystectomy. Pancreas: Normal. No ductal dilation. Spleen: Normal. No splenomegaly. Adrenal glands: Normal. No mass. Kidneys and ureters: Bilateral renal cysts, negative for follow-up advised. Stomach and bowel: Prominent fluid in the small bowel without dilation, please correlate for possible enteritis. Constipation. Appendix: No evidence of appendicitis. Intraperitoneal space: Large amount of abdominal ascites. Vasculature: Varices in the upper abdomen reflective of portal venous hypertension. Lymph nodes: Unremarkable. No enlarged lymph nodes. Urinary bladder: Unremarkable as visualized. Reproductive: Unremarkable as visualized. Bones/joints: Unremarkable. No acute fracture. Soft tissues: Anasarca. CT/CT chest abdpel w/*[id number] IMPRESSION: 1. Large right pleural effusion with a right-sided superiorly directed chest tube in the effusion. 2. Patchy bilateral airspace infiltrates. 3. Several bilateral axillary subcentimeter nonspecific lymph nodes. IMPRESSION: 1. Prominent fluid in the small bowel without dilation, please correlate for possible enteritis. 2. Left hepatic lobe cyst. 3. Anasarca. 4. Cirrhotic liver. 5. Cholecystectomy. 6. Large amount of abdominal ascites. 7. Constipation. 8. Varices in the upper abdomen reflective of portal venous hypertension. 9. Bilateral renal cysts, negative for follow-up advised.
[2023-01-25 18:45] VITALS: BP 114/53; PULSE 90; O2SAT 96
[2023-01-25] MEDS: iohexol 350 mg/mL 500 mL Btl (per mL) IV (19:10)
[2023-01-25 20:00] VITALS: BP 126/48; PULSE 92; RESP 18; O2SAT 96
[2023-01-25] MEDS: ciprofloxacin 400 MG/200 ML PREMIX 200 MG IV (20:05)
--- NOTE | 2023-01-25 21:18 | P.HP_ITS ---
Providers/Chief Complaint Admitting Physician: Caio Justice MD, hospitalist Primary Care Provider: Donal Fernandes MD Chief Complaint: confusion, weakness, unstable History of Present Illness Natacha Linares is a 72 year old female with history of liver cirrhosis, hepatitis C, esophageal varices, abdominal ascites, recurrent right pleural effusion with Sudarshan drain who presents to the emergency department with complaints of confusion. She has become weaker and weaker over the last 5 to 6 weeks. She has had multiple hospitalizations for liver disease. Her last h ospitalization, as succinctly described by Dr. Quarles in his discharge summary consisted of anemia requiring transfusion, likely chronic DIC. She was discharged on 21 January. Family reports she did okay for about a day. She had a temperature of either 101 or 100.1 at some point several days after her hospital stay. Lactulose was lowered to 2 times a day secondary to loose stool. She never ran any further fevers. She has not had any abdominal pain, headache, cough or respiratory symptoms. She has not had any dysuria. They reports she has follow-up next week with Sujatha regarding her liver disease to determine if she is a candidate for liver transplant. Daughter relates her drain, right chest was last drained today and 1 L was removed. From discussing with her I suspect home health is to stop after 1 L taken off. Review of Systems General: Reports: 10 or more systems reviewed and unremarkable except in HPI and below and ROS unobtainable due to mental status (Patient with confusion) Medications/Allergies Home Medications Medication Instructions Recorded Confirmed Last Taken Type insulin U-500 syringe-needle 07/13 #100 ea 03/14/20 01/17/23 Unknown Rx mL 31 gauge x 15/64 (BD Insulin Syringe U-500) insulin syringe-needle U-100 1 mL #100 ea 03/20/22 01/17/23 Unknown Rx 31 gauge x 5/16 (BD Insulin Syringe Ultra-Fine) diabetic shoes #1 ea 03/30/22 01/17/23 Unknown Rx pen needle, diabetic 32 gauge x #300 ea 08/14/22 01/17/23 Unknown Rx 5/32 (Sure Comfort Pen Needle) camphor-menthol 0.5 %-0.5 % lotion 1 applic topical Q2H PRN Itching 01/17/23 01/17/23 Unknown History cholecalciferol (vitamin D3) 250 250 mcg PO DAILY 01/17/23 01/17/23 Unknown History mcg (10,000 unit) capsule cyclobenzaprine 5 mg tablet 5 mg PO TID 01/17/23 01/17/23 Unknown History hydroxyzine HCl 10 mg tablet 10 mg PO TID PRN Itching 01/17/23 01/17/23 Unknown History insulin glargine 100 unit/mL (3 10 unit SUBCUT QPM 01/17/23 01/17/23 Unknown History mL) subcutaneous pen insulin lispro 100 unit/mL See Rx Instructions .Route .COMPLEX 01/17/23 01/17/23 Unknown History subcutaneous pen lactulose 20 gram/30 mL oral 30 g PO QID 01/17/23 01/17/23 Unknown History solution levothyroxine 75 mcg tablet 75 mcg PO QAM 01/17/23 01/17/23 Unknown History loratadine 5 mg chewable tablet 5 mg PO DAILY PRN allergies 01/17/23 01/17/23 Unknown History oxycodone 5 mg tablet 5 mg PO Q4H PRN Pain 01/17/23 01/17/23 Unknown History rifaximin 550 mg tablet 550 mg PO BID 01/17/23 01/17/23 Unknown History sodium chloride 0.65 % nasal spray 2 spray intranasal Q2H PRN 01/17/23 01/17/23 Unknown History Congestion food supplemt, lactose-reduced 1 ea PO .Each meal #5,688 mL 01/21/23 Unknown Rx (Ensure oral liquid) pantoprazole 40 mg tablet,delayed 40 mg PO QAM #60 tabs 01/21/23 Unknown Rx release (Protonix) sucralfate 100 mg/mL oral 1 g (10 mL) PO AC&BEDTIME 4 weeks 01/21/23 Unknown Rx suspension #1,000 mL Allergies Allergy/AdvReac Type Severity Reaction Status Date / Time codeine AdvReac Intermediate ADR-Abdominal Verified 01/25/23 17:10 Pain PFSH Acute PFSH: Medical History (Updated 01/25/23 @ 21:42 by Caio Justice MD) Abdominal ascites Acute kidney injury Anemia Chest pain Cirrhosis of liver not due to alcohol Diabetes mellitus, type II Gastroesophageal reflux Hepatitis C Hiatal hernia History of hepatitis C virus infection Hyperammonemia Hyperkalemia Hyperlipemia Hypotension Hypoxia INR (international normal ratio) abnormal Osteoarthritis of hands, bilateral Pleural effusion Portal hypertension Severe itching Tachycardia Surgical History History of carpal tunnel surgery of left wrist History of carpal tunnel surgery of right wrist History of tonsillectomy Hx laparoscopic cholecystectomy Hx of biopsy Social History Smoking and tobacco status: never smoked Alcohol intake: never Vitals/I&O/Wt Last Vital Signs Temp 97.6 F 01/25/23 17:10 Pulse 92 01/25/23 20:00 Resp 18 01/25/23 20:00 BP 126/48 01/25/23 20:00 Pulse Ox 96 01/25/23 20:00 O2 Del Method Room Air 01/25/23 17:32 Weight last 48 hrs Weight 50.802 kg Physical Exam Narrative: Patient has some confusion, but correctly identifies her daughter. She does remember me from doing an endoscopy on her in the distant past HEENT: Atraumatic. Normocephalic. Scleral icterus is noted. Tongue and palate with white exudate Neck supple no lymphadenopathy thyromegaly Cardiovascular regular rhythm with a 2/6 systolic murmur Lungs diminished breath sounds bilaterally right greater than left Abdomen slight distention, nontender, positive fluid wave. Difficult to tell where in size. exam is deferred Extremities 2+ edema bilaterally. No cyanosis or clubbing Skin jaundice Neuro confused but no focal deficits Data 01/25/23 17:35 01/25/23 17:35 Other Labs: MCV is 107 INR was not checked. I will order this Calcium 8.8 Bilirubin 13.2, AST 73, ALT 46, alk phos 219, ammonia 133, albumin 2.6. Urinalysis with 25-40 red blood cells, 40-55 white blood cells. Chest x-ray by my read right lung effusion. Slightly worse than previous film CT abdomen and pelvis demonstrates, which I reviewed anasarca, ascites, right- sided effusion Blood cultures will be obtained Urine culture already obtained Previous echo December EF I have tried to review EKG, but at this point cannot. Reading is normal sinus rhythm, poor R wave progression. It does not appear to have any acute changes. A&P Assessment and plan (1) Urinary tract infection: Patient presents with urinary tract infection. She has had multiple recent hospitalizations. Obtain urine culture, initiate Rocephin Obtain blood culture No evidence of obstruction on CT scan Qualifiers: Hematuria presence: with hematuria Urinary tract infection type: acute cystitis Qualified Code(s): N30.01 - Acute cystitis with hematuria (2) Hepatic encephalopathy: Patient presents with CT evidence of impacted stools. This is likely the cause of her current GI bleeding. Acute hepatic encephalopathy. Lactulose dose was lowered, when it was apparent she was having frequent loose stools Continue rifaximin, increase lactulose back to 4 times daily Repeat ammonia level tomorrow, and continue to follow clinically Fall precautions (3) Hyponatremia: Likely secondary to liver disease No IV fluids are needed. 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 Continue to follow outpatient with Sujatha Varela From my understanding she has been evaluated for liver transplant Overall prognosis is poor History of esophageal varices Check INR LFTs daily Qualifiers: Ascites presence: with ascites Hepatic cirrhosis type: unspecified hepatic cirrhosis Qualified Code(s): K74.60 - Unspecified cirrhosis of liver; R 18.8 - Other ascites Plan Multiple other medical problems as outlined in past medical history Full code currently SCDs for DVT prophylaxis, anticoagulation contraindicated Discharge planning consultation. Multiple hospitalizations, with increasing weakness. Consideration of skilled care pending evaluation at [facility]. 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
[2023-01-25 21:27] VITALS: BP 119/57; PULSE 90; O2SAT 95
--- NOTE | 2023-01-25 21:47 | PC.NURSE ---
Called Dr Justice to verify that he is aware that Cipro was given prior to blood culture orders.
[2023-01-25 21:56] LABS: INR 2.03 (0.8-1.2)
[2023-01-25] MEDS: cefTRIAXone 1,000 MG in sodium chloride 0.9% (plus) 50 ML 100 MG IV (22:57)
[2023-01-25] MEDS: lactulose oral liq 20 gm/30 mL UDC PO (23:01)
[2023-01-26] VITALS (9 sets, daily range): BP systolic 119–140; BP diastolic 57–71; PULSE 91–113; RESP 16–18; TEMP 36.6–37.1; O2SAT 90–95
[2023-01-26] MEDS: lactulose oral liq 20 gm/30 mL UDC PO ×4 (03:21→20:35)
[2023-01-26] MEDS: pantoprazole DR 40 mg Tablet PO (06:10)
[2023-01-26] MEDS: sucralfate 1 gm/10 mL Oral Liq UDC PO ×4 (06:10→20:33)
[2023-01-26] MEDS: levothyroxine 75 mcg Tablet PO (06:10)
[2023-01-26 06:18] LABS: Basophils # 0.1 10^3/uL (0.0-0.1); Basophils % 0.5 %; Eosinophils # 0.7 10^3/uL (0.0-0.8); Eosinophils % 6.3 %; Hematocrit 28.1 % (37.0-47.0); Hemoglobin 9.2 g/dL (11.5-15.3); Lymphocytes # 0.4 10^3/uL (0.8-4.8); Lymphocytes % 3.8 %; Mean Corpuscular HGB Conc 32.7 g/dL (30.0-36.0); Mean Corpuscular Hemoglobin 34.2 pg (28.0-34.0); Mean Corpuscular Volume 104.5 fl (81-99); Mean Platelet Volume 11.2 fL (7.4-10.4); Monocytes % 9.1 %; Neutrophils # 8.41 10^3/uL (1.8-7.7); Neutrophils % 79.6 %; Nucleated Red Blood Cells % 0 %; Platelet Count 100 10^3/cmm (130-400); Red Blood Count 2.69 10^6/uL (4.1-5.3); Red Cell Distribution Width 20.3 % (12.1-15.1); White Blood Count 10.6 10^3/uL (4.0-10.0)
[2023-01-26] MEDS: ondansetron 2 mg/ML SDV 2 mL 4 MG IVP (06:21)
[2023-01-26 06:30] LABS: Glucose Point of Care 151 mg/dL (70-110)
[2023-01-26 06:36] LABS: Ammonia 137 umol/L (11-51)
[2023-01-26 06:43] LABS: Alanine Aminotransferase 44 U/L (0-33); Albumin Level 2.7 g/dL (3.5-5.2); Alkaline Phosphatase 212 U/L (35-105); Anion Gap 14.9 (5-19); Aspartate Amino Transferase 67 U/L (0-32); Blood Urea Nitrogen 23 mg/dL (8-23); Calcium 8.9 mg/dL (8.5-10.5); Carbon Dioxide 19 mmol/L (22-29); Chloride 106 mmol/L (98-107); Globulin 2.6 g/dL (1.3-4.6); Glucose 148 mg/dL (65-115); Magnesium 1.7 mg/dL (1.7-2.3); Osmolality Calculated 286 mOsm/kg (285-295); Potassium 4.9 mmol/L (3.5-5.1); Sodium 135 mmol/L (136-145); Total Protein 5.3 g/dL (6.6-8.7)
[2023-01-26 06:52] LABS: Total Bilirubin 13.3 mg/dL (0.15-1.2)
[2023-01-26 07:43] LABS: Glucose Point of Care 166 mg/dL (70-110)
[2023-01-26] MEDS: insulin lispro 100 unit/1 mL SUBCUT ×3 (08:44→17:19)
[2023-01-26] MEDS: nystatin 100,000 unit/mL UDC 5 mL 500000 UNIT PO ×3 (08:49→20:34)
[2023-01-26 10:58] LABS: Glucose Point of Care 218 mg/dL (70-110)
[2023-01-26 11:22] LABS: Glucose Point of Care 209 mg/dL (70-110)
[2023-01-26 17:02] LABS: Glucose Point of Care 177 mg/dL (70-110)
[2023-01-26] MEDS: cefTRIAXone 1,000 MG in sodium chloride 0.9% (plus) 50 ML 100 MG IV (20:34)
[2023-01-26 21:42] LABS: Glucose Point of Care 160 mg/dL (70-110)
--- NOTE | 2023-01-26 21:58 | P.PN_ITS ---
Subjective Subjective: She is somnolent. Somewhat tired. Having some pain in her lower back. No abdominal pain. Vitals/I&O/Wt Last Vital Signs Temp 98.7 F 01/26/23 20:00 Pulse 111 H 01/26/23 20:00 Resp 18 01/26/23 20:00 BP 124/62 01/26/23 20:00 Pulse Ox 90 01/26/23 20:00 O2 Del Method Room Air 01/26/23 11:32 01/26/23 01/26/23 01/26/23 06:59 14:59 22:59 Intake Total 110 / 310 120 / 120 Balance 110 / 310 120 / 120 Weight last 48 hrs Weight 50.802 kg Physical Exam Narrative: Accompanied by her daughter. Const: GENERAL APPEARANCE: lethargic ORIENTATION/CONSCIOUSNESS: Yes lethargic OTHER: Wakes up to voice, shoulder touch. HENMT: COMMON NORMALS: oropharynx normal Neck/C-Spine: COMMON NORMALS: no JVD Resp: COMMON NORMALS: normal respiratory effort and clear to auscultation bilaterally AUSCULTATION: clear to auscultation bilaterally Cardio: COMMON NORMALS: no JVD, regular rhythm, S1 normal heart sound present, S2 normal heart sound present and No murmurs present (Cardio) RHYTHM: regular rhythm HEART SOUNDS: S1 normal heart sound present and S2 normal heart sound present GI: COMMON NORMALS: Soft to palpation and non-tender INSPECTION: Yes abdominal distension PALPATION: Yes Soft to palpation Extremity: COMMON NORMALS: no joint enlargement and no pedal edema Neuro: COMMON NORMALS: moves all extremities SENSORIUM/ORIENTATION: Yes lethargic Data 01/26/23 06:05 01/26/23 06:05 Micro: Microbiology 01/25/23 21:57 Blood Culture - Preliminary Blood SPECIMEN COLLECTED 01/25/23 21:50 Blood Culture - Preliminary Blood SPECIMEN COLLECTED A&P Assessment and plan (1) Urinary tract infection: Continue Rocephin. Blood cultures so far negative. Urine culture noted pending, follow-up. No obstruction noted on CT. Patient presents with urinary tract infection. She has had multiple recent hospitalizations. Obtain urine culture, initiate Rocephin Obtain blood culture No evidence of obstruction on CT scan Qualifiers: Hematuria presence: with hematuria Urinary tract infection type: acute cystitis Qualified Code(s): N30.01 - Acute cystitis with hematuria (2) Hepatic encephalopathy: Acute neurologic change with acute encephalopathy last 2 days, may be multifactorial including metabolic encephalopathy secondary to UTI, hepatic encephalopathy with noted elevation of ammonia. Hyponatremia is mild. Continue treatment of UTI. Continue lactulose. Additional assessment with paracentesis discussed with her and family and both are agreeable. Ammonia today noted elevated 137. Patient presents with CT evidence of impacted stools. This is likely the cause of her current GI bleeding. Acute hepatic encephalopathy. Lactulose dose was lowered, when it was apparent she was having frequent loose stools Continue rifaximin, increase lactulose back to 4 times daily Follow-up ammonia level. (3) Cirrhosis of liver: Discussed paracentesis, to which they are agreeable. Assess for possibility of SBP. Continue ceftriaxone empirically for now. Requested paracentesis and studies. Her daughter tells me about pending appointment next week with [facility] with further discussion with regards to possibility of being placed on liver transplantation list. Discussed with case management. Significant liver disease, with worsening bilirubin, with suspected chronic DIC. Continue to follow outpatient with [facility] From my understanding she has been evaluated for liver transplant Overall prognosis is poor History of esophageal varices Check INR LFTs daily Qualifiers: Ascites presence: with ascites Hepatic cirrhosis type: unspecified hepatic cirrhosis Qualified Code(s): K74.60 - Unspecified cirrhosis of liver; R18.8 - Other ascites (4) Hyponatremia: Mild hyponatremia. Sodium noted 135. Follow-up chemistry. Currently cardiac diet, switch to regular in case further worsening of sodium. Likely secondary to liver disease (5) Pleural effusion on right: Continue to drain [place] drain at least every 48 hours (6) Diabetes mellitus, type II: Sliding scale insulin, consistent carb diet Qualifiers: Diabetes mellitus jig grinder insulin use: with detention use (7) Thrush: nystatin 4 times daily swish and swallow Plan Multiple other medical problems as outlined in past medical history Full code currently SCDs for DVT prophylaxis, anticoagulation contraindicated Multiple hospitalizations, with increasing weakness. Consideration of skilled care pending evaluation at [facility]. [facility] Medical Necessity Statement*: Continue admission for regimen of acute encephalopathy, UTI, hepatic encephalop athy, assessment for possible SBP. Diagnoses Urinary tract infection N30.01 Hematuria presence: with hematuria Urinary tract infection type: acute cystitis Hepatic encephalopathy K76.82 Cirrhosis of liver K74.60; R18.8 Ascites presence: with ascites Hepatic cirrhosis type: unspecified hepatic cirrhosis Hyponatremia E87.1 Pleural effusion on right J90 Diabetes mellitus, type II E11.9 Diabetes mellitus detention insulin use: with jig grinder use Thrush B37.0
[2023-01-27] VITALS (7 sets, daily range): BP systolic 115–151; BP diastolic 54–65; PULSE 101–111; RESP 16–19; TEMP 36.4–36.8; O2SAT 90–97
[2023-01-27] MEDS: lactulose oral liq 20 gm/30 mL UDC PO ×4 (02:47→21:18)
[2023-01-27 05:54] LABS: Basophils # 0.1 10^3/uL (0.0-0.1); Basophils % 0.7 %; Eosinophils # 0.9 10^3/uL (0.0-0.8); Eosinophils % 6.7 %; Hematocrit 26.9 % (37.0-47.0); Hemoglobin 9.1 g/dL (11.5-15.3); Lymphocytes # 0.8 10^3/uL (0.8-4.8); Lymphocytes % 5.9 %; Mean Corpuscular HGB Conc 33.8 g/dL (30.0-36.0); Mean Corpuscular Hemoglobin 35.4 pg (28.0-34.0); Mean Corpuscular Volume 104.7 fl (81-99); Monocytes # 1.3 10^3/uL (0.2-0.9); Monocytes % 10.1 %; Neutrophils # 9.71 10^3/uL (1.8-7.7); Neutrophils % 75.8 %; Nucleated Red Blood Cells % 0 %; Platelet Count 110 10^3/cmm (130-400); Red Blood Count 2.57 10^6/uL (4.1-5.3); Red Cell Distribution Width 21.1 % (12.1-15.1); White Blood Count 12.8 10^3/uL (4.0-10.0)
[2023-01-27 06:09] LABS: Ammonia 68 umol/L (11-51)
[2023-01-27 06:21] LABS: Alanine Aminotransferase 46 U/L (0-33); Albumin Level 2.9 g/dL (3.5-5.2); Alkaline Phosphatase 228 U/L (35-105); Anion Gap 12.3 (5-19); Aspartate Amino Transferase 74 U/L (0-32); Blood Urea Nitrogen 25 mg/dL (8-23); Calcium 9.4 mg/dL (8.5-10.5); Carbon Dioxide 21 mmol/L (22-29); Chloride 106 mmol/L (98-107); Globulin 2.5 g/dL (1.3-4.6); Glucose 166 mg/dL (65-115); Magnesium 1.9 mg/dL (1.7-2.3); Osmolality Calculated 286 mOsm/kg (285-295); Potassium 5.3 mmol/L (3.5-5.1); Sodium 134 mmol/L (136-145); Total Protein 5.4 g/dL (6.6-8.7)
[2023-01-27 06:25] LABS: Total Bilirubin 13.5 mg/dL (0.15-1.2)
[2023-01-27 06:44] LABS: Glucose Point of Care 172 mg/dL (70-110)
[2023-01-27] MEDS: insulin lispro 100 unit/1 mL SUBCUT ×3 (08:51→22:02)
[2023-01-27] MEDS: lidocaine 5% Patch 1 PATCH TOPICAL (10:27)
[2023-01-27 11:37] LABS: Glucose Point of Care 156 mg/dL (70-110)
[2023-01-27] MEDS: sucralfate 1 gm/10 mL Oral Liq UDC PO ×3 (12:02→21:18)
[2023-01-27] MEDS: nystatin 100,000 unit/mL UDC 5 mL 500000 UNIT PO ×3 (13:54→21:19)
--- NOTE | 2023-01-27 17:37 | PC.NURSE ---
Accessed pt's Bast[place] drain and pulled off 1000ml with a Bastrop drain kit. Pt tolerated procedure well. Dressing was replaced.
[2023-01-27 18:06] LABS: Glucose Point of Care 182 mg/dL (70-110)
--- NOTE | 2023-01-27 19:40 | P.PN_ITS ---
Subjective Subjective: She is more awake and alert today. Still with some lower back pain which her daughter states usually appears when she is needing to have drainage of pleural effusion or paracentesis. Denies abdominal pain. No nausea or vomiting. Later on in the day having skin itching. Normally at home to use Sarna which is not available here. Vitals/I&O/Wt Last Vital Signs Temp 98.1 F 01/27/23 15:32 Pulse 110 H 01/27/23 15:32 Resp 16 01/27/23 15:32 BP 132/62 01/27/23 15:32 Pulse Ox 90 01/27/23 15:32 O2 Del Method Room Air 01/27/23 11:11 01/27/23 01/27/23 01/27/23 06:59 14:59 22:59 Intake Total 50 / 50 Output Total 1000 / 1000 Balance 50 / 50 -1000 / -950 Physical Exam Narrative: Accompanied by her daughter. Const: GENERAL APPEARANCE: lethargic ORIENTATION/CONSCIOUSNESS: Yes lethargic HENMT: COMMON NORMALS: oropharynx normal Neck/C-Spine: COMMON NORMALS: no JVD Resp: COMMON NORMALS: normal respiratory effort and clear to auscultation bilaterally AUSCULTATION: clear to auscultation bilaterally and diminished lung sounds on the right in the lower lung tucker Cardio: COMMON NORMALS: no JVD, regular rhythm, S1 normal heart sound present, S2 normal heart sound present and No murmurs present (Cardio) RHYTHM: regular rhythm HEART SOUNDS: S1 normal heart sound present and S2 normal heart sound present GI: COMMON NORMALS: Soft to palpation and non-tender INSPECTION: Yes abdo nima distension PALPATION: Yes Soft to palpation Extremity: COMMON NORMALS: no joint enlargement and no pedal edema Neuro: COMMON NORMALS: moves all extremities SENSORIUM/ORIENTATION: Yes lethargic Data 01/27/23 05:47 01/27/23 05:47 Micro: Microbiology 01/25/23 17:57 Urine Culture - Preliminary Urine,Clean Catch Gram Negative Rods 01/25/23 21:50 Blood Culture - Preliminary Blood 01/25/23 21:57 Blood Culture - Preliminary Blood NEGATIVE TO DATE A&P Assessment and plan (1) Urinary tract infection: Continue Rocephin. Blood cultures 1/3 bottles cold positive but no microorganisms seen. Urine culture with noted gram-negative rods. No obstruction noted on CT. Patient presents with urinary tract infection. She has had multiple recent hospitalizations. Obtain urine culture, initiate Rocephin Obtain blood culture No evidence of obstruction on CT scan Qualifiers: Hematuria presence: with hematuria Urinary tract infection type: acute cystitis Qualified Code(s): N30.01 - Acute cystitis with hematuria (2) Hepatic encephalopathy: Today with improvement. She is more awake and alert. Ammonia noted decreased down to 68. Continue treatment of gram-negative marce UTI. Pending paracentesis. Mild hyponatremia slightly worse to 134. Continue treatment of UTI. Continue lactulose. Additional assessment with paracentesis discussed with her and family and both are agreeable. Patient presents with CT evidence of impacted stools. This is likely the cause of her current GI bleeding. Acute hepatic encephalopathy. Lactulose dose was lowered, when it was apparent she was having frequent loose stools Continue rifaximin, increase lactulose back to 4 times daily Follow-up ammonia level. Follow-up CMP. (3) Cirrhosis of liver: Discussed paracentesis, to which they are agreeable. Assess for possibility of SBP. Continue ceftriaxone empirically for now. Requested paracentesis and studies. Pending paracentesis. 1 L drained from right side hydrothorax today which she tolerated well. Her daughter tells me about pending appointment next week with [facility] with further discussion with regards to possibility of being placed on liver transplantation list. Discussed with case management. Significant liver disease, with worsening bilirubin, with suspected chronic DIC. Continue to follow outpatient with [facility] From my understanding she has been evaluated for liver transplant Overall prognosis is poor History of esophageal varices LFTs daily Qualifiers: Ascites presence: with ascites Hepatic cirrhosis type: unspecified hepatic cirrhosis Qualified Code(s): K74.60 - Unspecified cirrhosis of liver; R18.8 - Other ascites (4) Hyponatremia: Mild hyponatremia. Sodium noted 134. Follow-up chemistry. Currently cardiac diet, switch to regular in case further worsening of sodium. Likely secondary to liver disease Drained fluid from right thoracic cavity today. Follow-up chemistry. (5) Pleural effusion on right: Continue to drain Sudarshan drain at least every 48 hours. Daughter tells me today would be usual day to get it drained. 1 L drained today 01/27. Monitor blood pressure for any hypotension. 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 Pending paracentesis. Today drained 1 L from the right chest. Multiple other medical problems as outlined in past medical history Full code currently SCDs for DVT prophylaxis, anticoagulation contraindicated Multiple hospitalizations, with increasing weakness. Consideration of skilled care pending evaluation at [facility]. [facility] Medical Necessity Statement*: Continue admission for assessment management of multifactorial acute encephalopathy with UTI, hepatic encephalopathy, pending additional assessment for possible SBP. Diagnoses Urinary tract infection N30.01 Hematuria presence: with hematuria Urinary tract infection type: acute cystitis Hepatic encephalopathy K76.82 Cirrhosis of liver K74.60; R18.8 Ascites presence: with ascites Hepatic cirrhosis type: unspecified hepatic cirrhosis Hyponatremia E87.1 Pleural effusion on right J90 Diabetes mellitus, type II E11.9 Diabetes mellitus laborer marine terminal insulin use: with laborer marine terminal use Thrush B37.0
[2023-01-27] MEDS: cefTRIAXone 1,000 MG in sodium chloride 0.9% (plus) 50 ML 100 MG IV (21:23)
[2023-01-27 21:54] LABS: Glucose Point of Care 202 mg/dL (70-110)
[2023-01-28] VITALS: BP 112/64; PULSE 102; RESP 15; TEMP 36.7; O2SAT 93
[2023-01-28] MEDS: lactulose oral liq 20 gm/30 mL UDC PO ×3 (03:05→14:30)
[2023-01-28 04:00] VITALS: BP 126/63; PULSE 107; RESP 16; TEMP 37.1; O2SAT 95
[2023-01-28] MEDS: pantoprazole DR 40 mg Tablet PO (05:27)
[2023-01-28] MEDS: levothyroxine 75 mcg Tablet PO (05:27)
[2023-01-28 05:35] LABS: Basophils # 0.1 10^3/uL (0.0-0.1); Basophils % 0.8 %; Eosinophils # 1.3 10^3/uL (0.0-0.8); Eosinophils % 11.6 %; Hematocrit 27.6 % (37.0-47.0); Hemoglobin 9.1 g/dL (11.5-15.3); Lymphocytes # 0.8 10^3/uL (0.8-4.8); Lymphocytes % 6.9 %; Mean Corpuscular Hemoglobin 34.9 pg (28.0-34.0); Mean Corpuscular Volume 105.7 fl (81-99); Mean Platelet Volume 10.6 fL (7.4-10.4); Monocytes # 1.1 10^3/uL (0.2-0.9); Monocytes % 9.7 %; Neutrophils # 7.77 10^3/uL (1.8-7.7); Neutrophils % 70.4 %; Nucleated Red Blood Cells % 0 %; Platelet Count 107 10^3/cmm (130-400); Red Blood Count 2.61 10^6/uL (4.1-5.3); Red Cell Distribution Width 21.2 % (12.1-15.1)
[2023-01-28 05:50] LABS: Ammonia 30 umol/L (11-51)
[2023-01-28 05:59] LABS: Alanine Aminotransferase 48 U/L (0-33); Albumin Level 2.7 g/dL (3.5-5.2); Alkaline Phosphatase 229 U/L (35-105); Blood Urea Nitrogen 26 mg/dL (8-23); Calcium 9.1 mg/dL (8.5-10.5); Carbon Dioxide 21 mmol/L (22-29); Chloride 108 mmol/L (98-107); Globulin 2.8 g/dL (1.3-4.6); Glucose 160 mg/dL (65-115); Osmolality Calculated 294 mOsm/kg (285-295); Sodium 138 mmol/L (136-145); Total Protein 5.5 g/dL (6.6-8.7)
[2023-01-28 06:04] LABS: Anion Gap 13.5 (5-19); Aspartate Amino Transferase 85 U/L (0-32); Potassium 4.5 mmol/L (3.5-5.1)
[2023-01-28 06:06] LABS: Total Bilirubin 11.9 mg/dL (0.15-1.2)
[2023-01-28] MEDS: sucralfate 1 gm/10 mL Oral Liq UDC PO ×3 (06:21→17:35)
[2023-01-28 06:57] LABS: Glucose Point of Care 157 mg/dL (70-110)
[2023-01-28 08:00] VITALS: BP 130/60; PULSE 70; RESP 18; TEMP 36.4; O2SAT 90; O2SAT 94
--- NOTE | 2023-01-28 08:00 | US_ITS ---
WS: [id number] Abdominal ultrasound, limited. History: Evaluate for ascites. Comparison: None. All 4 quadrants are imaged by ultrasound to evaluate for ascites. Very minimal ascites within the per itoneal cavity. There are a few very small pockets of fluid. Insufficient for paracentesis. US/US abdomen lmt fluid [id number] IMPRESSION: Very minimal scant peritoneal fluid.
[2023-01-28] MEDS: nystatin 100,000 unit/mL UDC 5 mL 500000 UNIT PO ×3 (08:45→17:35)
[2023-01-28] MEDS: lidocaine 5% Patch 1 PATCH TOPICAL (08:45)
[2023-01-28] MEDS: insulin lispro 100 unit/1 mL SUBCUT ×2 (08:45→12:21)
--- NOTE | 2023-01-28 10:24 | PC.CHAP ---
Pastoral Care Encounter/Spiritual Assessment Type of Contact [x] Declined paper cup handle machine operator visit [] Patient/Family/Request visit [] Outpatient visit [] Follow-up visit [] Physician referral [] Code/Alert [] Routine visit [] Staff referral [] Actively dying [] Patient sleeping [] Family support [] [] Out of room [] Palliative care [] [] Receiving care in room [] Pre-surgical visit [] Trauma [] Long length of stay [] ICU visit [] Other: Relational/Emotional Strength [] Patient feels connected with others/family/visitors/staff [] Distress [] Loneliness/isolation [] Abandonment Spirituality of Patient [] Person of Delilah [] Attends Mandaeism of their Delilah [] Believes in Prayer [] Reads Bible or Scientology materials [] There are Spiritual issues to be addressed Office Machine Embossograph Operator Interventions [] Prayer [] Active listening [] Non-anxious presence [] Spiritual/emotional support [] Crisis/trauma care [] Spiritual counseling [] Bereavement support [] Provided bereavement packet [] Provided Bible/devotional materials [] Provided toy/stuffed animal, coloring book to patient or family member [] Provided Communion [] Anointing/[place] [] Salvation [] Completed spiritual assessment [] Other: Impact on Illness or Injury [] Angry [] Fearful [] Anxious [] Often cries [] Exhaustion [] Unable to work [] Unable to attend nondenominational [] Unable to walk/stand [] Unable to read [] Unable to drive [] Unable to eat/drink [] Unable to sleep [] Unable to be with family [] Patient intubated [] Other: Summary Declined paper cup handle machine operator visit Time spent with patient 5 mins
[2023-01-28 12:00] VITALS: BP 127/64; PULSE 92; RESP 18; TEMP 36.6; O2SAT 97
[2023-01-28 12:08] LABS: Glucose Point of Care 234 mg/dL (70-110)
--- NOTE | 2023-01-28 15:11 | PM.DCS ---
Discharge Providers Date of Admission: 01/26/23 01:03 Date of Discharge: January 28, 2023 Attending Provider at Admission: Caio Justice MD Attending Provider at Discharge: Bertrand Evans Primary Care Provider: Donal Fernandes MD Diagnoses at Discharge Discharge Diagnosis (1) Urinary tract infection: Status: Acute Qualifiers: Hematuria presence: with hematuria Urinary tract infection type: acute cystitis Qualified Code(s): N30.01 - Acute cystitis with hematuria (2) Hepatic encephalopathy: Status: Acute (3) Cirrhosis of liver: Status: Acute Qualifiers: Ascites presence: with ascites Hepatic cirrhosis type: unspecified hepatic cirrhosis Qualified Code(s): K74.60 - Unspecified cirrhosis of liver; R18.8 - Other ascites (4) Hyponatremia: Status: Acute (5) Pleural effusion on right: Status: Acute (6) Diabetes mellitus, type II: Status: Acute Qualifiers: Diabetes mellitus long term care administrator insulin use: with long term care administrator use (7) Thrush: Status: Acute Reason for Visit Reason for Visit: confusion, weakness, unstable Hospital Course Hospital Course Pleasant 72-year-old lady with liver cirrhosis, recurrent ascites, hepatic hydrothorax, status post Pleurx catheter placement during recent hospitalization at [facility], has a pending appointment with 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 On presentation lethargic, with finding of multifactorial encephalopathy with hepatic encephalopathy, urinary tract infection. Also noted ascites, could not exclude SBP. Empirically started on antibiotic coverage with Rocephin. Urine culture eventually growing Klebsiella. Lactulose dose was recently cut down as well. Resumed at prior dosing. Subsequently with improvement in mental status with treatment of UTI, ammonia coming down with improvement in hepatic encephalopathy. Consideration of SBP, however, no abdominal symptoms, tolerating oral intake. Paracentesis requested, but not enough fluid for procedure. Suspicion for SBP is low at this time. Preliminary blood cultures so far negative. Please follow-up final results. Complete treatment for UTI with cefdinir. Follow-up with hepatology and PCP. Mild transient hyperkalemia, maintain low potassium diet. Avoid potassium sparing medications. Physical Exam Narrative: Accompanied by her daughter. Const: GENERAL APPEARANCE: lethargic ORIENTATION/CONSCIOUSNESS: Yes lethargic OTHER: Awake, alert, pleasant, interactive. Not in pain. Has been having some itching. No rash. HENMT: COMMON NORMALS: oropharynx normal Neck/C-Spine: COMMON NORMALS: no JVD Resp: COMMON NORMALS: normal respiratory effort and clear to auscultation bilaterally AUSCULTATION: clear to auscultation bilaterally and diminished lung sounds on the right in the lower lung tucker Cardio: COMMON NORMALS: no JVD, regular rhythm, S1 normal heart sound present, S2 normal heart sound present and No murmurs present (Cardio) RHYTHM: regular rhythm HEART SOUNDS: S1 normal heart sound present and S2 normal heart sound present GI: COMMON NORMALS: Soft to palpation and non-tender INSPECTION: Yes abdominal distension PALPATION: Yes Soft to palpation Extremity: COMMON NORMALS: no joint enlargement and no pedal edema Neuro: COMMON NORMALS: moves all extremities SENSORIUM/ORIENTATION: Yes lethargic Discharge Data Studies Completed and Pending Completed Studies During Hospitalization Category Date Time Status CT chest abdomen pelvis [CT chest abdpel w/*[id number] Cat Scan 01/25/23 18:43 Completed ] Stat XR chest 1V portable [id number] Stat Exams 01/25/23 17:07 Completed US abdomen lmt fluid [id number] Routine Ultrasound 01/28/23 08:00 Completed Pending at discharge Category Date Time Status Albumin Peritoneal Fluid Routine Lab 01/26/23 15:15 Uncollected Ammonia AM LABS Lab 01/29/23 04:00 Ordered Blood Culture Stat Lab 01/25/23 21:57 Results Body Fluid Culture & GS Routine Lab 01/26/23 15:15 Uncollected Complete Blood Count w/Auto AM LABS Lab 01/29/23 04:00 Ordered Comprehensive Metabolic Panel AM LABS Lab 01/29/23 04:00 Ordered Cyto Order Verification Routine Lab 01/26/23 15:16 Ordered Peritoneal Fluid Analysis Routine Lab 01/26/23 15:15 Uncollected Radiology Impressions Chest X-Ray 01/25/23 17:07 IMPRESSION: Right lung opacity is likely due to a combination of a moderate to large amount of pleural fluid with accompanying infiltrate and/or atelectasis. Chest/Abdomen/Pelvis CT 01/25/23 18:43 IMPRESSION: 1. Large right pleural effusion with a right-sided superiorly directed chest tube in the effusion. 2. Patchy bilateral airspace infiltrates. 3. Several bilateral axillary subcentimeter nonspecific lymph nodes. IMPRESSION: 1. Prominent fluid in the small bowel without dilation, please correlate for possible enteritis. 2. Left hepatic lobe cyst. 3. Anasarca. 4. Cirrhotic liver. 5. Cholecystectomy. 6. Large amount of abdominal ascites. 7. Constipation. 8. Varices in the upper abdomen reflective of portal venous hypertension. 9. Bilateral renal cysts, negative for follow-up advised. Abdomen Ultrasound 01/28/23 08:00 IMPRESSION: Very minimal scant peritoneal fluid. Laboratory Results WBC 11.0 10^3/uL (4.0-10.0) H 01/28/23 05:18 RBC 2.61 10^6/uL (4.1-5.3) L 01/28/23 05:18 Hgb 9.1 g/dL (11.5-15.3) L 01/28/23 05:18 Hct 27.6 % (37.0-47.0) L 01/28/23 05:18 MCV 105.7 fl (81-99) H 01/28/23 05:18 MCH 34.9 pg (28.0-34.0) H 01/28/23 05:18 MCHC 33.0 g/dL (30.0-36.0) 01/28/23 05:18 RDW 21.2 % (12.1-15.1) H 01/28/23 05:18 Plt Count 107 10^3/cmm (130-400) L 01/28/23 05:18 MPV 10.6 fL (7.4-10.4) H 01/28/23 05:18 Neut % (Auto) 70.4 % 01/28/23 05:18 Lymph % (Auto) 6.9 % 01/28/23 05:18 [place] % (Auto) 9.7 % 01/28/23 05:18 Eos % (Auto) 11.6 % 01/28/23 05:18 Baso % (Auto) 0.8 % 01/28/23 05:18 Neut # (Auto) 7.77 10^3/uL (1.8-7.7) H 01/28/23 05:18 Lymph # (Auto) 0.8 10^3/uL (0.8-4.8) 01/28/23 05:18 [place] # (Auto) 1.1 10^3/uL (0.2-0.9) H 01/28/23 05:18 Eos # (Auto) 1.3 10^3/uL (0.0-0.8) H 01/28/23 05:18 Baso # (Auto) 0.1 10^3/uL (0.0-0.1) 01/28/23 05:18 Nucleated RBC % (auto) 0 % 01/28/23 05:18 Nucleated RBCs # 0.0 /100WBC 01/28/23 05:18 PT 23.70 SECONDS (12.1-14.9) H 01/25/23 17:35 INR 2.03 (0.8-1.2) H 01/25/23 17:35 Sodium 138 mmol/L (136-145) 01/28/23 05:18 Potassium 4.5 mmol/L (3.5-5.1) 01/28/23 05:18 Chloride 108 mmol/L (98-107) H 01/28/23 05:18 Carbon Dioxide 21 mmol/L (22-29) L 01/28/23 05:18 Anion Gap 13.5 (5-19) 01/28/23 05:18 BUN 26 mg/dL (8-23) H 01/28/23 05:18 Creatinine 0.5 mg/dL (0.5-0.9) 01/28/23 05:18 GFR Calculation Not Reportable 01/28/23 05:18 Glucose 160 mg/dL (65-115) H 01/28/23 05:18 POC Glucose 234 mg/dL (70-110) H 01/28/23 12:04 Calculated Osmolality 294 mOsm/kg (285-295) 01/28/23 05:18 Calcium 9.1 mg/dL (8.5-10.5) 01/28/23 05:18 Magnesium 1.9 mg/dL (1.7-2.3) 01/27/23 05:47 Total Bilirubin 11.9 mg/dL (0.15-1.2) H* 01/28/23 05:18 AST 85 U/L (0-32) H 01/28/23 05:18 ALT 48 U/L (0-33) H 01/28/23 05:18 Alkaline Phosphatase 229 U/L (35-105) H 01/28/23 05:18 Ammonia 30 umol/L (11-51) 01/28/23 05:18 Total Protein 5.5 g/dL (6.6-8.7) L 01/28/23 05:18 Albumin 2.7 g/dL (3.5-5.2) L 01/28/23 05:18 Globulin 2.8 g/dL (1.3-4.6) 01/28/23 05:18 Urine Color [place] (Yellow) 01/25/23 17:57 Urine Appearance Cloudy (CLEAR) A 01/25/23 17:57 Urine pH 6 (5-7) 01/25/23 17:57 Ur Specific [place] 1.020 (1.005-1.030) 01/25/23 17:57 Urine Protein 1+ (Negative) H 01/25/23 17:57 Urine Glucose (UA) Norm (Normal) 01/25/23 17:57 Urine Ketones Negative (Negative) 01/25/23 17:57 Urine Blood 3+ (Negative) H 01/25/23 17:57 Urine Nitrate Negative (Negative) 01/25/23 17:57 Urine Bilirubin 2+ (Negative) H 01/25/23 17:57 Urine Urobilinogen 1 mg/dL (Negative) H 01/25/23 17:57 Ur Leukocyte Esterase 2+ (Negative) H 01/25/23 17:57 Urine RBC 25-40 /hpf (0-2) H 01/25/23 17:57 Urine WBC 40-55 /hpf (0-5) H 01/25/23 17:57 Ur Squamous Epith Cells 0-4 /hpf (0-5) H 01/25/23 17:57 Amorphous Sediment Not Reportable 01/25/23 17:57 Urine Bacteria 4+ /hpf (NONE) H 01/25/23 17:57 Vitals Last Vital Signs Temp 98 F 01/28/23 12:00 Pulse 92 01/28/23 12:00 Resp 18 01/28/23 12:00 BP 127/64 01/28/23 12:00 Pulse Ox 97 01/28/23 12:00 O2 Del Method Room Air 01/28/23 08:00 Discharge Plan Discharge Patient Disposition: Home Condition: Stable Prescriptions: New nystatin 100,000 unit/mL Suspension 500,000 unit PO QID 14 Days Qty: 280 0RF cefdinir 300 mg capsule 300 mg PO BID 5 Days Qty: 10 0RF Continued (DME) BD Insulin Syringe U-500 1/2 mL 31 gauge x 15/64 syringe See Rx Instructions .ROUTE .MEDSUPPLY Qty: 100 3RF Rx Instructions: As directed for subcutaneous insulin administration (DME) insulin syringe-needle U-100 [BD Insulin Syringe Ultra-Fine] 1 mL 31 gauge x 5/16 syringe See Rx Instructions .ROUTE .MEDSUPPLY Qty: 100 3RF Rx Instructions: As directed (DME) diabetic shoes See Rx Instructions .Route .MEDSUPPLY Qty: 1 0RF Rx Instructions: As directed (DME) pen needle, diabetic [Sure Comfort Pen Needle] 32 gauge x 5/32 needle See Rx Instructions .ROUTE .COMPLEX Qty: 300 3RF Dose Instruction: INJECT 20 UNITS UNDER THE SKIN THREE TIMES A DAY Rx Instructions: INJECT 20 UNITS UNDER THE SKIN THREE TIMES A DAY sodium chloride 0.65 % [place],Non-Aerosol 2 spray INTRANASAL Q2H PRN (Reason: Congestion) levothyroxine 75 mcg Tablet 75 mcg PO QAM camphor-menthol 0.5-0.5 % Lotion 1 applic TOPICAL Q2H PRN (Reason: Itching) hydroxyzine HCl 10 mg Tablet 10 mg PO TID PRN (Reason: Itching) oxycodone 5 mg Tablet 5 mg PO Q4H PRN (Reason: Pain) Rx Instructions: take one tablet every four hours as needed for pain for up to 7 days insulin lispro 100 unit/mL Insulin Pen 10 unit SUBCUT TID Rx Instructions: SLIDING SCALE cyclobenzaprine 5 mg Tablet 5 mg PO TID cholecalciferol (vitamin D3) 250 mcg (10,000 unit) Capsule 250 mcg PO DAILY insulin glargine 100 unit/mL (3 mL) Insulin Pen 10 unit SUBCUT QPM rifaximin 550 mg Tablet 550 mg PO BID lactulose 20 gram/30 mL Solution 30 g PO QID sucralfate 100 mg/mL Suspension 1 g PO AC&BEDTIME 28 Days Qty: 1000 0RF pantoprazole [Protonix] 40 mg tablet,delayed release (DR/EC) 40 mg PO QAM Qty: 60 0RF Rx Instructions: Twice daily for 2 weeks and then daily Ensure Liquid 1 ea PO .Each meal Qty: 5688 0RF Discharge Orders: Discharge Order (Routine); Ordered 01/28/23 Ordered By: Bertrand Evans Referrals: Donal Fernandes MD [Primary Care Provider] - 02/01/23 12:30 pm Discharge Diet: As Directed and Diabetic Discharge Activity: Increase activity as tolerated Patient Instructions: Cefdinir (By mouth), Urinary Tract Infection in Women (GEN), Potassium Content of Foods List (GEN), Fall Prevention (GEN), Opioid Safety Activity Restrictions/Additional Instructions: Follow-up with your primary doctor for reassessment after resolution of UTI. Follow-up with your hepatology specialist in [place] for reassessment and further consideration of liver transplant eligibility. In case of any worsening or new concerning symptoms, seek medical attention including but not limited to confusion, lethargy, abdominal pain, unable to tolerate oral intake, worsening abdominal distention, pain, blood with or inability to urinate or any other. Continue low potassium diet, have a primary doctor follow-up chemistry including potassium due to noted propensity for mild elevation of potassium. Avoid potassium supplements. Continue lactulose, target 2-3 soft bowel movements per day to keep ammonia level down and prevent recurrence of confusion and lethargy. Discharge Attestations Time Spent in Discharge Care*: greater than 30 min Status at Discharge: Cognitive status at discharge: cognitively intact, Behavioral status at discharge: cooperative, Quality Metrics Clinical Quality Measures [ No reported AMI, CVA or VTE this stay] Coding Level of Care Code 14044 Total time (in minutes) for Discharge: 60 Diagnoses Urinary tract infection N30.01 Hematuria presence: with hematuria Urinary tract infection type: acute cystitis Hepatic encephalopathy K76.82 Cirrhosis of liver K74.60; R18.8 Ascites presence: with ascites Hepatic cirrhosis type: unspecified hepatic cirrhosis Hyponatremia E87.1 Pleural effusion on right J90 Diabetes mellitus, type II E11.9 Diabetes mellitus long term care administrator insulin use: with long term care administrator use Thrush B37.0
[2023-01-28] MEDS: cyclobenzaprine 10 mg Tablet PO (15:45)
[2023-01-28 16:00] VITALS: BP 129/67; PULSE 108; RESP 16; TEMP 36.7; O2SAT 93
[2023-01-28 17:39] LABS: Glucose Point of Care 242 mg/dL (70-110)
[2023-01-28 18:40] VITALS: BP 129/67; PULSE 108; RESP 16; TEMP 36.7; O2SAT 93
== END 2023-01-28 17:50 | disposition home health service (06) | DRG 432 ==
LOC: ER 22:26 → MEDSURG 01-26 01:03
PROVIDERS: Admitting Provider Internal Medicine; Emergency Provider Emergency Medicine; PCP Family Medicine; Visit Provider Internal Medicine
DX: K74.60 Unspecified cirrhosis of liver (principal); D65 Disseminated intravascular coagulation [defibrination syndrome]; I85.10 Secondary esophageal varices without bleeding; N30.01 Acute cystitis with hematuria; R18.8 Other ascites; J94.8 Other specified pleural conditions; B37.0 Candidal stomatitis; E87.1 Hypo-osmolality and hyponatremia; K76.6 Portal hypertension; K76.82 Hepatic encephalopathy; B96.1 Klebsiella pneumoniae [K. pneumoniae] as the cause of diseases classified elsewhere; E87.5 Hyperkalemia; Z79.4 Long term (current) use of insulin; Z79.891 Long term (current) use of opiate analgesic; B19.20 Unspecified viral hepatitis C without hepatic coma; E11.9 Type 2 diabetes mellitus without complications; K21.9 Gastro-esophageal reflux disease without esophagitis; E78.5 Hyperlipidemia, unspecified; M54.50 Low back pain, unspecified; K56.41 Fecal impaction; M19.042 Primary osteoarthritis, left hand; M19.041 Primary osteoarthritis, right hand
CPT/HCPCS: 36415; 36416; 71045; 71260; 74177; 76705; 80053; 81001; 82140; 82962; 83735; 85025; 85610; 87040; 87077; 87086; 87186; 93005; 96361; 96372; 96374; 99285; J0696; J0744; J1815; J2405; Q9967

== ENCOUNTER → 2023-02-01 13:19 | Outpatient (BNVA) | payer MEDICARE, OTHER, SELFPAY | PROVIDERS: PCP Family Medicine; Visit Provider Family Medicine | DX: K76.82 Hepatic encephalopathy (principal); E72.20 Disorder of urea cycle metabolism, unspecified; K74.60 Unspecified cirrhosis of liver | CPT/HCPCS: 80053; 85025 ==